=== PATIENT | female | born 1995 | race Caucasian/White ===

== ENCOUNTER → 2020-07-29 07:09 | Outpatient (CLI) | payer OTHER, SELFPAY ==
[2019-02-10 17:15] VITALS: BMI 23.6
[2020-07-29 10:06] LABS: Absolute Lymphocyte Count 2.16 X10^3/uL (0.83-4.51); Basophil# 0.03 X10^3/uL; Basophil% 0.5 % (0-1); Eosinophil# 0.01 X10^3/uL; Eosinophils% 0.2 % (0-5); Hemoglobin 13.1 g/dL (12.0-15.0); Lymphocyte # 2.16 X10^3/ul (4.0); Lymphocyte % 38.4 % (19-41); Mean Corp Hgb Conc 33.6 g/dL (32-36); Mean Corpuscular Hgb 29.8 pg (27.0-32.0); Mean Corpuscular Volume 88.8 fL (81-99); Mean Platelet Vol. 10.6 fl (6.2-12.0); Monocyte# 0.46 X10^3/uL; Monocyte% 8.2 % (0-10); NRBC Flagged by Analyzer 0 % (0-5); Neutrophil # 2.96 X10^3/uL (2.7-7.7); Neutrophil % 52.5 % (47-70); Platelet Count 263 K/mm3 (150-450); RBC Distribution Width CV 11.7 % (11.6-14.6); RBC Distribution Width SD 36.9 fl (35.1-43.9); Red Blood Count 4.39 M/mm3 (4.2-5.4); White Blood Count 5.6 K/mm3 (4.4-11.0)
[2020-07-29 10:25] LABS: ALB/GLOB Ratio 0.9 RATIO (0.9-2.4); AST(SGOT) 11 U/L (15-37); Alanine Aminotransfer ALT/SGPT 15 U/L (13-56); Albumin, Serum 3.5 g/dL (3.2-5.0); Alkaline Phosphatase 71 U/L (45-117); Anion Gap 5 (5-15); BUN 13 mg/dL (7-18); BUN/Creat Ratio 14.6 RATIO (10-20); Calcium,Total 8.8 mg/dL (8.5-10.1); Chloride 104 mmol/L (98-107); Cholesterol 252 mg/dL (200); Creatinine, Serum 0.89 mg/dL (0.55-1.02); EST Glomerular Filtration Rate 83 mL/min (>60); Est Glom Filt Rate - Afr Amer 100 mL/min (>60); Glucose 84 mg/dL (74-106); High Density Lipoprotein 86 mg/dL; Potassium 3.5 mmol/L (3.5-5.1); Protein, Total 7.5 g/dL (6.4-8.2); Sodium Level 137 mmol/L (136-145); Triglycerides 120 mg/dL; Very Low Density Lipoprotein 24 mg/dL (5-40)
== END ==
PROVIDERS: PCP Family Medicine; Referring Provider Family Medicine; Visit Provider Family Medicine
DX: Z00.00 Encounter for general adult medical examination without abnormal findings (principal); Z13.6 Encounter for screening for cardiovascular disorders; R23.8 Other skin changes; E78.5 Hyperlipidemia, unspecified
CPT/HCPCS: 36415; 80053; 80061; 85025

== ENCOUNTER → 2024-03-03 | Outpatient (CLI) | payer BC, SELFPAY ==
[2024-03-03 11:01] LABS: Erythrocyte Sedimentation Rate 6 mm/hr (0-30)
[2024-03-03 11:52] LABS: CRP < 2.90 mg/L (0.0-3.0); Ferritin 17 ng/mL (8-252); LDH 148 U/L (84-246)
[2024-03-07 11:09] LABS: ACCA 67 units (0-90); ALCA 22 units (0-60); AMCA 84 units (0-100); Albumin 4.2 g/dL (2.9-4.4); Alpha-1-Globulins 0.3 g/dL (0.0-0.4); Alpha-2-Globulins 0.8 g/dL (0.4-1.0); Angiotensin Convert Enzyme 39 U/L (14-82); Anti-Smooth Muscle ABS 4 Units (0-19); Cytoplasmic Ab (C-ANCA) <1:20 titer (Neg:<1:20); Endomysial Antibody IgA Negative (Negative); Gamma Globulin 1.2 g/dL (0.4-1.8); Immunoglobulin A 203 mg/dL (87-352); Immunoglobulin E 147 IU/mL (6-495); Immunoglobulin G 1079 mg/dL (586-1602); Immunoglobulin M 153 mg/dL (26-217); PROEL- TOTAL PROTEIN 7.5 g/dL (6.0-8.5); Perinuclear Ab (P-ANCA) <1:20 titer (Neg:<1:20); gASCA 19 units (0-50); t-Transglutaminase IgA <2 U/mL (0-3)
[2024-03-07 17:07] LABS: Anti-Centromere B Ab <0.2 AI (0.0-0.9); Anti-Chromatin <0.2 AI (0.0-0.9); Anti-Jo <0.2 AI (0.0-0.9); Anti-Mitochondrial AB <20.0 Units (0.0-20.0); Anti-Scleroderma-70 AB <0.2 AI (0.0-0.9); Anti-dsDNA Ab <1 IU/mL (0-9); Beef <0.10 kU/L (Class 0); Chocolate <0.10 kU/L (Class 0); Codfish <0.10 kU/L (Class 0); Corn <0.10 kU/L (Class 0); Egg, Whole <0.10 kU/L (Class 0); Milk (Cow) <0.10 kU/L (Class 0); Mussels <0.10 kU/L (Class 0); Peanut <0.10 kU/L (Class 0); Pork <0.10 kU/L (Class 0); RNP Ab <0.2 AI (0.0-0.9); SJOGREN'S Anti-SS-A test < 0.2 AI (0.0-0.9); SJOGREN'S Anti-SS-B test < 0.2 AI (0.0-0.9); Salmon <0.10 kU/L (Class 0); Shrimp <0.10 kU/L (Class 0); Smith Ab <0.2 AI (0.0-0.9); Soybean <0.10 kU/L (Class 0); Tuna <0.10 kU/L (Class 0); Wheat <0.10 kU/L (Class 0)
== END | disposition home or self-care (01) ==
PROVIDERS: PCP Internal Medicine; Referring Provider Student in an Organized Health Care Education/Training Program; Visit Provider Student in an Organized Health Care Education/Training Program
DX: K59.00 Constipation, unspecified (principal)
CPT/HCPCS: 36415; 82164; 82728; 82784; 82785; 83516; 83615; 84165; 85652; 86003; 86005; 86036; 86140; 86225; 86235; 86255; 86256; 86334; 86671

== ENCOUNTER → 2024-03-07 | Outpatient (CLI) | payer BC, SELFPAY ==
[2024-03-10 03:06] LABS: Pancreatic Elastase, Fecal > 800 (>200)
[2024-03-11 13:09] LABS: Calprotectin, Stool 20 ug/g (0-120)
== END | disposition home or self-care (01) ==
PROVIDERS: PCP Internal Medicine; Referring Provider Student in an Organized Health Care Education/Training Program; Visit Provider Student in an Organized Health Care Education/Training Program
DX: K59.00 Constipation, unspecified (principal); K58.9 Irritable bowel syndrome, unspecified
CPT/HCPCS: 82653; 83630; 83993; 87177; 87209; 87329; 87493; 87506

== ENCOUNTER → 2024-03-15 | Outpatient (CLI) | payer BC, SELFPAY ==
--- NOTE | 2024-03-15 09:26 | RAD_ITS ---
STUDY: X-RAY - ABDOMEN/PELVIS REASON FOR EXAM: Female, 29 years old. sitz marker TECHNIQUE: COMPARISON: None. FINDINGS: Normal visualized lung bases. There is an unremarkable bowel gas pattern. There are Sitz markers along the descending colon and sigmoid colon. There is no demonstrated free abdominal air. The visualized liver, spleen and kidneys are grossly normal in size and morphology. Normal soft tissue structures. Normal visualized osseous structures. RAD/Abdomen Single View IMPRESSION: There are Sitz markers along the descending colon and sigmoid colon. Electronically Signed: Omar Sanchez DO at 23:51 EDT ,
== END | disposition home or self-care (01) ==
LOC: RAD 09:25
PROVIDERS: PCP Internal Medicine; Referring Provider Student in an Organized Health Care Education/Training Program; Visit Provider Student in an Organized Health Care Education/Training Program
DX: K59.00 Constipation, unspecified (principal)
CPT/HCPCS: 74018

== ENCOUNTER → 2024-03-17 | Outpatient (CLI) | payer BC, SELFPAY ==
--- NOTE | 2024-03-17 10:05 | RAD_ITS ---
EXAM: XR ABDOMEN, 1 VIEW CLINICAL INDICATION: sitz marker TECHNIQUE: Frontal supine view of the abdomen/pelvis. COMPARISON: 03/15/2024 FINDINGS: GASTROINTESTINAL TRACT: The remaining Sitzmarks markers have migrated to the distal sigmoid colon and rectum since the prior examination. There are 14 markers present. Mild colorectal stool and gas. Non-obstructive. No bowel or stomach distention. ORGANS: Normal as visualized. No organomegaly. No abnormal calcifications. BONES/JOINTS: No acute pathology. SOFT TISSUES: No acute pathology. RAD/Abdomen Single View IMPRESSION: 1. The remaining Sitzmarks markers have migrated to the distal sigmoid colon and rectum since the prior examination. There are 14 markers present. 2. Mild colorectal stool and gas. Electronically Signed: Triston Martinez DO at 10:41 EDT ,
== END | disposition home or self-care (01) ==
LOC: RAD 10:03
PROVIDERS: PCP Internal Medicine; Visit Provider Student in an Organized Health Care Education/Training Program
DX: K59.00 Constipation, unspecified (principal)
CPT/HCPCS: 74018

== ENCOUNTER → 2024-03-28 | Outpatient (CLI) | payer BC, SELFPAY ==
--- NOTE | 2024-03-28 12:02 | NM_ITS ---
CLINICAL: 29-year-old female with history of chronic nausea and early satiety. SEMI-SOLID PHASE 99m Tc SULFUR COLLOID GASTRIC EMPTYING STUDY COMPARISON: None available FINDINGS: The patient was administered 1.2 mCi of 99m Tc sulfur colloid mixed with oatmeal and consumed per os. Image acquisitions in the anterior-posterior projections were obtained for 60 minutes. There is prompt visualization of the stomach. There is no gastroesophageal reflux identified. The T ? linear fit was calculated to be 42.05 minutes, (Normal: 12-56 minutes). NM/Gastric Emptying Study IMPRESSION: 1. NORMAL 99m Tc sulfur colloid semi-solid phase (oatmeal) gastric emptying imaging examination. A. There is normal and preserved semi-solid phase gastric emptying compared to normal controls. (Lalo et al, J Nucl Med Tech 38: 186, 2010). Electronically Signed: Josh Cuenca DO at 17:25 EDT ,
== END | disposition home or self-care (01) ==
LOC: NM 12:01
PROVIDERS: PCP Internal Medicine; Referring Provider Student in an Organized Health Care Education/Training Program; Visit Provider Student in an Organized Health Care Education/Training Program
DX: K59.00 Constipation, unspecified (principal)
CPT/HCPCS: 78264; A9541

== ENCOUNTER → 2024-10-22 | Outpatient (CLI) | payer BC, SELFPAY ==
--- NOTE | 2024-10-22 13:24 | MRI_ITS ---
EXAM: MRI of the pelvis without and with intravenous contrast. None available 10/22/2024 CLINICAL HISTORY: PELVIC PAIN. TECHNIQUE: Multiplanar, multisequence MRI images of the pelvis were obtained without and with intravenous contrast. 13 cc Clariscan IV contrast was administered. COMPARISON: None available. FINDINGS: Bones of the pelvis and the origins of the hamstring complexes are intact. The included bowel segments show no specific abnormality. The uterus is anteverted. A T-shaped intrauterine device is present in the uterine body, extending to the lower uterine segment. No discrete uterine myometrial or cervical mass is demonstrated. The ovaries are fairly symmetric in size, containing small follicles. No concerning adnexal mass. No pelvic mass or adenopathy. There is some thickening of the junctional zone of the anterior uterine fundus, which may represent localized areas of adenomyosis. MRI/Pelvis W/WO Contrast IMPRESSION: No acute findings in the pelvis. There appears to be some thickening of the junctional zone involving the anteri or fundal portion of the uterus, which may represent localized areas of adenomyosis. No discrete measurable uterine or ce rvical mass is demonstrated. Small bilateral ovarian follicles. No concerning adnexal mass. An intrauterine device is present in the uterine body/lower uterine segment. Reading Location: [facility]
== END | disposition home or self-care (01) ==
LOC: MRI 13:16
PROVIDERS: PCP Internal Medicine; Referring Provider Student in an Organized Health Care Education/Training Program; Visit Provider Student in an Organized Health Care Education/Training Program
DX: R10.2 Pelvic and perineal pain (principal); N80.03 Adenomyosis of the uterus; M62.89 Other specified disorders of muscle
CPT/HCPCS: 72197; A9575

== ENCOUNTER 2025-01-07 11:57 | Day surgery (SDC) | payer BC, SELFPAY ==
[2025-01-07] VITALS (8 sets, daily range): BP systolic 98–121; BP diastolic 52–82; PULSE 80–101; RESP 16–20; TEMP 36.4–36.9; O2SAT 100; BMI 23.4
[2025-01-07 12:18] LABS: Internal QC Validated? YES +Cl - CLEAR BKGD; Pregnancy, Urine Negative Negative; Record Kit Lot#,Urine Preg 947241
[2025-01-07] MEDS: Lactated Ringers 1,000 ML 15 ML IV (12:32)
--- NOTE | 2025-01-07 12:38 | PRE.ANES_ITS ---
ASA Classification* ASA Classification ASA Classification: 2 (IBS) Assessment & Plan Anesthesia* Anesthesia Assessment Anesthesia Assessment: Discussed sedation and/or anesthesia options, risks, benefits, and alternatives with patient/parents/legal guardian/POA. Questions invited. The patient/parents/legal guardian/POA seems to understand and agrees to proceed with anesthesia plan. Reviewed the physical assessment, medical history, allergy history and patient home medications list prior to surgery/procedure/anesthetic and documented any changes. Performed airway and anesthesia risk assessments. Anesthesia Type Anesthesia Type: MAC History Source History Obtained from:: Patient and Chart Anesthesia Focused Assessment* Temperature: 98.5 F Blood Pressure: 121/77 Respiratory Rate: 16 Airway Assessment Mouth opens: >3 cm Mallampati Score: II Teeth Condition: Intact Neck Range of motion (ROM): Full ROM Labs Anesthesia Preop lab: CBC WBC 5.6 K/mm3 (4.4-11.0) 07/29/20 07:14 07/29/20 RBC 4.39 M/mm3 (4.2-5.4) 07/29/20 07:14 07/29/20 Hgb 13.1 g/dL (12.0-15.0) 07/29/20 07:14 07/29/20 Hct 39.0 % (37-47) 07/29/20 07:14 07/29/20 Plt Count 263 K/mm3 (150-450) 07/29/20 07:14 07/29/20 CHEMISTRY Potassium 3.5 mmol/L (3.5-5.1) 07/29/20 07:14 07/29/20 Sodium 137 mmol/L (136-145) 07/29/20 07:14 07/29/20 BUN 13 mg/dL (7-18) 07/29/20 07:14 07/29/20 Creatinine 0.89 mg/dL (0.55-1.02) 07/29/20 07:14 07/29/20 Glucose 84 mg/dL (74-106) 07/29/20 07:14 07/29/20 COAG Urine Test Negative Negative 01/07/25 12:03 01/07/25 Pre-Assessment Diagnosis/Proposed Procedure Planned Operative Procedure(s): cscope Anesthesia History Anesthesia History - environmental compliance officer: Anesthesia History - environmental compliance officer Hx Hospitalization No 01/05/25 14:01 Any Problems With Anesthesia No 01/05/25 14:01 Cholinesterase deficiency No 01/05/25 14:01 You/Your Family Experience No 01/05/25 14:01 fever (hyperthermia) with Relationship Recent Exposure to Contagious Disease Does patient have nerve No 01/05/25 14:01 stimulator Patient instructed to have device shut off --Does patient have Pacemaker No 01/07/25 12:16 or ICD? When Was Last Pacemaker Check QUESTION #4 FULL TEXT: You/Your Family Experience fever (hyperthermia) with Anesthesia Last Oral Intake Last Oral intake: Last Oral Intake NPO since 16:30 01/07/25 12:16 Meds taken in AM with sips of Yes 01/07/25 12:16 water? Meds patient instructed to zoloft 01/07/25 12:16 take am of surgery PONV PONV - environmental compliance officer: PONV - environmental compliance officer Female Yes 01/05/25 14:01 HX of Motion Sickness Yes 01/05/25 14:01 HX of N/V After Surgery No 01/05/25 14:01 Non-Smoker Yes 01/05/25 14:01 Duration of Surgery greater No 01/05/25 14:01 than 60 minutes Number of Risk Factors 3 01/05/25 14:01 PONV Score Moderate Risk 01/05/25 14:01 Height & Weight Height & Weight: Anesthesia: Height & Weight Height 5 ft 5 in 01/07/25 12:16 Weight: 64 kg 01/07/25 12:16 Body Mass Index (BMI) 23.4 01/07/25 12:16 Respiratory Assessment Respiratory Assessment - environmental compliance officer: Respiratory Tract Infection Hx - environmental compliance officer Hx Respiratory Tract Infection No 01/05/25 14:01 STOP Sleep Apnea STOP Sleep Apnea - environmental compliance officer: STOP Sleep Apnea - environmental compliance officer Hx Hypertension No 01/05/25 14:01 Hx Sleep Apnea No 01/05/25 14:01 CPAP BIPAP Do you snore loudly (louder No 01/05/25 14:01 than talking or can be heard Do you often feel tired/ No 01/05/25 14:01 fatigued/ sleepy during daytime? Has anyone observed you stop No 01/05/25 14:01 breathing during sleep? STOP Results Negative 01/05/25 14:01 QUESTION #5 FULL TEXT : Do you snore loudly (louder than talking or can be heard through closed doors)? Tobacco Use History Tobacco Use History - environmental compliance officer: Tobacco Use History - environmental compliance officer Tobacco Use Smoking Status Never smoker 01/05/25 14:01 Hx Tobacco Use No 01/05/25 14:01 Years Smoking Packs Smoked per Day Smoking Cessation Date was within the last 15 years Hx Smoking Cessation Date Hx Smoking Cessation Counseling Hematologic Medial History Hematologic Hx - environmental compliance officer: Hematologic Medical Hx - deflash and wash operator Hx of Blood Transfusion No 01/05/25 14:01 Hx of Transfusion in last 3 No 01/05/25 14:01 Months Date of Last Transfusion (if within last 3 months) Ever experience any problems No 01/05/25 14:01 with transfusion(s)? Specify any problems Hx of Preganancy in last 3 N/A 01/05/25 14:01 Months Nurse Filling Out Transfusion NBUCHER 01/05/25 14:01 & Questions: Date: 01/05/25 01/05/25 14:01 Time: 14:02 01/05/25 14:01 Patient unable to answer at this time (ie. confused, unrespo /Reproduction History /Reproductive History - environmental compliance officer: /Reproductive Hx- environmental compliance officer Hx Now No 01/05/25 14:01 Gestational Age (in weeks): EDC: Hx Hx Para Hx Section SAB No 01/05/25 14:01 Active Medications Active Medications: Current Medications Generic Name Dose Route Start Last Admin Trade Name Freq PRN Reason Stop Dose Admin Lactated Ringer's 1,000 mls @ 15 mls/hr 01/07/25 12:15 01/07/25 12:32 IV 15 mls/hr .Q48H SACHA Administration PFSH Medical History Pyloric stenosis MRSA infection Anxiety Restless legs Leg cramps Non-smoker Irritable bowel syndrome without diarrhea Limb weakness Asthma Knee pain Home Medications ?Medication ?Instructions ?Recorded ?Last Taken ?Type sertraline 50 mg tablet (Zoloft) 50 mg PO DAILY Unknown History lisdexamfetamine 20 mg capsule 20 mg PO QDAY 08/13/24 Unknown History (Vyvanse) peg 3350-electrolytes 236 240 ml PO Q10M #4,000 mL 05/09 Unknown Rx gram-22.74 gram-6.74 gram-5.86 gram solution (Golytely) Allergy/AdvReac Type Severity Reaction Status Date / Time Penicillins Allergy Unknown other Verified 01/05/25 14:00 Surgical History (Updated 01/05/25 @ 14:08 by Malia Gutierrez) Hx of LASIK History of surgery Social History Smoking Status: Never smoker Review of Systems (Anesthesia) ROS Narrative System reviewed and no additional complaints, except as documented. Physical Exam Const alert, oriented x3 and average body habitus Resp normal respiratory effort, normal air movement and clear to auscultation bilaterally Cardio regular rate, regular rhythm, no murmurs and diaphoretic
--- NOTE | 2025-01-07 12:44 | PCM.HP.STD ---
HPI - General General Date of Admission: 01/07/25 Date of Service: 01/07/25 Chief Complaint: Abdominal pain and diarrhea HPI Narrative VAZQUEZ GARBER, is a 29 F who presents for colonoscopy. BGI established in February 2024 with constipation x1 year following gastroenteritis. Pt previously seeing GI at [facility] and trailed Des and Meghan. Biochemical work up CBC, CMP, IBD, Celiac, food allergen wnl GES; 42 minutes Sits marker test w/ slow transit constipation OBGYN; diagnosed with adenomyosis and had IUD placed. Completed pelvic floor therapy Last OV 3..25 Pt continued with Ibsrela 50 mg BID. Unsure if it is working. She has been doing a low fodmap diet. Onions seem to be a trigger. Plan to order MRI to rule out endometriosis of the bowel. MRI 4..25; No acute findings in the pelvis. There appears to be some thickening of the junctional zone involving the anterior fundal portion of the uterus, which may represent localized areas of adenomyosis. No discrete measurable uterine or cervical mass is demonstrated. Small bilateral ovarian follicles. No concerning adnexal mass. An intrauterine device is present in the uterine body/lower uterine segment. OV 4..25; Pt continues with Ibsrela once a day. She has a bm on most days that is loose. She has severe pain with bowel movements. [facility] Medical History Pyloric stenosis MRSA infection Anxiety Restless legs Leg cramps Non-smoker Irritable bowel syndrome without diarrhea Limb weakness Asthma Knee pain Home Medications ?Medication ?Instructions ?Recorded ?Last Taken ?Type sertraline 50 mg tablet (Zoloft) 50 mg PO DAILY 03/03/24 Unknown History lisdexamfetamine 20 mg capsule 20 mg PO QDAY 08/13/24 Unknown History (Vyvanse) peg 3350-electrolytes 236 240 ml PO Q10M #4,000 mL 12/23/24 Unknown Rx gram-22.74 gram-6.74 gram-5.86 gram solution (Golytely) Allergy/AdvReac Type Severity Reaction Status Date / Time Penicillins Allergy Unknown other Verified 01/05/25 14:00 Surgical History Hx of LASIK History of surgery Social History Smoking Status: Never smoker ROS Constitutional Constitutional: Denies fatigue, fever(s), poor appetite, weight gain or weight loss Gastrointestinal Gastrointestinal: Denies belching, bloating, change in bowel habits, change in stool character, chewing difficulty, coffee ground emesis, constipation, cramping, diarrhea, dyspepsia, dysphagia, early satiety, excessive flatus, fecal incontinence, heartburn, hematemesis, hematochezia, hemorrhoids, loose stools, melena, nausea, odynophagia, rectal bleeding, tenesmus, vomiting or weight changes Vital Signs Vital Signs Vital Signs: 01/07/25 12:16 01/07/25 12:39 Temperature 98.5 F 98.5 F Temperature Source Temporal Respiratory Rate 16 16 Blood Pressure 121/77 H 121/77 H Blood Pressure Mean 91 Blood Pressure Source Monitor Blood Pressure Position Sitting Blood Pressure Location Right Arm Weight Weight: 141 lb 1.533 oz Body Mass Index (BMI) 23.4 Physical Exam Const alert, oriented x3, no apparent distress and healthy appearing General Appearance: cooperative GI normal to inspection, nondistended, normoactive bowel sounds, soft to palpation, non-tender and non-distended Percussion: normal to percussion Rectal Exam: deferred Results Lab / Micro Data Labs: Laboratory Results - last 24 hr 01/07/25 12:03: Urine Test Negative Assessment & Plan Assessment/Plan (1) Irritable bowel syndrome with diarrhea: (2) Bloating: PLAN: Assessment and Plan Assessment and Plan (1) Bloating: Status: Acute Plan: This is a 29 yo female pt here today for f/u regarding her bloating, constipation, and abdominal pain. Pt has had chronic constipation over the past year since having gastroenteritis. She has been treated with Trulance, Linzess and Ibsrela. She has had the most relief with Ibsrela but has urgent and randomly loose stools. She has lubricating machine tender hx of adenomyosis which causes her pelvic pain during her periods and in during her bowel movements. MRI did not show any bowel etiology. SHe will undergo colonoscopy to rule out further etiology of chronic constipation. Pt has had bloating for some time now. Will treat with a course of Xifaxan for possible SIBO. She will also take a daily probiotic, fiber supplement and 64 oz of water daily. -Colonoscopy -Xifaxan -continue ibsrela -Start fiber and probiotic -64 oz of water daily (2) Irritable bowel syndrome with diarrhea: Status: Acute Medications: New rifaximin 550 mg PO TID 42 tabs 2RF 2 weeks K58.0 - Irritable bowel syndrome with diarrhea
--- NOTE | 2025-01-07 12:45 | COLBX_PTH ---
PATIENT: VAZQUEZ GARBER LOC: EN U#:[id number] AGE/SX: 29/F ROOM: RE01/07/[address]: Dr. Ralph Barrett DO : 1995 BED: DIS: 01/07/2025 SPEC #: [id number] RECD: 01/08/25 10:17 STATUS: KALYAN REHillary #: [id number] HARSHA: 01/07/25 12:[address]: Ralph Barrett DEPT: SURGICAL PATHOLOGY RECD BY: Rico Low ENTERED: 01/08/25 13:19 SP TYPE: COLON BX NIEVES DR: Dr. Madison Liao MD Tissues: A - Ileum, NOS B - COLON BIOPSY Procedures: Surgery Specimen Level IV HEADER OPERATION: Colonoscopy with biopsy PRE-OP DIAGNOSIS: Irritable bowel syndrome with diarrhea, bloating TISSUE SUBMITTED: A- Terminal ileum biopsy, B- Random colon biopsy MICROSCOPIC DIAGNOSIS A. Terminal ileum, biopsy: - no specific pathologic change. B. Colon, random biopsy: - no specific pathologic change. MICROSCOPIC DESCRIPTION Slides are reviewed. GROSS DESCRIPTION A. Received in fixative is one container labeled with the patient's name and designated Terminal ileum biopsy. The specimen consists of multiple irregular fragments of light villarreal soft tissue that in aggregate measure <0.1 to 0.6 cm. The specimen is totally submitted in one cassette. B. Received in fixative is one container labeled with the patient's name and designated Random colon biopsy. The specimen consists of multiple irregular fragments of light villarreal soft tissue that in aggregate measure 1.8 x 0.7 x 0.2 cm. The specimen is totally submitted in one cassette. Leonard 01/08/2025 CPT:72077v4
--- NOTE | 2025-01-07 14:02 | PCM.POST.ANE ---
Anesthesia: Postop Eval I Current Vital Signs Temperature: 97.5 F Pulse Rate: 101 Blood Pressure: 98/52 Respiratory Rate: 20 Pulse Ox: 100 Assessment Airway patent: Yes Spontaneous unlabored respirations: Yes nausea: No Vomiting: No Anesthesia Complication: No Fluid Hydration Crystalloid volume administer (ml): 300 Total IV fluid infused: 300 Progress Note Anesthesia document: Postop Eval 1 completed: Yes
--- NOTE | 2025-01-07 14:10 | OP.COLON_ITS ---
Patient Name: Lay Morales Procedure Date: 01/07/2025 12:41 PM Date of : 1995 Age: 29 Procedure: Colonoscopy Indications: Chronic diarrhea Providers: DO Nico Russ MD: Madison Liao Medicines: Monitored Anesthesia Care Patient Profile: This is a 29 year old female. Refer to note in patient chart for documentation of history and physical. Last Colonoscopy: none. The patient's first colonoscopy is today. Complications: No immediate complications. Procedure: Pre-Anesthesia Assessment: - Prior to the procedure, a History and Physical was performed, and patient medications and allergies were reviewed. The patient is competent. The risks and benefits of the procedure and the sedation options and risks were discussed with the patient. All questions were answered and informed consent was obtained. Patient identification and proposed procedure were verified by the physician in the pre-procedure area. Mental Status Examination: alert and oriented. Airway Examination: normal oropharyngeal airway and neck mobility. Respiratory Examination: clear to auscultation. CV Examination: normal. Prophylactic Antibiotics: The patient does not require prophylactic antibiotics. Prior Anticoagulants: The patient has taken no anticoagulant or antiplatelet agents. ASA Grade Assessment: II - A patient with mild systemic disease. After reviewing the risks and benefits, the patient was deemed in satisfactory condition to undergo the procedure. The anesthesia plan was to use monitored anesthesia care (MAC). Immediately prior to administration of medications, the patient was re-assessed for adequacy to receive sedatives. The heart rate, respiratory rate, oxygen saturations, blood pressure, adequacy of pulmonary ventilation, and response to care were monitored throughout the procedure. The physical status of the patient was re-assessed after the procedure. After I obtained informed consent, the scope was passed under direct vision. Throughout the procedure, the patient's blood pressure, pulse, and oxygen saturations were monitored continuously. The Colonoscope was introduced through the anus and advanced to the terminal ileum. Scope In: 1:34:47 PM Scope Withdrawal Time 0 hours 10 minutes 32 seconds Scope Out: 1:52:43 PM Total Procedure Duration Time 0 hours 17 minutes 56 seconds Findings: The perianal and digital rectal examinations were normal. An area of mildly congested mucosa was found in the descending colon, at the splenic flexure, in the transverse colon, at the hepatic flexure and in the ascending colon. Biopsies were taken with a cold forceps for histology. Verification of patient identification for the specimen was done. Estimated blood loss was minimal. A patchy area of the terminal ileum was congested. Biopsies were taken with a cold forceps for histology. Verification of patient identification for the specimen was done. Estimated blood loss was minimal. Impression: - Congested mucosa in the descending colon, at the splenic flexure, in the transverse colon, at the hepatic flexure and in the ascending colon. Biopsied. - Congested mucosa in the terminal ileum. Biopsied. Recommendation: - Discharge patient to home. - Resume previous diet. - Continue present medications. - Repeat colonoscopy for surveillance based on pathology results. Procedure Code(s): --- Professional --- 70869, Colonoscopy, flexible; with biopsy, single or multiple CPT copyright 2021 [employer]. All rights reserved. The codes documented in this report are preliminary and upon practicing md anesthesiologist review may be revised to meet current compliance requirements. Ralph Barrett DO 01/07/2025 2:09:59 PM This report has been signed electronically. Number of Addenda: 0 Note Initiated On: 01/07/2025 12:41 PM
--- NOTE | 2025-01-07 14:11 | OP.CCLET_ITS ---
01/07/2025 Madison Liao [address] [place] [address] Re : Colonoscopy procedure for [facility] Dear Dr. Liao This procedure was performed on Tuesday, January 07, 2025. My impressions and recommendations are as follows: Impressions : - Congested mucosa in the descending colon, at the splenic flexure, in the transverse colon, at the hepatic flexure and in the ascending colon. Biopsied. - Congested mucosa in the terminal ileum. Biopsied. Recommendations : - Discharge patient to home. - Resume previous diet. - Continue present medications. - Repeat colonoscopy for surveillance based on pathology results. My findings are described in the full procedure note, which is enclosed. If I can be of further assistance, please feel free to contact me at . Sincerely, Ralph Barrett, 01/07/2025 2:09:59 PM This report has been signed electronically.
--- NOTE | 2025-01-07 14:57 | POSTOPAN2_ITS ---
Anesthesia Postop Eval I Sum Postop Eval Completion status Anesthesia document: Postop Eval 1 completed: Yes Anesthesia Postop Eval I Summary Anesthesia Postop Eval I Summary: Anesthesia Postop Eval I: Assessment Summary Airway patent Yes 01/07/25 14:02 TRAILER CHIEF.CSIR Spontaneous unlabored Yes 01/07/25 14:02 TRAILER CHIEF.CSIR respirations Mental status nausea No 01/07/25 14:02 TRAILER CHIEF.CSIR Vomiting No 01/07/25 14:02 TRAILER CHIEF.CSIR Anesthesia Postop Eval I: Fluid Summary Crystalloid volume administer 300 01/07/25 14:02 TRAILER CHIEF.CSIR (ml) Colloids volume administered ( ml) Blood Product volume administered (ml) Total IV fluid infused 300 01/07/25 14:02 TRAILER CHIEF.CSIR Anesthesia Postop Eval I: Summary Notes Anesthesia Complication No 01/07/25 14:02 TRAILER CHIEF.CSIR Anesthesia Complication Comment: Post-operative progress note Anesthesia: Postop Eval II Evaluation Mental status: Awake Pain Level: 0 nausea: No Vomiting: No Complications Anesthesia Complication: No
--- NOTE | 2025-01-07 14:57 | PCM.POSTANE2 ---
Anesthesia Postop Eval I Sum Postop Eval Completion status Anesthesia document: Postop Eval 1 completed: Yes Anesthesia Postop Eval I Summary Anesthesia Postop Eval I Summary: Anesthesia Postop Eval I: Assessment Summary Airway patent Yes 01/07/25 14:02 AUTO WHEEL ALIGNMENT SPECIALIST.CSIR Spontaneous unlabored Yes 01/07/25 14:02 AUTO WHEEL ALIGNMENT SPECIALIST.CSIR respirations Mental status nausea No 01/07/25 14:02 AUTO WHEEL ALIGNMENT SPECIALIST.CSIR Vomiting No 01/07/25 14:02 AUTO WHEEL ALIGNMENT SPECIALIST.CSIR Anesthesia Postop Eval I: Fluid Summary Crystalloid volume administer 300 01/07/25 14:02 AUTO WHEEL ALIGNMENT SPECIALIST.CSIR (ml) Colloids volume administered ( ml) Blood Product volume administered (ml) Total IV fluid infused 300 01/07/25 14:02 AUTO WHEEL ALIGNMENT SPECIALIST.CSIR Anesthesia Postop Eval I: Summary Notes Anesthesia Complication No 01/07/25 14:02 AUTO WHEEL ALIGNMENT SPECIALIST.CSIR Anesthesia Complication Comment: Post-operative progress note Anesthesia: Postop Eval II Evaluation Mental status: Awake Pain Level: 0 nausea: No Vomiting: No Complications Anesthesia Complication: No
--- OUTSIDE RECORDS SUMMARY | 2025-01-07 21:53 | XMS RPT_ITS | CCD ---
Author Organization [facility]ini[facility] Care Team Providers [employer] Floorperson Name Role Phone Kvng Hurd MD Primary Care Provider Kvng Hurd MD Primary Care Provider Nash SENIOR TECHNICAL MANAGER.CLINICAL MENTAL HEALTH COUNSELOR, Sanjuanita Unavailable Yahaira SENIOR TECHNICAL MANAGER.SOFTWARE PERFORMANCE ENGINEER Maria Guadalupe Unavailable Yahaira SENIOR TECHNICAL MANAGER.Maria Guadalupe TAVERA Mona Unavailable JENNIFER SERRANO Attending Unavailable VICKEY, KVNG D Primary Care Unavailable MARCO, FABIOLA Referring Unavailable JENNIFER SERRANO Attending Unavailable TALAMPAS, KVNG D Primary Care Unavailable , FABIOLA Referring Unavailable JENNIFER SERRANO Attending Unavailable TALAMPLUDWIG, KVNG D Primary Care Unavailable , FABIOLA Referring Unavailable FABIOLA DEVLIN Attending Unavailable TALAMPLUDWIG, KVNG D Primary Care Unavailable QUITA FABIOLA Attending Unavailable TALAMPAS, KVNG D Primary Care Unavailable JENNIFER SERRANO Attending Unavailable TALAMPAS, KVNG D Primary Care Unavailable , FABIOLA Referring Unavailable JENNIFER SERRANO Attending Unavailable TALAMPAS, KVNG D Primary Care Unavailable , FABIOLA Referring Unavailable Yahaira SENIOR TECHNICAL MANAGER.AYSE Maria Guadalupe Unavailable Dr. Kvng Hurd MD Primary Care Provider Dr. Kvng Hurd MD Referring Provider Stefanie Florez Attending Provider Stefanie Florez Referring Provider Yahaira SENIOR TECHNICAL MANAGER.AYSE Maria Guadalupe Unavailable KVNG HURD Primary Care Unavailable VICKEY KVNG D Referring Unavailable JAQUI VELASQUEZ Attending Unavaila ble TALAMPAS, KVNG D Primary Care Unavailable NASH, SANJUANITA Referring Unavailable NASH, SANJUANITA Attending Unavailable TALAMPAS, KVNG D Primary Care Unavailable TALAMPAS, KVNG D Referring Unavailable JOSIAS BOWMAYCO, JAQUI Kearney Attending Unavaila ble TALAMPAS, KVNG D Primary Care Unavailable FABIOLA COSTA Referring Unavailable TALAMPAS, KVNG D Primary Care Unavailable NASH, SAJNUANITA Attending Unavailable TALAMPAS, KVNG D Primary Care Unavailable NASH, SANJUANITA Referring Unavailable TALAMPAS, KVNG D Primary Care Unavailable TALAMPAS, KVNG D Attending Unavailable TALAMPAS, KVNG D Primary Care Unavailable JOSIAS BOWJAQUI MAO Referring Unavaila ble JOSIAS BOWLING, JAQUI Kearney Attending Unavaila ble TALAMPAS, KVNG D Primary Care Unavailable JOSIAS BOWLINGJAQUI Referring Unavaila ble JOSIAS BOWLING, JAQUI Kearney Attending Unavaila ble TALAMPAS, KVNG D Primary Care Unavailable FABIOLA COSTA Attending Unavailable TALAMPAS, KVNG D Primary Care Unavailable TALAMPAS, KVNG D Referring Unavailable JOSIAS BOWJAQUI MAO Attending Unavaila ble TALAMPAS, KVNG D Primary Care Unavailable NASH, SANJUANITA Attending Unavailable TALAMPAS, KVNG D Primary Care Unavailable TALAMPAS, KVNG D Attending Unavailable TALAMPAS, KVNG D Primary Care Unavailable FABIOLA COSTA Referring Unavailable FABIOLA Attending Unavailable TALAMPAS, KVNG D Primary Care Unavailable FABIOLA COSTA Attending Unavailable TALAMPAS, KVNG D Primary Care Unavailable TALAMPAS, KVNG D Referring Unavailable JOSIAS JAQUI LAURA Attending Unavaila ble TALAMPAS, KVNG D Primary Care Unavailable NAHS, SANJUANITA Attending Unavailable TALAMPAS, KVNG D Primary Care Unavailable TALAMPAS, KVNG D Referring Unavailable JOSIAS BOWLING, JAQUI Kearney Attending Unavaila ble TALAMPAS, KVNG D Primary Care Unavailable TALAMPAS, KVNG D Referring Unavailable JOSIAS BOWJAQUI MAO Attending Unavaila ble TALAMPAS, KVNG D Primary Care Unavailable TALAMPAS, KVNG D Attending Unavailable TALAMPAS, KVNG D Primary Care Unavailable TALAMPAS, KVNG D Referring Unavailable JOSIAS BOWJAQUI MAO Attending Unavaila ble TALAMPAS, KVNG D Primary Care Unavailable FABIOLA COSTA Attending Unavailable TALAMPAS, KVNG D Primary Care Unavailable JAQUI VELASQUEZ Attending Unavaila ble TALAMPAS, KVNG D Primary Care Unavailable JAQUI VELASQUEZ Referring Unavaila ble JOSIAS JAQUI LAURA Attending Unavaila ble TALAMPAS, KVNG D Primary Care Unavailable NASH, SANJUANITA Referring Unavailable TALAMPAS, KVNG D Primary Care Unavailable TALAMPAS, KVNG D Referring Unavailable JOSIASJAQUI MACKAY Attending Unavaila ble TALAMPAS, KVNG D Primary Care Unavailable JOSIASJAQUI MACKAY Attending Unavaila ble TALAMPAS, KVNG D Primary Care Unavailable JAQUI VELASQUEZ Referring Unavaila ble JOSIAS JAQUI LAURA Attending Unavaila ble TALAMPAS, KVNG D Primary Care Unavailable JOSIASJAQUI MACKAY Attending Unavaila ble TALAMPAS, KVNG D Primary Care Unavailable TALAMPAS, KVNG D Referring Unavailable JOSIAS JAQUI LAURA Attending Unavaila ble Nash SENIOR TECHNICAL MANAGER.CLINICAL MENTAL HEALTH COUNSELOR, Sanjuanita Unavailable [phone] Stefanie Jules Attending Unavailable Stefanie Jules Referring Unavailable Talampas, Kvng D Primary Care Unavailable Stefanie Jules Attending Unavailable Talampas, Kvng D Primary Care Unavailable Stfeanie Jules Attending Unavailable Talampas, Kvng D Primary Care Unavailable Stefanie Jules Referring Unavailable Ralph Barrett Attending Unavailable Talampas, Kvng D Referring Unavailable Talampas, Kvng D Primary Care Unavailable Talampas, Kvng D Primary Care Unavailable Stefanie Jules Referring Unavailable Stefanie Jules Attending Unavailable Stefanie Jules Attending Unavailable DawsonnasStefanie eddy Referring Unavailable Talampas, Kvng D Primary Care Unavailable Stefanie Jules Attending Unavailable Talampas, Kvng D Referring Unavailable Stefanie Jules Attending Unavailable Iker, Jonathan Primary Care Unavailable IkerJonathan Referring Unavailable Talampas, Kvng D Primary Care Unavailable Stefanie Jules Attending Unavailable Iker, Jonathan Referring Unavailable Talampas, Kvng D Primary Care Unavailable Stefanie Jules Attending Unavailable Talampas, Kvng D Referring Unavailable Talampas, Kvng D Primary Care Unavailable Stefanie Jules Attending Unavailable Talampas, Kvng D Referring Unavailable AtaStefanie glynn Attending Unavailable Stefanie Jules Referring Unavailable Kvng Hurd Primary Care Unavailable Vickey HOWELL, Dr. Kvng Esqueda Primary Care Provider Dr. Kvng Hurd MD Referring Provider [phone] Stefanie Florez Attending Provider [phone] Ralph BOWDEN Attending Provider Friend Dr. Ralph BOWDEN Other Provider [phone] Allergies Allergy Classification Reported Allergen(s) Allergy Type Date of Onset Reaction(s) Facility (20 sources) Penicillins; Translations: [PENICILLINS] Drug Allergy 7 Other: See Comments, Unknown [facility] Work Phone: (3 sources) Penicillins Drug Allergy 7 Unknown [facility] Work Phone: (2 sources) Penicillins Allergy to substance [address] [facility] (1 source) Penicillins Drug allergy (disorder) 5 [facility] Repository Medications Current Medications Medication Drug Class(es) Dates Sig (Normalized) Sig (Original) levonorgestrel 0.543765 mg/hr intrauterine system (20 sources) Progestin, Progestin-containi ng Intrauterine Device Start: 05-13-2024 End: 05-11-2032 levonorgestrel (MIRENA) 21 mcg/24hr (up to 8 yrs) 52 mg IUD 1 Each by INTRAUTERINE route as directed. 1 Each 05/13/2024 05/11/2032 Active Start: 05-13-2024 End: 05-13-2024 1 Each, INTRAUTERINE, ONCE ( UP TO 30 DAYS AMB), 1 dose, On Sun05/13/24 at 0830, Hazardous Potential Reproductive Risk Drug: Use appropriate PPE. lisdexamfetamine dimesylate 20 mg oral capsule (20 sources) Central Nervous System Stimulant Start: 11-07-2024 End: 01-16-2025 take 1 capsule by mouth once daily lisdexamfetamine (VYVANSE) 20 mg capsule Indications: Attention deficit hyperactivity disorder, combined type Take 1 capsule by mouth once daily for 30 days. 30 capsule 12/17/2024 01/16/2025 Active Start: 11-07-2024 End: 09-09-2024 take 1 capsule by mouth once daily lisdexamfetamine (VYVANSE) 20 mg capsule Indications: Attention deficit hyperactivity disorder, combined type Take 1 capsule by mouth once daily for 30 days. Patient should start on November 07, 2024. 30 capsule 11/07/2024 09/09/2024 Discontinued Start: 11-07-2024 End: 12-07-2024 take 1 capsule by mouth once daily lisdexamfetamine (VYVANSE) 20 mg capsule Indications: Attention deficit hyperactivity disorder, combined type Take 1 capsule by mouth once daily for 30 days. Patient should start on November 07, 2024. 30 capsule 11/07/2024 12/07/2024 Active Start: 11-07-2024 End: 09-09-2024 take 1 capsule by mouth once daily lisdexamfetamine (VYVANSE) 20 mg capsule Indications: Attention deficit hyperactivity disorder, combined type Take 1 capsule by mouth once daily for 30 days. Patient should start on November 07, 2024. 30 capsule 11/07/2024 09/09/2024 Discontinued Start: 10-08-2024 End: 11-07-2024 take 1 capsule by mouth once daily lisdexamfetamine (VYVANSE) 20 mg capsule Indications: Attention deficit hyperactivity disorder, combined type Take 1 capsule by mouth once daily for 30 days. Patient should start on October 08, 2024. 30 capsule 10/08/2024 Active Start: 10-08-2024 End: 09-09-2024 take 1 capsule by mouth once daily lisdexamfetamine (VYVANSE) 20 mg capsule Indications: Attention deficit hyperactivity disorder, combined type Take 1 capsule by mouth once daily for 30 days. Patient should start on October 08, 2024. 30 capsule 10/08/2024 09/09/2024 Discontinued Start: 10-08-2024 End: 11-07-2024 take 1 capsule by mouth once daily lisdexamfetamine (VYVANSE) 20 mg capsule Indications: Attention deficit hyperactivity disorder, combined type Take 1 capsule by mouth once daily for 30 days. Patient should start on October 08, 2024. 30 capsule 10/08/2024 11/07/2024 Active Start: 10-08-2024 End: 09-09-2024 take 1 capsule by mouth once daily lisdexamfetamine (VYVANSE) 20 mg capsule Indications: Attention deficit hyperactivity disorder, combined type Take 1 capsule by mouth once daily for 30 days. Patient should start on October 08, 2024. 30 capsule 10/08/2024 09/09/2024 Discontinued Start: 07-22-2024 End: 06-09-2024 lisdexamfetamine (VYVANSE) 3 0 mg capsule Indications: Attention deficit hyperactivity disorder, combined type Take 1 capsule by mouth once daily for 30 days. Patient should start on July 22, 2024. 30 capsule 07/22/2024 06/09/2024 Discontinued Start: 06-22-2024 End: 06-09-2024 lisdexamfetamine (VYVANSE) 3 0 mg capsule Indications: Attention deficit hyperactivity disorder, combined type Take 1 capsule by mouth once daily for 30 days. Patient should start on June 22, 2024. 30 capsule 06/22/2024 06/09/2024 Discontinued Start: 06-09-2024 End: 12-07-2024 take 1 capsule by mouth once daily Lisdexamfetamine (Vyvanse) 20 mg capsule Active 20 mg PO daily August 13, 2024 1:00am Start: 05-01-2024 End: 08-21-2024 take 1 capsule by mouth once daily lisdexamfetamine (VYVANSE) 30 mg capsule Indications: Attention deficit hyperactivity disorder, combined type Take 1 capsule by mouth once daily for 30 days. 30 capsule 05/23/2024 06/09/2024 Discontinued Start: 09-15-2023 End: 12-26-2023 lisdexamfetamine (VYVANSE) 3 0 mg capsule Indications: Attention deficit hyperactivity disorder, combined type Take 1 capsule by mouth once daily for 30 days. Do not start before September 15, 2023. 30 capsule 0 09/15/2023 12/26/2023 Discontinued (Cost of medication) Start: 09-13-2023 End: 08-15-2023 take 1 capsule by mouth once daily lisdexamfetamine (VYVANSE) 30 mg capsule Indications: Attention deficit hyperactivity disorder, combined type Take 1 capsule by mouth once daily for 30 days. Do not start before September 13, 2023. 30 capsule 0 09/13/2023 08/15/2023 Discontinued Start: 07-14-2023 End: 10-12-2023 take 1 capsule by mouth once daily lisdexamfetamine (VYVANSE) 40 mg capsule Indications: Attention deficit hyperactivity disorder, combined type Take 1 capsule by mouth once daily for 30 days. Do not start before September 12, 2023. 30 capsule 0 09/12/2023 10/12/2023 Active Start: 05-09-2023 End: 12-26-2023 take 1 capsule by mouth once daily lisdexamfetamine (VYVANSE) 30 mg capsule Indications: Attention deficit hyperactivity disorder, combined type Take 1 capsule by mouth once daily for 30 days. 30 capsule 0 08/16/2023 12/26/2023 Discontinued Start: 03-02-2023 End: 03-01-2023 take 1 capsule by mouth once daily lisdexamfetamine (VYVANSE) 40 mg capsule Indications: Attention deficit hyperactivity disorder, combined type Take 1 capsule by mouth once daily for 30 days. Do not start before March 02, 2023. 30 capsule 0 03/02/2023 03/01/2023 Discontinued Start: 03-02-2023 End: 05-01-2023 take 1 capsule by mouth once daily lisdexamfetamine (VYVANSE) 30 mg capsule Indications: Attention deficit hyperactivity disorder, combined type Take 1 capsule by mouth once daily for 30 days. Do not start before April 01, 2023. 30 capsule 04/01/2023 04/26/2023 Discontinued Start: 03-23-2022 End: 06-25-2023 take 1 capsule by mouth once daily lisdexamfetamine (VYVANSE) 40 mg capsule Indications: Attention deficit hyperactivity disorder, combined type Take 1 capsule by mouth once daily for 30 days. Do not start before January 01, 2023. 30 capsule 01/01/2023 06/25/2023 Discontinued Start: 01-10-2022 End: 03-06-2022 take 1 capsule by mouth once daily VYVANSE 40 mg capsule Indications: Attention deficit hyperactivity disorder (ADHD), unspecified ADHD type Take 1 capsule by mouth once daily for 30 days. 30 capsule 0 02/03/2022 03/06/2022 Discontinued Comment on above: Take 1 capsule by mo uth once daily for 30 days. Take 40 mg by mouth once daily. Take 1 capsule by mo uth once daily for 30 days. Do not start before March 23, 2022. Take 1 capsule by mo uth once daily for 30 days. Do not start before April 22, 2022. Take 1 capsule by mo uth once daily for 30 days. Do not start before July 28, 2022. Take 1 capsule by mo uth once daily for 30 days. Do not start before June 28, 2022. Take 1 capsule by mo uth once daily for 30 days. Do not start before August 27, 2022. Take 1 capsule by mo uth once daily for 30 days. Do not start before September 26, 2022. Take 1 capsule by mo uth once daily for 30 days. Do not start before October 26, 2022. Take 1 capsule by mo uth once daily for 30 days. Do not start before November 25, 2022. Take 1 capsule by mo uth once daily for 30 days. Do not start before March 02, 2023. Take 1 capsule by mo uth once daily for 30 days. Do not start before January 31, 2023. Take 1 capsule by mo uth once daily for 30 days. Do not start before January 01, 2023. Take 1 capsule by mo uth once daily for 30 days. Do not start before April 01, 2023. Take 1 capsule by mo uth once daily for 30 days. Do not start before May 09, 2023. Take 1 capsule by mo uth once daily for 30 days. Do not start before June 08, 2023. Take 1 capsule by mo uth once daily for 30 days. Do not start before July 14, 2023. Take 1 capsule by mo uth once daily for 30 days. Do not start before August 13, 2023. Take 1 capsule by mo uth once daily for 30 days. Do not start before September 12, 2023. Take 1 capsule by mo uth once daily for 30 days. Do not start before September 13, 2023. Take 1 capsule by mo uth once daily for 30 days. Do not start before September 15, 2023. Take 1 capsule by mo uth once daily for 30 days. Do not start before July 15, 2023. Take 1 capsule by mo uth once daily for 30 days. Do not start before August 14, 2023. polyethylene glycol 3350 608935 mg / potassium chloride 2970 mg / sodium bicarbonate 6740 mg / sodium chloride 5860 mg / sodium sulfate 37923 mg powder for oral solution (9 sources) Osmotic Laxative Start: 12-23-2024 Peg 3350-Electrolytes (Golytely) 236-22.74-6.74 -5.86 gram recon soln Active 240 mL PO Q10M 3999December 23, 2024 12:00am until fecal effluent is clear Start: 01-23-2024 End: 05-05-2024 peg 3350-Electrolytes (GOLYT TYRESE) 236-22.74-6.74 -5.86 gram suspension Refer to printed patient instructions that will be mailed to you. 4000 mL 01/23/2024 05/05/2024 Discontinued (Course of therapy completed) sertraline 50 mg oral tablet (20 sources) Serotonin Reuptake Inhibitor Start: 05-23-2024 End: 09-08-2024 take 1 tablet by mouth once daily sertraline (ZOLOFT) 25 mg tablet Indications: Anxiety Take 1 tablet by mouth once daily. 30 tablet 11 05/23/2024 09/08/2024 Discontinued Start: 12-18-2022 End: 06-25-2023 take 1 tablet by mouth once daily sertraline (ZOLOFT) 25 mg tablet Take 1 tablet by mouth once daily. Take this in addition to 50 mg for a total of 75 mg daily 30 tablet 11 12/18/2022 06/25/2023 Discontinued Start: 03-06-2022 End: 05-23-2024 take 1 tablet by mouth once daily sertraline (ZOLOFT) 50 mg tablet Take 1 tablet by mouth once daily. 30 tablet 3 09/08/2024 Active Start: 02-03-2022 End: 03-06-2022 take 1 tablet by mouth once daily, then take 2 tablets by mouth once daily sertraline (ZOLOFT) 25 mg tablet Indications: Anxiety Take 1 tablet by mouth once daily. For 2 weeks. After 2 weeks increase to 2 tabs daily. 60 tablet 11 02/03/2022 03/06/2022 Discontinued Comment on above: Take 1 tablet by [facility] once daily. For 2 weeks. After 2 weeks increase to 2 tabs daily. Take 1 tablet by keith th once daily. Take 1 tablet by keith th once daily. DOSE CHANGE: TAKE ONE DAILY Take 1 tablet by keith th once daily. Take this in addition to 50 mg for a total of 75 mg daily tenapanor 50 mg oral tablet (7 sources) Start: 08-26-2024 take 1 tablet by mouth twice daily IBSRELA 50 mg tablet Take 50 mg by mouth two times a day. 08/26/2024 Active Completed/Discontinued Medications Medication Drug Class(es) Dates Sig (Normalized) Sig (Original) 24 hr desvenlafaxine succinate 25 mg extended release oral tablet (4 sources) Serotonin and Norepinephrine Reuptake Inhibitor Start: 02-03-2022 End: 03-06-2022 take 1 tablet by mouth once daily desvenlafaxine ER (PRISTIQ) 25 mg 24 hr tablet Indications: Anxiety Take 1 tablet by mouth once daily. 0 02/03/2022 03/06/2022 Discontinued Start: 06-22-2021 End: 02-03-2022 desvenlafaxine ER (PRISTIQ) 50 mg 24 hr tablet Comment on above: Take 1 tablet by keith th once daily. dicyclomine hydrochloride 10 mg oral capsule (13 sources) Anticholinergic Start: 03-03-20 End: 08-13-19 take 1 capsule by mouth twice daily Dicyclomine 10 mg capsule Discontinued 10 mg PO TWICE A DAY March 03, 2024 12:00am August 13, 2024 9:31am Start: 06-25-2023 End: 02-13-2024 take 1 capsule by mouth every eight hours as needed dicyclomine (BENTYL) 10 mg capsule Take 1 capsule by mouth three times a day as needed. 90 capsule 2 11/15/2023 01/27/2024 Discontinued (Lack of Efficacy) Comment on above: Take 1 capsule by mo ut before meals and at bedtime. As needed docusate sodium 100 mg oral capsule (16 sources) Start: 3 End: take 1 capsule by mouth every twelve hours as needed docusate sodium (COLACE) 100 mg capsule Take 1 capsule by mouth twice daily as needed for constipation. 12/18/2022 01/27/2024 Discontinued (Lack of Efficacy) Comment on above: Take 1 capsule by mo [facility] twice daily as needed for constipation. drospirenone / Ethinyl Estradiol (1 source) Progestin, Estrogen Start: 1 End: 2 take 1 tablet by mouth once daily Drospirenone-Ethinyl Estradiol (DARCI, 28,) 3-0.02 mg per tablet Take 1 tablet by mouth once daily. 1 Package 11 10/06/2020 02/03/2022 Discontinued Comment on above: Take 1 tablet by [facility] once daily. enteric contrast (will be provided with radiology test) (3 sources) Start: 3 End: 3 enteric contrast (will be provided with radiology test) For CT CHESTABD/PEL W IVCON Routine order Administer, As Directed One Time Only, via Oral, Rectal, both Oral and Rectal, Enteric Tube, Stoma or Indwelling Catheter, Enteric Contrast as designated per enteric contrast guidelines 1 Each 0 06/04/2023 06/05/2023 Start: 06-04-2023 End: 06-05-2023 enteric contrast (will be pr ovided with radiology test) For CT CHESTABD/PEL W IVCON Routine order Administer, As Directed One Time Only, via Oral, Rectal, both Oral and Rectal, Enteric Tube, Stoma or Indwelling Catheter, Enteric Contrast as designated per enteric contrast guidelines 1 Each 0 06/04/2023 06/05/2023 Active Start: 06-04-2023 End: 06-04-2023 enteric contrast (will be pr ovided with radiology test) For CT CHESTABD/PEL W IVCON Routine order Administer, As Directed One Time Only, via Oral, Rectal, both Oral and Rectal, Enteric Tube, Stoma or Indwelling Catheter, Enteric Contrast as designated per enteric contrast guidelines 1 Each 0 06/04/2023 06/04/2023 Discontinued Comment on above: For CT CHESTABD/PEL W IVCON Routine order Administer, As Directed One Time Only, via Oral, Rectal, both Oral and Rectal, Enteric Tube, Stoma or Indwelling Catheter, Enteric Contrast as designated per enteric contrast guidelines escitalopram 10 mg oral tablet (2 sources) Serotonin Reuptake Inhibitor Start: 02-11-20 End: 03-03-20 24 take 1 tablet by mouth once daily Escitalopram Oxalate (Lexapro) 10 mg tablet Discontinued 10 mg PO DAILY 2019 12:00am March 03, 2024 9:37am iv contrast (will be provided with radiology test) (3 sources) Start: 06-04-20 End: 06-05-20 iv contrast (will be provided with radiology test) CT Chest ABD/PEL-Inject, intravenously, once for 1 dose.No IV access, insert saline lock prior to the beginning of sedation, infusion, injection of imaging exam. Discontinue saline lock post exam. If Pt. has a central line or IVAD, may access for administration according to line specific nursing protocol. Once exam is complete flush line and de-access according to line specific nursing protocol in the CT contrast administration guidelines link. 1 Each 0 06/04/2023 06/05/2023 Start: 06-04-2023 End: 06-05-2023 iv contrast (will be provide d with radiology test) CT Chest ABD/PEL-Inject, intravenously, once for 1 dose.No IV access, insert saline lock prior to the beginning of sedation, infusion, injection of imaging exam. Discontinue saline lock post exam. If Pt. has a central line or IVAD, may access for administration according to line specific nursing protocol. Once exam is complete flush line and de-access according to line specific nursing protocol in the CT contrast administration guidelines link. 1 Each 0 06/04/2023 06/05/2023 Active Start: 06-04-2023 End: 06-04-2023 iv contrast (will be provide d with radiology test) CT Chest ABD/PEL-Inject, intravenously, once for 1 dose.No IV access, insert saline lock prior to the beginning of sedation, infusion, injection of imaging exam. Discontinue saline lock post exam. If Pt. has a central line or IVAD, may access for administration according to line specific nursing protocol. Once exam is complete flush line and de-access according to line specific nursing protocol in the CT contrast administration guidelines link. 1 Each 0 06/04/2023 06/04/2023 Discontinued Comment on above: CT Chest ABD/PEL-Inj ect, intravenously, once for 1 dose.No IV access, insert saline lock prior to the beginning of sedation, infusion, injection of imaging exam. Discontinue saline lock post exam. If Pt. has a central line or IVAD, may access for administration according to line specific nursing protocol. Once exam is complete flush line and de-access according to line specific nursing protocol in the CT contrast administration guidelines link. lactobacillus acidophilus [id number] unt oral capsule (10 sources) End: Lactobacillus acidophilus (PROBIOTIC) 10 billion cell cap Take by mouth. 08/27/2023 Discontinued Comment on above: Take by mouth. linaclotide 0.072 mg oral capsule (2 sources) Guanylate Cyclase-C Agonist Start: End: take 1 capsule by mouth once daily in the morning linaCLOtide (LINZESS) 72 mcg capsule Take 1 capsule by mouth every morning. 30 capsule 2 10/23/2023 01/23/2024 Discontinued loperamide hydrochloride 2 mg oral tablet (12 sources) Opioid Agonist Start: End: take 1 tablet by mouth once as needed loperamide HCl (IMODIUM A-D) 2 mg tab Indications: Diarrhea, unspecified type Take 1 tablet by mouth as needed (Take according to package directions). 24 tablet 1 06/04/2023 01/27/2024 Discontinued (Lack of Efficacy) Comment on above: Take 1 tablet by keith as needed (Take according to package directions). metoclopramide 5 mg oral tablet (15 sources) Dopamine-2 Receptor Antagonist Start: End: take 1 tablet by mouth twice daily 30 minutes before mealtime Metoclopramide Hcl 5 mg tablet Discontinued 5 mg PO TWICE A DAY April 15, 2024 12:00am August 13, 2024 9:31am administer 30 minutes before meals Multivitamin capsule (15 sources) End: take 1 capsule by mouth once daily Multivitamin capsule Take 1 capsule by mouth once daily. 01/27/2024 Discontinued (Discontinued by Patient) End: 01-27-2024 take 1 capsule by mouth once daily Multivitamin capsule Take 1 capsule by mouth once daily. 0 01/27/2024 Discontinued (Discontinued by Patient) take 1 capsule by mo uth once daily Multivitamin capsule Take 1 capsule by mouth once daily. 0 Active Comment on above: Take 1 capsule by mo ut once daily. ondansetron 4 mg oral tablet (20 sources) Serotonin-3 Receptor Antagonist Start: 4 End: take 1 tablet by mouth every eight hours as needed Ondansetron Hcl 4 mg tablet Discontinued 4 mg PO Q8H as needed March 03, 2024 12:00am August 13, 2024 9:31am Start: 06-04-2023 End: 05-05-2024 take 1 tablet by mouth every six hours as needed for nausea and nausea ondansetron orally disintegrating (ZOFRAN ODT) 4 mg disintegrating tablet Indications: Nausea Take 1 tablet by mouth every 6 hours as needed for nausea/vomiting. 30 tablet 3 03/26/2024 05/05/2024 Discontinued (Course of therapy completed) Comment on above: Take 1 tablet by keith th every 6 hours as needed for nausea/vomiting. plecanatide 3 mg oral tablet (7 sources) Start: 01-23-20 End: 08-13-19 take 1 tablet by mouth once daily Plecanatide (Trulance) 3 mg tablet Discontinued 3 mg PO DAILY March 03, 2024 12:00am August 13, 2024 9:31am predniSONE 10 mg oral tablet (2 sources) Start: 02-11-20 End: 02-23-20 Prednisone 10 mg tablet Discontinued 10 mg PO daily 30 2019 12:00am February 21, 2019 12:00am February 22, 2019 12:08am Take 4 tabs once daily days 1-3 3 tabs once daily days 4-6 2 tabs once daily days 7-9 and 1 tab once daily days 10-12. rifAXIMin 550 mg oral tablet (1 source) Rifamycin Antibacterial Start: 11-06-19 End: 01-06-20 take 1 tablet by mouth three times daily Rifaximin 550 mg tablet Discontinued 550 mg PO THREE TIMES A DAY 42 November 05, 2024 12:00am January 05, 2025 2:01pm Tenapanor (Ibsrela) 50 mg tablet (2 sources) Start: 08-20-19 End: 01-06-20 take 1 tablet by mouth once daily at dinner Tenapanor (Ibsrela) 50 mg tablet Discontinued 50 mg PO TWICE A DAY August 20, 2024 1:00am January 05, 2025 2:01pm must administer immediately before first meal of day/breakfast and dinner Start: 08-20-2024 take 1 tablet by keith th once daily at dinner Tenapanor (Ibsrela) 50 mg tablet Active 50 mg PO TWICE A DAY August 20, 2024 1:00am must administer immediately before first meal of day/breakfast and dinner 24 hr venlafaxine 75 mg extended release oral capsule (1 source) Serotonin and Norepinephrine Reuptake Inhibitor Start: 08-12-2020 End: 02-03-2022 take 1 capsule by mouth once daily venlafaxine ER (EFFEXOR XR) 75 mg 24 hr capsule Take 75 mg by mouth once daily. 0 08/12/2020 02/03/2022 Discontinued Comment on above: Take 75 mg by mouth once daily. Problems Active Problems Problem Classification Problem Date Documented Da te Episodic/Chronic Abdominal pain (20 sources) Lower abdominal pain; Translations: [Lower abdominal pain, unspecified] Onset: 10-23-2023 03-01-2023 Episodic Allergic reactions (20 sources) Allergic disorder of skin; Translations: [Allergic contact dermatitis, unspecified cause] Onset: 02-13-2019 Resolved: 09-08-2024 02-03-2022 Episodic Anxiety disorders (20 sources) Anxiety; Translations: [Anxiety disorder, unspecified] Onset: 02-08-2017 Chronic Asthma (20 sources) Asthma; Translations: [Unspecified asthma, uncomplicated] Onset: 02-06-2017 02-03-2022 Chronic Attention-deficit, conduct, and disruptive behavior disorders (8 sources) Attention deficit hyperactivity disorder; Translations: [Attention-deficit hyperactivity disorder, unspecified type] Chronic Attention-deficit, conduct, and disruptive behavior disorders (20 sources) Attention deficit hyperactivity disorder, combined type; Translations: [Attention-deficit hyperactivity disorder, combined type] Onset: 02-06-2017 02-03-2022 Chronic Attention-deficit, conduct, and disruptive behavior disorders (1 source) Attention-deficit hyperactivity disorder, combined type; Translations: [Attention deficit hyperactivity disorder, combined type] Onset: 02-03-2022 Chronic Cardiac dysrhythmias (1 source) Palpitations; Translations: [Palpitations] 06-02-2024 Episodic Complications of surgical procedures or medical care (1 source) Non dose-related adverse reaction to medication; Translations: [Unspecified adverse effect of drug or medicament, initial encounter] 09-26-2023 Episodic E Codes: Adverse effects of medical drugs (2 sources) Adverse reaction to drug; Translations: [Adverse effect of unspecified drugs, medicaments and biological substances, initial encounter] 2019 Episodic Endometriosis (7 sources) Uterine adenomyosis; Translations: [Adenomyosis of the uterus] 05-01-2024 Chronic Genitourinary congenital anomalies (1 source) Uterus arcuatus; 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] 05-01-2024 Chronic Immunizations and screening for infectious disease (10 sources) Patient encounter status; Translations: [Encounter for immunization] Episodic Malaise and fatigue (1 source) Fatigue; Translations: [Other fatigue] 06-02-2024 Episodic Mood disorders (20 sources) Depressive disorder; Translations: [Depression] Onset: 01-20-2019 02-03-2022 Chronic Other connective tissue disease (2 sources) Cramp in lower limb; Translations: [Cramp and spasm] Episodic Other connective tissue disease (5 sources) Pelvic floor dysfunction; Translations: [Other specified disorders of muscle] 03-26-2024 Episodic Other connective tissue disease (1 source) Pain in right heel; Translations: [Pain in right foot] 05-23-2024 Episodic Other endocrine disorders (20 sources) Hypoglycemia; Translations: [Hypoglycemia, unspecified] Onset: 01-26-2021 02-03-2022 Chronic Other gastrointestinal disorders (20 sources) Irritable bowel syndrome characterized by constipation; Translations: [Irritable bowel syndrome with constipation] Onset: 02-08-2017 02-03-2022 Chronic Other gastrointestinal disorders (3 sources) Irritable bowel syndrome; Translations: [Mixed irritable bowel syndrome] 06-25-2023 Chronic Other gastrointestinal disorders (2 sources) Irritable bowel syndrome with constipation; Translations: [Irritable bowel syndrome with constipation] Onset: 02-03-2022 Chronic Other gastrointestinal disorders (1 source) Irritable bowel syndrome with diarrhea; Translations: [Irritable bowel syndrome with diarrhea] Onset: 11-05-2024 Chronic Other gastrointestinal disorders (3 sources) Irritable bowel syndrome with diarrhea; Translations: [Irritable bowel syndrome with diarrhea] 11-05-2024 Chronic Other gastrointestinal disorders (7 sources) Constipation; Translations: [Constipation, unspecified] Episodic Other gastrointestinal disorders (1 source) Diarrhea; Translations: [Diarrhea, unspecified] 06-04-2023 Episodic Other gastrointestinal disorders (4 sources) Abdominal bloating; Translations: [Abdominal distension (gaseous)] 09-26-2023 Episodic Other gastrointestinal disorders (1 source) Altered bowel function; Translations: [Change in bowel habit] 01-23-2024 Episodic Other gastrointestinal disorders (1 source) Abdominal distension (gaseous); Translations: [Abdominal distension (gaseous)] Onset: 11-05-2024 Episodic Other hereditary and degenerative nervous system conditions (1 source) Restless legs; Translations: [Restless legs syndrome] Chronic Other liver diseases (1 source) Elevated total bilirubin; Translations: [Unspecified jaundice] Episodic Other liver diseases (1 source) Increased bilirubin level; Translations: [Unspecified jaundice] 09-30-2024 Episodic Other liver diseases (1 source) Unspecified jaundice; Translations: [Elevated bilirubin] Onset: 10-03-2024 Episodic Other nervous system disorders (1 source) Finding of hand region; Translations: [Tremor, unspecified] Episodic Unclassified (1 source) F/U 3 Month Onset: 12-26-2023 Unclassified (1 source) Adenomyosis of the uterus; Translations: [Adenomyosis of the uterus] Onset: 09-19-2024 Past or Other Problems Problem Classification Problem Date Documented Da te Episodic/Chronic Contraceptive and procreative management (20 sources) Intrauterine contraceptive device in situ; Translations: [Presence of (intrauterine) contraceptive device] Onset: 05-13-2024 05-13-2024 Episodic Nausea and vomiting (7 sources) Nausea; Translations: [Nausea] Onset: 01-23-2024 06-04-2023 Episodic Other connective tissue disease (20 sources) Increased muscle tone; Translations: [Other specified disorders of muscle] Onset: 06-17-2024 06-17-2024 Episodic Other connective tissue disease (2 sources) Other specified disorders of muscle; Translations: [Muscle tightness] Onset: 06-17-2024 Episodic Other gastrointestinal disorders (1 source) Change in bowel habit; Translations: [Change in bowel habits] Onset: 01-23-2024 Episodic Other gastrointestinal disorders (1 source) Constipation, unspecified; Translations: [Constipation, unspecified] Onset: 06-03-2024 Episodic Results Test Name Value Interpretation Reference Range Facil ity Urine testOrdered By: Ezra Rome on 01-07-2025 HCG ( test) Ql (U) Negative [facility] Comment on above: Very dilute urine sp ecimens, as indicated by a low specificgravity, may not contain sales service representative levels of hCG. If is still suspected, a first morning urinespecimen should be collected 48 hours later and tested. Gastroenterology Visit Repor ton 11-05-2024 Gastroenterology Visit Report [facility] [address] [address] OFFICE VISIT Date of Service: 11/05/24 MR#: [id number] Acct: [id number] Name: LAY MORALES Rep #: [id number] : 1995 Provider: PILAR Castellano Age/Sex: 29/F Location: [facility] Status: Signed Intake Vital Signs 02/10/19 17:15 Height 5 ft 6 in Intake Visit Reasons: FU MRI NEXT STEPS Chief Complaint: Constipation Allergies Penicillins Allergy (Unknown, Verified 06/03/24 08:09) other Patient : No Have you fallen in the past year?: No Nurse's Note: OV 11.05.24 Pt here for f/u and reports nausea, diarrhea, constipation, abdominal pain, gas and bloating. Pt continues Ibsrela once daily. [facility] Medical History (Updated 11/05/24 @ 09:20 by PILAR Castellano) Irritable bowel syndrome without diarrhea Limb weakness Asthma Knee pain HPI HPI Chief Complaint: Constipation Details: LAY MORALES, is a 29 F who presents to the office today for f/u. BGI established in February 2024 with constipation x1 year following gastroenteritis. Pt previously seeing GI at [facility] and trailed Des and Meghan. Biochemical work up CBC, CMP, IBD, Celiac, food allergen wnl GES; 42 minutes Sits marker test w/ slow transit constipation OBGYN; diagnosed with adenomyosis and had IUD placed. Completed pelvic floor therapy Last OV 3.7.25 Pt continued with Ibsrela 50 mg BID. Unsure if it is working. She has been doing a low fodmap diet. Onions seem to be a trigger. Plan to order MRI to rule out endometriosis of the bowel. MRI 4.9.25; No acute findings in the pelvis. There appears to be some thickening of the junctional zone involving the anterior fundal portion of the uterus, which may represent localized areas of adenomyosis. No discrete measurable uterine or cervical mass is demonstrated. Small bilateral ovarian follicles. No concerning adnexal mass. An intrauterine device is present in the uterine body/lower uterine segment. OV 4.23.25; Pt continues with Ibsrela once a day. She has a bm on most days that is loose. She has severe pain with bowel movements. ROS Const Constitutional: Positive for fatigue and weight change; No fever(s) ENT ENT: No difficulty swallowing Cardio Cardiology: Positive for leg pain with exertion Gastro GI: Positive for abdominal pain, bloating, change in bowel habits, constipation, diarrhea, heartburn, excessive flatus and nausea/dyspepsia; No belching, change in stool character, coffee ground emesis, cramping, difficulty swallowing, feeling full early, incontinent of stools, Vomiting blood/hematemesis, Blood in stool, loose stools, Black,tarry stools, pain with swallowing, vomiting or other Musc Musculoskeletal: Positive for back pain, restless legs, leg pain at night and leg pain with exertion; No joint pain Skin Skin: No yellowing of the eye or itchy eyes Neuro Neurology: Positive for restless legs Psych Psychiatric: Positive for anxiety, Positive for depression, Positive for hyperactivity and Positive for obsessions/compulsions Endo Endocrine: Positive for fatigue and weight change Aller/Imm Allergy/Immunologic: No itchy eyes Az/Lymp Hematologic/Lymphatic: Positive for easy bruising; No easy bleeding Exam Const General: cooperative and comfortable Nutritional Appearance: average body habitus and well nourished [facility] Head: normal to inspection Ears: hearing grossly normal bilaterally Nose: external nose normal Face and sinus: normal facial exam Eyes General: appearance normal, both eyes and all related structures Neck Neck: normal visual inspection Chest Chest palpation inspection: normal inspection of the chest and normal palpation of entire chest wall Resp Effort Inspection: normal respiratory effort Auscultation: Bilateral: Clear to Auscultation Cardio Palpation: normal PMI Rate: regular rate Rhythm: regular rhythm GI Inspection: normal to inspection Auscultation: normal bowel sounds Percussion: normal to percussion Palpation: no hepatosplenomegaly Skin General: no rashes or lesions noted Neuro General: patient alert Extrem General: normal to inspection Psych Affect: normal affect Assessment and Plan Assessment and Plan (1) Bloating: Status: Acute Plan: This is a 29 yo female pt here today for f/u regarding her bloating, constipation, and abdominal pain. Pt has had chronic constipation over the past year since having gastroenteritis. She has been treated with Trulance, Linzess and Ibsrela. She has had the most relief with Ibsrela but has urgent and randomly loose stools. She has ed physicians hx of adenomyosis which causes her pelvic pain during her periods and in during her bowel movements. MRI did not show any bowel etiology. SHe will undergo (more content not included)... Normal [facility] Magnetic resonance imaging r eportOrdered By: Drew Zavala on 10-23-2024 Study report [facility] Imaging Services [address] [place] [address] Pelvis W/WO Contrast MR#: [id number] Acct: [id number] Name: LAY MORALES Rep #: [id number] : 1995 F 29 From: Erick Zavala DO PCP: Dr. Kvng Hurd MD Status: RE G CLI Study:Pelvis W/WO Contrast Date of Exam: 10/22/24 Exam# [id number] Ordering Dr: Stefanie Jules EXAM: MRI of the pelvis without and with intravenous contrast. None available 10/22/2024 CLINICAL HISTORY: PELVIC PAIN. TECHNIQUE: Multiplanar, multisequence MRI images of the pelvis were obtained without and with intravenous contrast. 13 cc Clariscan IV contrast was administered. COMPARISON: None available. FINDINGS: Bones of the pelvis and the origins of the hamstring complexes are intact. The included bowel segments show no specific abnormality. The uterus is anteverted. A T-shaped intrauterine device is present in the uterine body, extending to the lower uterine segment. No discrete uterine myometrial or cervical mass is demonstrated. The ovaries are fairly symmetric in size, containing small follicles. No concerning adnexal mass. No pelvic mass or adenopathy. There is some thickening of the junctional zone of the anterior uterine fundus, which may represent localized areas of adenomyosis. MRI/Pelvis W/WO Contrast IMPRESSION: No acute findings in the pelvis. There appears to be some thickening of the junctional zone involving the anterior fundal portion of the uterus, which may represent localized areas of adenomyosis. No discrete measurable uterine or cervical mass is demonstrated. Small bilateral ovarian follicles. No concerning adnexal mass. An intrauterine device is present in the uterine body/lower uterine segment. Reading Location: [facility] CC: Dr. Kvng Hurd MD; PILAR Castellano ~ Public Relations Officer: Signed [facility] Pelvis W/WO Contraston 10-22 Pelvis W/WO Contrast [facility] Imaging Services [address] [place] [address] Pelvis W/WO Contrast MR#: [id number] Acct: [id number] Name: LAY MORALES Rep #: [id number] : 1995 F 29 From: Drew Zimmer i DO PCP: Dr. Kvng Hurd MD Status: REG CLI Study: Pelvis W/WO Contrast Date of Exam: 10/22/24 Exam# [id number] Ordering Dr: Stefanie Jules EXAM: MRI of the pelvis without and with intravenous contrast. None available 10/22/2024 CLINICAL HISTORY: PELVIC PAIN. TECHNIQUE: Multiplanar, multisequence MRI images of the pelvis were obtained without and with intravenous contrast. 13 cc Clariscan IV contrast was administered. COMPARISON: None available. FINDINGS: Bones of the pelvis and the origins of the hamstring complexes are intact. The included bowel segments show no specific abnormality. The uterus is anteverted. A T-shaped intrauterine device is present in the uterine body, extending to the lower uterine segment. No discrete uterine myometrial or cervical mass is demonstrated. The ovaries are fairly symmetric in size, containing small follicles. No concerning adnexal mass. No pelvic mass or adenopathy. There is some thickening of the junctional zone of the anterior uterine fundus, which may represent localized areas of adenomyosis. MRI/Pelvis W/WO Contrast IMPRESSION: No acute findings in the pelvis. There appears to be some thickening of the junctional zone involving the anterior fundal portion of the uterus, which may represent localized areas of adenomyosis. No discrete measurable uterine or cervical mass is demonstrated. Small bilateral ovarian follicles. No concerning adnexal mass. An intrauterine device is present in the uterine body/lower uterine segment. Reading Location: [facility] CC: Dr. Kvng Hurd MD; PILAR Castellano Public Relations Officer: Signed Normal [facility] CNOVon 10-14-2024 CNOV Office Visit (INTMWS ) LAY MORALES ([id number]) 1995 F Date Time Provider Department 10/14/24 8:00 AM KVNG HURD INTMWS During your visit today, we recorded the following information about you: Pulse Respiration Blood pressure Weight 64/minute 12/minute 110/66 67.9 kg Kvng Hurd MD 10/23/2024 10:50 PM Signed This note was created using [employer]. Subjective Lay Morales is a 29 year old female. SUBJECTIVE: Lay Morales is a 29 year old year old lady here today for 3 month follow up appointment for review of medical conditions. Lay is a 29-year-old female presenting for a 3-month follow-up, with concerns about a Vyvanse shortage and ongoing issues with adenomyosis and constipation. Lay has been experiencing difficulty obtaining Vyvanse due to a shortage, with her usual pharmacy, [facility], being out of stock. She has been unable to find the medication at other pharmacies and is hesitant to pay $80 for the generic version, preferring to wait for the $5 version covered by her insurance. She has not tried any alternative medications during this period and is managing without Vyvanse for the time being. Lay also reports ongoing issues with adenomyosis, diagnosed via ultrasound, which has been causing significant uterine pain and heavy bleeding. She had an IUD placed to manage high estrogen levels and reduce bleeding. Since the IUD placement, she notes a reduction in bleeding, with minimal bleeding in September compared to continuous bleeding throughout August. However, she continues to experience severe pain and clotting during her periods, with episodes of unexpected bleeding and pain lasting up to a month. She is scheduled for an MRI next week to assess if her enlarged uterus is exerting pressure on adjacent organs, contributing to her symptoms. In addition to adenomyosis, Lay has been struggling with chronic constipation, which she believes may be related to her uterine condition. She has tried various treatments, including pelvic floor therapy, dietary modifications (FODMAP diet), and multiple medications such as Linzess and Ibsrela, with limited success. She reports that Linzess caused excessive bowel movements and dehydration, while Ibsrela resulted in watery stools without forming solid bowel movements. She discontinued Ibsrela yesterday in preparation for her upcoming MRI. She also notes that liquid suppositories, which previously provided some relief, are no longer effective. She describes her bowel movements as variable, with a mix of watery and hard stools, and experiences stabbing pain in her uterus during bowel movements. She has not had a solid bowel movement recently and reports yellow stools, suspecting a possible link to her elevated bilirubin levels. She has not undergone a colonoscopy yet, as her gastroenterologists have advised that it may not yield significant findings given her current lab results. She is considering a colonoscopy if the MRI does not provide conclusive answers. Lay expresses frustration with her ongoing symptoms and the impact on her quality of life, including limitations on physical activities and the need to stay near a bathroom. She has been diligent in managing her diet, avoiding trigger foods like onions, and taking probiotics and prebiotics. She is seeking answers and effective treatments to alleviate her pain and improve her bowel function. PAST MEDICAL HISTORY Diagnosis Date Asthma Attention deficit disorder (ADD) without hyperactivity Generalized anxiety disorder History of depression Hypoglycemia Irritable bowel syndrome with constipation Current Outpatient Medications Medication Sig lisdexamfetamine (VYVANSE) 20 mg capsule Take 1 capsule by mouth once daily for 30 days. Patient should start on October 08, 2024. [START ON 11/07/2024] lisdexamfetamine (VYVANSE) 20 mg capsule Take 1 capsule by mouth once daily for 30 days. Patient should start on November 07, 2024. IBSRELA 50 mg tablet Take 50 mg by mouth two times a day. sertraline (ZOLOFT) 50 mg tablet Take 1 tablet by mouth once daily. levonorgestrel (MIRENA) 21 mcg/24hr (up to 8 yrs) 52 mg IUD 1 Each by INTRAUTERINE route as directed. No current facility-administered medications for this visit. Review of Systems Objective BP 110/66 Pulse 64 Resp 12 Wt 67.9 kg (149 lb 11.1 oz) LMP 07/04/2024 (Approximate) BMI 25.69 kg/m? Physical Exam Constitutional: Appearance: Normal appearance. HENT: Head: Normocephalic. Eyes: Conjunctiva/sclera: Conjunctivae normal. Pulmonary: Effort: Pulmonary effort is normal. Skin: General: Skin is warm and dry. Neurological: General: No focal deficit present. Mental Status: She is alert and oriented to person, place, and time. Psychiatric: Attention and Perception: Attention and perce (more content not included)... Normal [facility] bilirubin panel [Ma ss/Vol]on 10-03-2024 Bilirubin [Mass/Vol] 1.1 mg/dL 0.2 - 1.3 mg/dL [facility] Bilirubin.conjugated [Mass/Vol] 0.3 mg/dL High NINF - 0.3 mg/dL [facility] Bilirubin.indirect [Mass/Vol] 0.8 mg/dL NINF - 1.4 mg/dL [facility] Interpretation and review of laboratory results Abnormal [facility] Bilirubin [Mass/Vol] 1.1 mg/dL Normal 0.2-1.3 [facility] Comment on above: Order Comment: Speci men Type: BLOOD SPECIMENOrdering Facility: [facility] Address: [address] [place] [address] Performed By: #### [id number] ####[facility] LABCLIA [id number] [place] [address] [place] Bilirubin.conjugated [Mass/Vol] 0.3 mg/dL High <0.3 [facility] Comment on above: Order Comment: Speci men Type: BLOOD SPECIMENOrdering Facility: [facility] Address: [address] [place] [address] Performed By: #### [id number] ####[facility] [facility] [id number] [address] [place] Bilirubin.indirect [Mass/Vol] 0.8 mg/dL Normal <1.4 [facility] Comment on above: Order Comment: Speci men Type: BLOOD SPECIMENOrdering Facility: [facility] Address: [address] [place] [address] Performed By: #### 5 0189-0 ####[facility] [id number] [place] [address] [place] Gastroenterology Visit Repor ton 09-19-2024 Gastroenterology Visit Report [facility] [address] [place] [address] OFFICE VISIT Date of Service: 09/19/24 MR#: [id number] Acct: [id number] Name: LAY MORALES Rep #: [id number] : 1995 Provider: PILAR Castellano Age/Sex: 29/F Location: 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 Pt her for f/u and reports diarrhea, abdominal pain, gas bloating and nausea. Pt reports continues Ibsrela daily. PFSH Medical History Limb weakness Asthma Knee pain HPI HPI Chief Complaint: Constipation Details: LAY MORALES, is a 29 F who presents to the office today for f/u. I established 819.24 with constipation x1 year. Biochemical work up CBC, CMP, IBD, Celiac, food allergen wnl GES; 42 minutes Sits marker test w/ slow transit constipation Last OV 1..25 Continues with constipation. Recently diagnosed with adenomyosis by her OBGYN and had IUD placed. Completed pelvic floor therapy. Constipation did not improve. Having one bm per day with suppository. *Start Ibsrela OV 3 Pt continues to have issues with constipation. She has been doing a low fodmap diet. She added in onions and this gave her a lot of pain. She is having liquid stools while on Ibsrela. ROS Const Constitutional: Positive for fatigue, headache(s) and weight change; No fever(s) ENT ENT: Positive for headache(s) and difficulty swallowing Gastro GI: Positive for abdominal pain, bloating, change in bowel habits, constipation, heartburn, difficulty swallowing, excessive flatus and nausea/dyspepsia; No belching, change in stool character, coffee ground emesis, cramping, diarrhea, feeling full early, incontinent of stools, Vomiting blood/hematemesis, Blood in stool, loose stools, Black,tarry stools, pain with swallowing, vomiting or other Musc Musculoskeletal: Positive for back pain and leg pain at night; No joint pain Skin Skin: No yellowing of the eye or itchy eyes Neuro Neurology: Positive for headache(s) Psych Psychiatric: Positive for anxiety, No depression and Positive for hyperactivity Endo Endocrine: Positive for fatigue and weight change Aller/Imm Allergy/Immunologic: No itchy eyes Az/Lymp Hematologic/Lymphatic: Positive for easy bruising; No easy bleeding Exam Const General: cooperative and comfortable Nutritional Appearance: average body habitus and well nourished [facility] Head: normal to inspection Ears: hearing grossly normal bilaterally Nose: external nose normal Face and sinus: normal facial exam Mouth: oral mucosae normal Throat: posterior oropharynx normal Eyes General: appearance normal, both eyes and all related structures Neck Neck: normal visual inspection Chest Chest palpation inspection: normal inspection of the chest and normal palpation of entire chest wall Resp Effort Inspection: normal respiratory effort Auscultation: Bilateral: Clear to Auscultation Cardio Palpation: normal PMI Rate: regular rate Rhythm: regular rhythm GI Inspection: normal to inspection Auscultation: normal bowel sounds Percussion: normal to percussion Palpation: no hepatosplenomegaly Skin General: no rashes or lesions noted Neuro General: patient alert Extrem General: normal to inspection Psych Affect: normal affect Assessment and Plan Assessment and Plan (1) Pelvic floor dysfunction: Status: Acute (2) Pelvic pain: Status: Acute (3) Adenomyosis: Status: Acute (4) Constipation: Status: Acute Plan: THi sis a 29 yo female pt here today for f/u regarding her constipation. Pt is having small liquid bm with Ibsrela twice a day. She completed pelvic floor therapy which did not help with her bowel movements. She was diagnosed with adenomyosis and has a lot of uterine pain. She will undergo MRI to rule out pelvic etiology affecting her bowel function. She will continue Ibsrela for now. I recommended she take it 30 min before meal to avoid loose stools. - Continue Ibsrela -Pelvic MRI -f/u as needed Orders: Orders Pelvis (Routine) Today M62.89 - Other specified disorders of muscle, N80.03 - Adenomyosis of the uterus, R10.2 - Pelvic and perineal pain Coding Level of Care Code Off vis,est,level 3 Diagnoses Pelvic floor dysfunction M62.89 Pelvic pain R10.2 Adenomyosis N80.03 Constipation K59.00 09/19/24 0913 Date Stefanie Ramesh Signature: Date (if aleah (more content not included)... Normal [facility] CBC W Auto Differential pane l (Bld)on 09-08-2024 Basophils (Bld) [#/Vol] 0.04 10*3/uL Normal <0.11 [facility] Comment on above: Order Comment: Speci men Type: BLOOD SPECIMENOrdering Facility: [facility] Address: [address] [place] [address] Performed By: #### 5 7021-8 ####[facility] [id number] [place] [address] [address] [place] Basophils/100 WBC (Bld) 0.7 % Normal [facility] Comment on above: Order Comment: Speci men Type: BLOOD SPECIMENOrdering Facility: [facility] Address: [address] [place] [address] Performed By: #### 5 7021-8 ####[facility] [id number] [place] [address] [place] Differential cell count method Nom (Bld) Auto Normal [facility] Comment on above: Order Comment: Speci men Type: BLOOD SPECIMENOrdering Facility: [facility] Address: [address] [place] [address] Performed By: #### 5 7021-8 ####[facility] [id number] [place] [address] [place] Eosinophils (Bld) [#/Vol] 0.05 10*3/uL Normal <0.46 [facility] Comment on above: Order Comment: Speci men Type: BLOOD SPECIMENOrdering Facility: [facility] Address: [address] [place] [address] Performed By: #### 5 7021-8 ####[facility] [id number] [place] [address] [place] Eosinophils/100 WBC (Bld) 0.8 % Normal [facility] Comment on above: Order Comment: Speci men Type: BLOOD SPECIMENOrdering Facility: [facility] Address: [address] [place] [address] Performed By: #### 5 7021-8 ####[facility] [id number] [place] [address] [place] Erythrocyte distribution width (RBC) [Ratio] 11.9 % Normal 11.5-15.0 [facility] Comment on above: Order Comment: Speci men Type: BLOOD SPECIMENOrdering Facility: [facility] Address: [address] [place] [address] Performed By: #### 5 7021-8 ####[facility] [id number] [place] [address] [place] Hematocrit (Bld) [Volume fraction] 44.0 % Normal 36.0-46.0 [facility] Comment on above: Order Comment: Speci men Type: BLOOD SPECIMENOrdering Facility: [facility] Address: [address] [place] [address] Performed By: #### 5 7021-8 ####[facility] [id number] [place] [address] [place] Hemoglobin (Bld) [Mass/Vol] 14.4 g/dL Normal 11.5-15.5 [facility] Comment on above: Order Comment: Speci men Type: BLOOD SPECIMENOrdering Facility: [facility] Address: [address] [place] [address] Performed By: #### 5 7021-8 ####[facility]IA [id number] [place] [address] [place] Immature granulocytes (Bld) [#/Vol] 10*3/uL Normal <0.10 [facility] Comment on above: Order Comment: Speci men Type: BLOOD SPECIMENOrdering Facility: [facility] Address: [address] [place] [address] Performed By: #### 5 7021-8 ####[facility] [id number] [place] [address] [place] Immature granulocytes/100 WBC (Bld) 0.2 % Normal [facility] Comment on above: Order Comment: Speci men Type: BLOOD SPECIMENOrdering Facility: [facility] Address: [address] [place] [address] Performed By: #### 5 7021-8 ####[facility] [id number] [place] [address] [place] Lymphocytes (Bld) [#/Vol] 1.71 10*3/uL Normal 1.00-4.00 [facility] Comment on above: Order Comment: Speci men Type: BLOOD SPECIMENOrdering Facility: [facility] Address: [address] [place] [address] Performed By: #### 5 7021-8 ####[facility]IA [id number] [place] [address] [place] Lymphocytes/100 WBC (Bld) 27.9 % Normal [facility] Comment on above: Order Comment: Speci men Type: BLOOD SPECIMENOrdering Facility: [facility] Address: [address] [place] [address] Performed By: #### 5 7021-8 ####[facility] [id number] [place] [address] [place] MCH (RBC) [Entitic mass] 30.2 pg Normal 26.0-34.0 [facility] Comment on above: Order Comment: Speci men Type: BLOOD SPECIMENOrdering Facility: [facility] Address: [address] [place] [address] Performed By: #### 5 7021-8 ####[facility]IA [id number] [place] [address] [place] MCHC (RBC) [Mass/Vol] 32.7 g/dL Normal 30.5-36.0 [facility] Comment on above: Order Comment: Speci men Type: BLOOD SPECIMENOrdering Facility: [facility] Address: [address] [place] [address] Performed By: #### 5 7021-8 ####[facility]IA [id number] [place] [address] [place] MCV (RBC) [Entitic vol] 92.2 fL Normal 80.0-100.0 [facility] Comment on above: Order Comment: Speci men Type: BLOOD SPECIMENOrdering Facility: [facility] Address: [address] [place] [address] Performed By: #### 5 7021-8 ####[facility] [id number] [place] [address] [place] Monocytes (Bld) [#/Vol] 0.42 10*3/uL Normal <0.87 [facility] Comment on above: Order Comment: Speci men Type: BLOOD SPECIMENOrdering Facility: [facility] Address: [address] [place] [address] Performed By: #### 5 7021-8 ####[facility] [id number] [place] [address] [place] Monocytes/100 WBC (Bld) 6.9 % Normal [facility] Comment on above: Order Comment: Speci men Type: BLOOD SPECIMENOrdering Facility: [facility] Address: [address] [place] [address] Performed By: #### 5 7021-8 ####[facility] [id number] [place] [address] [place] Neutrophils (Bld) [#/Vol] 3.89 10*3/uL Normal 1.45-7.50 [facility] Comment on above: Order Comment: Speci men Type: BLOOD SPECIMENOrdering Facility: [facility] Address: [address] [place] [address] Performed By: #### 5 7021-8 ####[facility] [id number] [place] [address] [place] Neutrophils/100 WBC (Bld) 63.5 % Normal [facility] Comment on above: Order Comment: Speci men Type: BLOOD SPECIMENOrdering Facility: [facility] Address: [address] [place] [address] Performed By: #### 5 7021-8 ####[facility]CL[facility] [id number] [place] [address] [place] Nucleated RBC (Bld) [#/Vol] 10*3/uL Normal <0.01 [facility] Comment on above: Order Comment: Speci men Type: BLOOD SPECIMENOrdering Facility: [facility] Address: [address] [place] [address] Performed By: #### 5 7021-8 ####[facility] [id number] [place] [address] [place] Nucleated RBC/100 WBC (Bld) [Ratio] 0.0 /100 WBC Normal [facility] Comment on above: Order Comment: Speci men Type: BLOOD SPECIMENOrdering Facility: [facility] Address: [address] [place] [address] Performed By: #### 5 7021-8 ####[facility]IA [id number] [place] [address] [place] Platelet mean volume (Bld) [Entitic vol] 11.3 fL Normal 9.0-12.7 [facility] Comment on above: Order Comment: Speci men Type: BLOOD SPECIMENOrdering Facility: [facility] Address: [address] [place] [address] Performed By: #### 5 7021-8 ####[facility]IA [id number] [place] [address] [place] Platelets (Bld) [#/Vol] 257 10*3/uL Normal 150-400 [facility] Comment on above: Order Comment: Speci men Type: BLOOD SPECIMENOrdering Facility: [facility] Address: [address] [place] [address] Performed By: #### 5 7021-8 ####[facility]IA [id number] [place] [address] [place] RBC (Bld) [#/Vol] 4.77 10*6/uL Normal 3.90-5.20 [facility] Comment on above: Order Comment: Speci men Type: BLOOD SPECIMENOrdering Facility: [facility] Address: [facility] [place] [id number] Performed By: #### 5 7021-8 ####[facility] [id number] [place] [id number] [place] WBC (Bld) [#/Vol] 6.12 10*3/uL Normal 3.70-11.00 [facility] Comment on above: Order Comment: Speci men Type: BLOOD SPECIMENOrdering Facility: [facility] Address: [address] [place] [id number] Performed By: #### 5 7021-8 ####[facility] LABIA [id number] [place] [id number] [place] CNOVon 09-08-2024 CNOV Office Visit (INTMWS ) LAY HUNTER ([id number]) 1995 F Date Time Provider Department 09/08/24 8:20 AM SANJUANITA NASH INTMWS During your visit today, we recorded the following information about you: Pulse Respiration Blood pressure Weight 92/minute 16/minute 113/77 67 kg Sanjuanita Nash, BERT.CLINICAL MENTAL HEALTH COUNSELOR 09/08/2024 9:05 AM Signed SUBJECTIVE: Spirometry Never done HPI Lay Lupillo Hunter is a 29 year old female. PMH significant for ACTIVE PROBLEM LIST Anxiety Asthma Attention Deficit Hyperactivity Disorder, Combined Type Depression Irritable Bowel Syndrome With Constipation Hypoglycemia IUD (Intrauterine Device) in Place Pelvic Pain in Female Muscle Tightness At her last visit she notne that she had restarted Vyvanse and also decreased her dose of Zoloft then felt tired, nausea, palpitations and felt like she was needing to sleep. She felt improved with stopping vyvanse. She reports that she continues to feel much better. She notes some minor morning nausea and fatigue. She notes some anxiety. 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 Notes s/p IUD but still with abdominal and pelvic pain, noted adenomyosis per DESKTOP ANALYST.She has been referred to pelvic pain specialist, does not yet have an appointment. Reports has reached out to schedule appt, has not yet heard back. Is taking Ibsrela treatment for IBS per gastroenterology, not sure it is helping. FODMAP diet. She does note some abdominal bloating with reintroduction of onions. She does note constipation seems to increase abdominal pain. She has upcoming gastroenterology appointment. Review of Systems Constitutional: Negative. Gastrointestinal: Positive for abdominal pain. Genitourinary: Positive for pelvic pain. Psychiatric/Behavioral : Positive for decreased concentration and dysphoric mood. Objective BP 113/77 Pulse 92 Resp 16 Wt 67 kg (147 lb 11.3 oz) LMP 07/04/2024 (Approximate) BMI 25.35 kg/m? Physical Exam Vitals and nursing note reviewed. Constitutional: Appearance: Normal appearance. HENT: Head: Normocephalic and atraumatic. Eyes: Conjunctiva/sclera: Conjunctivae normal. Cardiovascular: Rate and Rhythm: Normal rate. Pulmonary: Effort: Pulmonary effort is normal. Musculoskeletal: Right foot: Normal range of motion. Skin: General: Skin is warm and dry. Neurological: General: No focal deficit present. Mental Status: She is alert and oriented to person, place, and time. ALLERGIES Allergen Reactions Penicillins Unknown Pt states she doesn't know what reaction she had to Pencillin. She was a young child. Allergy skin tests to penicillin were positive.The patient is at risk for a severe, immediate, IgE-mediated reaction to penicillin and other penicillin type antibiotics. The patient should continue to avoid use of penicillin and other penicillin type antibiotics. Medications IBSRELA 50 mg tablet Take 50 mg by mouth two times a day. levonorgestrel (MIRENA) 21 mcg/24hr (up to 8 yrs) 52 mg IUD 1 Each by INTRAUTERINE route as directed. lisdexamfetamine (VYVANSE) 20 mg capsule Take 1 capsule by mouth once daily for 30 days. [START ON 10/08/2024] lisdexamfetamine (VYVANSE) 20 mg capsule Take 1 capsule by mouth once daily for 30 days. Patient should start on October 08, 2024. [START ON 11/07/2024] lisdexamfetamine (VYVANSE) 20 mg capsule Take 1 capsule by mouth once daily for 30 days. Patient should start on November 07, 2024. sertraline (ZOLOFT) 50 mg tablet Take 1 tablet by mouth once daily. PAST MEDICAL HISTORY Diagnosis Date Asthma Attention deficit disorder (ADD) without hyperactivity Generalized anxiety disorder History of depression Hypoglycemia Irritable bowel syndrome with constipation PAST SURGICAL HISTORY Procedure Laterality Date TRABECULOPLASTY BY LASER SURGERY Bilateral 08/13/2020 Social History Tobacco Use Smoking status: Never Smokeless tobacco: Never Vaping Use Vaping status: Never Used Substance Use Topics Alcohol use: Yes Comment: once a month Drug use: Never FAMILY HISTORY Problem Relation Age of Onset other (colitis) Mother Appears to be due to Post COVID No Known Problems Father other (Leg Tumor) Sister In thigh bone. Just needed resected OCD Sister other (Dyslexia) Sister other (Speech impediment) Sister Lung Cancer Maternal Grandmother No Known Problems Maternal Grandfather Breast Cancer Paternal Grandmother 70 No Known Problems Paternal Grandfather Component Latest Ref Rng AND Units 08/03/2021 09/25/2022 WBC 3.70 - 11.00 k/uL 5.3 6.13 RBC 3.90 - 5.20 m/uL 4.53 4.50 Hemoglobin 11.5 - 15.5 g/dL 13.5 13.6 Hematocrit 36.0 - 46.0 % 40.0 41.3 MCV 80.0 - 100.0 fL 88.3 91.8 MCHC 30.5 - 36.0 g/dL 33.8 32.9 RDW 11 - 14.5 12.5 MPV 9.0 - 12.7 fL 10.8 10.9 Platelet Count 150 - 400 k/uL 233 258 Neutrophil % 4 (more content not included)... Normal [facility] Comprehensive metabolic 2000 panelon 09-08-2024 Albumin [Mass/Vol] 4.9 g/dL Normal 3.9-4.9 [facility] Comment on above: Order Comment: Speci men Type: BLOOD SPECIMENOrdering Facility: [facility] Address: [address] [place] [address] [place] [address] Performed By: #### 2 4323-8, TSHRF ####[facility]CLIA [id number] [address] [place] [address] [place] ALP [Catalytic activity/Vol] 85 U/L Normal 34-123 [facility] Comment on above: Order Comment: Speci men Type: BLOOD SPECIMENOrdering Facility: [facility] Address: [address] [place] [address] Performed By: #### 2 4323-8, TSHRF ####[facility]CLIA [id number] [place] [id number] [place] ALT [Catalytic activity/Vol] 11 U/L Normal 7-38 [facility] Comment on above: Order Comment: Speci men Type: BLOOD SPECIMENOrdering Facility: [facility] Address: [address] [place] [address] Performed By: #### 2 4323-8, TSHRF ####[facility]CL[facility] [id number] [address], [place] [address] [place] Anion gap [Moles/Vol] 11 mmol/L Normal 8-15 [facility] Comment on above: Order Comment: Speci men Type: BLOOD SPECIMENOrdering Facility: [facility] Address: [address] [place] [address] Performed By: #### 2 4323-8, TSHRF ####[facility]CL[facility] [id number] [place] [id number] [place] AST [Catalytic activity/Vol] 18 U/L Normal 13-35 [facility] Comment on above: Order Comment: Speci men Type: BLOOD SPECIMENOrdering Facility: [facility] Address: [address] [place] [address] Performed By: #### 2 4323-8, TSHRF ####[facility]CL[facility] [id number] [address] [place] [address] [place] Bilirubin [Mass/Vol] 1.7 mg/dL High 0.2-1.3 [facility] Comment on above: Order Comment: Speci men Type: BLOOD SPECIMENOrdering Facility: [facility] Address: [address] [place] [id number] Performed By: #### 2 4323-8, TSHRF ####[facility]CL[facility] [id number] [address] [address] [place] Calcium [Mass/Vol] 10.1 mg/dL Normal 8.5-10.2 [facility] Comment on above: Order Comment: Speci men Type: BLOOD SPECIMENOrdering Facility: [facility] Address: [address] [place], [place] [address] Performed By: #### 2 4323-8, TSHRF ####[facility] LABCLIA [id number] [place] [id number] [place] Chloride [Moles/Vol] 102 mmol/L Normal 98-107 [facility] Comment on above: Order Comment: Speci men Type: BLOOD SPECIMENOrdering Facility: [facility] Address: [address] [place], [place] [address] Performed By: #### 2 4323-8, TSHRF ####[facility]CL[facility] [id number] [place] [id number] [place] CO2 [Moles/Vol] 25 mmol/L Normal 22-30 [facility] Comment on above: Order Comment: Speci men Type: BLOOD SPECIMENOrdering Facility: [facility] Address: [address] [place], [place] [address] Performed By: #### 2 4323-8, TSHRF ####[facility]CLIA [id number] [place] [id number] [place] Creatinine [Mass/Vol] 0.84 mg/dL Normal 0.58-0.96 [facility] Comment on above: Order Comment: Speci men Type: BLOOD SPECIMENOrdering Facility: [facility] Address: [address] [place], [place] [address] Performed By: #### 2 4323-8, TSHRF ####[facility] LABCLIA [id number] [place] [address] [place] Creatinine and Glomerular filtration rate.predicted panel (S/P/Bld) 98 mL/min/1.73m??? Normal >=60 [facility] Comment on above: Order Comment: Speci men Type: BLOOD SPECIMENOrdering Facility: [facility] Address: [address] [place] [address] Result Comment: Margoth mated Glomerular Filtration Rate (eGFR) is calculated using the 2020 CKD-EPI creatinine equation. This equation utilizes serum creatinine, sex, and age as parameters. The creatinine assay has traceable calibration to isotope dilution-mass spectrometry. Refer to KDIGO guidelines for clinical interpretation. In patients with unstable renal function, e.g. those with acute kidney injury, the eGFR may not accurately reflect actual GFR. Performed By: #### 2 4323-8, TSHRF ####[facility] LABIA [id number] [place] [address] [place] [place] Glucose [Mass/Vol] 81 mg/dL Normal 74-99 [facility] Comment on above: Order Comment: Mitchell landry Type: BLOOD SPECIMENOrdering Facility: [facility] Address: [address] [place] [address] Result Comment: The [place] Diabetes Association (ADA) provides guidance for cutoff values for fasting glucose and random glucose. The ADA defines fasting as no caloric intake for at least 8 hours. Fasting plasma glucose results between 100 to 125 mg/dL indicate increased risk for diabetes (prediabetes). Fasting plasma glucose results greater than or equal to 126 mg/dL meet the criteria for diagnosis of diabetes. In the absence of unequivocal hyperglycemia, results should be confirmed by repeat testing. In a patient with classic symptoms of hyperglycemia or hyperglycemic crisis, random plasma glucose results greater than or equal to 200 mg/dL meet the criteria for diagnosis of diabetes. Reference: Standards of Medical Care in Diabetes 2016, [place] Diabetes Association. Diabetes Care. 2016.39(Suppl 1). Performed By: #### 2 4323-8, TSHRF ####[facility] LABCLIA [id number] [place] [id number] [place] Potassium [Moles/Vol] 4.6 mmol/L Normal 3.7-5.1 [facility] Comment on above: Order Comment: Speci men Type: BLOOD SPECIMENOrdering Facility: [facility] Address: [address] [place] [address] Performed By: #### 2 4323-8, TSHRF ####[facility] LABCLIA [id number] [place] [address] [place] Protein [Mass/Vol] 7.6 g/dL Normal 6.3-8.0 [facility] Comment on above: Order Comment: Speci men Type: BLOOD SPECIMENOrdering Facility: [facility] Address: [address] [place] [address] Performed By: #### 2 4323-8, TSHRF ####[facility] LABCLIA [id number] [place] [address] [place] Sodium [Moles/Vol] 138 mmol/L Normal 136-144 [facility] Comment on above: Order Comment: Speci men Type: BLOOD SPECIMENOrdering Facility: [facility] Address: [address] [place] [address] Performed By: #### 2 4323-8, TSHRF ####[facility] LABCLIA [id number] [place] [address] [place] Urea nitrogen [Mass/Vol] 13 mg/dL Normal 7-21 [facility] Comment on above: Order Comment: Speci men Type: BLOOD SPECIMENOrdering Facility: [facility] Address: [address] [place] [address] Performed By: #### 2 4323-8, TSHRF ####[facility] LABCLIA [id number] [place] [id number] [place] TOXICOLOGY SCREEN, ROUTINE U RINEon 09-08-2024 Amphetamines Confirm (U) [Mass/Vol] Positive Abnormal Negative [facility] Comment on above: Order Comment: Speci men Type: URINE SPECIMENOrdering Facility: [facility] Address: [address] [place] [address] Result Comment: Cuto ff threshold at 1000 ng/mL. Performed By: #### U TOX2 ####[facility] LABCLIA [id number] [place] [address] [place] BARBITURATES, URINE Negative Normal Negative [facility] Comment on above: Order Comment: Speci men Type: URINE SPECIMENOrdering Facility: [facility] Address: [address] [place] [address] Result Comment: Cuto ff threshold at 200 ng/mL. Performed By: #### U TOX2 ####[facility] LABCLIA [id number] [place] [address] [place] BENZODIAZEPINES, UR Negative Normal Negative [facility] Comment on above: Order Comment: Speci men Type: URINE SPECIMENOrdering Facility: [facility] Address: [address] [place] [address] Result Comment: Cuto ff threshold at 200 ng/mL. Performed By: #### U TOX2 ####[facility] LABCLIA [id number] [place] [address] [place] Cannabinoids Screen Ql (U) Negative Normal Negative [facility] Comment on above: Order Comment: Speci men Type: URINE SPECIMENOrdering Facility: [facility] Address: [address] [place] [address] Result Comment: Cuto ff threshold at 50 ng/mL. Performed By: #### U TOX2 ####[facility] LABCLIA [id number] [place] [address] [place] Cocaine Ql (U) Negative Normal Negative [facility] Comment on above: Order Comment: Speci men Type: URINE SPECIMENOrdering Facility: [facility] Address: [address] [place] [address] Result Comment: Cuto ff threshold at 300 ng/mL. Performed By: #### U TOX2 ####[facility] LABCLIA [id number] [place] [address] [place] Ethanol (U) [Mass/Vol] <11 Normal <11 [facility] Comment on above: Order Comment: Speci men Type: URINE SPECIMENOrdering Facility: [facility] Address: [address] [place] [address] Performed By: #### U TOX2 ####[facility] LABCLIA [id number] [place] [address] [place] Opiates Screen Ql (U) Negative Normal Negative [facility] Comment on above: Order Comment: Speci men Type: URINE SPECIMENOrdering Facility: [facility] Address: [address] [place] [address] Result Comment: Cuto ff threshold at 300 ng/mL. Performed By: #### U TOX2 ####[facility] LABIA [id number] [place] [address] [place] oxyCODONE cutoff Screen (U) [Mass/Vol] Negative Normal Negative [facility] Comment on above: Order Comment: Speci men Type: URINE SPECIMENOrdering Facility: [facility] Address: [address] [place] [address] Result Comment: Cuto ff threshold at 100 ng/mL. Performed By: #### U TOX2 ####[facility] LABCLIA [id number] [place] [address] [place] Phencyclidine Ql (U) Negative Normal Negative [facility] Comment on above: Order Comment: Speci men Type: URINE SPECIMENOrdering Facility: [facility] Address: [address] [place] [address] Result Comment: Cuto ff threshold at 25 ng/mL. Performed By: #### U TOX2 ####[facility] LABIA [id number] [place] [address] [place] TSH W/REFLEX FT4on 5 TSH Qn 1.720 m[IU]/L Normal 0.270-4.200 [facility] Comment on above: Order Comment: Speci men Type: BLOOD SPECIMENOrdering Facility: [facility] Address: [address] [place] [address] Result Comment: If t he patient is , TSH reference range varies by gestational period: First Trimester (weeks 9-12): 0.180-2.990 mIU/L Second Trimester: 0.110-3.980 mIU/L Third Trimester: 0.480-4.710 mIU/L Ralph Kinsey et al. A Practical Approach for the Verifications and Determination of Site- and Trimester-Specific Reference Intervals for Thyroid Function tests in . Thyroid, 2019:29:3:412-420. Roger Mckenna et al. 2017 Guidelines of the [place] Thyroid Association for the Diagnosis and Management of Thyroid Disease during and the . Thyroid, 2017:27:3:315-389. Performed By: #### 2 4323-8, TSHRF ####[facility] LABCLIA [id number] [place] [id number] [place] Gastroenterology Visit Repor ton 08-13-2024 Gastroenterology Visit Report [facility] [address] [place] [address] OFFICE VISIT Date of Service: 08/13/24 MR#: [id number] Acct: [id number] Name: LAY HUNTER Rep #: [id number] : 1995 Provider: PILAR Castellano Age/Sex: 29/F Location: [facility] Status: Signed Intake Vital Signs 02/10/19 17:15 Height 5 ft 6 in Intake Visit Reasons: Constipation Chief Complaint: Constipation Allergies Penicillins Allergy (Unknown, Verified 06/03/24 08:09) other Medications ???Medication ???Instructions ???Recorded ???Confirmed ???Type sertraline 50 mg tablet (Zoloft) 50 mg PO DAILY 03/03/24 08/13/24 History lisdexamfetamine 20 mg capsule 20 mg PO QDAY 08/13/24 08/13/24 History (aRdha) Nurse's Note: OV 08.13.24 pt reports no change in symptoms since previous visit. Reports that she finished pelvic floor therapy with CC yesterday. [facility] Medical History Limb weakness Asthma Knee pain HPI HPI Chief Complaint: Constipation Details: LAY HUNTER, is a 29 F who presents to the office today for f/u BGI established 8 w/ constipation. Unable to have a bm without use of suppositories. Has been on Trulance, Amitiza and miralax. Biochemical work up CBC, CMP, IBD, Celiac, food allergen wnl GES; 42 minutes Sits marker test w/ slow transit constipation OV 06.03.24 Pt has been doing ok. She was given Reglan for slow gastric emptying. This helped somewhat but pt was nervous of side effects and discontinued use. Referred her to Urology for pelvic floor dysfunction. She was started on gabapentin suppositories which has helped a bm every couple of days. She has appointment for pelvic floor therapy at the end of June 2024. OV 08.13.24 Pt continues to have constipation. She was diagnosed with adenomyosis by her OBGYN and had a IUD placed. She completed pelvic floor therapy and did not have much relief with her constipat ion. Her therapist said her pelvic floor is strong now. She is having a bm once per week without use of suppositories. She does typically use a suppository daily to have a bm. She uses colace daily but she feels this makes her bloated and unable to pass gas. ROS Const Constitutional: Positive for fatigue and weight change (weight gain); No fever(s) ENT ENT: No difficulty swallowing Gastro GI: Positive for abdominal pain, bloating, change in bowel habits, constipation, heartburn, excessive flatus and nausea/dyspepsia; No belching, change in stool character, coffee ground emesis, cramping, diarrhea, difficulty swallowing, feeling full early, incontinent of stools, Vomiting blood/hematemesis, Blood in stool, loose stools, Black,tarry stools, pain with swallowing, vomiting or other Musc Musculoskeletal: Positive for back pain; No joint pain Skin Skin: No yellowing of the eye or itchy eyes Psych Psychiatric: Positive for anxiety, No depression, Positive for Compulsive Behavior, Positive for hyperactivity and Positive for obsessions/compulsions Endo Endocrine: Positive for fatigue and weight change (weight gain) Aller/Imm Allergy/Immunologic: No itchy eyes Az/Lymp Hematologic/Lymphatic: Positive for easy bruising; No easy bleeding Exam Const General: cooperative and comfortable Nutritional Appearance: average body habitus and well nourished [facility] Head: normal to inspection Ears: hearing grossly normal bilaterally Nose: external nose normal Throat: posterior oropharynx normal Eyes General: appearance normal, both eyes and all related structures Neck Neck: normal visual inspection Chest Chest palpation inspection: normal inspection of the chest and normal palpation of entire chest wall Resp Effort Inspection: normal respiratory effort Auscultation: Bilateral: Clear to Auscultation Cardio Palpation: normal PMI Rate: regular rate Rhythm: regular rhythm GI Inspection: normal to inspection Auscultation: normal bowel sounds Percussion: normal to percussion Palpation: no hepatosplenomegaly Skin General: no rashes or lesions noted Neuro General: patient alert Extrem General: normal to inspection Psych Affect: normal affect Assessment and Plan Assessment and Plan (1) Constipation: Status: Acute Plan: This is a 29 yo female pt here today for f/u. Pt has continued issues with constipation. SHe underwent pelvic floor therapy and was told her pelvic muscles are now strong. She is using suppositories daily to have a BM. I gave her IBSrela samples to trial. If she likes results with this I will prescribe this. Will consider colonoscopy if she continues to have no progress. -Trial IBSrela -Consider prescribing Ibsrela -Consider colonoscopy -f/u as needed Coding Level of Care Code Off vis,e (more content not included)... Normal [facility] CNTHERAPYon 08-12-2024 CNTHERAPY OT/PT/Speech Visit (AKPTB) LAY MORALES ([id number]) 1995 F Date Time Provider Department 08/12/24 6:15 PM JENNIFER SERRANO AKPTB Date Time Provider Department Center 08/12/2024 6:15 PM [id number] SERRANOAAKPTB [facility] Reason for Visit: PT Progress Note [1596] PT Discharge [752] Primary Visit Diagnosis:Pelvic pain in female [R10.2] Other Visit Diagnosis:Muscle tightness [M62.89] Allergies As of Date: 08/12/2024 Noted Allergy Reaction PENICILLINS 02/06/2017 16 - Unknown Comments: Pt states she doesn't know what reaction she had to Pencillin. She was a young child. Allergy skin tests to penicillin were positive.The patient is at risk for a severe, immediate, IgE-mediated reaction to penicillin and other penicillin type antibiotics. The patient should continue to avoid use of penicillin and other penicillin type antibiotics. Date Reviewed: 08/04/2024 Reviewed by: Omi Salcedo MA - Fully Assessed Prescriptions as of 10/14/2024 - lisdexamfetamine (VYVANSE) 20 mg capsule Take 1 capsule by mouth once daily for 30 days. Patient should start on October 08, 2024. - lisdexamfetamine (VYVANSE) 20 mg capsule Take 1 capsule by mouth once daily for 30 days. Patient should start on November 07, 2024. - IBSRELA 50 mg tablet Take 50 mg by mouth two times a day. - sertraline (ZOLOFT) 50 mg tablet Take 1 tablet by mouth once daily. - levonorgestrel (MIRENA) 21 mcg/24hr (up to 8 yrs) 52 mg IUD 1 Each by INTRAUTERINE route as directed. Normal [facility] CNOVon 08-04-2024 CNOV Office Visit (OBGYWM ) LAY HUNTER P ([id number]) 1995 F Date Time Provider Department 08/04/24 3:30 PM FABIOLA COSTA OBADRIENNEWCaio During your visit today, we recorded the following information about you: Blood pressure Weight Last Period 124/82 71.7 kg 07/04/24 Fabiola Costa APRN.CNM 08/04/2024 4:35 PM Signed aLy Hunter presents today for IUD check. She had a Mirena placed on . She has had no complications since placement. REVIEW OF SYSTEMS: PAIN ASSESSMENT: CURRENTLY HAVING PAIN; LOCATION/DISTRIBUTION: lower pelvis PAIN SCALE: 6 on 0-10 scale per patient PAIN CHARACTER: aching, moderate, sharp, stabbing, tenderness, throbbing, and cramping DURATION: (How long have you had the pain?) years SENSITIVE EXAM: The sensitive examination was discussed with the Patient or Patient's Authorized Career Consultant. As applicable, any other physician, advance practice provider, medical student, or other health professional student that will be observing or involved in the sensitive examination for educational or training purposes was discussed with the Patient or Authorized Career Consultant. The Patient or Authorized Career Consultant has agreed to proceed with the sensitive examination. (Sensitive examination includes inspection and/or palpation of the breasts, pelvis, prostate and anorectal regions). PHYSICAL EXAMINATION: LMP 05/06/2024 BP 124/82 Wt 71.7 kg (158 lb) LMP 07/04/2024 (Approximate) BMI 27.12 kg/m? ABDOMEN:soft, non-tender, no masses, no hepatosplenomegaly, and no lymphadenopathy EXTERNAL GENITALIA: Normal genitalia and Bartholins, Urethra, Sken'e normal CERVIX: smooth, no lesions. IUD strings visible. UTERUS: normal size, regular, tender, reproduces her pain, and freely mobile ADNEXA: negative for tenderness or masses IMPRESSION/PLAN: IUD correctly positioned. -Continue PT for pelvic pain. Referral to pelvic pain due to unresolved pain -Referral to GI for constipation Fabiola Costa APRN.CNM I spent 30 minutes in the visit, with more than 50% of the total ecxv-yi-cdyo time of the visit in counseling / coordination of care. Fabiola Costa APRN.CNM 08/04/2024 4:34 PM Addendum [employer] [email or web address]/ GI with [facility]: Florian Neely MD / Kay Velez PA-C Allergies As of Date: 08/04/2024 Noted Allergy Reaction PENICILLINS 02/06/2017 16 - Unknown Comments: Pt states she doesn't know what reaction she had to Pencillin. She was a young child. Allergy skin tests to penicillin were positive.The patient is at risk for a severe, immediate, IgE-mediated reaction to penicillin and other penicillin type antibiotics. The patient should continue to avoid use of penicillin and other penicillin type antibiotics. Date Reviewed: 08/04/2024 Reviewed by: Omi Salcedo MA - Fully Assessed Reason for Visit: iud check [Other] Primary Visit Diagnosis:Pelvic pain in female [R10.2] Other Visit Diagnosis:Muscle tightness [M62.89] Order(s):CONSULT TO DESKTOP ANALYST PELVIC PAIN [[id number]] Order #: [id number]: 1 FUTURE Prescriptions as of 08/04/2024 - lisdexamfetamine (VYVANSE) 20 mg capsule Take 1 capsule by mouth once daily for 30 days. - lisdexamfetamine (VYVANSE) 20 mg capsule Take 1 capsule by mouth once daily for 30 days. Patient should start on July 09, 2024. - lisdexamfetamine (VYVANSE) 20 mg capsule Take 1 capsule by mouth once daily for 30 days. Patient should start on August 08, 2024. - sertraline (ZOLOFT) 25 mg tablet Take 1 tablet by mouth once daily. - levonorgestrel (MIRENA) 21 mcg/24hr (up to 8 yrs) 52 mg IUD 1 Each by INTRAUTERINE route as directed. 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 Depression [F32.A] 01/20/2019 Irritable bowel syndrome with constipation [K58*02/08/2017 Hypoglycemia [E16.2] 01/26/2021 Allergic dermatitis [L23.9] 02/13/2019 IUD (intrauterine device) in place [Z97.5] 05/13/2024 Pelvic pain in female [R10.2] 06/17/2024 Muscle tightness [M62.89] 06/17/2024 Other instructions from your clinician: [employer] https://[email or web address]/ GI with [facility]: Florian Neely MD / Kay Velez PA-C Medications Discontinued During This Encounter Prescriptions - metoclopramide HCl (REGLAN) 5 mg tablet (Discontinued) Reported on 06/09/2024 Encounter Status:Closed by FABIOLA COSTA on 08/04/24 [facility] CNTHERAPYon 08-01-2024 CNTHERAPY OT/PT/Speech Visit (AKPTB) LAY HUNTER ([id number]) 1995 F Date Time Provider Department 08/01/24 9:45 AM JENNIFER SERRANO AKJUANJO Date Time Provider Department [place] 08/01/2024 9:45 AM [id number] SERRANOAAKPTB [facility] Reason for Visit: Physical Therapy [503] Primary Visit Diagnosis:Pelvic pain in female [R10.2] Other Visit Diagnosis:Muscle tightness [M62.89] Allergies As of Date: 08/01/2024 Noted Allergy Reaction PENICILLINS 02/06/2017 16 - Unknown Comments: Pt states she doesn't know what reaction she had to Pencillin. She was a young child. Allergy skin tests to penicillin were positive.The patient is at risk for a severe, immediate, IgE-mediated reaction to penicillin and other penicillin type antibiotics. The patient should continue to avoid use of penicillin and other penicillin type antibiotics. Date Reviewed: 06/09/2024 Reviewed by: Sanjuanita Nash APRN.CLINICAL MENTAL HEALTH COUNSELOR - Fully Assessed Prescriptions as of 08/01/2024 - lisdexamfetamine (VYVANSE) 20 mg capsule Take 1 capsule by mouth once daily for 30 days. - lisdexamfetamine (VYVANSE) 20 mg capsule Take 1 capsule by mouth once daily for 30 days. Patient should start on July 09, 2024. - lisdexamfetamine (VYVANSE) 20 mg capsule Take 1 capsule by mouth once daily for 30 days. Patient should start on August 08, 2024. - sertraline (ZOLOFT) 25 mg tablet Take 1 tablet by mouth once daily. - levonorgestrel (MIRENA) 21 mcg/24hr (up to 8 yrs) 52 mg IUD 1 Each by INTRAUTERINE route as directed. - metoclopramide HCl (REGLAN) 5 mg tablet Take 5 mg by mouth two times a day. One tablet by mouth 2 times a day 30 minutes before eating Normal [facility] CNTHERAPYon 07-15-2024 CNTHERAPY OT/PT/Speech Visit (AKPTB) LAY HUNTER ([id number]) 1995 F Date Time Provider Department 07/15/24 11:00 AM JENNIFER SERRANO Date Time Provider Department Center 07/15/2024 11:00 AM [id number] SERRANOAAKPTB [facility] Reason for Visit: PT Progress Note [1596] Primary Visit Diagnosis:Pelvic pain in female [R10.2] Other Visit Diagnosis:Muscle tightness [M62.89] Allergies As of Date: 07/15/2024 Noted Allergy Reaction PENICILLINS 02/06/2017 16 - Unknown Comments: Pt states she doesn't know what reaction she had to Pencillin. She was a young child. Allergy skin tests to penicillin were positive.The patient is at risk for a severe, immediate, IgE-mediated reaction to penicillin and other penicillin type antibiotics. The patient should continue to avoid use of penicillin and other penicillin type antibiotics. Date Reviewed: 06/09/2024 Reviewed by: Nash, Sanjuanita, SENIOR TECHNICAL MANAGER.CLINICAL MENTAL HEALTH COUNSELOR - Fully Assessed Prescriptions as of 08/01/2024 - lisdexamfetamine (VYVANSE) 20 mg capsule Take 1 capsule by mouth once daily for 30 days. - lisdexamfetamine (VYVANSE) 20 mg capsule Take 1 capsule by mouth once daily for 30 days. Patient should start on July 09, 2024. - lisdexamfetamine (VYVANSE) 20 mg capsule Take 1 capsule by mouth once daily for 30 days. Patient should start on August 08, 2024. - sertraline (ZOLOFT) 25 mg tablet Take 1 tablet by mouth once daily. - levonorgestrel (MIRENA) 21 mcg/24hr (up to 8 yrs) 52 mg IUD 1 Each by INTRAUTERINE route as directed. - metoclopramide HCl (REGLAN) 5 mg tablet Take 5 mg by mouth two times a day. One tablet by mouth 2 times a day 30 minutes before eating Junior Art Director: Therapy (PT/OT/Speech/Resp) ID: [id number] 07/15/2024 11:26 AM Author: JENNIFER SERRANO Signed by JENNIFER SERRANO PT on 07/15/2024 at 11:26 AM Document text: Program_ID:[id number] Access Code: [email or web address] URL: [email or web address]/ Date: 07-15-2024 Prepared By: Jennifer Program Notes Exercises - Seated Diaphragmatic Breathing - 1 x daily - x weekly - sets - reps - Seated Figure 4 Piriformis Stretch - 1 x daily - x weekly - 3 sets - reps - Supine Double Knee to Chest - 1 x daily - x weekly - 3 sets - reps - Supine Bridge - 1 x daily - x weekly - 2 sets - 10 reps - Deep Squat with Pelvic Floor Relaxation - 1 x daily - x weekly - 3 sets - reps Patient Education - cc Pelvic Floor - Lengthening - cc Pelvic Floor - Bowel Movement Education - Pelvic Floor - Constipation Massage - cc Pelvic Floor - Sphincter Release - cc Pelvic Floor - [place] Stool Chart - cc Pelvic Floor - Fiber - cc Pelvic Floor Bowel Retraining Program -- Normal [facility] THERAPY NTon 07-15-2024 THERAPY NT HNO ID: [id number] Author: JENNIFER SERRANO PT Service: ? Author Type: Physical Therapist Type: Therapy (PT/OT/Speech/Resp) Filed: 07/15/2024 11:26 Note Text: Program_ID:[id number] Access Code: [email or web address] URL: [email or web address]/ Date: 07-15-2024 Prepared By: Jennifer Program Notes Exercises - Seated Diaphragmatic Breathing - 1 x daily - x weekly - sets - reps - Seated Figure 4 Piriformis Stretch - 1 x daily - x weekly - 3 sets - reps - Supine Double Knee to Chest - 1 x daily - x weekly - 3 sets - reps - Supine Bridge - 1 x daily - x weekly - 2 sets - 10 reps - Deep Squat with Pelvic Floor Relaxation - 1 x daily - x weekly - 3 sets - reps Patient Education - cc Pelvic Floor - Lengthening - cc Pelvic Floor - Bowel Movement Education - cc Pelvic Floor - Constipation Massage - cc Pelvic Floor - Sphincter Release - cc Pelvic Floor - [place] Stool Chart - cc Pelvic Floor - Fiber - cc Pelvic Floor Bowel Retraining Program Normal [facility] CNTHERAPYon 07-01-2024 CNTHERAPY OT/PT/Speech Visit (AKPTB) LAY HUNTER ([id number]) 1995 F Date Time Provider Department 07/01/24 10:15 AM JENNIFER SERRANO AKPTB Date Time Provider Department Center 07/01/2024 10:15 AM [id number] SERRANOKPTB [facility] Reason for Visit: Physical Therapy [503] Primary Visit Diagnosis:Pelvic pain in female [R10.2] Other Visit Diagnosis:Muscle tightness [M62.89] Allergies As of Date: 07/01/2024 Noted Allergy Reaction PENICILLINS 02/06/2017 16 - Unknown Comments: Pt states she doesn't know what reaction she had to Pencillin. She was a young child. Allergy skin tests to penicillin were positive.The patient is at risk for a severe, immediate, IgE-mediated reaction to penicillin and other penicillin type antibiotics. The patient should continue to avoid use of penicillin and other penicillin type antibiotics. Date Reviewed: 06/09/2024 Reviewed by: Sanjuanita Nash APRN.CLINICAL MENTAL HEALTH COUNSELOR - Fully Assessed Prescriptions as of 08/01/2024 - lisdexamfetamine (VYVANSE) 20 mg capsule Take 1 capsule by mouth once daily for 30 days. - lisdexamfetamine (VYVANSE) 20 mg capsule Take 1 capsule by mouth once daily for 30 days. Patient should start on July 09, 2024. - lisdexamfetamine (VYVANSE) 20 mg capsule Take 1 capsule by mouth once daily for 30 days. Patient should start on August 08, 2024. - sertraline (ZOLOFT) 25 mg tablet Take 1 tablet by mouth once daily. - levonorgestrel (MIRENA) 21 mcg/24hr (up to 8 yrs) 52 mg IUD 1 Each by INTRAUTERINE route as directed. - metoclopramide HCl (REGLAN) 5 mg tablet Take 5 mg by mouth two times a day. One tablet by mouth 2 times a day 30 minutes before eating Junior Art Director: Therapy (PT/OT/Speech/Resp) ID: [id number] 07/01/2024 10:43 AM Author: JENNIFER SERRANO Signed by JENNIFER SERRANO PT on 07/01/2024 at 10:43 AM Document text: Program_ID:[id number] Access Code: [email or web address] URL: [email or web address]/ Date: 07-01-2024 Prepared By: Jennifer Program Notes Exercises - Seated Diaphragmatic Breathing - 1 x daily - x weekly - sets - reps - Seated Figure 4 Piriformis Stretch - 1 x daily - x weekly - 3 sets - reps - Supine Double Knee to Chest - 1 x daily - x weekly - 3 sets - reps - Supine Bridge - 1 x daily - x weekly - 2 sets - 10 reps - Deep Squat with Pelvic Floor Relaxation - 1 x daily - x weekly - 3 sets - reps Patient Education - cc Pelvic Floor - Lengthening - cc Pelvic Floor - Bowel Movement Education - cc Pelvic Floor - Constipation Massage - cc Pelvic Floor - Sphincter Release - cc Pelvic Floor - [place] Stool Chart - cc Pelvic Floor - Fiber -- Normal [facility] THERAPY NTon 07-01-2024 THERAPY NT HNO ID: [id number] Author: JENNIFER SERRANO, VALORIE Service: ? Author Type: Physical Therapist Type: Therapy (PT/OT/Speech/Resp) Filed: 07/01/2024 10:43 Note Text: Program_ID:[id number] Access Code: [email or web address] URL: [email or web address]/ Date: 07-01-2024 Prepared By: Jennifer Program Notes Exercises - Seated Diaphragmatic Breathing - 1 x daily - x weekly - sets - reps - Seated Figure 4 Piriformis Stretch - 1 x daily - x weekly - 3 sets - reps - Supine Double Knee to Chest - 1 x daily - x weekly - 3 sets - reps - Supine Bridge - 1 x daily - x weekly - 2 sets - 10 reps - Deep Squat with Pelvic Floor Relaxation - 1 x daily - x weekly - 3 sets - reps Patient Education - cc Pelvic Floor - Lengthening - cc Pelvic Floor - Bowel Movement Education - cc Pelvic Floor - Constipation Massage - cc Pelvic Floor - Sphincter Release - cc Pelvic Floor - [place] Stool Chart - cc Pelvic Floor - Fiber Normal [facility] CNTHERAPYon 06-17-2024 CNTHERAPY OT/PT/Speech Visit (AKPTB) DALELAY ([id number]) 1995 F Date Time Provider Department 06/17/24 4:30 PM JENNIFER SERRANO AKPTB Date Time Provider Department [place] 06/17/2024 4:30 PM [id number] SERRANOAAKPTB [facility] Reason for Visit: PT Eval [747] Primary Visit Diagnosis:Pelvic pain in female [R10.2] Other Visit Diagnosis:Muscle tightness [M62.89] Allergies As of Date: 06/17/2024 Noted Allergy Reaction PENICILLINS 02/06/2017 16 - Unknown Comments: Pt states she doesn't know what reaction she had to Pencillin. She was a young child. Allergy skin tests to penicillin were positive.The patient is at risk for a severe, immediate, IgE-mediated reaction to penicillin and other penicillin type antibiotics. The patient should continue to avoid use of penicillin and other penicillin type antibiotics. Date Reviewed: 06/09/2024 Reviewed by: aSnjuanita Nash APRN.CLINICAL MENTAL HEALTH COUNSELOR - Fully Assessed Prescriptions as of 08/01/2024 - lisdexamfetamine (VYVANSE) 20 mg capsule Take 1 capsule by mouth once daily for 30 days. - lisdexamfetamine (VYVANSE) 20 mg capsule Take 1 capsule by mouth once daily for 30 days. Patient should start on July 09, 2024. - lisdexamfetamine (VYVANSE) 20 mg capsule Take 1 capsule by mouth once daily for 30 days. Patient should start on August 08, 2024. - sertraline (ZOLOFT) 25 mg tablet Take 1 tablet by mouth once daily. - levonorgestrel (MIRENA) 21 mcg/24hr (up to 8 yrs) 52 mg IUD 1 Each by INTRAUTERINE route as directed. - metoclopramide HCl (REGLAN) 5 mg tablet Take 5 mg by mouth two times a day. One tablet by mouth 2 times a day 30 minutes before eating Junior Art Director: Therapy (PT/OT/Speech/Resp) ID: [id number] 06/17/2024 4:49 PM Author: JENNIFER SERRANO Signed by JENNIFER SERRANO PT on 06/17/2024 at 4:49 PM Document text: Program_ID:[id number] Access Code: [email or web address] URL: [email or web address]/ Date: 06-17-2024 Prepared By: Jennifer Program Notes Exercises - Seated Diaphragmatic Breathing - 1 x daily - x weekly - sets - reps - Seated Figure 4 Piriformis Stretch - 1 x daily - x weekly - 3 sets - reps Patient Education - cc Pelvic Floor - Lengthening - cc Pelvic Floor - Bowel Movement Education - cc Pelvic Floor - Constipation Massage - cc Pelvic Floor - Sphincter Release - cc Pelvic Floor - [place] Stool Chart - cc Pelvic Floor - Fiber -- Normal [facility] THERAPY NTon 06-17-2024 THERAPY NT HNO ID: [id number] Author: JENNIFER SERRANO, PT Service: ? Author Type: Physical Therapist Type: Therapy (PT/OT/Speech/Resp) Filed: 06/17/2024 16:49 Note Text: Program_ID:[id number] Access Code: [email or web address] URL: [email or web address]/ Date: 06-17-2024 Prepared By: Jennifer Program Notes Exercises - Seated Diaphragmatic Breathing - 1 x daily - x weekly - sets - reps - Seated Figure 4 Piriformis Stretch - 1 x daily - x weekly - 3 sets - reps Patient Education - cc Pelvic Floor - Lengthening - cc Pelvic Floor - Bowel Movement Education - cc Pelvic Floor - Constipation Massage - cc Pelvic Floor - Sphincter Release - cc Pelvic Floor - [place] Stool Chart - cc Pelvic Floor - Fiber Normal [facility] CNOVon 06-09-2024 CNOV Office Visit (INTMWS ) LAY HUNTER ([id number]) 1995 F Date Time Provider Department 06/09/24 7:40 AM SANJUANITA NASH INTMWS During your visit today, we recorded the following information about you: Pulse Respiration Blood pressure Weight 76/minute 16/minute 107/71 72.3 kg Sanjuanita Nash, BERT.[facility] 06/09/2024 8:45 AM Signed SUBJECTIVE: HPV Vaccine(3 - 2-dose series) due on 04/01/2009 Spirometry Never done HPI Lay Hunter is a 29 year old female. PMH significant for ACTIVE PROBLEM LIST Anxiety Asthma Attention Deficit Hyperactivity Disorder, Combined Type Depression Irritable Bowel Syndrome With Constipation Hypoglycemia Allergic Dermatitis IUD (Intrauterine Device) in Place At her last visit she notne that she had restarted Vyvanse and also decreased her dose of Zoloft then felt tired, nausea, palpitations and felt like she was needing to sleep. She felt improved with stopping vyvanse. She reports that she continues to feel much better. She notes some minor morning nausea and fatigue. She notes some anxiety. 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 Notes IUD seems to be helpful, was having pelvic pain, noted adenomyosis.This is much less frequent now. Review of Systems Constitutional: Negative. Psychiatric/Behavioral : Positive for decreased concentration. Objective BP 107/71 Pulse 76 Resp 16 Wt 72.3 kg (159 lb 6.3 oz) LMP 05/06/2024 (Exact Date) BMI 27.36 kg/m? Physical Exam Vitals and nursing note reviewed. Constitutional: Appearance: Normal appearance. HENT: Head: Normocephalic and atraumatic. Eyes: Conjunctiva/sclera: Conjunctivae normal. Cardiovascular: Rate and Rhythm: Normal rate. Pulmonary: Effort: Pulmonary effort is normal. Musculoskeletal: Right foot: Normal range of motion. Skin: General: Skin is warm and dry. Neurological: General: No focal deficit present. Mental Status: She is alert and oriented to person, place, and time. ALLERGIES Allergen Reactions Penicillins Unknown Pt states she doesn't know what reaction she had to Pencillin. She was a young child. Allergy skin tests to penicillin were positive.The patient is at risk for a severe, immediate, IgE-mediated reaction to penicillin and other penicillin type antibiotics. The patient should continue to avoid use of penicillin and other penicillin type antibiotics. Medications sertraline (ZOLOFT) 25 mg tablet Take 1 tablet by mouth once daily. levonorgestrel (MIRENA) 21 mcg/24hr (up to 8 yrs) 52 mg IUD 1 Each by INTRAUTERINE route as directed. lisdexamfetamine (VYVANSE) 20 mg capsule Take 1 capsule by mouth once daily for 30 days. [START ON 07/09/2024] lisdexamfetamine (VYVANSE) 20 mg capsule Take 1 capsule by mouth once daily for 30 days. Patient should start on July 09, 2024. [START ON 08/08/2024] lisdexamfetamine (VYVANSE) 20 mg capsule Take 1 capsule by mouth once daily for 30 days. Patient should start on August 08, 2024. metoclopramide HCl (REGLAN) 5 mg tablet Take 5 mg by mouth two times a day. One tablet by mouth 2 times a day 30 minutes before eating (Patient not taking: Reported on 06/09/2024) PAST MEDICAL HISTORY Diagnosis Date Asthma Attention deficit disorder (ADD) without hyperactivity Generalized anxiety disorder History of depression Hypoglycemia Irritable bowel syndrome with constipation PAST SURGICAL HISTORY Procedure Laterality Date TRABECULOPLASTY BY LASER SURGERY Bilateral 08/13/2020 Social History Tobacco Use Smoking status: Never Smokeless tobacco: Never Vaping Use Vaping status: Never Used Substance Use Topics Alcohol use: Yes Comment: once a month Drug use: Never FAMILY HISTORY Problem Relation Age of Onset other (colitis) Mother Appears to be due to Post COVID No Known Problems Father other (Leg Tumor) Sister In thigh bone. Just needed resected OCD Sister other (Dyslexia) Sister other (Speech impediment) Sister Lung Cancer Maternal Grandmother No Known Problems Maternal Grandfather Breast Cancer Paternal Grandmother 70 No Known Problems Paternal Grandfather Component Latest Ref Rng AND Units 08/03/2021 09/25/2022 WBC 3.70 - 11.00 k/uL 5.3 6.13 RBC 3.90 - 5.20 m/uL 4.53 4.50 Hemoglobin 11.5 - 15.5 g/dL 13.5 13.6 Hematocrit 36.0 - 46.0 % 40.0 41.3 MCV 80.0 - 100.0 fL 88.3 91.8 MCHC 30.5 - 36.0 g/dL 33.8 32.9 RDW 11 - 14.5 12.5 MPV 9.0 - 12.7 fL 10.8 10.9 Platelet Count 150 - 400 k/uL 233 258 Neutrophil % 45 - 75 % 55.3 Immature Gran % Less than 2 % 0.2 Lymphocyte % 20 - 40 % 33.8 [place]% 2 - 10 % 8.0 % Eosinophils 0 - 5 % 1.7 Basophils, % 0 - 2 % 1.0 Neutrophil Ab 2.0 - 8.3 K/CU MM 2.90 IMMATURE GRANS (ABS) Less than 2 K/CU MM 0.00 Lymphocytes, Absolute 0.9 - 4.4 K/CU MM 1.80 MONOCYTES,ABSOLUTE 0.1 - 1.1 K/CU MM 0.40 Abs Eosin 0 - 0.5 K/CU (more content not included)... Normal [facility] Gastroenterology Visit Repor ton 06-03-2024 Gastroenterology Visit Report [facility]enter[facility] [address] [place] [address] OFFICE VISIT Date of Service: 06/03/24 MR#: [id number] Acct: [id number] Name: LAY HUNTER Rep #: [id number] : 1995 Provider: PILAR Castellano Age/Sex: 29/F Location: [facility] Status: Signed Intake Intake Visit Reasons: 3 M FU Chief Complaint: Constipation Allergies Penicillins Allergy (Unknown, Verified 06/03/24 08:09) other Medications ???Medication ???Instructions ???Recorded ???Confirmed ???Type dicyclomine 10 mg capsule 10 mg PO BID #20 caps 03/03/24 06/03/24 Rx ondansetron HCl 4 mg tablet 4 mg PO Q8H PRN 03/03/24 06/03/24 History plecanatide 3 mg tablet (Trulance) 3 mg PO DAILY 03/03/24 06/03/24 History sertraline 50 mg tablet (Zoloft) 50 mg PO DAILY 03/03/24 06/03/24 History metoclopramide HCl 5 mg tablet 5 mg PO BID #90 tabs 04/15/24 06/03/24 Rx PFSH Medical History Limb weakness Asthma Knee pain HPI HPI Chief Complaint: Constipation Details: LAY HUNTER, is a 29 F who presents to the office today for f/u. BGI established 03.03.24 w/ constipation. Unable to have a bm without use of suppositories. Has been on Trulance, Amitiza and miralax. Biochemical work up CBC, CMP, IBD, Celiac, food allergen wnl GES; 42 minutes Sits marker test w/ slow transit constipation OV 06.03.24 Pt has been doing ok. She was given Reglan for slow gastric emptying. This helped somewhat but pt was nervous of side effects and discontinued use. Referred her to Urology for pelvic floor dysfunction. She was started on gabapentin suppositories which has helped a bm every couple of days. She has appointment for pelvic floor therapy at the end of June 2024. ROS Const Constitutional: Positive for fatigue, weakness and weight change; No fever(s) ENT ENT: No difficulty swallowing Gastro GI: Positive for abdominal pain, bloating, change in bowel habits, constipation, excessive flatus and nausea/dyspepsia; No belching, change in stool character, coffee ground emesis, cramping, diarrhea, heartburn, difficulty swallowing, feeling full early, incontinent of stools, Vomiting blood/hematemesis, Blood in stool, loose stools, Black,tarry stools, pain with swallowing, vomiting or other Musc Musculoskeletal: Positive for muscle cramps, muscle weakness and leg pain at night; No joint pain Skin Skin: No yellowing of the eye or itchy eyes Neuro Neurology: Positive for weakness Psych Psychiatric: Positive for anxiety and No depression Endo Endocrine: Positive for fatigue and weight change Aller/Imm Allergy/Immunologic: No itchy eyes Az/Lymp Hematologic/Lymphatic: Positive for easy bruising; No easy bleeding Exam Const General: cooperative and comfortable Nutritional Appearance: average body habitus and well nourished HENGA Head: normal to inspection Ears: hearing grossly normal bilaterally Nose: external nose normal Face and sinus: normal facial exam Mouth: oral mucosae normal Throat: posterior oropharynx normal Eyes General: appearance normal, both eyes and all related structures Neck Neck: normal visual inspection Chest Chest palpation inspection: normal inspection of the chest and normal palpation of entire chest wall Resp Effort Inspection: normal respiratory effort Auscultation: Bilateral: Clear to Auscultation Cardio Palpation: normal PMI Rate: regular rate Rhythm: regular rhythm GI Inspection: normal to inspection Auscultation: normal bowel sounds Percussion: normal to percussion Palpation: no hepatosplenomegaly Skin General: no rashes or lesions noted Neuro General: patient alert Extrem General: normal to inspection Psych Affect: normal affect Assessment and Plan Assessment and Plan (1) Pelvic floor dysfunction: Status: Acute Plan: Pt is a 29 yo female with pelvic floor dysfunction here today for f/u. She recently saw Urology and was given gabapentin suppositories which has produced a bm every few days which is improved. She will continue doing this. She has appointment for pelvic floor therapy in June. -Continue suppositories -Pelvic floor therapy -F/u as needed (2) Constipation: Status: Acute Coding Level of Care Code Off vis,est,level 2 Diagnoses Pelvic floor dysfunction M62.89 Constipation K59.00 06/03/24 0848 Date Stefanie Ramesh Signature: Date (if applicable) CC: Normal [facility] [place] 05-23-2024 [facility] Office Visit (INTMWS ) LAY HUNTER ([id number]) 1995 F Date Time Provider Department 05/23/24 8:20 AM SANJUANITA NASH INTMWS During your visit today, we recorded the following information about you: Pulse Respiration Blood pressure Weight 74/minute 16/minute 113/76 72 kg Sanjuanita Nash APRN.[facility] 05/23/2024 9:05 AM Signed SUBJECTIVE: HPV Vaccine(3 - 2-dose series) due on 04/01/2009 Spirometry Never done Influenza Vaccine(1) Never done HPI Lay Hunter is a 29 year old female. PMH significant for ACTIVE PROBLEM LIST Anxiety Asthma Attention Deficit Hyperactivity Disorder, Combined Type Depression Irritable Bowel Syndrome With Constipation Hypoglycemia Allergic Dermatitis IUD (Intrauterine Device) in Place ADD: previously taking vyvannse but stopped taking it due to unavailability and expense. Notes it has come back into stock at [facility] in [place] and would like to resume it. Notes it was helping for focus. Stable weight. Foot pain right heel that is worse with walking barefoot, eases up during the day, better with wearing shoes,not limiting her ability to walk, not worse with walking in shoes. Mobility preserved. Notes IUD seems to be helpful, was having pelvic pain, noted adenomyosis. Review of Systems Constitutional: Negative. Musculoskeletal: Positive for arthralgias. Psychiatric/Behavioral : Positive for decreased concentration. Objective BP 113/76 Pulse 74 Resp 16 Wt 72 kg (158 lb 11.7 oz) LMP 05/06/2024 (Exact Date) BMI 27.25 kg/m? Physical Exam Vitals and nursing note reviewed. Constitutional: Appearance: Normal appearance. HENT: Head: Normocephalic and atraumatic. Eyes: Conjunctiva/sclera: Conjunctivae normal. Cardiovascular: Rate and Rhythm: Normal rate. Pulses: Dorsalis pedis pulses are 2+ on the right side. Posterior tibial pulses are 2+ on the right side. Pulmonary: Effort: Pulmonary effort is normal. Musculoskeletal: Right foot: Normal range of motion. Feet: Right foot: Skin integrity: Skin integrity normal. Toenail Condition: Right toenails are normal. Comments: R heel pain, + blister Skin: General: Skin is warm and dry. Neurological: General: No focal deficit present. Mental Status: She is alert and oriented to person, place, and time. ALLERGIES Allergen Reactions Penicillins Unknown Pt states she doesn't know what reaction she had to Pencillin. She was a young child. Allergy skin tests to penicillin were positive.The patient is at risk for a severe, immediate, IgE-mediated reaction to penicillin and other penicillin type antibiotics. The patient should continue to avoid use of penicillin and other penicillin type antibiotics. Medications lisdexamfetamine (VYVANSE) 30 mg capsule levonorgestrel (MIRENA) 21 mcg/24hr (up to 8 yrs) 52 mg IUD 1 Each by INTRAUTERINE route as directed. metoclopramide HCl (REGLAN) 5 mg tablet Take 5 mg by mouth two times a day. One tablet by mouth 2 times a day 30 minutes before eating sertraline (ZOLOFT) 25 mg tablet Take 1 tablet by mouth once daily. [START ON 07/22/2024] lisdexamfetamine (VYVANSE) 30 mg capsule Take 1 capsule by mouth once daily for 30 days. Patient should start on July 22, 2024. [START ON 06/22/2024] lisdexamfetamine (VYVANSE) 30 mg capsule Take 1 capsule by mouth once daily for 30 days. Patient should start on June 22, 2024. lisdexamfetamine (VYVANSE) 30 mg capsule Take 1 capsule by mouth once daily for 30 days. PAST MEDICAL HISTORY Diagnosis Date Asthma Attention deficit disorder (ADD) without hyperactivity Generalized anxiety disorder History of depression Hypoglycemia Irritable bowel syndrome with constipation PAST SURGICAL HISTORY Procedure Laterality Date TRABECULOPLASTY BY LASER SURGERY Bilateral 08/13/2020 Social History Tobacco Use Smoking status: Never Smokeless tobacco: Never Vaping Use Vaping status: Never Used Substance Use Topics Alcohol use: Yes Comment: once a month Drug use: Never FAMILY HISTORY Problem Relation Age of Onset other (colitis) Mother Appears to be due to Post COVID No Known Problems Father other (Leg Tumor) Sister In thigh bone. Just needed resected OCD Sister other (Dyslexia) Sister other (Speech impediment) Sister Lung Cancer Maternal Grandmother No Known Problems Maternal Grandfather Breast Cancer Paternal Grandmother 70 No Known Problems Paternal Grandfather Component Latest Ref Rng AND Units 08/03/2021 09/25/2022 WBC 3.70 - 11.00 k/uL 5.3 6.13 RBC 3.90 - 5.20 m/uL 4.53 4.50 Hemoglobin 11.5 - 15.5 g/dL 13.5 13.6 Hematocrit 36.0 - 46.0 % 40.0 41.3 MCV 80.0 - 100.0 fL 88.3 91.8 MCHC 30.5 - 36.0 g/dL 33.8 32.9 RDW 11 - 14.5 12.5 MPV 9.0 - 12.7 fL 10.8 10.9 Platelet Count 150 - 400 k/uL 233 258 Neutrophil % 45 - 75 % 55.3 Immature Gran % Less than 2 % 0.2 Lymphoc (more content not included)... Normal [facility] CNOVon 05-13-2024 CNOV Office Visit (OBGYWM ) LAY HUNTER ([id number]) 1995 F Date Time Provider Department 05/13/24 8:00 AM FABIOLA COSTA During your visit today, we recorded the following information about you: Blood pressure Weight 112/74 70.8 kg Fabiola Costa APRN.CNM 05/13/2024 10:41 AM Obie Chun presents today for IUD insertion for contraception. Patient's last menstrual period was 05/06/2024 (exact date). GC/chlamydia: Negative on 04/25/24 test: negative Side effects including irregular bleeding were discussed with the patient. The patient understands that it should be removed in 8 years or sooner if the patient desires a . IUD source: office provided IUD lot #: [id number] Exp date: 07/15/2026 UNIVERSAL PROTOCOL / SAFETY CHECKLIST Procedure to be Performed: Intrauterine Device (IUD) insertion Mirena Sign In: A Moment of CARE was completed. Personnel directly involved with the procedure wore the appropriate PPE (Personal Protective Equipment). No special equipment needed. Patient/Surrogate Stated/Verified: PATIENT VERIFIED(optional for EMERGENT procedures): Patient name, Date of , Relevant allergies, and The intended procedure Time Out Communication: Intended patient and procedure match the source documents. Consent documented and matches the intended procedure. Relevant labs, photos, and/or imaging studies have been reviewed. Correct side/site marked and visible. Medications required for procedure verified. No fire risk assessment and interventions applicable. Implant(s) inserted: Correct implant(s) confirmed including size and side. and Expiration date(s) reviewed. Sign Out: SIGN OUT (optional for EMERGENT procedures): No specimen collected. All instruments, equipment, possible retained foreign bodies accounted for. Post-procedure follow-up management communicated and Plan of Care Visit completed when applicable. The sensitive examination was discussed with the Patient or Patient's Authorized Career Consultant. As applicable, any other physician, advance practice provider, medical student, or other health professional student that will be observing or involved in the sensitive examination for educational or training purposes was discussed with the Patient or Authorized Career Consultant. The Patient or Authorized Career Consultant has agreed to proceed with the sensitive examination. (Sensitive examination includes inspection and/or palpation of the breasts, pelvis, prostate and anorectal regions) The cervix was prepped with betadine. The uterus sounded to 7 cm and the uterus is Midposition.. Using sterile technique, the Mirena IUD was inserted without difficulty and the string was cut to 7 cm from the external os of the cervix. Patient tolerated procedure well. PLAN: Patient was advised to observe for signs and symptoms of infection including but not limited to fever, malodorous vaginal discharge and/or pain. The patient was told to check the string monthly for accurate placement. Bleeding expectations were reviewed. Follow up after next menses for string check. Referral to pelvic floor therapy for pelvic pain and narrow vaginal canal. CAT Zamora Jessica, APRN.CNM 05/13/2024 8:22 AM Addendum POST IUD INSTRUCTIONS You may have irregular bleeding during the first 3 months of use. You may have mild-severe cramping for the next 48 hours. You may use over the counter medication (Motrin, Tylenol) as needed. Your IUD must be removed or replaced based on the following table: IUD Type Removed or replaced within: Kenyetta 3 years Kyleena 5 years Mirena 8 years Liletta 8 years Paragard 10 years Call the office for signs/symptoms of infection such as severe cramping, fever, or unusual bleeding. Check for string placement as instructed by your doctor. If you have any additional questions, please contact the office. [facility] Physical Therapy [phone] Jennifer Morley Referring Provider: FABIOLA COSTA [[id number]] Allergies As of Date: 05/13/2024 Noted Allergy Reaction PENICILLINS 02/06/2017 16 - Unknown Comments: Pt states she doesn't know what reaction she had to Pencillin. She was a young child. Allergy skin tests to penicillin were positive.The patient is at risk for a severe, immediate, IgE-mediated reaction to penicillin and other penicillin type antibiotics. The patient should continue to avoid use of penicillin and other penicillin type antibiotics. Date Reviewed: 05/13/2024 Reviewed by: Rico Reeves MA - Fully Assessed Reason for Visit: Insertion Of IUD [291] Primary Visit Diagnosis:Encounter for IUD insertion [Z30.430] Other Visit Diagnosis:IUD (intrauterine device) in place [Z97.5] Order(s):INSERT INTRAUTERINE DEVICE [[id number]] Order #: [id number] [] levonorgestrel 21 mcg/24hr (up to 8 (more content not included)... Normal [facility] UA DIP,URINE HCG (POC)on Beta HCG ( test) Ql (U) Negative Negative [facility] Comment on above: Location:[facility], [address], [place], [address] [employer] (POCT) Internal [facility] Location:[facility], [address], [place], [address] [facility] POINT OF CARE [facility] CNOVon 05-07-2024 CNOV Office Visit (OBGYWM ) LAY HUNTER ([id number]) 1995 F Date Time Provider Department 05/07/24 9:30 AM FABIOLA COSTA During your visit today, we recorded the following information about you: Blood pressure Weight Last Period 108/ 70.8 kg 05/06/24 Fabiola Costa APRN.[facility] 05/16/2024 12:31 PM Signed Lay Hunter is a 29 year old female who presents for problem visit for pain. HPI: Presents for results today. 04/25/24 Visit: Presents today with complaint of pelvic pain over the last year. This is now impacting her sex life, personal life, and now emotional health. Was seen by GI and diagnosed with IBS. Started on a few medications but no improvement. Referral to Urology but visit is next month.GI informed patient hey think it is less likely that IBS is causing her pain. States pain is constant 3-4/10 but becomes 10/10 during her menses. Menses are every 28 days and last 7-9 days. Has a few days of spotting, on day of very heavy flow then decreased to spotting for remainder. Does not take anything for pain. Pain is bilateral hips and low midline pelvis. Last took control in 2020 per patient but wanted to stop due to painful intercourse and concerns for mental health. OB History T0 L0 SAB0 IAB0 Ectopic0 Multiple0 Live Births0 Team Facilitator History LMP: 05/06/2024 (Exact Date), Having periods Age at Menarche: Age at First : Age at Menopause: Team Facilitator History Comments: Sexual Activity: Yes; Male Contraception: No contraception data on record PAST MEDICAL HISTORY Diagnosis Date Asthma Attention deficit disorder (ADD) without hyperactivity Generalized anxiety disorder History of depression Hypoglycemia Irritable bowel syndrome with constipation PAST SURGICAL HISTORY Procedure Laterality Date TRABECULOPLASTY BY LASER SURGERY Bilateral 08/13/2020 FAMILY HISTORY Problem Relation Age of Onset other (colitis) Mother Appears to be due to Post COVID No Known Problems Father other (Leg Tumor) Sister In thigh bone. Just needed resected OCD Sister other (Dyslexia) Sister other (Speech impediment) Sister Lung Cancer Maternal Grandmother No Known Problems Maternal Grandfather Breast Cancer Paternal Grandmother 70 No Known Problems Paternal Grandfather Social History Tobacco Use Smoking status: Never Smokeless tobacco: Never Vaping Use Vaping status: Never Used Substance Use Topics Alcohol use: Yes Comment: once a month Drug use: Never Current Outpatient Medications Medication Sig metoclopramide HCl (REGLAN) 5 mg tablet Take 5 mg by mouth two times a day. One tablet by mouth 2 times a day 30 minutes before eating sertraline (ZOLOFT) 50 mg tablet Take 1 tablet by mouth once daily. DOSE CHANGE: TAKE ONE DAILY No current facility-administered medications for this visit. Allergies As of Date: 05/07/2024 Allergen Noted Reaction PENICILLINS 02/06/2017 Unknown Fully Assessed 05/07/2024 REVIEW OF SYSTEMS Abdomen: No bloating, early satiety, indigestion, or increased flatulence. No abdominal pain, nausea, vomiting, diarrhea, or constipation. Bladder: No dysuria, gross hematuria, urinary frequency, urinary urgency, or incontinence. Breast: No breast lumps, nipple d/c, overlying skin changes, redness or skin retraction. Expanded ROS: N/A Allergies and current medication updated:Yes SENSITIVE EXAM: Sensitive exam not performed. EXAM: BP 108/62 Wt 156 lb (70.8kg) LMP 05/06/2024 GENERAL: pleasant, female in no apparent distress HEENT: Normocephalic and atraumatic NEURO: alert and oriented x3,exam grossly non-focal EXTREMITIES: normal Indication Pelvic pain Impression The contour of the uterus and the endometrial cavity were evaluated with 3-D imaging. 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 The uterus is anteflexed and measures 70 mm x 35 mm x 47 mm. The myometrium is asymmetrically thickened, echogenic, heterogeneous, and contains cystic lakes but no obvious fibroids are observed. This finding is suggestive of adenomyosis. The endometrial thickness is 6.7 mm. The right ovary measures 27 mm x 13 mm x 13 mm. The left ovary measures 31 mm x 21 mm x 24 mm. There is free fluid visualized. Technique: Three dimensional imaging was created on a dedicated stand-alone 3D workstation with images created and archived, and supervised and reviewed by the interpreting physician utilizing images from a US Scan performed on 05/01/24. ?Duplex scan was performed using B-Mode/joyner scale imaging and Doppler spectral analysis and color flow.? Recommendations Ultrasound findings suggestive for adenomyosis. Clinical correlation is recommend. Latest Ref Rng 04/25/2024 Symone species group Negative for Symone species Negative for Symone species Symone glabrata Negative for Symone glabrata Nega (more content not included)... [facility] (INTMWS) DALELAY ([id number]) 1995 F Date Time Provider Department 05/01/24 KVNG HURD INTMWS During your visit today, we recorded the following information about you: Daylin Godinez 05/01/2024 2:10 PM Signed Lay is calling Kvng Hurd MD today with concern regarding Refill Request Patient is calling asking if she can start back on this again before the tavarez was too much money and would really like to get back on this. [facility] has generic in stock if you can please send to them. Disp Refills Start End lisdexamfetamine (VYVANSE) 30 mg capsule (Discontinued) 30 capsule 0 09/15/2023 12/26/2023 Sig: Take 1 capsule by mouth once daily for 30 days. Do not start before September 15, 2023. Sent to pharmacy as: lisdexamfetamine (VYVANSE) 30 mg capsule Class: Normal Patient has been identified by name and birthdate. Duration of symptoms: N/A Person calling: self Call patient at: at home [phone] (home) [phone] (cell) Was an appointment scheduled: No Closing statement: Results or non-symptom based questions: Thank you for calling [facility], your call will be returned within the next business day. Maryuri Kendrick APRN.[facility] 05/02/2024 12:45 PM Signed She has not taken this for months and is a controlled substance, would need an appointment to discuss further Maryuri Cage APRN.Omi Salazar MA 05/02/2024 12:59 PM Signed Spoke with patient - scheduled with TB 05/13 Allergies As of Date: 05/01/2024 Noted Allergy Reaction PENICILLINS 02/06/2017 16 - Unknown Comments: Pt states she doesn't know what reaction she had to Pencillin. She was a young child. Allergy skin tests to penicillin were positive.The patient is at risk for a severe, immediate, IgE-mediated reaction to penicillin and other penicillin type antibiotics. The patient should continue to avoid use of penicillin and other penicillin type antibiotics. Date Reviewed: 04/25/2024 Reviewed by: Rico Reeves MA - Fully Assessed Reason for Visit: Medication Request [138] Prescriptions as of 05/02/2024 - metoclopramide HCl (REGLAN) 5 mg tablet Take 5 mg by mouth two times a day. One tablet by mouth 2 times a day 30 minutes before eating - ondansetron orally disintegrating (ZOFRAN ODT) 4 mg disintegrating tablet Take 1 tablet by mouth every 6 hours as needed for nausea/vomiting. - sertraline (ZOLOFT) 50 mg tablet Take 1 tablet by mouth once daily. DOSE CHANGE: TAKE ONE DAILY - peg 3350-Electrolytes (GOLYTELY) 236-22.74-6.74 -5.86 gram suspension Refer to printed patient instructions that will be mailed to you. Problem List As Of Date 05/01/2024 Noted Resolved Anxiety [F41.9] 02/08/2017 Asthma [J45.909] 02/06/2017 Attention deficit hyperactivity disorder, combi*02/06/2017 Depression [F32.A] 01/20/2019 Irritable bowel syndrome with constipation [K58*02/08/2017 Hypoglycemia [E16.2] 01/26/2021 Allergic dermatitis [L23.9] 02/13/2019 Encounter Status:Closed by OMI SALCEDO on 05/02/24 Normal [facility] US Pelvison 05-01-2024 Indication Pelvic pain Impression The contour of the uterus and the endometrial cavity were evaluated with 3-D imaging. 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 The uterus is anteflexed and measures 70 mm x 35 mm x 47 mm. The myometrium is asymmetrically thickened, echogenic, heterogeneous, and contains cystic lakes but no obvious fibroids are observed. This finding is suggestive of adenomyosis. The endometrial thickness is 6.7 mm. The right ovary measures 27 mm x 13 mm x 13 mm. The left ovary measures 31 mm x 21 mm x 24 mm. There is free fluid visualized. Technique: Three dimensional imaging was created on a dedicated stand-alone 3D workstation with images created and archived, and supervised and reviewed by the interpreting physician utilizing images from a US Scan performed on 05/01/24. ?Duplex scan was performed using B-Mode/joyner scale imaging and Doppler spectral analysis and color flow.? Recommendations Ultrasound findings suggestive for adenomyosis. Clinical correlation is recommend. Menstrual History LMP on 04/09/2024. Day of cycle 23. Cycle: regular cycle. Bleeding: normal Method Transabdominal, transvaginal, 3D ultrasound examination, Color Doppler examination. View: Adequate visualization Uterus Uterus: Visualized Uterus position: anteflexed Description of uterine malformations: arcuate Myometrium: asymmetrically thickened, echogenic, heterogeneous, contains cystic lakes Endometrium: three-layer pattern Cervix details: normal Uterus length 70 mm Uterus width 47 mm Uterus height 35 mm Uterus Vol 60.2 cm Endometrial thickness, total 6.7 mm Fibroids: No fibroids identified Polyps: No polyps identified Right Ovary Rt ovary: Visualized Rt ovary morphology: premenopausal normal follicular Rt ovary D1 27 mm Rt ovary D2 13 mm Rt ovary D3 13 mm Rt ovary Vol 2.5 cm Rt ovarian cyst(s): No cysts identified Left Ovary Lt ovary: Visualized Lt ovary morphology: premenopausal normal follicular Lt ovary D1 31 mm Lt ovary D2 21 mm Lt ovary D3 24 mm Lt ovary Vol 8.2 cm Lt ovarian cyst(s): No cysts identified Cul de Sac Visualized. free fluid visualized Largest pool 11.0 mm x 8.0 mm x 13.0 mm. Vol 0.599 ml Procedure To characterize the arcuate uterus, three dimensional imaging was created on a dedicated stand-alone 3D workstation with images created and archived, and supervised and reviewed by the interpreting physician utilizing images from an ultrasound scan performed today. Performed By: Dayana Traore RDMS Read By: Kera Diaz M.D. MATERNAL MEDICINE [facility] Radiology Study observation (narrative) [facility] BACTERIAL VAGINOSIS NAATon 1 Interpretation and review of laboratory results Normal [facility] Lactobacillus crispatus+gasseri+je nsenii + Gardnerella vaginalis + Atopobium vaginae rRNA RHIANNA+probe Ql (Vag fld) Negative Negative for bacterial vaginosis [facility] C. trachomatis+N. gonorrhoea e DNA RHIANNA+probe Ql (Unsp spec)on 04-26-2024 C. trachomatis rRNA RHIANNA+probe Ql (Unsp spec) Negative Negative for Chlamydia trachomatis by amplificaton [facility] Interpretation and review of laboratory results Normal [facility] N. gonorrhoeae rRNA RHIANNA+probe Ql (Unsp spec) Negative Negative for Neisseria gonorrhoeae by amplification [facility] SYMONE/TRICHOMONAS NAATon 1 C. glabrata RNA RHIANNA+probe Ql (Vag fld) Negative Negative for Symone glabrata [facility] Symone sp DNA RHIANNA+probe Ql (Vag fld) Negative Negative for Symone species [facility] Interpretation and review of laboratory results Normal [facility] T. vaginalis DNA RHIANNA+probe Ql (Unsp spec) Negative Negative for Trichomonas vaginalis by amplification [facility] BACTERIAL VAGINOSIS NAATon 1 Lactobacillus crispatus+gasseri+je nsenii + Gardnerella vaginalis + Atopobium vaginae rRNA RHIANNA+probe Ql (Vag fld) Negative Normal Negative for bacterial vaginosis [facility] Comment on above: Order Comment: Speci men Type: SWABOrdering Facility: [facility] Address: [address] [place] [address] Performed By: #### B VAMP, CVTV ####[facility] LABCLIA [id number] [place] [address] [place] C. trachomatis+N. gonorrhoea e DNA RHIANNA+probe Ql (Unsp spec)on 04-25-2024 C. trachomatis rRNA RHIANNA+probe Ql (Unsp spec) Negative Normal Negative for Chlamydia trachomatis by amplificaton [facility] Comment on above: Order Comment: Speci men Type: SWABOrdering Facility: [facility] Address: [address] [place] [address] Performed By: #### 3 6902-5 ####[facility] LABCLIA [id number] [place] [address] [place] N. gonorrhoeae rRNA RHIANNA+probe Ql (Unsp spec) Negative Normal Negative for Neisseria gonorrhoeae by amplification [facility] Comment on above: Order Comment: Speci men Type: SWABOrdering Facility: [facility] Address: [address] [place] [address] Performed By: #### 3 6902-5 ####[facility] LABCLIA [id number] [place] [address] [place] SYMONE/TRICHOMONAS NAATon 1 C. glabrata RNA RHIANNA+probe Ql (Vag fld) Negative Normal Negative for Symnoe glabrata [facility] Comment on above: Order Comment: Speci men Type: SWABOrdering Facility: [facility] Address: [address] [place] [address] Performed By: #### B VAMP, CVTV ####[facility] LABCLIA [id number] [place] [address] [place] Symone sp DNA RHIANNA+probe Ql (Vag fld) Negative Normal Negative for Symone species [facility] Comment on above: Order Comment: Speci men Type: SWABOrdering Facility: [facility] Address: [address] [place] [address] Performed By: #### B VAMP, CVTV ####[facility] LABCLIA [id number] [place] [address] [place] T. vaginalis DNA RHIANNA+probe Ql (Unsp spec) Negative Normal Negative for Trichomonas vaginalis by amplification [facility] Comment on above: Order Comment: Speci men Type: SWABOrdering Facility: [facility] Address: [address] [place] [address] Performed By: #### B VAMP, CVTV ####[facility] LABCLIA [id number] [place] [address] [place] CNOVon 04-25-2024 CNOV Office Visit (OBGYWM ) LAY HUNTER ([id number]) 1995 F Date Time Provider Department 04/25/24 2:45 PM FABIOLA COSTA During your visit today, we recorded the following information about you: Blood pressure Weight Last Period 108/ 70.3 kg 04/09/24 Fabiola Costa APRN.CNM 05/05/2024 4:07 PM Signed Lay Hunter is a 29 year old female who presents for problem visit HPI: Presents today with complaint of pelvic pain over the last year. This is now impacting her sex life, personal life, and now emotional health. Was seen by GI and diagnosed with IBS. Started on a few medications but no improvement. Referral to Urology but visit is next month.GI informed patient hey think it is less likely that IBS is causing her pain. States pain is constant 3-4/10 but becomes 10/10 during her menses. Menses are every 28 days and last 7-9 days. Has a few days of spotting, on day of very heavy flow then decreased to spotting for remainder. Does not take anything for pain. Pain is bilateral hips and low midline pelvis. Last took control in 2020 per patient but wanted to stop due to painful intercourse and concerns for mental health. OB History T0 L0 SAB0 IAB0 Ectopic0 Multiple0 Live Births0 Team Facilitator History LMP: 04/09/2024 (Within Days), Having periods Age at Menarche: Age at First : Age at Menopause: Team Facilitator History Comments: Sexual Activity: Yes; Male Contraception: No contraception data on record PAST MEDICAL HISTORY Diagnosis Date Asthma Attention deficit disorder (ADD) without hyperactivity Generalized anxiety disorder History of depression Hypoglycemia Irritable bowel syndrome with constipation PAST SURGICAL HISTORY Procedure Laterality Date TRABECULOPLASTY BY LASER SURGERY Bilateral 08/13/2020 FAMILY HISTORY Problem Relation Age of Onset other (colitis) Mother Appears to be due to Post COVID No Known Problems Father other (Leg Tumor) Sister In thigh bone. Just needed resected OCD Sister other (Dyslexia) Sister other (Speech impediment) Sister Lung Cancer Maternal Grandmother No Known Problems Maternal Grandfather Breast Cancer Paternal Grandmother 70 No Known Problems Paternal Grandfather Social History Tobacco Use Smoking status: Never Smokeless tobacco: Never Vaping Use Vaping status: Never Used Substance Use Topics Alcohol use: Yes Comment: once a month Drug use: Never Current Outpatient Medications Medication Sig metoclopramide HCl (REGLAN) 5 mg tablet Take 5 mg by mouth two times a day. One tablet by mouth 2 times a day 30 minutes before eating sertraline (ZOLOFT) 50 mg tablet Take 1 tablet by mouth once daily. DOSE CHANGE: TAKE ONE DAILY ondansetron orally disintegrating (ZOFRAN ODT) 4 mg disintegrating tablet Take 1 tablet by mouth every 6 hours as needed for nausea/vomiting. (Patient not taking: Reported on 04/25/2024) peg 3350-Electrolytes (GOLYTELY) 236-22.74-6.74 -5.86 gram suspension Refer to printed patient instructions that will be mailed to you. (Patient not taking: Reported on 03/26/2024) No current facility-administered medications for this visit. Allergies As of Date: 04/25/2024 Allergen Noted Reaction PENICILLINS 02/06/2017 Unknown Fully Assessed 04/25/2024 REVIEW OF SYSTEMS Abdomen: No bloating, early satiety, indigestion, or increased flatulence. No abdominal pain, nausea, vomiting, diarrhea, or constipation. Bladder: No dysuria, gross hematuria, urinary frequency, urinary urgency, or incontinence. Breast: No breast lumps, nipple d/c, overlying skin changes, redness or skin retraction. Expanded ROS: N/A Allergies and current medication updated:Yes SENSITIVE EXAM: The sensitive examination was discussed with the Patient or Patient's Authorized Career Consultant. As applicable, any other physician, advance practice provider, medical student, or other health professional student that will be observing or involved in the sensitive examination for educational or training purposes was discussed with the Patient or Authorized Career Consultant. The Patient or Authorized Career Consultant has agreed to proceed with the sensitive examination. (Sensitive examination includes inspection and/or palpation of the breasts, pelvis, prostate and anorectal regions). EXAM: BP 108/64 Wt 155 lb (70.3kg) LMP 04/09/2024 GENERAL: pleasant, female in no apparent distress HEENT: Normocephalic and atraumatic NECK: Supple and full range of motion DERMATOLOGY: Normal and without lesions CHEST: Normal inspiratory effort ABDOMEN: soft, non-tender, and no masses PELVIC: external genitalia normal, normal Bartholin's glands, urethra, Corydon's glands, no vulvar lesions, no cervical lesions, good vaginal support, physiologic discharge present, normal appearing perineal body and perianal region BI (more content not included)... Normal [facility] Gastric Emptying Studyon Gastric Emptying Study [facility] Imaging Services [address] [place], [place] [id number] Gastric Emptying Study MR#: [id number] Acct: [id number] Name: LAY HUNTER Rep #: [id number] : 1995 F 29 From: Josh Cordon PCP: Dr. Kvng Hurd MD Status: REG CLI Study: Gastric Emptying Study Date of Exam: 03/28/24 Exam# [id number] Ordering Dr: Stefanie Jules [id number] CLINICAL: 29-year-old female with history of chronic nausea and early satiety. SEMI-SOLID PHASE 99m Tc SULFUR COLLOID GASTRIC EMPTYING STUDY COMPARISON: None available FINDINGS: The patient was administered 1.2 mCi of 99m Tc sulfur colloid mixed with oatmeal and consumed per os. Image acquisitions in the anterior-posterior projections were obtained for 60 minutes. There is prompt visualization of the stomach. There is no gastroesophageal reflux identified. The T ? linear fit was calculated to be 42.05 minutes, (Normal: 12-56 minutes). NM/Gastric Emptying Study IMPRESSION: 1. NORMAL 99m Tc sulfur colloid semi-solid phase (oatmeal) gastric emptying imaging examination. A. There is normal and preserved semi-solid phase gastric emptying compared to normal controls. (Lita, J Nucl Med Tech 38: 186, 2010). Electronically Signed: Josh Cuenca DO at 17:25 EDT , CC: Dr. Kvng Hurd MD; PILAR Castellano Public Relations Officer: [facility] (INTMWS ) LAY HUNTER ([id number]) 1995 F Date Time Provider Department 03/26/24 9:40 AM KVNG HURD INTMWS During your visit today, we recorded the following information about you: Temperature Pulse Respiration Blood pressure 98.6 degrees 77/minute 16/minute 105/71 Weight Last Period 70.5 kg 02/08/24 Kvng Hurd MD 03/26/2024 11:28 AM Signed This note was created using [employer]. Subjective Lay Hunter is a 29 year old female. Patient presents with: F/U 3 Month: External labs SUBJECTIVE: Lay Hunter is a 29 year old year old lady here today for 3 month follow up appointment for review of medical conditions. Patient is a 29-year-old female presenting for a regular three-month follow-up. She reports ongoing issues with constipation and nausea, which have not improved despite trying multiple medications. She recently switched gastroenterologists and is now under the care of PILAR Tuttle, who works with Dr. Barrett at [facility]. Patient underwent a Sitz marker study, which showed retention of 14 markers, suggesting a pelvic floor issue. She is scheduled for an MRI at the beginning of April to further investigate this. She is also scheduled for a gastric emptying study on Sunday to assess the severity of her nausea and to determine if there is any delay in gastric emptying. Patient reports that her symptoms have been affecting her quality of life, including her ability to exercise and lose weight. She is also experiencing anxiety related to her symptoms and the upcoming tests. She is currently taking Zoloft for anxiety and Zofran for nausea, but reports that she has run out of Zofran. She has tried other medications in the past, including Trulance and GoLYTELY, but discontinued them due to lack of efficacy. She is also taking Miralax and using Fleet suppositories to manage her constipation. She has tried dietary modifications, including following a low FODMAP diet, but reports that she is not seeing significant improvement in her symptoms. PAST MEDICAL HISTORY No date: Asthma No date: Attention deficit disorder (ADD) without hyperactivity No date: Generalized anxiety disorder No date: History of depression No date: Hypoglycemia No date: Irritable bowel syndrome with constipation Current Outpatient Medications Medication Sig sertraline (ZOLOFT) 50 mg tablet Take 1 tablet by mouth once daily. DOSE CHANGE: TAKE ONE DAILY ondansetron orally disintegrating (ZOFRAN ODT) 4 mg disintegrating tablet Take 1 tablet by mouth every 6 hours as needed for nausea/vomiting. peg 3350-Electrolytes (GOLYTELY) 236-22.74-6.74 -5.86 gram suspension Refer to printed patient instructions that will be mailed to you. (Patient not taking: Reported on 03/26/2024) plecanatide (TRULANCE) 3 mg tablet Take 1 tablet (3 mg) by mouth once daily. (Patient not taking: Reported on 03/26/2024) No current facility-administered medications for this visit. Review of Systems Objective BP 105/71 Pulse 77 Temp 37 ?C (98.6 ?F) Resp 16 Wt 70.5 kg (155 lb 6.8 oz) LMP 02/08/2024 (Within Days) SpO2 98% BMI 26.68 kg/m? Physical Exam Constitutional: Appearance: Normal appearance. HENT: Head: Normocephalic. Eyes: Conjunctiva/sclera: Conjunctivae normal. Cardiovascular: Rate and Rhythm: Normal rate and regular rhythm. Heart sounds: Normal heart sounds. Pulmonary: Effort: Pulmonary effort is normal. Breath sounds: Normal breath sounds. Abdominal: General: Abdomen is flat. Bowel sounds are normal. Musculoskeletal: Right lower leg: No edema. Left lower leg: No edema. Skin: General: Skin is warm and dry. Neurological: General: No focal deficit present. Mental Status: She is alert and oriented to person, place, and time. Psychiatric: Mood and Affect: Mood normal. Behavior: Behavior normal. Thought Content: Thought content normal. Judgment: Judgment normal. Assessment and Plan # Nausea - Persistent nausea; Zofran ODT prescription refilled with three refills sent to [facility] pharmacy. - Continue dietary modifications; discussed potential benefits of consuming bland foods such as potatoes. # Anxiety - Ongoing anxiety related to gastrointestinal symptoms and weight gain. - Currently managed with Sertraline; recent refill on 03/11. - Patient is under the care of Dr. Laura for therapy; will monitor and adjust medication as needed based on therapeutic progress. # Irritable bowel syndrome with constipation # Pelvic floor dysfunction - Recent Sitz marker study showed delayed transit with markers retained in the lower colon; indicative of pelvic floor dysfunction. - Scheduled for MRI in early April to further evaluate pelvic floor. - Gastric emptying study scheduled for Sunday to assess for gastroparesis. - P (more content not included)... Normal [facility] M7400.3302on 03-19-2024 M7400.3302 __ TESTING PERFORMED AT [facility]. ORIGINAL REPORT ON FILE IN LAB CONTAINS ADDITIONAL TEST SITE INFORMATION. Giardia Lamblia EIA NEGATIVE Normal [facility] Comment on above: Performed By: #### M 100.637, M600.5000, M100.0605, M100.6796, L7000.0700, M7400.3302, L7000.0750 #### [facility] Laboratory [address] [place], [address] Ova and Parasites 8623on OP OVA AND PARASITES EXAM, ROUTINE These results were obtained using wet preparation(s) and trichrome stained smear. This test does not include testing for Crytosporidium parvum, Cyclospora, or Microsporidia. O+P Spec Micro One negative specimen does not rule out the possibility of a parasitic infection. TESTING PERFORMED AT [facility]. ORIGINAL REPORT ON FILE IN LAB CONTAINS ADDITIONAL TEST SITE INFORMATION. Ova/Parasite Exam NO OVA, CYSTS, OR PARASITES FOUND. Normal [facility] Comment on above: Performed By: #### M 100.637, M600.5000, M100.0605, M100.6796, L7000.0700, M7400.3302, L7000.0750 #### [facility] Laboratory [address] [facility] [place], [address] Abdomen Single Viewon 2023 Abdomen Single View [facility] Imaging Services [address] [place] [address] Abdomen Single View MR#: [id number] Acct: [id number] Name: LAY HUNTER Rep #: [id number] : 1995 F 29 From: Triston martinez DO PCP: Dr. Kvng Hurd MD Status: [facility] CL Study: Abdomen Single View Date of Exam: 03/17/24 Exam# [id number] Ordering Dr: Stefanie Jules [place] [id number] EXAM: XR ABDOMEN, 1 VIEW CLINICAL INDICATION: sitz marker TECHNIQUE: Frontal supine view of the abdomen/pelvis. COMPARISON: 03/15/2024 FINDINGS: GASTROINTESTINAL TRACT: The remaining Sitzmarks markers have migrated to the distal sigmoid colon and rectum since the prior examination. There are 14 markers present. Mild colorectal stool and gas. Non-obstructive. No bowel or stomach distention. ORGANS: Normal as visualized. No organomegaly. No abnormal calcifications. BONES/JOINTS: No acute pathology. SOFT TISSUES: No acute pathology. RAD/Abdomen Single View IMPRESSION: 1. The remaining Sitzmarks markers have migrated to the distal sigmoid colon and rectum since the prior examination. There are 14 markers present. 2. Mild colorectal stool and gas. Electronically Signed: Triston Martinez DO at 10:41 EDT , CC: Dr. Kvng Hurd MD; PILAR Castellano Public Relations Officer: Signed Normal [facility] Abdomen Single Viewon 2023 Abdomen Single View [facility] Imaging Services [address] [place] [id number] Abdomen Single View MR#: [id number] Acct: [id number] Name: LAY HUNTER Rep #: [id number] : 1995 F 29 From: Omar Sanchez DO PCP: Dr. Kvng Hurd MD Status: REG CL Study: Abdomen Single View Date of Exam: 03/15/24 Exam# [id number] Ordering Dr: Stefanie Jules [id number] STUDY: X-RAY - ABDOMEN/PELVIS REASON FOR EXAM: Female, 29 years old. sitz marker TECHNIQUE: COMPARISON: None. FINDINGS: Normal visualized lung bases. There is an unremarkable bowel gas pattern. There are Sitz markers along the descending colon and sigmoid colon. There is no demonstrated free abdominal air. The visualized liver, spleen and kidneys are grossly normal in size and morphology. Normal soft tissue structures. Normal visualized osseous structures. RAD/Abdomen Single View IMPRESSION: There are Sitz markers along the descending colon and sigmoid colon. Electronically Signed: Omar DO Daniel at 23:51 EDT , CC: Dr. Kvng Hurd MD; PILAR Castellano Public Relations Officer: Signed Normal [facility] Calprotectin, Stoolon [address] 20 ug/g Normal 0-120 [facility] Comment on above: Result Comment: Conc entration Interpretation Follow-Up < 5 - 50 ug/g Normal None >50 -120 ug/g Borderline Re-evaluate in 4-6 weeks >120 ug/g Abnormal Repeat as clinically indicated Performed at: - [facility] [address] [id number] Manager Food: Danny Tripp MD, Phone: [phone] Performed By: #### M 100.637, M600.5000, M100.0605, M100.6796, L7000.0700, M7400.3302, L7000.0750 #### [facility] Laboratory [address] [place], [address] L7000.0750on 03-10-2024 P ELASTASE,FECA > 800 Normal >200 [facility] Comment on above: Result Comment: Resu lt Units: ug Elast./g Severe Pancreatic Insufficiency: <100 Moderate Pancreatic Insufficiency: 100 - 200 Normal: >200 Performed at: - [facility] [address] [id number] Manager Food: Danny Tripp MD, Phone: [phone] Performed By: #### M 100.637, M600.5000, M100.0605, M100.6796, L7000.0700, M7400.3302, L7000.0750 #### [facility] Laboratory [address] [place], [address] FRANCIS Comprehensive Panelon FRANCIS TABLE Comment Normal . [facility] Comment on above: Result Comment: Auto antibody Disease Association Condition Frequency --------- Antinuclear Antibody, SLE, mixed connective Direct (FRANCIS-D) tissue diseases --------- dsDNA SLE 40 - 60% --------- Chromatin Drug induced SLE 90% SLE 48 - 97% --------- SSA (Ro) SLE 25 - 35% Sjogren's Syndrome 40 - 70% Lupus 100% --------- SSB (La) SLE 10% Sjogren's Syndrome 30% --------- Sm (anti-Traore) SLE 15 - 30% --------- GUEST ASSOCIATE Mixed Connective Tissue Disease 95% (U1 nRNP, SLE 30 - 50% anti-ribonucleoprotein) Polymyositis and/or Dermatomyositis 20% --------- Scl-70 (antiDNA Scleroderma (diffuse) 20 - 35% topoisomerase) Crest 13% --------- Laurel-1 Polymyositis and/or Dermatomyositis 20 - 40% --------- Centromere B Scleroderma - Crest variant 80% Performed By: #### L 800.1280, L3300.1200, L503.6550, L3100.3425, L803.2200, L3100.5440, L2100.0000, L5500.0550, L3100.6900, L504.2610, L3200.1100, L3410.2400, L501.6710, L101.9900 ####[facility] [address] [place] [place], [address] ANTI-CENT B AB <0.2 Normal 0.0-0.9 [facility] Comment on above: Performed By: #### L 800.1280, L3300.1200, L503.6550, L3100.3425, L803.2200, L3100.5440, L2100.0000, L5500.0550, L3100.6900, L504.2610, L3200.1100, L3410.2400, L501.6710, L101.9900 ####[facility] [address] [place], [address] ANTI-DNA (DS)AB <1 Normal 0-9 [facility] Comment on above: Result Comment: Nega tive <5 Equivocal 5 - 9 Positive >9 Performed By: #### L 800.1280, L3300.1200, L503.6550, L3100.3425, L803.2200, L3100.5440, L2100.0000, L5500.0550, L3100.6900, L504.2610, L3200.1100, L3410.2400, L501.6710, L101.9900 ####[facility] [address] [place], [address] ANTI-LAUREL-1 <0.2 Normal 0.0-0.9 [facility] Comment on above: Performed By: #### L 800.1280, L3300.1200, L503.6550, L3100.3425, L803.2200, L3100.5440, L2100.0000, L5500.0550, L3100.6900, L504.2610, L3200.1100, L3410.2400, L501.6710, L101.9900 ####[facility] [address] [place], [address] ANTI-SS-A < 0.2 Normal 0.0-0.9 [facility] Comment on above: Performed By: #### L 800.1280, L3300.1200, L503.6550, L3100.3425, L803.2200, L3100.5440, L2100.0000, L5500.0550, L3100.6900, L504.2610, L3200.1100, L3410.2400, L501.6710, L101.9900 ####[facility] [address] [place], [address] ANTI-SS-B < 0.2 Normal 0.0-0.9 [facility] Comment on above: Performed By: #### L 800.1280, L3300.1200, L503.6550, L3100.3425, L803.2200, L3100.5440, L2100.0000, L5500.0550, L3100.6900, L504.2610, L3200.1100, L3410.2400, L501.6710, L101.9900 ####[facility] [address] [place], [address] ANTICHROMATIN <0.2 Normal 0.0-0.9 [facility] Comment on above: Performed By: #### L 800.1280, L3300.1200, L503.6550, L3100.3425, L803.2200, L3100.5440, L2100.0000, L5500.0550, L3100.6900, L504.2610, L3200.1100, L3410.2400, L501.6710, L101.9900 ####[facility] [address] [place], [address] ANTISCLERODERM <0.2 Normal 0.0-0.9 [facility] Comment on above: Performed By: #### L 800.1280, L3300.1200, L503.6550, L3100.3425, L803.2200, L3100.5440, L2100.0000, L5500.0550, L3100.6900, L504.2610, L3200.1100, L3410.2400, L501.6710, L101.9900 ####[facility] [address] [place], [address] GUEST ASSOCIATE Ab <0.2 Normal 0.0-0.9 [facility] Comment on above: Performed By: #### L 800.1280, L3300.1200, L503.6550, L3100.3425, L803.2200, L3100.5440, L2100.0000, L5500.0550, L3100.6900, L504.2610, L3200.1100, L3410.2400, L501.6710, L101.9900 ####[facility] [address] [place], [place], [address] TRAORE Ab <0.2 Normal 0.0-0.9 [facility] Comment on above: Performed By: #### L 800.1280, L3300.1200, L503.6550, L3100.3425, L803.2200, L3100.5440, L2100.0000, L5500.0550, L3100.6900, L504.2610, L3200.1100, L3410.2400, L501.6710, L101.9900 ####[facility] [address] [place], [place], [id number] ANCAon 03-07-2024 Atypical pANCA <1:20 Normal Neg:<1:20 [facility] Comment on above: Order Comment: Y Result Comment: The atypical pANCA pattern has been observed in a significant percentage of patients with ulcerative colitis, primary sclerosing cholangitis and autoimmune hepatitis. Performed By: #### L 800.1280, L3300.1200, L503.6550, L3100.3425, L803.2200, L3100.5440, L2100.0000, L5500.0550, L3100.6900, L504.2610, L3200.1100, L3410.2400, L501.6710, L101.9900 ####[facility] [address] [place], [place], [id number] Cytoplasmic Ab <1:20 Normal Neg:<1:20 [facility] Comment on above: Order Comment: Y Performed By: #### L 800.1280, L3300.1200, L503.6550, L3100.3425, L803.2200, L3100.5440, L2100.0000, L5500.0550, L3100.6900, L504.2610, L3200.1100, L3410.2400, L501.6710, L101.9900 ####[facility] [address] [place], [place], [phone] Perinuclear Ab. <1:20 Normal Neg:<1:20 [facility] Comment on above: Order Comment: Y Result Comment: The presence of positive fluorescence exhibiting P-ANCA or C-ANCA patterns alone is not specific for the diagnosis of Tammie's Granulomatosis (WG) or microscopic polyangiitis. Decisions about treatment should not be based solely on ANCA IFA results. The International ANCA Group Consensus recommends follow up testing of positive sera with both MA- 3 and MPO-ANCA enzyme immunoassays. As many as 5% serum samples are positive only by EIA. Ref. AM J Clin Pathol 1999;111:507-513. Performed By: #### L 800.1280, L3300.1200, L503.6550, L3100.3425, L803.2200, L3100.5440, L2100.0000, L5500.0550, L3100.6900, L504.2610, L3200.1100, L3410.2400, L501.6710, L101.9900 ####[facility] [address] [place], [place], [phone] Angiotensin Convert Enzymeon 03-07-2024 ANGIOT-CONV.ENZ 39 U/L Normal 14-82 [facility] Comment on above: Order Comment: Y Result Comment: Perf ormed at: - [facility] [id number] Manager Food: Cody Ledesma PhD, Phone: [phone] Performed at: [facility] [id number] Manager Food: Danny Tripp MD, Phone: [phone] Performed By: #### L 800.1280, L3300.1200, L503.6550, L3100.3425, L803.2200, L3100.5440, L2100.0000, L5500.0550, L3100.6900, L504.2610, L3200.1100, L3410.2400, L501.6710, L101.9900 ####[facility] [address] [place], [address] Anti-Mitochondrial ABon 02-14 ANTIMITOCHON AB <20.0 Normal 0.0-20.0 [facility] Comment on above: Result Comment: Nega tive 0.0 - 20.0 Equivocal 20.1 - 24.9 Positive >24.9 Mitochondrial (M2) Antibodies are found in 90-96% of patients with primary biliary cirrhosis. Performed By: #### L 800.1280, L3300.1200, L503.6550, L3100.3425, L803.2200, L3100.5440, L2100.0000, L5500.0550, L3100.6900, L504.2610, L3200.1100, L3410.2400, L501.6710, L101.9900 ####[facility] [address] [place], [address] Anti-Smooth Muscle ABSon ANTISMOOTH MUSC 4 Units Normal 0-19 [facility] Comment on above: Order Comment: Y Result Comment: Nega tive 0 - 19 Weak positive 20 - 30 Moderate to strong positive >30 Actin Antibodies are found in 52-85% of patients with autoimmune hepatitis or chronic active hepatitis and in 22% of patients with primary biliary cirrhosis. Performed By: #### L 800.1280, L3300.1200, L503.6550, L3100.3425, L803.2200, L3100.5440, L2100.0000, L5500.0550, L3100.6900, L504.2610, L3200.1100, L3410.2400, L501.6710, L101.9900 ####[facility] [address] [place] [place], [address] CDIFF (PCR)on 03-07-2024 CDIFF Pending 027 027 NAP1-B1 Presumptive Negative *for epidemiolologic???use C. Diff PCR Negative- No toxigenic C. Diff Detected Normal [facility] Comment on above: Performed By: #### M 100.637, M600.5000, M100.0605, M100.6796, L7000.0700, M7400.3302, L7000.0750 #### [facility] [address] [place], [place], [id number] Celiac Disease Profileon ENDOMYSIAL IGA Negative Normal Negative [facility] Comment on above: Order Comment: Y Performed By: #### L 800.1280, L3300.1200, L503.6550, L3100.3425, L803.2200, L3100.5440, L2100.0000, L5500.0550, L3100.6900, L504.2610, L3200.1100, L3410.2400, L501.6710, L101.9900 ####[facility] [address] [place], [address] tTG IGA <2 Normal 0-3 [facility] Comment on above: Order Comment: Y Result Comment: Nega tive 0 - 3 Weak Positive 4 - 10 Positive >10 Tissue Transglutaminase (tTG) has been identified as the endomysial antigen. Studies have demonstr- ated that endomysial IgA antibodies have over 99% specificity for gluten sensitive enteropathy. Performed By: #### L 800.1280, L3300.1200, L503.6550, L3100.3425, L803.2200, L3100.5440, L2100.0000, L5500.0550, L3100.6900, L504.2610, L3200.1100, L3410.2400, L501.6710, L101.9900 ####[facility] [address] [facility] [address] [place], [address] ENTERIC PATHOGEN PANEL STOOL on 03-07-2024 EP PANEL Normal Reference Ran ge = Not Detected GI pathogens Pnl Stl RHIANNA+probe Nucleic acid amplification test method GI pathogens Pnl Stl RHIANNA+probe Not detected for Campylobacter group, Salmonella species, Shigella species, Vibrio Group, Yersinia enterocolitica, EHEC (Shiga Toxin 1, Shiga Toxin 2), Norovirus Gl/Gll, and Rotavirus A. Other common stool pathogens are not detected on this panel include: Aeromonas/Plesiomonas or parasites. Order testing for these organisms separately if suspected. This is an amplified DNA test which makes it both specific and sensitive. CAMPYLOBACTER Not Detected Norovirus Not Detected Rotavirus Not Detected Salmonella Not Detected Shiga Toxin Not Detected Shigella sp. Not Detected VIBRIO Not Detected Yersinia Not Detected Normal [facility] Comment on above: Performed By: #### M 100.637, M600.5000, M100.0605, M100.6796, L7000.0700, M7400.3302, L7000.0750 #### [facility] [address] [place], [place], [id number] LISSY + Protein Elect, Serumon 03-07-2024 Albumin [Mass/Vol] 4.2 g/dL Normal 2.9-4.4 [facility] Comment on above: Order Comment: Y Performed By: #### L 800.1280, L3300.1200, L503.6550, L3100.3425, L803.2200, L3100.5440, L2100.0000, L5500.0550, L3100.6900, L504.2610, L3200.1100, L3410.2400, L501.6710, L101.9900 ####[facility] [address] [place], [address] Albumin/Globulin [Mass ratio] 1.3 {ratio} Normal 0.7-1.7 [facility] Comment on above: Order Comment: Y Performed By: #### L 800.1280, L3300.1200, L503.6550, L3100.3425, L803.2200, L3100.5440, L2100.0000, L5500.0550, L3100.6900, L504.2610, L3200.1100, L3410.2400, L501.6710, L101.9900 ####[facility] [address] [place], [address] BXNKQ-2-UCRK 0.3 g/dL Normal 0.0-0.4 [facility] Comment on above: Order Comment: Y Performed By: #### L 800.1280, L3300.1200, L503.6550, L3100.3425, L803.2200, L3100.5440, L2100.0000, L5500.0550, L3100.6900, L504.2610, L3200.1100, L3410.2400, L501.6710, L101.9900 ####[facility] [address] [place], [address] KCPOA-6-EMKW 0.8 g/dL Normal 0.4-1.0 [facility] Comment on above: Order Comment: Y Performed By: #### L 800.1280, L3300.1200, L503.6550, L3100.3425, L803.2200, L3100.5440, L2100.0000, L5500.0550, L3100.6900, L504.2610, L3200.1100, L3410.2400, L501.6710, L101.9900 ####[facility] [address] [place], [address] BETA GLOBULIN 1.1 g/dL Normal 0.7-1.3 [facility] Comment on above: Order Comment: Y Performed By: #### L 800.1280, L3300.1200, L503.6550, L3100.3425, L803.2200, L3100.5440, L2100.0000, L5500.0550, L3100.6900, L504.2610, L3200.1100, L3410.2400, L501.6710, L101.9900 ####[facility] [address] [place], [address] GAMMA GLOBULIN 1.2 g/dL Normal 0.4-1.8 [facility] Comment on above: Order Comment: Y Performed By: #### L 800.1280, L3300.1200, L503.6550, L3100.3425, L803.2200, L3100.5440, L2100.0000, L5500.0550, L3100.6900, L504.2610, L3200.1100, L3410.2400, L501.6710, L101.9900 ####[facility] [address] [place], [place], [phone] Globulin (S) [Mass/Vol] 3.3 g/dL Normal 2.2-3.9 [facility] Comment on above: Order Comment: Y Performed By: #### L 800.1280, L3300.1200, L503.6550, L3100.3425, L803.2200, L3100.5440, L2100.0000, L5500.0550, L3100.6900, L504.2610, L3200.1100, L3410.2400, L501.6710, L101.9900 ####[facility] [address] [place], [place], [phone]) LISSY RESULT,S Comment Normal . [facility] Comment on above: Order Comment: Y Result Comment: No m onoclonality detected. Performed By: #### L 800.1280, L3300.1200, L503.6550, L3100.3425, L803.2200, L3100.5440, L2100.0000, L5500.0550, L3100.6900, L504.2610, L3200.1100, L3410.2400, L501.6710, L101.9900 ####[facility] [address] [place], [place], [phone] IMMUNOGLOB A QN 203 mg/dL Normal 87-352 [facility] Comment on above: Order Comment: Y Performed By: #### L 800.1280, L3300.1200, L503.6550, L3100.3425, L803.2200, L3100.5440, L2100.0000, L5500.0550, L3100.6900, L504.2610, L3200.1100, L3410.2400, L501.6710, L101.9900 ####[facility] [address] [place], [place], [id number] IMMUNOGLOB G QN 1079 mg/dL Normal 586-1602 [facility] Comment on above: Order Comment: Y Performed By: #### L 800.1280, L3300.1200, L503.6550, L3100.3425, L803.2200, L3100.5440, L2100.0000, L5500.0550, L3100.6900, L504.2610, L3200.1100, L3410.2400, L501.6710, L101.9900 ####[facility] [address] [place], [place], [id number] IMMUNOGLOB M QN 153 mg/dL Normal 26-217 [facility] Comment on above: Order Comment: Y Performed By: #### L 800.1280, L3300.1200, L503.6550, L3100.3425, L803.2200, L3100.5440, L2100.0000, L5500.0550, L3100.6900, L504.2610, L3200.1100, L3410.2400, L501.6710, L101.9900 ####[facility] [address] [place], [place], [id number] M-Anselmo Not Observed Normal Not Observed [facility] Comment on above: Order Comment: Y Performed By: #### L 800.1280, L3300.1200, L503.6550, L3100.3425, L803.2200, L3100.5440, L2100.0000, L5500.0550, L3100.6900, L504.2610, L3200.1100, L3410.2400, L501.6710, L101.9900 ####[facility] [address] [place], [place], [id number] NOTE: Comment Normal . [facility] Comment on above: Order Comment: Y Result Comment: Prot ein electrophoresis scan will follow via computer, mail, or cloth shrinking supervisor delivery. Performed By: #### L 800.1280, L3300.1200, L503.6550, L3100.3425, L803.2200, L3100.5440, L2100.0000, L5500.0550, L3100.6900, L504.2610, L3200.1100, L3410.2400, L501.6710, L101.9900 ####[facility] [address] [place], [phone] Protein [Mass/Vol] 7.5 g/dL Normal 6.0-8.5 [facility] Comment on above: Order Comment: Y Performed By: #### L 800.1280, L3300.1200, L503.6550, L3100.3425, L803.2200, L3100.5440, L2100.0000, L5500.0550, L3100.6900, L504.2610, L3200.1100, L3410.2400, L501.6710, L101.9900 ####[facility] [address] [place], [place], [phone] Immunoglobulins G/A/M/Jorge IMMUNOGLOB E QN 147 IU/mL Normal 6-495 [facility] Comment on above: Order Comment: Y Performed By: #### L 800.1280, L3300.1200, L503.6550, L3100.3425, L803.2200, L3100.5440, L2100.0000, L5500.0550, L3100.6900, L504.2610, L3200.1100, L3410.2400, L501.6710, L101.9900 ####[facility] [address] [place], [address] L2100.0000on 03-07-2024 ACCA 67 units Normal 0-90 [facility] Comment on above: Order Comment: Y Result Comment: Nega tive: <80 Equivocal: 80-90 Positive: >90 Performed By: #### L 800.1280, L3300.1200, L503.6550, L3100.3425, L803.2200, L3100.5440, L2100.0000, L5500.0550, L3100.6900, L504.2610, L3200.1100, L3410.2400, L501.6710, L101.9900 ####[facility] [address] [place], [place], [id number] ALCA 22 units Normal 0-60 [facility] Comment on above: Order Comment: Y Result Comment: Nega tive:<55 Equivocal: 55-60 Positive: >60 Performed By: #### L 800.1280, L3300.1200, L503.6550, L3100.3425, L803.2200, L3100.5440, L2100.0000, L5500.0550, L3100.6900, L504.2610, L3200.1100, L3410.2400, L501.6710, L101.9900 ####[facility] [address] [place], [address] AMCA 84 units Normal 0-100 [facility] Comment on above: Order Comment: Y Result Comment: Nega tive: <90 Equivocal: 90-100 Positive: >100 This test was developed and its performance characteristics determined by [employer]. It has not been cleared or approved by the Food and Drug Administration. The FDA has determined that such clearance or approval is not necessary. Performed By: #### L 800.1280, L3300.1200, L503.6550, L3100.3425, L803.2200, L3100.5440, L2100.0000, L5500.0550, L3100.6900, L504.2610, L3200.1100, L3410.2400, L501.6710, L101.9900 ####[facility] [address] [place], [place], [phone] Atypical pANCA Negative Normal Negative [facility] Comment on above: Order Comment: Y Performed By: #### L 800.1280, L3300.1200, L503.6550, L3100.3425, L803.2200, L3100.5440, L2100.0000, L5500.0550, L3100.6900, L504.2610, L3200.1100, L3410.2400, L501.6710, L101.9900 ####[facility] [address] [place], [place], [phone] COMMENT Comment Normal . [facility] Comment on above: Order Comment: Y Result Comment: Amisha roro is not suggestive of Inflammatory Bowel Disease Performed By: #### L 800.1280, L3300.1200, L503.6550, L3100.3425, L803.2200, L3100.5440, L2100.0000, L5500.0550, L3100.6900, L504.2610, L3200.1100, L3410.2400, L501.6710, L101.9900 ####[facility] [address] [place], [address] Lois 19 units Normal 0-50 [facility] Comment on above: Order Comment: Y Result Comment: Nega tive: <45 Equivocal: 45-50 Positive: >50 Performed By: #### L 800.1280, L3300.1200, L503.6550, L3100.3425, L803.2200, L3100.5440, L2100.0000, L5500.0550, L3100.6900, L504.2610, L3200.1100, L3410.2400, L501.6710, L101.9900 ####[facility] [address] [place], [address] L5500.0550on 03-07-2024 BEEF <0.[address] [facility] Comment on above: Performed By: #### L 800.1280, L3300.1200, L503.6550, L3100.3425, L803.2200, L3100.5440, L2100.0000, L5500.0550, L3100.6900, L504.2610, L3200.1100, L3410.2400, L501.6710, L101.9900 ####[facility] [address] [place], [place], [phone] CHOCOLATE <0.[address] [facility] Comment on above: Performed By: #### L 800.1280, L3300.1200, L503.6550, L3100.3425, L803.2200, L3100.5440, L2100.0000, L5500.0550, L3100.6900, L504.2610, L3200.1100, L3410.2400, L501.6710, L101.9900 ####[facility] [address] [place], [place], [phone] CODFISH <0.[address] [facility] Comment on above: Performed By: #### L 800.1280, L3300.1200, L503.6550, L3100.3425, L803.2200, L3100.5440, L2100.0000, L5500.0550, L3100.6900, L504.2610, L3200.1100, L3410.2400, L501.6710, L101.9900 ####[facility] [address] [place], [place], [phone] COMMENT Comment Normal . [facility] Comment on above: Result Comment: Casey cabrera of Specific IgE Class Description of Class ----- < 0.10 0 Negative 0.10 - 0.31 0/I Equivocal/Low 0.32 - 0.55 I Low 0.56 - 1.40 II Moderate 1.41 - 3.90 III High 3.91 - 19.00 IV Very High 19.01 - 100.00 V Very High >100.00 Very High Performed By: #### L 800.1280, L3300.1200, L503.6550, L3100.3425, L803.2200, L3100.5440, L2100.0000, L5500.0550, L3100.6900, L504.2610, L3200.1100, L3410.2400, L501.6710, L101.9900 ####[facility] [address] [place], [place], [phone] CORN <0.[address] [facility] Comment on above: Performed By: #### L 800.1280, L3300.1200, L503.6550, L3100.3425, L803.2200, L3100.5440, L2100.0000, L5500.0550, L3100.6900, L504.2610, L3200.1100, L3410.2400, L501.6710, L101.9900 ####[facility] [address] [place], [address] EGG, WHOLE <0.[address] [facility] Comment on above: Result Comment: Perf ormed at: [address] [id number] Manager Food: Cody Ledesma PhD, Phone: [phone] Performed at: [facility] [address] [id number] Manager Food: Danny Tripp MD, Phone: [phone] Performed By: #### L 800.1280, L3300.1200, L503.6550, L3100.3425, L803.2200, L3100.5440, L2100.0000, L5500.0550, L3100.6900, L504.2610, L3200.1100, L3410.2400, L501.6710, L101.9900 ####[facility] [address] [place], [address] MILK (COW) <0.[address] [facility] Comment on above: Performed By: #### L 800.1280, L3300.1200, L503.6550, L3100.3425, L803.2200, L3100.5440, L2100.0000, L5500.0550, L3100.6900, L504.2610, L3200.1100, L3410.2400, L501.6710, L101.9900 ####[facility] [address] [place], [place], [phone] MUSSELS <0.[address] [facility] Comment on above: Performed By: #### L 800.1280, L3300.1200, L503.6550, L3100.3425, L803.2200, L3100.5440, L2100.0000, L5500.0550, L3100.6900, L504.2610, L3200.1100, L3410.2400, L501.6710, L101.9900 ####[facility] [address] [place], [place], [id number] PEANUT <0.[address] [facility] Comment on above: Performed By: #### L 800.1280, L3300.1200, L503.6550, L3100.3425, L803.2200, L3100.5440, L2100.0000, L5500.0550, L3100.6900, L504.2610, L3200.1100, L3410.2400, L501.6710, L101.9900 ####[facility] [address] [place], [place], [phone] PORK <0.[address] [facility] Comment on above: Performed By: #### L 800.1280, L3300.1200, L503.6550, L3100.3425, L803.2200, L3100.5440, L2100.0000, L5500.0550, L3100.6900, L504.2610, L3200.1100, L3410.2400, L501.6710, L101.9900 ####[facility] [address] [place], [place], [phone] SALMON <0.[address] [facility] Comment on above: Performed By: #### L 800.1280, L3300.1200, L503.6550, L3100.3425, L803.2200, L3100.5440, L2100.0000, L5500.0550, L3100.6900, L504.2610, L3200.1100, L3410.2400, L501.6710, L101.9900 ####[facility] [address] [place], [address] SHRIMP <0.[address] [facility] Comment on above: Performed By: #### L 800.1280, L3300.1200, L503.6550, L3100.3425, L803.2200, L3100.5440, L2100.0000, L5500.0550, L3100.6900, L504.2610, L3200.1100, L3410.2400, L501.6710, L101.9900 ####[facility] [address] [place], [place], [phone] SOYBEAN <0.[address] [facility] Comment on above: Performed By: #### L 800.1280, L3300.1200, L503.6550, L3100.3425, L803.2200, L3100.5440, L2100.0000, L5500.0550, L3100.6900, L504.2610, L3200.1100, L3410.2400, L501.6710, L101.9900 ####[facility] [address] [place], [place], [phone] TUNA <0.[address] [facility] Comment on above: Performed By: #### L 800.1280, L3300.1200, L503.6550, L3100.3425, L803.2200, L3100.5440, L2100.0000, L5500.0550, L3100.6900, L504.2610, L3200.1100, L3410.2400, L501.6710, L101.9900 ####[facility] [address] [place], [address] WHEAT <0.[address] [facility] Comment on above: Performed By: #### L 800.1280, L3300.1200, L503.6550, L3100.3425, L803.2200, L3100.5440, L2100.0000, L5500.0550, L3100.6900, L504.2610, L3200.1100, L3410.2400, L501.6710, L101.9900 ####[facility] [address] [facility] [place], [address] Stool Lactoferrin/WBCon 02-14 WBCST Normal Reference Ran ge = Negative Fecal WBC Lactoferrin Negative: No Fecal WBC Lactoferrin present Normal [facility] Comment on above: Performed By: #### M 100.637, M600.5000, M100.0605, M100.6796, L7000.0700, M7400.3302, L7000.0750 #### [facility] Laboratory [address] [facility] [place], [address] CRPon 03-03-2024 C-REACTIVE PROT < 2.90 Normal 0.0-3.0 [facility] Comment on above: Order Comment: 1 Result Comment: C-Re active Protein (CRP) provides useful information for the diagnosis, therapy and monitoring of inflammatory processes and associated diseases. For the evaluation of Relative Risk for Cardiovascular Disease, a High Sensitivity CRP (HSCRP) should be ordered. Performed By: #### L 800.1280, L3300.1200, L503.6550, L3100.3425, L803.2200, L3100.5440, L2100.0000, L5500.0550, L3100.6900, L504.2610, L3200.1100, L3410.2400, L501.6710, L101.9900 ####[facility] [address] [place], [address] Erythrocyte Sed Rateon 03-03 SED RATE 6 mm/hr Normal 0-30 [facility] Comment on above: Performed By: #### L 800.1280, L3300.1200, L503.6550, L3100.3425, L803.2200, L3100.5440, L2100.0000, L5500.0550, L3100.6900, L504.2610, L3200.1100, L3410.2400, L501.6710, L101.9900 ####[facility] [address], [address] Ferritinon 03-03-2024 Ferritin [Mass/Vol] 17 ng/mL Normal 8-252 [facility] Comment on above: Order Comment: 1 Performed By: #### L 800.1280, L3300.1200, L503.6550, L3100.3425, L803.2200, L3100.5440, L2100.0000, L5500.0550, L3100.6900, L504.2610, L3200.1100, L3410.2400, L501.6710, L101.9900 ####[facility] [address] [place], [place], [address] Gastroenterology Visit Repor ton 03-03-2024 Gastroenterology Visit Report [facility]enterology [address] [place] [address] OFFICE VISIT Date of Service: 03/03/24 MR#: [id number] Acct: [id number] Name: LAY HUNTER Rep #: [id number] : 1995 Provider: PILAR Castellano Age/Sex: 29/F [place] [facility] [place]: Signed Intake Intake Visit Reasons: Irritable bowel syndrome Chief Complaint: Constipation Allergies Penicillins Allergy (Unknown, Verified 02/10/19 17:16) other Medications ???Medication ???Instructions ???Recorded ???Confirmed ???Type dicyclomine 10 mg capsule 10 mg PO BID #20 caps 03/03/24 03/03/24 Rx ondansetron HCl 4 mg tablet 4 mg PO Q8H PRN 03/03/24 03/03/24 History plecanatide 3 mg tablet (Trulance) 3 mg PO DAILY 03/03/24 03/03/24 History sertraline 50 mg tablet (Zoloft) 50 mg PO DAILY 03/03/24 03/03/24 History PFSH Medical History (Updated 03/03/24 @ 10:06 by PILAR Castellano) Limb weakness Asthma Knee pain HPI HPI Chief Complaint: Constipation Details: LAY HUNTER, is a 29 F who presents to the office today for establishment with [facility]. Patient has been having severe constipation since May of 2023 after having a gastroenteritis. She is unable to have bowel movements without using suppositories. She has been seeing GI at [facility] and has been prescribed Trulance and Linzess. These medications have not been helpful at all. She has never had workup for IBD, celiac, food allergies or other autoimmune conditions. She has never had EGD or colonoscopy. 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 She has been having liquid stool for the past couple of days which is out of the ordinary for her. She also notes abdominal pain everyday. ROS Const Constitutional: Positive for weight change (weight gain ); No fatigue or fever(s) ENT ENT: No difficulty swallowing Gastro GI: Positive for abdominal pain, bloating, change in bowel habits, constipation, diarrhea, excessive flatus and nausea/dyspepsia; No belching, change in stool character, coffee ground emesis, cramping, heartburn, difficulty swallowing, feeling full early, incontinent of stools, Vomiting blood/hematemesis, Blood in stool, loose stools, Black,tarry stools, pain with swallowing, vomiting or other Musc Musculoskeletal: Positive for leg pain at night; No joint pain Skin Skin: No yellowing of the eye or itchy eyes Psych Psychiatric: Positive for anxiety, No depression, Positive for hyperactivity and Positive for obsessions/compulsions Endo Endocrine: Positive for weight change (weight gain ); No fatigue Aller/Imm Allergy/Immunologic: No itchy eyes Az/Lymp Hematologic/Lymphatic: Positive for easy bruising; No easy bleeding Exam Const General: cooperative and comfortable Nutritional Appearance: average body habitus and well nourished HENMT Head: normal to inspection Ears: hearing grossly normal bilaterally Nose: external nose normal Face and sinus: normal facial exam Mouth: oral mucosae normal Throat: posterior oropharynx normal Eyes General: appearance normal, both eyes and all related structures Neck Neck: normal visual inspection Chest Chest palpation inspection: normal inspection of the chest Resp Effort Inspection: normal respiratory effort and able to speak in complete sentences Cardio Palpation: normal PMI GI Inspection: normal to inspection Palpation: no hepatosplenomegaly Skin General: no rashes or lesions noted Neuro General: patient alert Extrem General: normal to inspection Psych Affect: normal affect Assessment and Plan Assessment and Plan (1) Irritable bowel syndrome: Plan: Patient is here today for establishment with [facility]. She has been having severe constipation since May of 2024 after a viral illness. She has been seeing GI at [facility]. Constipation has been refractory to all treatments. She has not had full GI work up. Differential diagnosis includes IBD, celiac, food allergy, or IBS. -We will order workup for autoimmune diseases causing GI symptoms; IBD panel, ESR, CRP, ANCA, Celiac panel -Will also order stool testing; calprotectin, lactoferrin and elastase -Will consider other testing in the future such as sitz marker, gallbladder US, EGD and colonoscopy -Trulance has not been helpful to her so she wishes to stop taking it. She will start taking miralax twice per day. Will prescribe her with dicyclomine as needed for her abdominal pain. -She will f/u in 3 months and will be notified of her test results (2) Constipation: Status: Acute Orders: Orders ANCA Today K59.00 - Constipation, unspecified Angiotensin Convert Enzyme Today K59.00 - Constipation, unspecified Anti-Mitochondrial AB Today K59.00 - Constipation, unspecified Anti-Smooth Muscle ABS Today K59 (more content not included)... Normal [facility] LDHon 03-03-2024 LDH 148 U/L Normal 84-246 [facility] Comment on above: Order Comment: 1 Performed By: #### L 800.1280, L3300.1200, L503.6550, L3100.3425, L803.2200, L3100.5440, L2100.0000, L5500.0550, L3100.6900, L504.2610, L3200.1100, L3410.2400, L501.6710, L101.9900 ####[facility] [address] [place] [place], [address] [facility] [facility] [facility] LAY HUNTER ([id number]) 1995 F Date Time Provider Department 02/15/24 FABIOLA DEVLIN During your visit today, we recorded the following information about you: Natacha Waddell MA 02/15/2024 9:59 AM Signed Records request received from [facility] pt has appt with them sent last office visit per request Natacha Waddell MA Allergies As of Date: 02/15/2024 Noted Allergy Reaction PENICILLINS 02/06/2017 16 - Unknown Comments: Pt states she doesn't know what reaction she had to Pencillin. She was a young child. Allergy skin tests to penicillin were positive.The patient is at risk for a severe, immediate, IgE-mediated reaction to penicillin and other penicillin type antibiotics. The patient should continue to avoid use of penicillin and other penicillin type antibiotics. Date Reviewed: 12/26/2023 Reviewed by: Nora Shaw LPN - Fully Assessed Reason for Visit: Patient Update [1234] Prescriptions as of 02/15/2024 - peg 3350-Electrolytes (GOLYTELY) 236-22.74-6.74 -5.86 gram suspension Refer to printed patient instructions that will be mailed to you. - plecanatide (TRULANCE) 3 mg tablet Take 1 tablet (3 mg) by mouth once daily. - ondansetron orally disintegrating (ZOFRAN ODT) 4 mg disintegrating tablet Take 1 tablet by mouth every 6 hours as needed for nausea/vomiting. - sertraline (ZOLOFT) 50 mg tablet Take 1 tablet by mouth once daily. 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 She will use the GoLytely prep. Peggy Ayala 01/25/2024 3:29 PM Signed Per prev notes- called pt left voice mail message asking the patient to call our office back to schedule a colon Peggy Diggs 01/30/2024 9:22 AM Signed Called pt- states she will wait to have her colonoscopy due to her insurance. Will call back next year Peggy Ayala Allergies As of Date: 01/23/2024 Noted Allergy Reaction PENICILLINS 02/06/2017 16 - Unknown Comments: Pt states she doesn't know what reaction she had to Pencillin. She was a young child. Allergy skin tests to penicillin were positive.The patient is at risk for a severe, immediate, IgE-mediated reaction to penicillin and other penicillin type antibiotics. The patient should continue to avoid use of penicillin and other penicillin type antibiotics. Date Reviewed: 12/26/2023 Reviewed by: Nora Shaw LPN - Fully Assessed Reason for Visit: Orders [681] Prescriptions as of 01/30/2024 - peg 3350-Electrolytes (GOLYTELY) 236-22.74-6.74 -5.86 gram suspension Refer to printed patient instructions that will be mailed to you. - plecanatide (TRULANCE) 3 mg tablet Take 1 tablet (3 mg) by mouth once daily. - ondansetron orally disintegrating (ZOFRAN ODT) 4 mg disintegrating tablet Take 1 tablet by mouth every 6 hours as needed for nausea/vomiting. - sertraline (ZOLOFT) 50 mg tablet Take 1 tablet by mouth once daily. DOSE CHANGE: TAKE ONE DAILY Problem List As Of Date 01/23/2024 Noted Resolved Anxiety [F41.9] 02/08/2017 Asthma [J45.909] 02/06/2017 Attention deficit hyperactivity disorder, combi*02/06/2017 Depression [F32.A] 01/20/2019 Irritable bowel syndrome with constipation [K58*02/08/2017 Hypoglycemia [E16.2] 01/26/2021 Allergic dermatitis [L23.9] 02/13/2019 Encounter Status:Closed by F[facility]VLIN on 01/23/24 [facility] Visit (INTMWS ) LAY HUNTER ([id number]) 1995 F Date Time Provider Department 12/26/23 3:20 PM KVNG HURD INTMWS During your visit today, we recorded the following information about you: Temperature Pulse Respiration Blood pressure 98.3 degrees 69/minute 18/minute 118/68 Weight Last Period 68.5 kg 12/24/23 Kvng Hurd MD 01/27/2024 6:26 PM Signed This note was created using panpan. Subjective Lay Hunter is a 28 year old female. Patient presents with: F/U 3 Month SUBJECTIVE: Lay Hunter is a 28 year old year old lady here today for 3 month follow up appointment for review of medical conditions. 6 months and still miserable. Miralax routinely and not helping. Generic fiber capsule. Stool softener as needed. Gas Relief as needed. Once or twice weekly laxative small red pill--does not help Linzess helps with constipation. Taken more than 30 days worth. Sometimes too fast so only taking as needed. Constant pressure that needs to release gas. Saw Gastroenterology. Saw [facility] Bumper. Pain in side ongoing. Noted had pyloric stenosis that was treated with surgery when she was a baby. PAST MEDICAL HISTORY Diagnosis Date Asthma Attention deficit disorder (ADD) without hyperactivity Generalized anxiety disorder History of depression Hypoglycemia Irritable bowel syndrome with constipation Current Outpatient Medications Medication Sig linaCLOtide (LINZESS) 72 mcg capsule Take 1 capsule by mouth every morning. ondansetron orally disintegrating (ZOFRAN ODT) 4 mg disintegrating tablet Take 1 tablet by mouth every 6 hours as needed for nausea/vomiting. sertraline (ZOLOFT) 50 mg tablet Take 1 tablet by mouth once daily. DOSE CHANGE: TAKE ONE DAILY dicyclomine (BENTYL) 10 mg capsule Take 1 capsule by mouth three times a day as needed. (Patient not taking: Reported on 12/26/2023) lisdexamfetamine (VYVANSE) 30 mg capsule Take 1 capsule by mouth once daily for 30 days. lisdexamfetamine (VYVANSE) 30 mg capsule Take 1 capsule by mouth once daily for 30 days. Do not start before September 15, 2023. lisdexamfetamine (VYVANSE) 30 mg capsule Take 1 capsule by mouth once daily for 30 days. Do not start before July 15, 2023. dicyclomine (BENTYL) 10 mg capsule Take 1 capsule by mouth before meals and at bedtime. As needed (Patient not taking: Reported on 09/26/2023) loperamide HCl (IMODIUM A-D) 2 mg tab Take 1 tablet by mouth as needed (Take according to package directions). Multivitamin capsule Take 1 capsule by mouth once daily. docusate sodium (COLACE) 100 mg capsule Take 1 capsule by mouth twice daily as needed for constipation. No current facility-administered medications for this visit. Review of Systems Objective BP 118/68 Pulse 69 Temp 36.8 ?C (98.3 ?F) Resp 18 Wt 68.5 kg (151 lb) LMP 12/24/2023 (Within Days) SpO2 100% BMI 25.92 kg/m? Physical Exam Constitutional: Appearance: Normal appearance. HENT: Head: Normocephalic. Eyes: Conjunctiva/sclera: Conjunctivae normal. Cardiovascular: Rate and Rhythm: Normal rate and regular rhythm. Heart sounds: Normal heart sounds. Pulmonary: Effort: Pulmonary effort is normal. Breath sounds: Normal breath sounds. Abdominal: General: Abdomen is flat. Palpations: Abdomen is soft. Skin: General: Skin is warm and dry. Neurological: General: No focal deficit present. Mental Status: She is alert and oriented to person, place, and time. Psychiatric: Mood and Affect: Mood normal. Behavior: Behavior normal. Thought Content: Thought content normal. Judgment: Judgment normal. Assessment and Plan ASSESSMENT/PLAN: 1. Irritable bowel syndrome with both constipation and diarrhea - ICD9: 564.1, ICD10: K58.2 Discussed ongoing symptoms despite trial of supplements and meds as noted in HPI. Will touch base with GI about further follow up, evaluation and treatment. See patient instructions. See if taking Miralax in AM and Metamucil at night routinely helps, plus GasX routinely for the gas and bloating. Magnesium might help prevent constipation. I spent a total of at least 30 minutes on the date of the service which included [id number] patient care, completing clinical documentation, obtaining and/or reviewing separately obtained history, performing a medically appropriate examination, counseling and educating the patient/family/caregiv er, and communicating with other HCPs (not separately reported). MD Vickey Rutledge Liza D, MD 12/26/2023 5:34 PM Addendum Consider taking the Miralax and Metamucil daily as discussed. Also Gas X routinely until get bowels going routinely. Okay to try Magnesium. Allergies As of Date: 12/26/2023 Noted Allergy Reaction PENICILLINS 02/06/2017 16 - Unknown Comments: Pt states she doesn't know what reaction she had to [facility] (more content not included)... Normal [facility] CT ABD/PEL W IVCONon 023 [facility] CBC W Auto Differential pane l (Bld)on 06-04-2023 Basophils (Bld) [#/Vol] 0.04 10*3/uL <0.11 k/uL [facility] Basophils/100 WBC (Bld) 0.8 % [facility] Differential cell count method Nom (Bld) Auto [facility] Eosinophils (Bld) [#/Vol] 0.05 10*3/uL <0.46 k/uL [facility] Eosinophils/100 WBC (Bld) 1.0 % [facility] Erythrocyte distribution width (RBC) [Ratio] 11.9 % 11.5 - 15.0 % [facility] Hematocrit (Bld) [Volume fraction] 41.9 % 36.0 - 46.0 % [facility] Hemoglobin (Bld) [Mass/Vol] 13.7 g/dL 11.5 - 15.5 g/dL [facility] Immature granulocytes (Bld) [#/Vol] 0.04 10*3/uL <0.10 k/uL [facility] Immature granulocytes/100 WBC (Bld) 0.8 % [facility] Lymphocytes (Bld) [#/Vol] 1.70 10*3/uL 1.00 - 4.00 k/uL [facility] Lymphocytes/100 WBC (Bld) 33.4 % [facility] MCH (RBC) [Entitic mass] 29.7 pg 26.0 - 34.0 pg [facility] MCHC (RBC) [Mass/Vol] 32.7 g/dL 30.5 - 36.0 g/dL [facility] MCV (RBC) [Entitic vol] 90.7 fL 80.0 - 100.0 fL [facility] Monocytes (Bld) [#/Vol] 0.63 10*3/uL <0.87 k/uL [facility] Monocytes/100 WBC (Bld) 12.4 % [facility] Neutrophils (Bld) [#/Vol] 2.63 10*3/uL 1.45 - 7.50 k/uL [facility] Neutrophils/100 WBC (Bld) 51.6 % [facility] Nucleated RBC (Bld) [#/Vol] <0.01 k/uL [facility] Nucleated RBC/100 WBC (Bld) [Ratio] 0.0 /100 WBC [facility] Platelet mean volume (Bld) [Entitic vol] 10.9 fL 9.0 - 12.7 fL [facility] Platelets (Bld) [#/Vol] 201 10*3/uL 150 - 400 k/uL [facility] RBC (Bld) [#/Vol] 4.62 10*6/uL 3.90 - 5.20 m/uL [facility] WBC (Bld) [#/Vol] 5.09 10*3/uL 3.70 - 11. 00 k/uL [facility] XR Abdomen Supine and Uprigh ton 03-05-2023 IMPRESSION: Moderate stool burden. Public Relations Officer: LEONIDAS Transcribe Date/Time: Mar 05 2023 10:31A Dictated by : TRU ANN MD This examination was interpreted and the report reviewed and electronically signed by: TRU ANN MD on Mar 05 2023 10:37AM [facility] DIVISION OF RADIOLOGY * * *Final Report* * * DATE OF EXAM: Mar 01 2023 8:24AM WOX [id number] - XR ABDOMEN 1V SUPINE / PROCEDURE REASON: Lower abdominal pain * * * * Physician Interpretation * * * * EXAM TITLE: XR ABDOMEN 1V SUPINE EXAM DATE/TIME: 03/01/2023 8:24 AM COMPARISON: None. CLINICAL INDICATION/HISTORY: Lower abdominal pain TECHNIQUE: AP views of the abdomen are presented. FINDINGS: No abnormally dilated bowel loops identified. Moderate amount of stool and gas demonstrated in the large bowel loops. There are phleboliths in the pelvis. The bony structures appear intact. DIVISION OF RADIOLOGY Provider, Mavis Vahe Coelho - 03/05/2023 * * *Final Report* * * DATE OF EXAM: Mar 01 2023 8:24AM WOX [id number] - XR ABDOMEN 1V SUPINE / PROCEDURE REASON: Lower abdominal pain * * * * Physician Interpretation * * * * EXAM TITLE: XR ABDOMEN 1V SUPINE EXAM DATE/TIME: 03/01/2023 8:24 AM COMPARISON: None. CLINICAL INDICATION/HISTORY: Lower abdominal pain TECHNIQUE: AP views of the abdomen are presented. FINDINGS: No abnormally dilated bowel loops identified. Moderate amount of stool and gas demonstrated in the large bowel loops. There are phleboliths in the pelvis. The bony structures appear intact. IMPRESSION IMPRESSION: Moderate stool burden. Public Relations Officer: PSCB Transcribe Date/Time: Mar 05 2023 10:31A Dictated by : TRU ANN MD This examination was interpreted and the report reviewed and electronically signed by: TRU ANN MD on Mar 05 2023 10:37AM EST [facility] XR Abdomen Supine and Uprigh tOrdered By: [facility] Provider on 03-05-2023 [facility] XR Abdomen Supine and Uprigh ton 03-01-2023 Radiology Study observation (narrative) [facility] CBC panel Auto (Bld)on 09-25 Erythrocyte distribution width (RBC) [Ratio] 12.1 % 11.5 - 15.0 % [facility] Hematocrit (Bld) [Volume fraction] 41.3 % 36.0 - 46.0 % [facility] Hemoglobin (Bld) [Mass/Vol] 13.6 g/dL 11.5 - 15.5 g/dL [facility] MCH (RBC) [Entitic mass] 30.2 pg 26.0 - 34.0 pg [facility] MCHC (RBC) [Mass/Vol] 32.9 g/dL 30.5 - 36.0 g/dL [facility] MCV (RBC) [Entitic vol] 91.8 fL 80.0 - 100.0 fL [facility] Nucleated RBC (Bld) [#/Vol] <0.01 k/uL [facility] Platelet mean volume (Bld) [Entitic vol] 10.9 fL 9.0 - 12.7 fL [facility] Platelets (Bld) [#/Vol] 258 10*3/uL 150 - 400 k/uL [facility] RBC (Bld) [#/Vol] 4.50 10*6/uL 3.90 - 5.20 m/uL [facility] WBC (Bld) [#/Vol] 6.13 10*3/uL 3.70 - 11. 00 k/uL [facility] CBC W/DIFFon 08-03-2021 BASO ABS 0.10 K/CU MM Normal 0-0.2 [facility] Comment on above: Performed By: #### L [id number] #### [facility] [address] [place] [address] Basophils/100 WBC (Bld) 1.0 % Normal 0-2 [facility] Comment on above: Performed By: #### L 200.25294 #### [facility] [address] [place] [address] EOS ABS 0.10 K/CU MM Normal 0-0.5 [facility] Comment on above: Performed By: #### L 200.59563 #### [facility] [address] [place] [address] Eosinophils/100 WBC (Bld) 1.7 % Normal 0-5 [facility] Comment on above: Performed By: #### L 200.22888 #### [facility] [address] [place] [address] Erythrocyte distribution width (RBC) [Ratio] 12.5 % Normal 11-14.5 [facility] Comment on above: Performed By: #### L 200.32729 #### [facility] [address] [place] [address] Hematocrit (Bld) [Volume fraction] 40.0 % Normal 35.0-47.0 [facility] Comment on above: Performed By: #### L 200.48905 #### [facility] [address] [place], [place] [id number] Hemoglobin (Bld) [Mass/Vol] 13.5 g/dL Normal 11.5-15.5 [facility] Comment on above: Performed By: #### L 200.13815 #### [facility] [address] [place] [address] IMMATR GRAN ABS 0.00 K/CU MM Normal Less than 2 [facility] Comment on above: Performed By: #### L 200.01387 #### [facility] [address] [place] [address] IMMATURE GRAN % 0.2 % Normal Less than 2 [facility] Comment on above: Performed By: #### L 200.71219 #### [facility] [address] [place] [address] LYMPH ABS 1.80 K/CU MM Normal 0.9-4.4 [facility] Comment on above: Performed By: #### L 200.49090 #### [facility] [address] [place] [address] Lymphocytes/100 WBC (Bld) 33.8 % Normal 20-40 [facility] Comment on above: Performed By: #### L 200.99491 #### [facility] [address] [place] [address] MCHC (RBC) [Mass/Vol] 33.8 g/dL Normal 32.0-36.0 [facility] Comment on above: Performed By: #### L 200.86159 #### [facility] [address] [place] [address] MCV (RBC) [Entitic vol] 88.3 fL Normal 80.0-99.0 [facility] Comment on above: Performed By: #### L 200.00566 #### [facility] [address] [place] [address] MONO ABS 0.40 K/CU MM Normal 0.1-1.1 [facility] Comment on above: Performed By: #### L 200.33611 #### [facility] [address] [place] [address] Monocytes/100 WBC (Bld) 8.0 % Normal 2-10 [facility] Comment on above: Performed By: #### L 200.82281 #### [facility] [address] [place] [address] NEUTROPHIL ABS 2.90 K/CU MM Normal 2.0-8.3 [facility] Comment on above: Performed By: #### L 200.46468 #### [facility] [address] [place] [address] Neutrophils/100 WBC (Bld) 55.3 % Normal 45-75 [facility] Comment on above: Performed By: #### L 200.33034 #### [facility] [address] [place] [address] Nucleated RBC/100 WBC (Bld) [Ratio] 0.0 % Normal Less than 1 [facility] Comment on above: Performed By: #### L 200.03117 #### [facility] [address] [place] [address] Platelet mean volume (Bld) [Entitic vol] 10.8 fL Normal 9.4-12.4 [facility] Comment on above: Performed By: #### L 200.08276 #### [facility] [address] [place] [address] PLT 233 K/CU MM Normal 150-450 [facility] Comment on above: Performed By: #### L 200.49366 #### [facility] [address] [place] [address] RBC 4.53 M/CU MM Normal 3.90-5.30 [facility] Comment on above: Performed By: #### L 200.47079 #### [facility] [address] [place], [place] [address] WBC 5.3 K/CUMM Normal 4.5-11.0 [facility] Comment on above: Performed By: #### L 200.93244 #### [facility] [address] [place] [address] CMPon 08-03-2021 Albumin [Mass/Vol] 4.3 g/dL Normal 3.2-5.0 [facility] Comment on above: Performed By: #### L 500.06230, L500.92868, L500.48770 #### [facility] [address] [place] [address] Albumin/Globulin [Mass ratio] 1.4 {ratio} Normal 0.8-2.0 [facility] Comment on above: Performed By: #### L 500.21665, L500.98185, L500.53433 #### [facility] [address] [place] [address] ALK PHOS 92 U/L Normal 45-117 [facility] Comment on above: Performed By: #### L 500.06170, L500.51612, L500.63238 #### [facility] [address] [place] [address] ALT [Catalytic activity/Vol] 17 U/L Normal 13-61 [facility] Comment on above: Result Comment: RESU LTS MAY BE FALSELY DEPRESSED AFTER THE ADMINISTRATION OF SULFASALAZINE AND/OR SULFAPYRIDINE. Performed By: #### L 500.14964, L500.72106, L500.59043 #### [facility] [address] [place] [address] Anion gap [Moles/Vol] 6 mmol/L Normal 5-16 [facility] Comment on above: Performed By: #### L 500.94979, L500.64495, L500.85034 #### [facility] [address] [place] [address] AST [Catalytic activity/Vol] 18 U/L Normal 8-34 [facility] Comment on above: Result Comment: RESU LTS MAY BE FALSELY DEPRESSED AFTER THE ADMINISTRATION OF SULFASALAZINE AND/OR SULFAPYRIDINE. Performed By: #### L 500.57732, L500.26693, L500.02252 #### [facility] [address] [place] [address] BILI TOTAL 1.20 MG/DL High 0.2-1.0 [facility] Comment on above: Performed By: #### L 500.59043, L500.49461, L500.72111 #### [facility] [address] [place] [address] Calcium [Mass/Vol] 9.8 mg/dL Normal 8.5-10.5 [facility] Comment on above: Result Comment: NOTE NEW NORMAL RANGE DUE TO REAGENT CHANGE Performed By: #### L 500.12350, L500.19206, L500.84975 #### [facility] [address] [place] [address] Chloride [Moles/Vol] 106 mmol/L Normal 98-107 [facility] Comment on above: Performed By: #### L 500.36119, L500.69631, L500.77328 #### [facility] [address] [place] [address] CO2 [Moles/Vol] 27.0 mmol/L Normal 21-32 [facility] Comment on above: Performed By: #### L 500.12710, L500.82661, L500.39638 #### [facility] [address] [place] [address] Creatinine [Mass/Vol] 0.80 mg/dL Normal 0.510-0.950 [facility] Comment on above: Result Comment: Ramona ents receiving either N-Acetylcysteine (NAC) or Metamizole prior to venipuncture, may have falsely depressed results. Performed By: #### L 500.35660, L500.64262, L500.90224 #### [facility] [address] [place] [address] Globulin (S) [Mass/Vol] 3.1 g/dL Normal 2.2-4.2 [facility] Comment on above: Performed By: #### L 500.89247, L500.16025, L500.52442 #### [facility] [address] [place] [address] Glucose [Mass/Vol] 83 mg/dL Normal 70-100 [facility] Comment on above: Result Comment: 70-1 00- Normal Fasting; 100-125 Impaired Fasting; greater than 126 on more than one result- Diabetes. ADA guidelines. Results may be falsely elevated after the administration of Sulfapyridine. Results may be falsely depressed after the administration of Sulfasalazine. Performed By: #### L 500.98389, L500.01850, L500.67799 #### [facility] [address] [place] [address] Potassium [Moles/Vol] 4.3 mmol/L Normal 3.5-5.1 [facility] Comment on above: Performed By: #### L 500.71062, L500.93369, L500.21015 #### [facility] [address] [place] [address] Protein [Mass/Vol] 7.4 g/dL Normal 6.0-8.5 [facility] Comment on above: Performed By: #### L 500.46714, L500.10588, L500.77182 #### [facility] [address] [place] [address] Sodium [Moles/Vol] 139 mmol/L Normal 136-145 [facility] Comment on above: Performed By: #### L 500.08281, L500.10984, L500.93437 #### [facility] [address] [place] [address] Urea nitrogen [Mass/Vol] 12 mg/dL Normal 7-26 [facility] Comment on above: Performed By: #### L 500.10915, L500.05064, L500.11587 #### [facility] [address] [place] [address] Urea nitrogen/Creatinine [Mass ratio] 15 mg/mg Normal 15-24 [facility] Comment on above: Performed By: #### L 500.05037, L500.84690, L500.11186 #### [facility] [address] [place] [address] GFR ESTon 08-03-2021 IF AMER Greater than 60 Normal [facility] Comment on above: Performed By: #### L 500.96528, L500.83356, L500.72271 #### [facility] [address] [place] [address] IF non-AFR AMER Greater than 60 Normal [facility] Comment on above: Performed By: #### L 500.53120, L500.59117, L500.54286 #### [facility] [address] [place] [address] LIPIDon 08-03-2021 CHOL 216 MG/dL High 0-199 [facility] Comment on above: Performed By: #### L 500.51146, L500.74178, L500.46534 #### [facility] [address] [place], [place] [address] Cholesterol in HDL [Mass/Vol] 81 mg/dL Normal GREATER THAN 40 [facility] Comment on above: Result Comment: Ramona ents receiving Metamizole prior to venipuncture, may have falsely depressed results. Performed By: #### L 500.91595, L500.06625, L500.20244 #### [facility] [address] [place] [address] Cholesterol in LDL [Mass/Vol] 124 mg/dL Normal [facility] Comment on above: Result Comment: ___C HOLESTEROL/HDL RATIO RISK___ CHD RISK = Total CHOL LDL HDL (CHOL/HDL) Recommended <200 <130 >40 <3.4 Borderline 200-239 130-159 3.4-4.99 High >240 >160 >5.0 Performed By: #### L 500.40887, L500.87920, L500.54531 #### [facility] [place] [address] Triglyceride [Mass/Vol] 54 mg/dL Normal 30-149 [facility] Comment on above: Result Comment: Ramona ents receiving either N-Acetylcysteine (NAC) or Metamizole prior to venipuncture, may have falsely depressed results. Performed By: #### L 500.02672, L500.64729, L500.17945 #### [facility] [address] [place] [address] ALLERGEN SKIN TEST-PENICILLI N [facility] Vital Signs Date Time Vital Sign Value Performing Clinician Facility 01-07-2025 14:19-0400 Body temperature 97.5 [degF] Dr. Kvng Hurd MD Work Phone: 8(374)[phone] [place] [address] 01-07-2025 14:19-0400 Diastolic blood pressure 82 mm[Hg] Dr. Kvng Hurd MD Work Phone: 7(259)[phone] [place] [address] 01-07-2025 14:19-0400 Heart rate 87 /min Dr. Kvng Hurd MD Work Phone: 9(018)[phone] [place] [address] 01-07-2025 14:19-0400 Respiratory rate 18 /min Dr. Kvng Hurd MD Work Phone: 9(677)[phone] [place] [address] 01-07-2025 14:19-0400 SaO2% (BldA) [Mass fraction] 100 % Dr. Kvng Hurd MD Work Phone: 6(705)[phone] [place] [address] 01-07-2025 14:19-0400 Systolic blood pressure 113 mm[Hg] Dr. Kvng Hurd MD Work Phone: 2(529)[phone] [place] [address] 01-07-2025 12:16-0400 Body height 165.[address] Kvng Hurd MD Work Phone: 1(592)[phone] [place] [address] 01-07-2025 12:16-0400 Body mass index (BMI) [Ratio] 23.4 kg/m2 Dr. Kvng Hurd MD Work Phone: 7(099)[phone] [place] [address] 01-07-2025 12:16-0400 Body weight [address] Kvng Hurd MD Work Phone: 3(187)[phone] [place] [address] 10-14-2024 07:51-0400 Body mass index (BMI) [Ratio] 25.69 kg/m2 Kvng Hurd MD Work Phone: [facility] 10-14-2024 07:51-0400 Body weight 67.9 kg Kvng Hurd MD Work Phone: [facility] 10-14-2024 07:51-0400 Diastolic blood pressure 66 mm[Hg] Kvng Hurd MD Work Phone: [facility] 10-14-2024 07:51-0400 Heart rate 64 /min Kvng Hurd MD Work Phone: [facility] 10-14-2024 07:51-0400 Respiratory rate 12 /min Kvng Hurd MD Work Phone: [facility] 10-14-2024 07:51-0400 Systolic blood pressure 110 mm[Hg] Kvng Hurd MD Work Phone: [facility] 09-08-2024 08:21-0500 Body mass index (BMI) [Ratio] 25.35 kg/m2 Sanjuanita Nash SENIOR TECHNICAL MANAGER.CLINICAL MENTAL HEALTH COUNSELOR Work Phone: [facility] 09-08-2024 08:21-0500 Body weight 67 kg Sanjuanita Nash SENIOR TECHNICAL MANAGER.CLINICAL MENTAL HEALTH COUNSELOR Work Phone: [facility] 09-08-2024 08:21-0500 Diastolic blood pressure 77 mm[Hg] Sanjuanita Nash SENIOR TECHNICAL MANAGER.CLINICAL MENTAL HEALTH COUNSELOR Work Phone: [facility] 09-08-2024 08:21-0500 Heart rate 92 /min Sanjuanita Nash SENIOR TECHNICAL MANAGER.CLINICAL MENTAL HEALTH COUNSELOR Work Phone: [facility] 09-08-2024 08:21-0500 Respiratory rate 16 /min Sanjuanita Nash SENIOR TECHNICAL MANAGER.CLINICAL MENTAL HEALTH COUNSELOR Work Phone: [facility] 09-08-2024 08:21-0500 Systolic blood pressure 113 mm[Hg] Sanjuanita Nash SENIOR TECHNICAL MANAGER.CLINICAL MENTAL HEALTH COUNSELOR Work Phone: [facility] 08-04-2024 15:23-0500 Body mass index (BMI) [Ratio] 27.12 kg/m2 Fabiola Costa SENIOR TECHNICAL MANAGER.CNM Work Phone: [facility] 08-04-2024 15:23-0500 Body weight 71.67 kg Fabiola Costa APRN.CNM Work Phone: [facility] 08-04-2024 15:23-0500 Diastolic blood pressure 82 mm[Hg] Fabiola Costa SENIOR TECHNICAL MANAGER.CNM Work Phone: [facility] 08-04-2024 15:23-0500 Systolic blood pressure 124 mm[Hg] Fabiola SENIOR TECHNICAL MANAGER.CNM Work Phone: [facility] 06-09-2024 07:38-0500 Body mass index (BMI) [Ratio] 27.36 kg/m2 Sanjuanita Nash SENIOR TECHNICAL MANAGER.CLINICAL MENTAL HEALTH COUNSELOR Work Phone: [facility] 06-09-2024 07:38-0500 Body weight 72.3 kg Sanjuanita Nash SENIOR TECHNICAL MANAGER.CLINICAL MENTAL HEALTH COUNSELOR Work Phone: [facility] 06-09-2024 07:38-0500 Diastolic blood pressure 71 mm[Hg] Sanjuanita Nash SENIOR TECHNICAL MANAGER.CLINICAL MENTAL HEALTH COUNSELOR Work Phone: [facility] 06-09-2024 07:38-0500 Heart rate 76 /min Sanjuanita Nash SENIOR TECHNICAL MANAGER.CLINICAL MENTAL HEALTH COUNSELOR Work Phone: [facility] 06-09-2024 07:38-0500 Respiratory rate 16 /min Sanjuanita Nash SENIOR TECHNICAL MANAGER.CLINICAL MENTAL HEALTH COUNSELOR Work Phone: [facility] 06-09-2024 07:38-0500 Systolic blood pressure 107 mm[Hg] Sanjuanita Nash SENIOR TECHNICAL MANAGER.CLINICAL MENTAL HEALTH COUNSELOR Work Phone: [facility] 05-23-2024 08:19-0500 Body mass index (BMI) [Ratio] 27.25 kg/m2 Sanjuanita Nash SENIOR TECHNICAL MANAGER.CLINICAL MENTAL HEALTH COUNSELOR Work Phone: [facility] 05-23-2024 08:19-0500 Body weight 72 kg Sanjuanita Nash SENIOR TECHNICAL MANAGER.CLINICAL MENTAL HEALTH COUNSELOR Work Phone: [facility] 05-23-2024 08:19-0500 Diastolic blood pressure 76 mm[Hg] Sanjuanita Nash SENIOR TECHNICAL MANAGER.CLINICAL MENTAL HEALTH COUNSELOR Work Phone: [facility] 05-23-2024 08:19-0500 Heart rate 74 /min Sanjuanita Nash SENIOR TECHNICAL MANAGER.CLINICAL MENTAL HEALTH COUNSELOR Work Phone: [facility] 05-23-2024 08:19-0500 Respiratory rate 16 /min Sanjuanita Nash SENIOR TECHNICAL MANAGER.CLINICAL MENTAL HEALTH COUNSELOR Work Phone: [facility] 05-23-2024 08:19-0500 Systolic blood pressure 113 mm[Hg] Sanjuanita Drivers SENIOR TECHNICAL MANAGER.CLINICAL MENTAL HEALTH COUNSELOR Work Phone: [facility] 05-13-2024 08:06-0400 Body mass index (BMI) [Ratio] 26.78 kg/m2 Fabiola SENIOR TECHNICAL MANAGER.CNM Work Phone: [facility] 05-13-2024 08:06-0400 Body weight 70.76 kg Fabiola SENIOR TECHNICAL MANAGER.CNM Work Phone: [facility] 05-13-2024 08:06-0400 Diastolic blood pressure 74 mm[Hg] Fabiola SENIOR TECHNICAL MANAGER.CNM Work Phone: [facility] 05-13-2024 08:06-0400 Systolic blood pressure 112 mm[Hg] Fabiola SENIOR TECHNICAL MANAGER.CNM Work Phone: [facility] 05-07-2024 09:26-0400 Body mass index (BMI) [Ratio] 26.78 kg/m2 Fabiola SENIOR TECHNICAL MANAGER.CNM Work Phone: [facility] 05-07-2024 09:26-0400 Body weight 70.76 kg Fabiola SENIOR TECHNICAL MANAGER.CNM Work Phone: [facility] 05-07-2024 09:26-0400 Diastolic blood pressure 62 mm[Hg] Fabiola SENIOR TECHNICAL MANAGER.CNM Work Phone: [facility] 05-07-2024 09:26-0400 Systolic blood pressure 108 mm[Hg] Fabiola SENIOR TECHNICAL MANAGER.CNM Work Phone: [facility] 04-25-2024 14:35-0400 Body mass index (BMI) [Ratio] 26.61 kg/m2 Fabiola SENIOR TECHNICAL MANAGER.CNM Work Phone: [facility] 04-25-2024 14:35-0400 Body weight 70.31 kg Fabiola SENIOR TECHNICAL MANAGER.CNM Work Phone: [facility] 04-25-2024 14:35-0400 Diastolic blood pressure 64 mm[Hg] Fabiola Costa APRN.CNM Work Phone: [facility] 04-25-2024 14:35-0400 Systolic blood pressure 108 mm[Hg] Fabiola Costa APRN.CNM Work Phone: [facility] 03-26-2024 10:18-0400 Body mass index (BMI) [Ratio] 26.68 kg/m2 Kvng Hurd MD Work Phone: [facility] 03-26-2024 10:18-0400 Body temperature 98.6 [degF] Kvng Hurd MD Work Phone: [facility] 03-26-2024 10:18-0400 Body weight 70.5 kg Kvng Hurd MD Work Phone: [facility] 03-26-2024 10:18-0400 Diastolic blood pressure 71 mm[Hg] Kvng Hurd MD Work Phone: [facility] 03-26-2024 10:18-0400 Heart rate 77 /min Kvng Hurd MD Work Phone: [facility] 03-26-2024 10:18-0400 Respiratory rate 16 /min Kvng Hurd MD Work Phone: [facility] 03-26-2024 10:18-0400 SaO2% (BldA) [Mass fraction] 98 % Kvng Hurd MD Work Phone: [facility] 03-26-2024 10:18-0400 Systolic blood pressure 105 mm[Hg] Kvng Hurd MD Work Phone: [facility] 12-26-2023 16:01-0400 Body mass index (BMI) [Ratio] 25.92 kg/m2 Kvng Hurd MD Work Phone: [facility] 12-26-2023 16:01-0400 Body temperature 98.29 [degF] Kvng Hrud MD Work Phone: [facility] 12-26-2023 16:01-0400 Body weight 68.49 kg Kvng Hurd MD Work Phone: [facility] 12-26-2023 16:01-0400 Diastolic blood pressure 68 mm[Hg] Kvng Hurd MD Work Phone: [facility] 12-26-2023 16:01-0400 Heart rate 69 /min Kvng Hurd MD Work Phone: [facility] 12-26-2023 16:01-0400 Respiratory rate 18 /min Kvng Hurd MD Work Phone: [facility] 12-26-2023 16:01-0400 SaO2% (BldA) [Mass fraction] 100 % Kvng Hurd MD Work Phone: [facility] 12-26-2023 16:01-0400 Systolic blood pressure 118 mm[Hg] Kvng Hurd MD Work Phone: [facility] 09-26-2023 13:21-0400 Body weight 69.4 kg Rose Nix MD Work Phone: [facility] 09-26-2023 13:21-0400 Diastolic blood pressure 78 mm[Hg] Rose Nix MD Work Phone: [facility] 09-26-2023 13:21-0400 Heart rate 82 /min Rose Nix MD Work Phone: [facility] 09-26-2023 13:21-0400 SaO2% (BldA) [Mass fraction] 99 % Rose Nix MD Work Phone: [facility] 09-26-2023 13:21-0400 Systolic blood pressure 125 mm[Hg] Rose Nix MD Work Phone: [facility] 06-25-2023 10:37-0500 Body height 165.1 cm Kvng Hurd MD Work Phone: [facility] 06-25-2023 10:37-0500 Body temperature 98.2 [degF] Kvng Hurd MD Work Phone: [facility] 06-25-2023 10:37-0500 Body weight 68.49 kg Kvng Hurd MD Work Phone: [facility] 06-25-2023 10:37-0500 Diastolic blood pressure 70 mm[Hg] Kvng Hurd MD Work Phone: [facility] 06-25-2023 10:37-0500 Heart rate 102 /min Kvng Hurd MD Work Phone: [facility] 06-25-2023 10:37-0500 Respiratory rate 12 /min Kvng Hurd MD Work Phone: [facility] 06-25-2023 10:37-0500 SaO2% (BldA) [Mass fraction] 99 % Kvng Hurd MD Work Phone: [facility] 06-25-2023 10:37-0500 Systolic blood pressure 128 mm[Hg] Kvng Hurd MD Work Phone: [facility] 06-04-2023 15:31-0500 Body weight 68.49 kg Sanjuanita Nash SENIOR TECHNICAL MANAGER.CLINICAL MENTAL HEALTH COUNSELOR Work Phone: [facility] 06-04-2023 15:31-0500 Respiratory rate 16 /min Sanjuanita Nash SENIOR TECHNICAL MANAGER.CLINICAL MENTAL HEALTH COUNSELOR Work Phone: [facility] 03-01-2023 07:34-0400 Body weight 68.95 kg Sanjuanita Nash SENIOR TECHNICAL MANAGER.CLINICAL MENTAL HEALTH COUNSELOR Work Phone: [facility] 03-01-2023 07:34-0400 Diastolic blood pressure 82 mm[Hg] Sanjuanita Nash SENIOR TECHNICAL MANAGER.CLINICAL MENTAL HEALTH COUNSELOR Work Phone: [facility] 03-01-2023 07:34-0400 Heart rate 83 /min Sanjuanita Nash SENIOR TECHNICAL MANAGER.CLINICAL MENTAL HEALTH COUNSELOR Work Phone: [facility] 03-01-2023 07:34-0400 Respiratory rate 16 /min Sanjuanita Nash SENIOR TECHNICAL MANAGER.CLINICAL MENTAL HEALTH COUNSELOR Work Phone: [facility] 03-01-2023 07:34-0400 SaO2% (BldA) [Mass fraction] 100 % Sanjuanita Nash SENIOR TECHNICAL MANAGER.CLINICAL MENTAL HEALTH COUNSELOR Work Phone: [facility] 03-01-2023 07:34-0400 Systolic blood pressure 120 mm[Hg] Sanjuanita Nash SENIOR TECHNICAL MANAGER.CLINICAL MENTAL HEALTH COUNSELOR Work Phone: [facility] 12-18-2022 08:56-0400 Body weight 68.49 kg Sanjuanita Nash SENIOR TECHNICAL MANAGER.CLINICAL MENTAL HEALTH COUNSELOR Work Phone: [facility] 12-18-2022 08:56-0400 Diastolic blood pressure 88 mm[Hg] Sanjuanita Nash SENIOR TECHNICAL MANAGER.CLINICAL MENTAL HEALTH COUNSELOR Work Phone: [facility] 12-18-2022 08:56-0400 Heart rate 92 /min Sanjuanita Nash SENIOR TECHNICAL MANAGER.CLINICAL MENTAL HEALTH COUNSELOR Work Phone: [facility] 12-18-2022 08:56-0400 Respiratory rate 16 /min Sanjuanita Nash SENIOR TECHNICAL MANAGER.CLINICAL MENTAL HEALTH COUNSELOR Work Phone: [facility] 12-18-2022 08:56-0400 Systolic blood pressure 120 mm[Hg] Sanjuanita Nash SENIOR TECHNICAL MANAGER.CLINICAL MENTAL HEALTH COUNSELOR Work Phone: [facility] 09-25-2022 09:47-0400 Body height 166 cm Kvng Hurd MD Work Phone: [facility] 09-25-2022 09:47-0400 Body temperature 98.49 [degF] Kvng Hurd MD Work Phone: [facility] 09-25-2022 09:47-0400 Body weight 68.04 kg Kvng uHrd MD Work Phone: [facility] 09-25-2022 09:47-0400 Diastolic blood pressure 80 mm[Hg] Kvng Hurd MD Work Phone: [facility] 09-25-2022 09:47-0400 Heart rate 85 /min Kvng Hurd MD Work Phone: [facility] 09-25-2022 09:47-0400 Respiratory rate 18 /min Kvng Hurd MD Work Phone: [facility] 09-25-2022 09:47-0400 SaO2% (BldA) [Mass fraction] 98 % Kvng Hurd MD Work Phone: [facility] 09-25-2022 09:47-0400 Systolic blood pressure 116 mm[Hg] Kvng Hurd MD Work Phone: [facility] 03-06-2022 12:02-0400 Body weight 69.85 kg Sanjuanita Nash SENIOR TECHNICAL MANAGER.CLINICAL MENTAL HEALTH COUNSELOR Work Phone: [facility] 03-06-2022 12:02-0400 Diastolic blood pressure 86 mm[Hg] Sanjuanita Nash SENIOR TECHNICAL MANAGER.CLINICAL MENTAL HEALTH COUNSELOR Work Phone: [facility] 03-06-2022 12:02-0400 Heart rate 99 /min Sanjuanita Nash SENIOR TECHNICAL MANAGER.CLINICAL MENTAL HEALTH COUNSELOR Work Phone: [facility] 03-06-2022 12:02-0400 Respiratory rate 16 /min Sanjuanita Nash SENIOR TECHNICAL MANAGER.CLINICAL MENTAL HEALTH COUNSELOR Work Phone: [facility] 03-06-2022 12:02-0400 SaO2% (BldA) [Mass fraction] 98 % Sanjuanita Nash SENIOR TECHNICAL MANAGER.CLINICAL MENTAL HEALTH COUNSELOR Work Phone: [facility] 03-06-2022 12:02-0400 Systolic blood pressure 120 mm[Hg] Sanjuanita Nash SENIOR TECHNICAL MANAGER.CLINICAL MENTAL HEALTH COUNSELOR Work Phone: [facility] 02-03-2022 12:22-0400 Body height 163.8 cm Sanjuanita Nash SENIOR TECHNICAL MANAGER.CLINICAL MENTAL HEALTH COUNSELOR Work Phone: [facility] 02-03-2022 12:22-0400 Body weight 71.22 kg Sanjuanita Nash SENIOR TECHNICAL MANAGER.CLINICAL MENTAL HEALTH COUNSELOR Work Phone: [facility] 02-03-2022 12:22-0400 Diastolic blood pressure 84 mm[Hg] Sanjuanita Nash SENIOR TECHNICAL MANAGER.CLINICAL MENTAL HEALTH COUNSELOR Work Phone: [facility] 02-03-2022 12:22-0400 Heart rate 72 /min Sanjuanita Nash SENIOR TECHNICAL MANAGER.CLINICAL MENTAL HEALTH COUNSELOR Work Phone: [facility] 02-03-2022 12:22-0400 Respiratory rate 16 /min Sanjuanita Nash SENIOR TECHNICAL MANAGER.CLINICAL MENTAL HEALTH COUNSELOR Work Phone: [facility] 02-03-2022 12:22-0400 Systolic blood pressure 122 mm[Hg] Sanjuanita Drivers SENIOR TECHNICAL MANAGER.CLINICAL MENTAL HEALTH COUNSELOR Work Phone: [facility] Encounters Encounter Date Encounter Type Care Provider Facility Start: 01-07-2025 ambulatory [facility] Facility :[facility] Start: 01-07-2025 Non-patient / Non-visit Ralph Zion flora DO -[facility] Start: 01-07-2025 End: 01-07-2025 Admission to same day surgery center Ralph [place] DO -Endoscopy Work Phone: Start: 01-07-2025 End: 01-07-[address] Kvng Hurd MD Work Phone: [facility] Work Phone: Start: 01-06-2025 Encounter for other preprocedural examination [facility] Start: 12-23-2024 End: 12-23-2024 ambulatory KVNG HURD Facility:[facility] Start: 12-17-2024 End: 12-17-2024 Refill Sanjuanita Nash SENIOR TECHNICAL MANAGER.CLINICAL MENTAL HEALTH COUNSELOR Work Phone: [facility] Comment on above: Refill Request Start: 12-11-2024 End: 12-11-2024 ambulatory KVNG HURD Facility:[facility] Start: 11-27-2024 End: 11-27-2024 ambulatory KVNG HURD Facility:[facility] Start: 11-05-2024 End: 11-05-2024 Patient encounter procedure Stefanie Peterson [facility] Work Phone: Start: 11-05-2024 End: 11-05-2024 ambulatory Stefanie Jules Facility:[facility] Start: 10-22-2024 End: 10-22-[address] Kvng Hurd MD Work Phone: [facility] Work Phone: Start: 10-22-2024 End: 10-22-2024 Patient encounter procedure Stefanie QUEZADA [facility] Work Phone: Start: 10-22-2024 End: 10-22-2024 ambulatory Kvng D Talampas Facility:[facility] Start: 10-16-2024 End: 11-04-2024 ambulatory KVNG D TALAMPAS Facility:[facility] Start: 10-14-2024 End: 10-14-2024 ambulatory KVNG D TALAMPAS Facility:[facility] Start: 10-14-2024 End: 10-14-2024 Office outpatient visit 25 minutes Kvng Hurd MD Work Phone: [facility] [place] Comment on above: Attention deficit hy peractivity disorder, combined type (Primary Dx); Irritable bowel syndrome with constipation; Pelvic pain in female; Chronic abdominal pain; Adenomyosis of uterus Start: 10-03-2024 End: 10-03-2024 ambulatory KVNG D TALAMPAS Facility:[facility] Start: 10-02-2024 End: 10-02-2024 ambulatory KVNG D TALAMPAS Facility:[facility] Start: 09-30-2024 End: 12-01-2024 Follow-up encounter Sanjuanita Nash APRN.CLINICAL MENTAL HEALTH COUNSELOR Work Phone: [facility] [place] Start: 09-19-2024 End: 09-19-2024 [facility] Work [facility]: Start: 09-19-2024 End: 09-19-2024 ambulatory Kvng D [place] Facility:[facility] Start: 09-11-2024 End: 09-11-2024 ambulatory KVNG D TALAMPAS Facility:[facility] Start: 09-09-2024 End: 09-11-2024 Refill Sanjuanita Nash APRN.CLINICAL MENTAL HEALTH COUNSELOR Work Phone: [facility] [place] Comment on above: Refill Request Start: 09-08-2024 End: 09-08-2024 ambulatory KVNG D TALAMPAS Facility:[facility] Start: 09-08-2024 End: 09-08-2024 Office outpatient visit 25 minutes Sanjuanita Nash APRN.CLINICAL MENTAL HEALTH COUNSELOR Work Phone: [facility] [place] Comment on above: Asthma (Primary Dx); Attention deficit hyperactivity disorder, combined type; Irritable bowel syndrome with constipation; Pelvic pain in female Start: 08-13-2024 End: 08-13-2024 Patient encounter procedure Stefanie QUEZADA [facility] Work Phone: Start: 08-13-2024 End: 08-13-2024 [facility] Start: 08-12-2024 End: 08-12-2024 Manual pelvic examination Jennifer Traore PT Work Phone: [facility] Comment on above: Pelvic pain in femal e (Primary Dx); Muscle tightness Start: 08-12-2024 End: 08-12-2024 ambulatory Jennifer Traore PT Work Phone: [facility] Start: 08-05-2024 End: 08-05-2024 E-mail encounter from caregiver [facility] Start: 08-05-2024 End: 08-05-2024 Patient encounter procedure [facility] Comment on above: Consult to Chronic P elvic Pain Start: 08-04-2024 End: 08-04-2024 [facility] Start: 08-04-2024 End: 08-04-2024 Patient encounter procedure Fabiola Costa APRN.CNM Work Phone: OB/Gynecology Comment on above: Pelvic pain in femal e (Primary Dx); Muscle tightness Start: 08-01-2024 End: 08-01-2024 Manual pelvic examination Jennifer Traore PT Work Phone: [facility] Comment on above: Pelvic pain in femal e (Primary Dx); Muscle tightness Start: 08-01-2024 End: 08-01-2024 ambulatory Jennifer Traore PT Work Phone: [facility] Start: 07-31-2024 End: 07-31-2024 ambulatory KVNG D TALAMPAS Facility:[facility] Start: 07-15-2024 End: 07-15-2024 Manual pelvic examination Jennifer Traore PT Work Phone: [facility] Comment on above: Pelvic pain in femal e (Primary Dx); Muscle tightness Start: 07-15-2024 End: 07-15-2024 ambulatory JENNIFER TRAORE Facility[facility] Start: 07-03-2024 End: 07-03-2024 ambulatory KVNG D TALAMPAS Facility:[facility] Start: 07-01-2024 End: 07-01-2024 ambulatory JENNIFER TRAORE [facility] Start: 07-01-2024 End: 07-01-2024 Manual pelvic examination Jennifer Traore PT Work Phone: [facility] Comment on above: Pelvic pain in femal e (Primary Dx); Muscle tightness Start: 06-17-2024 End: 06-17-2024 Manual pelvic examination Jennifer Traore PT Work Phone: [facility] Comment on above: Pelvic pain in femal e (Primary Dx); Muscle tightness Start: 06-17-2024 End: 06-17-2024 ambulatory Jennifer Traore PT Work Phone: [facility] Start: 06-09-2024 End: 06-09-2024 ambulatory KVNG D TALAMPAS Facility:[facility] Start: 06-09-2024 End: 06-09-2024 Office outpatient visit 25 minutes Sanjuanita Nash APRN.CLINICAL MENTAL HEALTH COUNSELOR Work Phone: [facility] [place] Comment on above: Attention deficit hy peractivity disorder, combined type (Primary Dx) Start: 06-05-2024 End: 06-05-2024 ambulatory KVNG D TALAMPAS Facility:[facility] Start: 06-03-2024 End: 06-03-2024 ambulatory Kvng D [place] Facility:[facility] Start: 06-02-2024 End: 06-02-2024 [facility] Sanjuanita Nash SENIOR TECHNICAL MANAGER.CLINICAL MENTAL HEALTH COUNSELOR Work Phone: [facility] [place] Comment on above: Attention deficit hy peractivity disorder, combined type (Primary Dx); Nausea; Palpitations; Other fatigue; Anxiety Start: 05-23-2024 End: 05-23-2024 ambulatory KVNG D SANTAAMPAS Facility:[facility] Start: 05-23-2024 End: 05-23-2024 Office outpatient visit 25 minutes Sanjuanita Nash SENIOR TECHNICAL MANAGER.CLINICAL MENTAL HEALTH COUNSELOR Work Phone: [facility] [place] Comment on above: Pain of right heel ( Primary Dx); Anxiety; Attention deficit hyperactivity disorder, combined type Start: 05-22-2024 End: 05-22-2024 ambulatory KVNG D SANTAAMPLUDWIG Facility:[facility] Start: 05-13-2024 End: 05-13-2024 ambulatory KVNG D SANTAAMPLUDWIG Facility:[facility] Start: 05-13-2024 End: 05-13-2024 Patient encounter procedure Fabiola Costa APRN.CNM Work Phone: OB/Gynecology Comment on above: Encounter for IUD in sertion (Primary Dx); IUD (intrauterine device) in place Start: 05-07-2024 End: 05-07-2024 ambulatory KVNG D VICKEY Facility:[facility] Start: 05-07-2024 End: 05-07-2024 Patient encounter procedure Fabiola Costa APRN.CNCaio Work Phone: OB/Gynecology Comment on above: Pelvic pain in femal e (Primary Dx); Adenomyosis; control counseling Start: 05-01-2024 End: 05-02-2024 Telephone encounter Kvng Hurd MD Work Phone: [facility] [place] Comment on above: Medication Request Start: 05-01-2024 End: 05-01-2024 ambulatory KVNG Dheeraj HURD OB/Gynecology Start: 05-01-2024 End: 05-01-2024 Patient encounter procedure [employer] [facility] [employer] OB/Gynecology Start: 05-01-2024 End: 05-01-2024 ambulatory KVNG D TALAMPAS Facility:[facility] Start: 04-25-2024 End: 04-25-2024 ambulatory KVNG D TALAMPAS Facility:[facility] Start: 04-25-2024 End: 04-25-2024 Patient encounter procedure Fabiola Costa APRN.CNM Work Phone: OB/Gynecology Comment on above: Pelvic pain in femal e (Primary Dx) Start: 04-17-2024 End: 04-17-2024 ambulatory KVNG D TALAMPAS Facility:[facility] Start: 04-03-2024 End: 04-03-2024 [facility] Start: 03-28-2024 End: 03-28-2024 ambulatory [facility] Facility:[facility] Start: 03-26-2024 End: 03-26-2024 [facility] Start: 03-26-2024 End: 03-26-2024 Office outpatient visit 25 minutes Kvng Hurd MD Work Phone: [facility] [place] Comment on above: Nausea (Primary Dx); Anxiety; Irritable bowel syndrome with constipation; Pelvic floor dysfunction Start: 03-17-2024 End: 03-17-2024 ambulatory [facility] Facility:[facility] Start: 03-15-2024 End: 03-15-2024 ambulatory [facility] Facility:[facility] Start: 03-11-2024 End: 03-11-2024 Refill Sanjuanita Nash APRN.CNS Work Phone: [facility] [place] Comment on above: Refill Request Start: 03-06-2024 End: 03-07-2024 ambulatory KVNG D TALAMPAS Facility:[facility] Start: 03-03-2024 End: 03-03-2024 [facility] Start: 03-03-2024 End: 03-03-2024 ambulatory [facility] Facility:[facility] Start: 02-15-2024 Telephone encounter Fabiola berrios PA-C Work Phone: [facility] Comment on above: Patient Update Start: 02-14-2024 End: 02-14-2024 ambulatory KVNG HURD Facility:[facility] Start: 01-31-2024 End: 01-31-2024 ambulatory KVNG HURD Facility:[facility] Start: 01-23-2024 Telephone encounter Fabiola kimemy YIP Work Phone: [facility] Comment on above: Orders Start: 01-23-2024 End: 01-23-2024 Patient encounter procedure Fabiola Cantuemy YIP Work Phone: [facility] Comment on above: Irritable bowel synd abhi with constipation (Primary Dx); Change in bowel habits; Abdominal pain, left lower quadrant; Nausea Start: 01-23-2024 End: 01-23-2024 Telemedicine consultation with patient Fabiola Cantuemy IYP Work Phone: [facility] Start: 01-23-2024 End: 01-23-2024 ambulatory FABIOLA CANTUETTE Facility:[facility] Start: 12-26-2023 End: 12-26-2023 Office outpatient visit 25 minutes Kvng Hurd MD Work Phone: [facility] [place] Comment on above: Irritable bowel synd abhi with both constipation and diarrhea (Primary Dx) Start: 12-26-2023 End: 12-26-2023 ambulatory KVNG HURD Facility:[facility] Start: 11-12-2023 End: 11-12-2023 Subsequent hospital visit by physician Pablo [facility] Chad Palaicos Work Phone: Radiology Comment on above: Irritable bowel synd abhi with constipation [K58.1] Start: 10-23-2023 End: 10-23-2023 ambulatory FABIOLA DEVLIN Facility:[facility] Start: 09-26-2023 End: 09-26-2023 Patient encounter procedure Rose Nix MD Work Phone: Allergy Comment on above: Constipation, unspec ified constipation type (Primary Dx); Bloating; [id number] adverse effect of medication, initial encounter Start: 08-27-2023 End: 08-27-2023 [facility].CLINICAL MENTAL HEALTH COUNSELOR Work Phone: [facility] [place] Comment on above: Attention deficit hy peractivity disorder, combined type (Primary Dx); Nausea; Anxiety Start: 08-14-2023 Telephone encounter Kvng giles MD Work Phone: [facility] [place] Comment on above: Medication Request Start: 06-25-2023 End: 06-25-2023 Office outpatient visit 25 minutes Kvng Hurd MD Work Phone: [facility] [place] Comment on above: Attention deficit hy peractivity disorder, combined type (Primary Dx); Irritable bowel syndrome with both constipation and diarrhea; Lower abdominal pain Start: 06-14-2023 Refill Kvng avery MD Work Phone: [facility] [place] Comment on above: Refill Request Start: 06-05-2023 End: 06-05-2023 Subsequent hospital visit by physician Ct [facility] (I-Stat) Work Phone: Cat Scan Comment on above: Nausea [R11.0] Start: 06-04-2023 End: 06-04-2023 Office outpatient visit 25 minutes [facility] SENIOR TECHNICAL MANAGER.CLINICAL MENTAL HEALTH COUNSELOR Work Phone: [facility] [place] Comment on above: Nausea (Primary Dx); Diarrhea, unspecified type; RUQ abdominal pain; Periumbilical abdominal pain Start: 04-26-2023 Refill Kvng avery MD Work Phone: [facility] [place] Comment on above: Refill Request Start: 03-01-2023 End: 03-01-2023 Subsequent hospital visit by physician Xr [facility] [place] Work Phone: Radiology Comment on above: Lower abdominal pain [R10.30] Start: 03-01-2023 End: 03-01-2023 Office outpatient visit 25 minutes [facility].CLINICAL MENTAL HEALTH COUNSELOR Work Phone: [facility] [place] Comment on above: Irritable bowel synd abhi with constipation (Primary Dx); Lower abdominal pain; Attention deficit hyperactivity disorder, combined type Start: 12-18-2022 End: 12-18-2022 Office outpatient visit 25 minutes Sanjuanita Drivers SENIOR TECHNICAL MANAGER.CLINICAL MENTAL HEALTH COUNSELOR Work Phone: [facility] [place] Comment on above: Attention deficit hy peractivity disorder, combined type (Primary Dx); Attention deficit hyperactivity disorder (ADHD), unspecified ADHD type; Anxiety; Leg cramps; Constipation, unspecified constipation type Start: 09-25-2022 End: 09-25-2022 Office outpatient visit 40 minutes Kvng Hurd MD Work Phone: [facility] [place] Comment on above: Routine medical exam (Primary Dx); Attention deficit hyperactivity disorder (ADHD), unspecified ADHD type; Tremor of both hands; Special screening examination for viral disease; Screening for HIV (human immunodeficiency virus); Anxiety; Total bilirubin, elevated; Leg cramps; RLS (restless legs syndrome); Screening, lipid; Need for vaccination Start: 09-25-2022 End: 09-25-2022 Patient encounter status Kvng Hurd MD Work Phone: [facility] [place] Start: 07-30-2022 Refill Sanjuanita Drivers SENIOR TECHNICAL MANAGER.CLINICAL MENTAL HEALTH COUNSELOR Work Phone: [facility] [place] Comment on above: Refill Request Start: 06-06-2022 End: 06-06-2022 [facility] Sanjuanita Drivers SENIOR TECHNICAL MANAGER.CLINICAL MENTAL HEALTH COUNSELOR Work Phone: [facility] [place] Comment on above: Anxiety (Primary Dx) ; Attention deficit hyperactivity disorder (ADHD), unspecified ADHD type; Attention deficit hyperactivity disorder, combined type Start: 03-26-2022 Refill Sanjuanita Nash SENIOR TECHNICAL MANAGER.CLINICAL MENTAL HEALTH COUNSELOR Work Phone: [facility] [place] Comment on above: Refill Request Start: 03-06-2022 End: 03-06-2022 Patient encounter procedure Sanjuanita Nash SENIOR TECHNICAL MANAGER.CLINICAL MENTAL HEALTH COUNSELOR Work Phone: [facility] [place] Comment on above: Attention deficit hy peractivity disorder (ADHD), unspecified ADHD type (Primary Dx); Anxiety; Attention deficit hyperactivity disorder, combined type; Encounter for immunization Start: 02-20-2022 Refill Sanjuanita Nash APRN.CLINICAL MENTAL HEALTH COUNSELOR Work Phone: [facility] [place] Comment on above: Refill Request Start: 02-03-2022 End: 02-03-2022 Patient encounter procedure Sanjuanita Nash APRN.CLINICAL MENTAL HEALTH COUNSELOR Work Phone: [facility] [place] Comment on above: Attention deficit hy peractivity disorder (ADHD), unspecified ADHD type (Primary Dx); Encounter for immunization; Special screening examination for viral disease; Screening for HIV (human immunodeficiency virus); Anxiety Procedures Date Procedure Procedure Detail Performing Clinician Start: 01-07-[address] Kvng godwin MD Work Phone: Start: 10-22-2024 MRI of pelvis with contrast Dr. Kvng Hurd MD Work Phone: Start: 05-13-2024 UA DIP,URINE HCG (POC) Fabiola Costa APRN.CNM Work Phone: Start: 05-01-2024 Us pelvic nonobstetr ic real-time image complete Fabiola Costa APRN.CNM Work Phone: Start: 04-25-2024 BACTERIAL VAGINOSIS NAAT Fabiola Costa APRN.CNM Work Phone: Start: 04-25-2024 Iadna chlamydia trachomatis amplified probe tq Fabiola Costa APRN.CNM Work Phone: Start: 09-26-2023 ALLERGEN SKIN TEST-PENICILLIN Rose Nix MD Work Phone: Start: 06-05-2023 Ct abdomen & pelvis w/contrast material Sanjuanita Nash APRN.CLINICAL MENTAL HEALTH COUNSELOR Work Phone: Start: 03-01-2023 Radiologic exam abdo men 1 view Sanjuanita Nash APRN.CLINICAL MENTAL HEALTH COUNSELOR Work Phone: Start: 02-01-2022 Adult depression scr eening assessment Sanjuanita Nash APRN.CLINICAL MENTAL HEALTH COUNSELOR Work Phone: Plan of Treatment Date Care Activity Detail Author Start: 09-25-2032 Urine microalbumin profile [facility] Start: 07-17-2026 Screening for malignant neoplasm of cervix [facility] Start: 10-14-2025 Annual PCP Team Chronic Disease Visit Annual PCP Team Chronic Disease Visit [facility] Start: 05-08-2025 End: 05-08-2025 Patient encounter procedure 05/08/2025 9:40 AM EDT Office Visit [facility] [place] [address] [facility] [place] [address] Kvng Hurd MD [address] [place] [address] 3 month f/u [facility] [place] Comment on above: 3 month f/u Start: 03-26-2025 Annual PCP Team Chronic Disease Visit Annual PCP Team Chronic Disease Visit [facility] Start: 03-26-2025 Covid-19 Vaccine ( season) Covid-19 Vaccine ( season) [facility] Comment on above: Postponed from 03/16/2024 (Declined at t his time) Start: 03-26-2025 Covid-19 Vaccine ( season) Covid-19 Vaccine ( season) [facility] Comment on above: Postponed from 03/16/2024 (Declined at t his time) Start: 03-16-2025 Influenza vaccination Influenza Vaccine (Season Ended) [facility] Start: 02-06-2025 End: 02-06-2025 Patient encounter procedure 02/06/2025 8:00 AM EDT Office Visit [facility] [place] [address] [place] [address] Sanjuanita Nash APRN.CLINICAL MENTAL HEALTH COUNSELOR [address] [place] [address] 3 month f/u [facility] [place] Comment on above: 3 month f/u Start: 01-12-2025 Influenza vaccination Influenza Vaccine (#1) [place] [facility] Comment on above: Postponed from 03/16/2024 (Declined at t his time) Start: 01-07-[address] [facility] Start: 12-25-2024 Annual PCP Team Chronic Disease Visit Annual PCP Team Chronic Disease Visit [facility] Start: 12-11-2024 End: 12-11-2024 Patient encounter procedure 12/11/2024 9:30 AM EDT Office Visit Gynecology [address] [place] [address] Laura Castrejon MD [address] [place] [address] CPP CONSULT Gynecology Comment on above: CPP CONSULT Start: 10-14-2024 End: 10-14-2024 Patient encounter procedure 10/14/2024 8:00 AM EDT Office Visit [facility] [place] [address] [facility] [place] [address] Kvng Hurd MD [address] [place], [place] [id number] 3 month follow up [facility] [place] Comment on above: 3 month follow up Start: 09-08-2024 End: 12-08-2024 CBC W Auto Differential panel - Blood [facility] Comment on above: Expected: 09/08/2024, Expires: Start: 09-08-2024 End: 12-08-2024 Comprehensive metabolic 2000 panel - Serum or Plasma [facility] Comment on above: Expected: 09/08/2024, Expires: Start: 09-08-2024 End: 12-08-2024 TOXICOLOGY SCREEN, ROUTINE URINE [facility] Comment on above: Expected: 09/08/2024, Expires: Start: 09-08-2024 End: 12-08-2024 TSH W/REFLEX FT4 [facility] Comment on above: Expected: 09/08/2024, Expires: Start: 08-18-2024 End: 08-18-2024 Patient encounter procedure 08/18/2024 9:20 AM EST Office Visit [facility] Medicine [place] [address] [facility] [place] [address] Sanjuanita Nash APRN.CLINICAL MENTAL HEALTH COUNSELOR [address] [place], [place] [id number] Medication follow up [facility] [place] Comment on above: Medication follow up Start: 08-13-2024 End: 08-13-2024 Patient encounter procedure 08/13/2024 8:15 AM EST Office Visit OB/Gynecology [address] [place] [address] Fabiola Costa APRN.CNM [address] [place] [address] IUD f/up OB/Gynecology Comment on above: IUD f/up Start: 08-12-2024 End: 08-12-2024 Manual pelvic examination 08/12/2024 6:15 PM EST OT/PT/Speech Visit [facility] [address] [place] [address] Jennifer Serrano, PT [address] [place] [address] Pelvic floor pain, constipation, and adenomyosis [facility] Comment on above: Pelvic floor pain, constipation, and bulmaro nomyosis Start: 08-04-2024 End: 08-04-2024 Patient encounter procedure 08/04/2024 3:30 PM EST Office Visit OB/Gynecology [address] [place] [address] Fabiola Costa APRN.CNM [address] [place] [address] IUD check and rectum check [facility] Comment on above: IUD check and rectum check Start: 08-01-2024 End: 08-01-2024 Manual pelvic examination 08/01/2024 9:45 AM EST OT/PT/Speech Visit [facility] [address] [place] [address] Jennifer Serrano, PT [address] [place] [address] Pelvic floor pain, constipation, and adenomyosis [facility] Comment on above: Pelvic floor pain, constipation, and bulmaro nomyosis Start: 07-18-2024 End: 07-18-2024 Patient encounter procedure 07/18/2024 8:15 AM EST Office Visit OB/Gynecology [address] [place] [address] Fabiola Costa APRN.CNM [address] [place] [address] ANNUAL OB/Gynecology Comment on above: ANNUAL Start: 07-15-2024 End: 07-15-2024 Manual pelvic examination 07/15/2024 11:00 AM EST OT/PT/Speech Visit [facility] [address] [place] [address] Jennifer Serrano, PT [address] [place] [address] Pelvic floor pain, constipation, and adenomyosis [facility] Comment on above: Pelvic floor pain, constipation, and bulmaro nomyosis Start: 07-11-2024 End: 07-11-2024 Manual pelvic examination 07/11/2024 8:45 AM EST OT/PT/Speech Visit [facility] [address] [place] [address] Jennifer Serrano, PT [address] [place] [address] Pelvic floor pain, constipation, and adenomyosis [facility] Comment on above: Pelvic floor pain, constipation, and bulmaro nomyosis Start: 07-03-2024 End: 07-03-2024 Patient encounter procedure 07/03/2024 8:00 AM EST Office Visit [facility] [place] [address] [place] [address] Sanjuanita Nash APRN.CLINICAL MENTAL HEALTH COUNSELOR [address] [place] [address] 3 month follow up [facility] [place] Comment on above: 3 month follow up Start: 07-01-2024 End: 07-01-2024 Manual pelvic examination 07/01/2024 10:15 AM EST OT/PT/Speech Visit [facility] [address] [place] [address] Jennifer Serrano, PT [address] [place] [address] Pelvic floor pain, constipation, and adenomyosis [facility] Comment on above: Pelvic floor pain, constipation, and bulmaro nomyosis Start: 06-25-2024 Annual PCP Team Chronic Disease Visit Annual PCP Team Chronic Disease Visit [facility] Start: 06-20-2024 End: 06-20-2024 Patient encounter procedure 06/20/2024 10:00 AM EST Office Visit [facility] [place] [address] [place] [address] Sanjuanita Nash, SENIOR TECHNICAL MANAGER.CLINICAL MENTAL HEALTH COUNSELOR [address] [place] [address] 3 month follow up [facility] [place] Comment on above: 3 month follow up Start: 06-09-2024 End: 06-09-2024 Patient encounter procedure 06/09/2024 7:40 AM EST Office Visit [facility] [place] [address] [place] [address] Sanjuanita Nash, SENIOR TECHNICAL MANAGER.CLINICAL MENTAL HEALTH COUNSELOR [address] [place] [address] follow up [facility] [place] Comment on above: follow up Start: 05-13-2024 End: 05-13-2024 Patient encounter procedure 05/13/2024 8:00 AM EDT Office Visit [facility] [place] [address] [place] [address] Sanjuanita Nash, SENIOR TECHNICAL MANAGER.CLINICAL MENTAL HEALTH COUNSELOR [address] [facility] [address] discuss restarting vyvanse [facility] [place] Comment on above: discuss restarting vyvanse Start: 05-07-2024 End: 05-07-2024 Patient encounter procedure 05/07/2024 9:30 AM EDT Office Visit OB/Gynecology [address] [place] [address] Fabiola Costa APRN.CN [address] [place] [address] f/up [facility]/Gynecology Comment on above: f/up Start: 03-26-2024 End: 03-26-2024 Patient encounter procedure 03/26/2024 9:40 AM EDT Office Visit [facility] [place] [address] [place] [address] Kvng Hurd MD [address] [place] [address] 3 month follow up-GEORGES adbofrandyn [facility] [place] Comment on above: 3 month follow up-IBS adboemn Start: 03-16-2024 Influenza vaccination [facility] Start: 12-26-2023 End: 12-26-2023 Patient encounter procedure 12/26/2023 3:20 PM EDT Office Visit [facility] [place] [address] [place] [address] Kvng Hurd MD [address] [place] [address] 3 month follow up [facility] [place] Comment on above: 3 month follow up Start: 09-26-2023 ANNUAL PCP TEAM CHRONIC DISEASE VISIT ANNUAL PCP TEAM CHRONIC DISEASE VISIT [facility] Start: 09-18-2023 PAP TESTING PAP TESTING [facility] Start: 09-18-2023 Screening for malignant neoplasm of cervix Pap Testing [facility] Start: 06-04-2023 End: 09-03-2023 C reactive protein [Mass/volume] in Serum or Plasma [facility] Work Phone: Comment on above: Expected: 06/04/2023, Expires: Start: 06-04-2023 End: 09-03-2023 Comprehensive metabolic 2000 panel - Serum or Plasma [facility] Work Phone: Comment on above: Expected: 06/04/2023, Expires: 4 Start: 03-16-2023 Covid-19 Vaccine ( season) Covid-19 Vaccine ( season) [facility] Start: 03-16-2023 Influenza vaccination [facility] Start: 02-03-2023 ANNUAL PCP TEAM CHRONIC DISEASE VISIT ANNUAL PCP TEAM CHRONIC DISEASE VISIT [facility] Start: 02-03-2023 HPV VACCINE (1 - 2-dose series) HPV VACCINE (1 - 2-dose series) [facility] Comment on above: Postponed from 02/11/2008 (Declined at t his time) Postponed from 02/10 (Declined at this time) Start: 02-03-2023 SPIROMETRY SPIROMETRY [facility] Comment on above: Postponed from 2015 (Declined at t his time) Start: 02-01-2023 Adult depression screening assessment DEPRESSION SCREENING [facility] Start: 01-12-2023 Influenza vaccination INFLUENZA (#1) [facility] Comment on above: Postponed from 03/16/2022 (Declined at t his time) Start: 12-18-2022 End: 02-17-2023 TOX SCREEN ROUT UR TOX SCREEN ROUT UR Lab Routine Attention deficit hyperactivity disorder, combined type Expected: 12/18/2022, Expires: 02/17/2023 [facility] Work Phone: Comment on above: Expected: 12/18/2022, Expires: 3 Start: 09-25-2022 End: 11-25-2022 Comprehensive metabolic 2000 panel - Serum or Plasma [facility] Work Phone: Comment on above: Expected: 09/25/2022, Expires: 3 Start: 09-25-2022 End: 11-25-2022 Ferritin [Mass/volume] in Serum or Plasma [facility] Work Phone: Comment on above: Expected: 09/25/2022, Expires: 3 Start: 09-25-2022 End: 11-25-2022 Hepatitis C virus Ab [Presence] in Serum [facility] Work Phone: Comment on above: Expected: 09/25/2022, Expires: 3 Start: 09-25-2022 End: 11-25-2022 HIV 1+2 Ab [Presence] in Serum or Plasma by Immunoassay [facility] Work Phone: Comment on above: Expected: 09/25/2022, Expires: 3 Start: 09-25-2022 End: 11-25-2022 Iron and Iron binding capacity panel - Serum or Plasma [facility] Work Phone: Comment on above: Expected: 09/25/2022, Expires: 3 Start: 09-25-2022 End: 11-25-2022 Lipid 1996 panel - Serum or Plasma [facility] Work Phone: Comment on above: Expected: 09/25/2022, Expires: 3 Start: 09-25-2022 End: 11-25-2022 Magnesium [Mass/volume] in Serum or Plasma [facility] Work Phone: Comment on above: Expected: 09/25/2022, Expires: 3 Start: 09-25-2022 End: 11-25-2022 Thyrotropin [Units/volume] in Serum or Plasma [facility] Work Phone: Comment on above: Expected: 09/25/2022, Expires: 3 Start: 09-25-2022 End: 11-25-2022 Thyroxine (T4) free [Mass/volume] in Serum or Plasma [facility] Work Phone: Comment on above: Expected: 09/25/2022, Expires: 3 Start: 09-25-2022 End: 11-25-2022 Triiodothyronine (T3) Free [Mass/volume] in Serum or Plasma [facility] Work Phone: Comment on above: Expected: 09/25/2022, Expires: 3 Start: 03-16-2022 Influenza vaccination INFLUENZA (#1) [facility] Start: 03-06-2022 End: 05-06-2022 TOX SCREEN ROUT UR [facility] Work Phone: Comment on above: Expected: 03/06/2022, Expires: 2 Start: 02-03-2022 End: 04-05-2022 Hepatitis C virus Ab [Presence] in Serum HEP C AB IA W/CONF SCRN Lab Routine Special screening examination for viral disease Expected: 02/03/2022, Expires: 04/05/2022 [facility] Work Phone: Comment on above: Expected: 02/03/2022, Expires: 2 Start: 02-03-2022 End: 04-05-2022 HIV 1+2 Ab [Presence] in Serum or Plasma by Immunoassay HIV 1 2 COMBO(AG/AB),WITH REFLEX TO DIFFERENTIATION Lab Routine Screening for HIV (human immunodeficiency virus) Expected: 02/03/2022, Expires: 04/05/2022 [facility] Work Phone: Comment on above: Expected: 02/03/2022, Expires: 2 Start: 02-11-2016 Urine microalbumin profile DTAP,TDAP,TD (1 - Tdap) [facility] Start: 2015 HEPATITIS C SCREENING HEPATITIS C SCREENING [facility] Start: 2015 HIV SCREENING HIV SCREENING [facility] Start: 2015 SPIROMETRY SPIROMETRY [facility] Start: 2011 PEDS TO ADULT TRANSITION ANNUAL ASSESSMENT PEDS TO ADULT TRANSITION ANNUAL ASSESSMENT [facility] Start: 04-01-2009 HPV Vaccine (3 - 2-dose series) HPV Vaccine (3 - 2-dose series) [facility] Start: 2009 PEDS TO ADULT TRANSITION INITIAL DISCUSSION PEDS TO ADULT TRANSITION INITIAL DISCUSSION [facility] Start: 2007 MENINGOCOCCAL B: Consider based on risk (1 of 2 - Risk Bexsero 2-dose series) MENINGOCOCCAL B: Consider based on risk (1 of 2 - Risk Bexsero 2-dose series) [facility] Start: 2006 HPV VACCINE (1 - 2-dose series) HPV VACCINE (1 - 2-dose series) [facility] Start: 2003 PNEUMOCOCCAL (1 - PCV) PNEUMOCOCCAL (1 - PCV) [facility] Start: 1997 COVID-19 VACCINE (#1) COVID-19 VACCINE (#1) [facility] Start: 1997 HEPATITIS B (1 of 3 - 3-dose series) HEPATITIS B (1 of 3 - 3-dose series) [facility] Start: 1997 Hepatitis B Vaccine (1 of 3 - 3-dose series) Hepatitis B Vaccine (1 of 3 - 3-dose series) [facility] End: 07-03-2024 Ct abdomen & pelvis w/contrast material CT ABD/PEL W IVCON Radiology STAT Nausea 1 Occurrences starting 06/04/2023 until 07/03/2024 [facility] Work Phone: Comment on above: 1 Occurrences starting 06/04/2023 until 07/03/2024 End: 01-22-2025 Flexible sigmoidoscopy study COLONOSCOPY DIAGNOSTIC Endoscopy Routine Irritable bowel syndrome with constipation Change in bowel habits Abdominal pain, left lower quadrant 1 Occurrences starting 01/23/2024 until 01/22/2025 [facility] Work Phone: Comment on above: 1 Occurrences starting 01/23/2024 until 01/22/2025 Hepb vaccine adult 3 dose schedule for im use HEPATITIS B VACCINE, ADULT AGE 20+, IM Immunization/Injection Routine Encounter for immunization Ordered: 03/06/2022 [facility] Work Phone: Comment on above: Ordered: 03/06/2022 Insertion intrauteri ne device iud INSERT INTRAUTERINE DEVICE Procedures Routine Encounter for IUD insertion Ordered: 05/13/2024 [facility] Work Phone: Comment on above: Ordered: 05/13/2024 Insertion intrauteri ne device iud INSERT INTRAUTERINE DEVICE Procedures Routine Pelvic pain in female Ordered: 05/07/2024 [facility] Work Phone: Comment on above: Ordered: 05/07/2024 MENINGOCOCCAL GROUP B VACCINE 2 DOSE MENINGOCOCCAL GROUP B VACCINE 2 DOSE Immunization/Injection Routine Encounter for immunization Ordered: 02/03/2022 [facility] Work Phone: Comment on above: Ordered: 02/03/[address] [facility] Work Phone: PFIZER-BIONTECH COVI D-19 VACCINE, AGE 12+ YR (SANDHU TOP) PFIZER-BIONTECH COVID-19 VACCINE, AGE 12+ YR (SANDHU TOP) Immunization/Injection Routine Encounter for immunization 1 Occurrences starting 02/03/2022 [facility] Work Phone: Comment on above: 1 Occurrences starting 02/03/2022 Pneumococcal vaccination PNEUMOC OCCAL VACCINE (PREVNAR 20) Immunization/Injection Routine Encounter for immunization 1 Occurrences starting 02/03/2022 [facility] Work Phone: Comment on above: 1 Occurrences starting 02/03/2022 End: 10-08-2025 SPIROMETRY - BASELINE AND POST DILATOR SPIROMETRY - BASELINE AND POST DILATOR PFT Routine Asthma 1 Occurrences starting 09/08/2024 until 10/08/2025 [facility] Work Phone: Comment on above: 1 Occurrences starting 09/08/2024 until 10/08/2025 Tdap vaccine 7 yrs/> im TDAP VAC CINE AGE 7+ IM Immunization/Injection Routine Encounter for immunization Ordered: 02/03/2022 [facility] Work Phone: Comment on above: Ordered: 02/03/2022 Urine test visual color cmprsn meths HCG QUAL UR B/O Lab Routine RUQ abdominal pain Periumbilical abdominal pain Ordered: 06/04/2023 [facility] Work Phone: Comment on above: Ordered: 06/04/2023 End: 03-30-2024 XR ABDOMEN 1V SUPINE XR ABDOMEN 1V SUPINE Radiology Routine Lower abdominal pain 1 Occurrences starting 03/01/2023 until 03/30/2024 [facility] Work Phone: Comment on above: 1 Occurrences starting 03/01/2023 until 03/30/2024 XR ABDOMEN 1V SUPINE XR ABDOMEN 1V SUPINE Radiology Routine Lower abdominal pain 03/01/2023 8:24 AM EDT [facility] Work Phone: XR Abdomen Supine an d Upright XR ABDOMEN 2V ROUTINE SUPINE W UPRIGHT/DECUB/CTL Radiology Routine Irritable bowel syndrome with constipation 11/12/2023 8:30 AM EDT [facility] Work Phone: [facility] Immunizations Immunization Date Immunization Notes Care Provider [facility] 09-25-2022 pneumococcal (PCV20) vaccine, 20 valent (PREVNAR 20) Kvng Hurd MD Work Phone: [facility] 09-25-2022 tetanus toxoid, redu tiago diphtheria toxoid, and acellular pertussis vaccine, adsorbed Kvng Hurd MD Work Phone: [facility] 09-25-2022 pneumococcal Conjuga te, unspecified formulation Kvng Hurd MD Work Phone: [facility] Work Phone: 07-21-2016 meningococcal polysaccharide (groups A, C, Y and W-135) diphtheria toxoid conjugate vaccine (MCV4P) Sanjuanita Nash SENIOR TECHNICAL MANAGER.CLINICAL MENTAL HEALTH COUNSELOR Work Phone: [facility] 01-14-2010 tetanus toxoid, redu tiago diphtheria toxoid, and acellular pertussis vaccine, adsorbed Sanjuanita Nash SENIOR TECHNICAL MANAGER.CLINICAL MENTAL HEALTH COUNSELOR Work Phone: [facility] 01-14-2010 varicella virus vaccine Rob i Nash SENIOR TECHNICAL MANAGER.CLINICAL MENTAL HEALTH COUNSELOR Work Phone: [facility] 01-07-2009 human papilloma viru s vaccine, bivalent Sanjuanita Nash SENIOR TECHNICAL MANAGER.CLINICAL MENTAL HEALTH COUNSELOR Work Phone: [facility] 11-01-2008 human papilloma viru s vaccine, bivalent Sanjuanita Nash SENIOR TECHNICAL MANAGER.CLINICAL MENTAL HEALTH COUNSELOR Work Phone: [facility] 08-03-2008 human papilloma viru s vaccine, bivalent Sanjuanita Nash SENIOR TECHNICAL MANAGER.CLINICAL MENTAL HEALTH COUNSELOR Work Phone: [facility] 02-26-2002 diphtheria, tetanus toxoids and acellular pertussis vaccine, unspecified formulation Sanjuanita Nash SENIOR TECHNICAL MANAGER.CLINICAL MENTAL HEALTH COUNSELOR Work Phone: [facility] 02-26-2002 measles, mumps and rubella virus vaccine Sanjuanita Nash SENIOR TECHNICAL MANAGER.CLINICAL MENTAL HEALTH COUNSELOR Work Phone: [facility] 02-26-2002 poliovirus vaccine, inactivated Sanjuanita Nash SENIOR TECHNICAL MANAGER.CLINICAL MENTAL HEALTH COUNSELOR Work Phone: [facility] 08-02-1998 diphtheria, tetanus toxoids and acellular pertussis vaccine, unspecified formulation Sanjuanita Nash SENIOR TECHNICAL MANAGER.CLINICAL MENTAL HEALTH COUNSELOR Work Phone: [facility] 08-02-1998 poliovirus vaccine, inactivated Sanjuanita Nash SENIOR TECHNICAL MANAGER.CLINICAL MENTAL HEALTH COUNSELOR Work Phone: [facility] 07-21-1998 haemophilus influenz ae type b vaccine, conjugate unspecified formulation Sanjuanita Nash SENIOR TECHNICAL MANAGER.CLINICAL MENTAL HEALTH COUNSELOR Work Phone: [facility] 01-16-1998 varicella virus vaccine Terr i Nash SENIOR TECHNICAL MANAGER.CLINICAL MENTAL HEALTH COUNSELOR Work Phone: [facility] 1997 hepatitis B vaccine, pediatric or pediatric/adolescent dosage Sanjuanita Nash SENIOR TECHNICAL MANAGER.CLINICAL MENTAL HEALTH COUNSELOR Work Phone: [facility] 1997 diphtheria, tetanus toxoids and acellular pertussis vaccine, unspecified formulation Sanjuanita Nash SENIOR TECHNICAL MANAGER.CLINICAL MENTAL HEALTH COUNSELOR Work Phone: [facility] 1997 haemophilus influenz ae type b vaccine, conjugate unspecified formulation Sanjuanita Nash SENIOR TECHNICAL MANAGER.CLINICAL MENTAL HEALTH COUNSELOR Work Phone: [facility] 1997 poliovirus vaccine, inactivated Sanjuanita Nash SENIOR TECHNICAL MANAGER.CLINICAL MENTAL HEALTH COUNSELOR Work Phone: [facility] 1995 hepatitis B vaccine, pediatric or pediatric/adolescent dosage Sanjuanita Nash SENIOR TECHNICAL MANAGER.CLINICAL MENTAL HEALTH COUNSELOR Work Phone: [facility] 1995 diphtheria, tetanus toxoids and acellular pertussis vaccine, unspecified formulation Sanjuanita Nash SENIOR TECHNICAL MANAGER.CLINICAL MENTAL HEALTH COUNSELOR Work Phone: [facility] 1995 haemophilus influenz ae type b vaccine, conjugate unspecified formulation Sanjuanita Nash SENIOR TECHNICAL MANAGER.CLINICAL MENTAL HEALTH COUNSELOR Work Phone: [facility] 1995 poliovirus vaccine, inactivated Sanjuanita Nash SENIOR TECHNICAL MANAGER.CLINICAL MENTAL HEALTH COUNSELOR Work Phone: [facility] 1995 measles, mumps and rubella virus vaccine Sanjuanita Nash SENIOR TECHNICAL MANAGER.CLINICAL MENTAL HEALTH COUNSELOR Work Phone: [facility] 1995 diphtheria, tetanus toxoids and acellular pertussis vaccine, unspecified formulation Sanjuanita Nash SENIOR TECHNICAL MANAGER.CLINICAL MENTAL HEALTH COUNSELOR Work Phone: [facility] 1995 haemophilus influenz ae type b vaccine, conjugate unspecified formulation Sanjuanita Nash SENIOR TECHNICAL MANAGER.CLINICAL MENTAL HEALTH COUNSELOR Work Phone: [facility] 1995 poliovirus vaccine, inactivated Sanjuanita Nash SENIOR TECHNICAL MANAGER.CLINICAL MENTAL HEALTH COUNSELOR Work Phone: [facility] 1995 hepatitis B vaccine, pediatric or pediatric/adolescent dosage Sanjuanita Nash SENIOR TECHNICAL MANAGER.CLINICAL MENTAL HEALTH COUNSELOR Work Phone: [facility] NEGATED: Highlighted row has not occurred!03-06-2022 hepatitis B vaccine, adult dosage Sanjuanita Nash SENIOR TECHNICAL MANAGER.CLINICAL MENTAL HEALTH COUNSELOR Work Phone: [facility] Work Phone: Comment on above: Deferred: Postponed NEGATED: Highlighted row has not occurred!02-03-2022 meningococcal B vaccine, recombinant, OMV, adjuvanted Sanjuanita Nash SENIOR TECHNICAL MANAGER.CLINICAL MENTAL HEALTH COUNSELOR Work Phone: [facility] Work Phone: Comment on above: Deferred: Postponed NEGATED: Highlighted row has not occurred!02-03-2022 tetanus toxoid, reduced diphtheria toxoid, and acellular pertussis vaccine, adsorbed Sanjuanita Nash SENIOR TECHNICAL MANAGER.CLINICAL MENTAL HEALTH COUNSELOR Work Phone: [facility] Work Phone: Payers Date Payer Category Payer Self-pay 2021 [employer] [place] [employer] [id number] 2021 Unknown NAY JORDAN PPO [id number] 2021-Present [phone] [address] [place] [address] PPO [id number] 2021 Unknown NAY GOMEZ PPO [id number] 2021-Present [phone] [address] [place] [address] PPO [id number] 2021 Unknown [id number] Unknown [id number] 462 Unknown [id number]. 462 Unknown [id number]. 462 Unknown [id number]. 462 Unknown [id number]. 462 Unknown [id number] 462 Unknown [id number]. 462 Unknown [id number]. 462 Unknown [id number]. 462 Unknown [id number]. 462 Unknown [id number]. 462 Unknown [id number] 462 Social History Date Type Detail Facility Start: 09-17-2020 End: 01-05-2025 Tobacco smoking status LAIS Never smoked tobacco [facility] Work Phone: Start: 09-17-2020 End: 03-06-2022 Tobacco use and exposure Smokeless tobacco non-user [facility] Work Phone: Start: 02-03-2022 End: 08-04-2024 Alcohol intake Current drinker of alcohol (finding) [facility] Start: 02-01-2022 End: 09-19-2022 History SDOH Alcohol Frequency 2 [facility] Start: 02-01-2022 End: 09-19-2022 History SDOH Alcohol Std Drinks 1 [facility] Start: 09-17-2020 History SDOH Alcohol Comment once a month [facility] Start: 02-01-2022 End: 09-19-2022 History SDOH Social Connections Phone 3 [facility] Start: 02-01-2022 End: 09-19-2022 History SDOH Social Connections Meetings 98 [facility] Start: 02-01-2022 End: 09-19-2022 History SDOH Social Connections Living 8 [facility] Start: 02-01-2022 End: 09-19-2022 History SDOH Physical Activity DPW 0 [facility] Start: 02-01-2022 End: 09-19-2022 History SDOH Stress 5 [facility] Start: 1995 Sex Assigned At Not on file C [facility] Start: 01-24-2022 End: 02-03-2022 Exposure to SARS-CoV-2 (event) Not sure [facility] Work Phone: Start: 09-19-2022 History SDOH Social Connections Phone 4 [facility] Start: 09-19-2022 End: 11-22-2022 History of Social function [facility] Start: 09-19-2022 End: 11-22-2022 Social connection and isolation panel [facility] How often do you get together with friends or relatives? Patient refused [facility] Do you belong to any clubs or organizations such as scientology groups, unions, fraternal or athletic groups, or school groups? Yes [facility] Are you now , , , , never or living with a partner? Living with partner [facility] How often to you hav e a drink containing alcohol? Monthly or less [facility] How often do you hav e 6 or more drinks on 1 occasion? Never [facility] How hard is it for y ou to pay for the very basics like food, housing, medical care, and heating Not very hard [facility] Do you feel stress - tense, restless, nervous, or anxious, or unable to sleep at night because your mind is troubled all the time - these days [OSQ] Very much [facility] (I/We) worried wheth er (my/our) food would run out before (I/we) got money to buy more. Never true [facility] In the past 12 month s, was there a time when you were not able to pay the mortgage or rent on time? No [facility] Tobacco smoking stat us LAIS Unknown if ever smoked [facility] Work Phone: Start: 10-28-2024 Sex Female (finding) [facility] Start: 1995 Sex Assigned At Female W [facility] NEGATED: Highlighted row Not [facility] Goals Date Patient Goal Desired Activity /State Mental Status Date Assessment Result Facility 01-07-2025 Cognitive function Voice/Name [facility] Work Phone: Clinical Notes 02-03-2022 to 01-07-2025 Note Date & Type Note Facility 01-07-[address] [facility] 01-07-2025 History and physical note Note Date/Time January 07, 2025 12:47pm [facility] Medical Records Department [address] [place] [address] History & Physical Exam 01/07/25 1244 MR#: [id number] Acct: [id number] Name: LAY MORALES Rep #:[id number] : 1995 29 From: Ralph Friend DO PCP: Dr. Kvng Hurd MD Status:[facility] Location: [place] [address] HPI - General General Date of Admission: 01/07/25 Date of Service: 01/07/25 Chief Complaint: Abdominal pain and diarrhea HPI Narrative LAY MORALES, is a 29 F who presents for colonoscopy. BGI established in February 2024 with constipation x1 year following gastroenteritis. Pt previously seeing GI at [facility] and trailed Linzess and Trulance. Biochemical work up CBC, CMP, IBD, Celiac, food allergen wnl GES; 42 minutes Sits marker test w/ slow transit constipation OBGYN; diagnosed with adenomyosis and had IUD placed. Completed pelvic floor therapy Last OV 3 Pt continued with Ibsrela 50 mg BID. Unsure if it is working. Shehas been doing a low fodmap diet. Onions seem to be a trigger. Plan to order MRIto rule out endometriosis of the bowel. MRI 4.04.09; No acute findings in the pelvis. There appears to be some thickening of the junctional zone involving the anterior fundal portion of the uterus, which may represent localized areas of adenomyosis. No discrete measurable uterine or cervical mass is demonstrated. Small bilateral ovarian follicles. No concerning adnexal mass. An intrauterine device is present in the uterine body/lower uterine segment. OV 11.05.24; Pt continues with Ibsrela once a day. She has a bm on most days thatis loose. She has severe pain with bowel movements. [facility] Medical History Pyloric stenosis MRSA infection Anxiety Restless legs Leg cramps Non-smoker Irritable bowel syndrome without diarrhea Limb weakness Asthma Knee pain Home Medications ?Medication ?Instructions ?Recorded ?Last Taken ?Type sertraline 50 mg tablet (Zoloft) 50 mg PO DAILY Unknown History lisdexamfetamine 20 mg capsule 20 mg PO QDAY 08/13/24 Unknown History (Vyvanse) peg 3350-electrolytes 236 240 ml PO Q10M #4,000 mL 05/09 Unknown Rx gram-22.74 gram-6.74 gram-5.86 gram solution (Golytely) Allergy/AdvReac Type Severity Reaction Status Date / Time Penicillins Allergy Unknown other Verified 01/05/25 14:00 Surgical History Hx of LUNA History of surgery Social History Smoking Status: Never smoker ROS Constitutional Constitutional: Denies fatigue, fever(s), poor appetite, weight gain or weight loss Gastrointestinal Gastrointestinal: Denies belching, bloating, change in bowel habits, change in stool character, chewing difficulty, coffee ground emesis, constipation, cramping, diarrhea, dyspepsia, dysphagia, early satiety, excessive flatus, fecalincontinence, heartburn, hematemesis, hematochezia, hemorrhoids, loose stools, melena, nausea, odynophagia, rectal bleeding, tenesmus, vomiting or weight changes Vital Signs Vital Signs Vital Signs: 01/07/25 12:16 01/07/25 12:39 Temperature 98.5 F 98.5 F Temperature Source Temporal Respiratory Rate 16 16 Blood Pressure 121/77 H 121/77 H Blood Pressure Mean 91 Blood Pressure Source Monitor Blood Pressure Position Sitting Blood Pressure Location Right Arm Weight Weight: 141 lb 1.533 oz Body Mass Index (BMI) 23.4 Physical Exam Const alert, oriented x3, no apparent distress and healthy appearing General Appearance: cooperative GI normal to inspection, nondistended, normoactive bowel sounds, soft to palpation,non-tender and non-distended Percussion: normal to percussion Rectal Exam: deferred Results Lab / Micro Data Labs: Laboratory Results - last 24 hr 01/07/25 12:03: Urine Test Negative Assessment & Plan Assessment/Plan (1) Irritable bowel syndrome with diarrhea: (2) Bloating: PLAN: Assessment and Plan Assessment and Plan (1) Bloating: Status: Acute Plan: This is a 29 yo female pt here today for f/u regarding her bloating, constipation, and abdominal pain. Pt has had chronic constipation over the past year since having gastroenteritis. She has been treated with Trulance, Linzess and Ibsrela. She has had the most relief with Ibsrela but has urgent and randomly loose stools. She has ed physicians hx of adenomyosis which causes her pelvic pain during her periods and in during her bowel movements. MRI did not show any bowel etiology. SHe will undergo colonoscopy to rule out further etiology of chronic constipation. Pt has had bloating for some time now. Will treat with a course of Xifaxan for possible SIBO. She will also take a daily probiotic, fibersupplement and 64 oz of water daily. -Colonoscopy -Xifaxan -continue ibsrela -Start fiber and probiotic -64 oz of water daily (2) Irritable bowel syndrome with diarrhea: Status: Acute Medications: New rifaximin 550 mg PO TID 42 tabs 2RF 2 weeks K58.0 - Irritable bowel syndrome with diarrhea 01/07/25 1247 <Electronically signed by Ralph Barrett DO> Cosigner Signature (if applicable): CC: Dr. Kvng Hurd MD; Ralph Barrett DO~ Signed [facility] Work Phone: 1(102) 974-757706-25-2025 Consult note Author Ruddy Sage [facility] Note Date/Time January 07, 2025 12:4 1pm [facility] Medical Records Department [address] [place] [address] Pre-Anesthesia Evaluation 01/07/25 1238 MR#: [id number] Acct: [id number] Name: LAY MORALES Rep #:[id number] : 1995 29 From: Ruddy Sage MD PCP: Dr. Kvng Hurd MD [place] [facility] [place] Race: C Location: [place] [address] ASA Classification* ASA Classification ASA Classification: 2 (IBS) Assessment & Plan Anesthesia* Anesthesia Assessment Anesthesia Assessment: Discussed sedation and/or anesthesia options, risks, benefits, and alternatives with patient/parents/legal guardian/POA. Questions invited. The patient/parents/legal guardian/POA seems to understand and agrees to proceedwith anesthesia plan. Reviewed the physical assessment, medical history, allergy history and patient home medications list prior to surgery/procedure/anesthetic and documented any changes. Performed airway and anesthesia risk assessments. Anesthesia Type Anesthesia Type: MAC History Source History Obtained from:: Patient and Chart Anesthesia Focused Assessment* Temperature: 98.5 F Blood Pressure: 121/77 Respiratory Rate: 16 Airway Assessment Mouth opens: >3 cm Mallampati Score: II Teeth Condition: Intact Neck Range of motion (ROM): Full ROM Labs Anesthesia Preop lab: CBC WBC 5.6 K/mm3 (4.4-11.0) 07/29/20 07:14 07/29/20 RBC 4.39 M/mm3 (4.2-5.4) 07/29/20 07:14 07/29/20 Hgb 13.1 g/dL (12.0-15.0) 07/29/20 07:14 07/29/20 Hct 39.0 % (37-47) 07/29/20 07:14 07/29/20 Plt Count 263 K/mm3 (150-450) 07/29/20 07:14 07/29/20 CHEMISTRY Potassium 3.5 mmol/L (3.5-5.1) 07/29/20 07:14 07/29/20 Sodium 137 mmol/L (136-145) 07/29/20 07:14 07/29/20 BUN 13 mg/dL (7-18) 07/29/20 07:14 07/29/20 Creatinine 0.89 mg/dL (0.55-1.02) 07/29/20 07:14 07/29/20 Glucose 84 mg/dL (74-106) 07/29/20 07:14 07/29/20 COAG Urine Test Negative Negative 01/07/25 12:03 01/07/25 Pre-Assessment Diagnosis/Proposed Procedure Planned Operative Procedure(s): cscope Anesthesia History 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 When Was Last Pacemaker Check QUESTION #4 FULL TEXT: You/Your Family Experience fever (hyperthermia) with Anesthesia Last Oral Intake Last Oral intake: Last Oral Intake NPO since 16:30 01/07/25 12:16 Meds taken in AM with sips of Yes 01/07/25 12:16 water? Meds patient instructed to zoloft 01/07/25 12:16 take am of surgery PONV PONV - aircraft engineer: PONV - aircraft engineer Female Yes 01/05/25 14:01 HX of Motion Sickness Yes 01/05/25 14:01 HX of N/V After Surgery No 01/05/25 14:01 Non-Smoker Yes 01/05/25 14:01 Duration of Surgery greater No 01/05/25 14:01 than 60 minutes Number of Risk Factors 3 01/05/25 14:01 PONV Score Moderate Risk 01/05/25 14:01 Height & Weight Height & Weight: Anesthesia: Height & Weight Height 5 ft 5 in 01/07/25 12:16 Weight: 64 kg 01/07/25 12:16 Body Mass Index (BMI) 23.4 01/07/25 12:16 Respiratory Assessment Respiratory Assessment - aircraft engineer: Respiratory Tract Infection Hx - aircraft engineer Hx Respiratory Tract Infection No 01/05/25 14:01 STOP Sleep Apnea STOP Sleep Apnea - aircraft engineer: STOP Sleep Apnea - aircraft engineer Hx Hypertension No 01/05/25 14:01 Hx Sleep Apnea No 01/05/25 14:01 CPAP BIPAP Do you snore loudly (louder No 01/05/25 14:01 than talking or can be heard Do you often feel tired/ No 01/05/25 14:01 fatigued/ sleepy during daytime? Has anyone observed you stop No 01/05/25 14:01 breathing during sleep? STOP Results Negative 01/05/25 14:01 QUESTION #5 FULL TEXT : Do you snore loudly (louder than talking or can be heard through closed doors)? 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 Specify any problems Hx of Preganancy in last 3 N/A 01/05/25 14:01 Months Nurse Filling Out Transfusion NBUCHER 01/05/25 14:01 & Questions: Date: 01/05/25 01/05/25 14:01 Time: 14:02 01/05/25 14:01 Patient unable to answer at this time (ie. confused, unrespo /Reproduction History /Reproductive History - aircraft engineer: /Reproductive Hx- aircraft engineer Hx Now No 01/05/25 14:01 Gestational Age (in weeks): EDC: Hx Hx Para Hx Section SAB No 01/05/25 14:01 Active Medications Active Medications: Current Medications Generic Name Dose Route Start Last Admin Trade Name Freq PRN Reason Stop Dose Admin Lactated Ringer's 1,000 mls @ 15 mls/hr 01/07/25 12:15 01/07/25 12:32 IV 15 mls/hr .Q48H SACHA Administration PFSH Medical History Pyloric stenosis MRSA infection Anxiety Restless legs Leg cramps Non-smoker Irritable bowel syndrome without diarrhea Limb weakness Asthma Knee pain Home Medications ?Medication ?Instructions ?Recorded ?Last Taken ?Type sertraline 50 mg tablet (Zoloft) 50 mg PO DAILY Unknown History lisdexamfetamine 20 mg capsule 20 mg PO QDAY 08/13/24 Unknown History (Vyvanse) peg 3350-electrolytes 236 240 ml PO Q10M #4,000 mL 05/09 Unknown Rx gram-22.74 gram-6.74 gram-5.86 gram solution (Golytely) Allergy/AdvReac Type Severity Reaction Status Date / Time Penicillins Allergy Unknown other Verified 01/05/25 14:00 Surgical History (Updated 01/05/25 @ 14:08 by Malia Gutierrez) Hx of LASIK History of surgery Social History Smoking Status: Never smoker Review of Systems (Anesthesia) ROS Narrative System reviewed and no additional complaints, except as documented. Physical Exam Const alert, oriented x3 and average body habitus Resp normal respiratory effort, normal air movement and clear to auscultation bilaterally Cardio regular rate, regular rhythm, no murmurs and diaphoretic 01/07/25 1241 <Electronically signed by Ruddy Sage MD> Date _ Ruddy Ramesh Signature: Date CC: ~ Signed [facility] Work Phone: 1(276) 705-761506-25-2025 Procedure note [facility] Medical Records Department [address] [facility] [place] [address] Operative Report - CC Letter MR#: [id number] Acct: [id number] Name: LAY MORALES Rep #:[id number] : 1995 29 From: Ralph Barrett DO PCP: Dr. Kvng Hurd MD Status:RE [facility] 01/07/2025 Kvng Hurd [address] [place] [address] Re : Colonoscopy procedure for Lay Morales Dear Dr. Hurd This procedure was performed on Sunday, January 07, 2025. My impressions and recommendations are as follows: Impressions : - Congested mucosa in the descending colon, at the splenic flexure, in the transverse colon, at the hepatic flexure and in the ascending colon. Biopsied. - Congested mucosa in the terminal ileum. Biopsied. Recommendations : - Discharge patient to home. - Resume previous diet. - Continue present medications. - Repeat colonoscopy for surveillance based on pathology results. My findings are described in the full procedure note, which is enclosed. If I can be of further assistance, please feel free to contact me at . Sincerely, Ralph Barrett DO 01/07/2025 2:09:59 PM This report has been signed electronically. 01/07/25 1410 Date _ Ralph Darby Signature: Date (if indicated) CC: Dr. Kvgn Hurd MD; Ralph Barrett DO ~ Date Dictated: 01/07/25 1241 Date Transcribed: Public Relations Officer: RF Signed [facility]06[facility]-2025 Procedure note [facility] Medical Records Department [address] [place] [address] Colonoscopy Report MR#: [id number] Acct: [id number] Name: LAY MORALES Rep #:[id number] : 1995 29 From: Ralph Barrett DO PCP: Dr. Kvng Hurd MD Status:[place] [facility] Patient Name: Lay Morales Procedure Date: 01/07/2025 12:41 PM Date of : 1995 Age: 29 Procedure: Colonoscopy Indications: Chronic diarrhea Providers: Ralph Barrett DO Referring MD: Kvng Hurd Medicines: Monitored Anesthesia Care Patient Profile: This is a 29 year old female. Refer to note in patient chart for documentation of history and physical. Last Colonoscopy: none. The patient's first colonoscopy is today. Complications: No immediate complications. Procedure: Pre-Anesthesia Assessment: - Prior to the procedure, a History and Physical was performed, and patient medications and allergies were reviewed. The patient is competent. The risks and benefits of the procedure and the sedation options and risks were discussed with the patient. All questions were answered and informed consent was obtained. Patient identification and proposed procedure were verified by the physician in the pre-procedure area. Mental Status Examination: alert and oriented. Airway Examination: normal oropharyngeal airway and neck mobility. Respiratory Examination: clear to auscultation. CV Examination: normal. Prophylactic Antibiotics: The patient does not require prophylactic antibiotics. Prior Anticoagulants: The patient has taken no anticoagulant or antiplatelet agents. ASA Grade Assessment: II - A patient with mild systemic disease. After reviewing the risks and benefits, the patient was deemed in satisfactory condition to undergo the procedure. The anesthesia plan was to use monitored anesthesia care (MAC). Immediately prior to administration of medications, the patient was re-assessed for adequacy to receive sedatives. The heart rate, respiratory rate, oxygen saturations, blood pressure, adequacy of pulmonary ventilation, and response to care were monitored throughout the procedure. The physical status of the patient was re-assessed after the procedure. After I obtained informed consent, the scope was passed under direct vision. Throughout the procedure, the patient's blood pressure, pulse, and oxygen saturations were monitored continuously. The Colonoscope was introduced through the anus and advanced to the terminal ileum. Scope In: 1:34:47 PM Scope Withdrawal Time 0 hours 10 minutes 32 seconds Scope Out: 1:52:43 PM Total Procedure Duration Time 0 hours 17 minutes 56 seconds Findings: The perianal and digital rectal examinations were normal. An area of mildly congested mucosa was found in the descending colon, at the splenic flexure, in the transverse colon, at the hepatic flexure and in the ascending colon. Biopsies were taken with a cold forceps for histology. Verification of patient identification for the specimen was done. Estimated blood loss was minimal. A patchy area of the terminal ileum was congested. Biopsies were taken with a cold forceps for histology. Verification of patient identification for the specimen was done. Estimated blood loss was minimal. Impression: - Congested mucosa in the descending colon, at the splenic flexure, in the transverse colon, at the hepatic flexure and in the ascending colon. Biopsied. - Congested mucosa in the terminal ileum. Biopsied. Recommendation: - Discharge patient to home. - Resume previous diet. - Continue present medications. - Repeat colonoscopy for surveillance based on pathology results. Procedure Code(s): --- Professional --- 51249, Colonoscopy, flexible; with biopsy, single or multiple CPT copyright 2021 [employer]. All rights reserved. The codes documented in this report are preliminary and upon eating disorder psychologist review may be revised to meet current compliance requirements. Ralph Barrett DO 01/07/2025 2:09:59 PM This report has been signed electronically. Number of Addenda: 0 Note Initiated On: 01/07/2025 12:41 PM 01/07/25 4260 Date _ Ralph Darby Signature: Date (if indicated) CC: Dr. Kvng Hurd MD; Ralph Barrett DO ~ Date Dictated: 01/07/25 1241 Date Transcribed: Public Relations Officer: RF Signed [facility]06-25-2025 Consult note [facility] Medical Records Department [address] [place] [address] Anesthesia Postop Eval I 01/07/25 1402 MR#: [id number] Acct: [id number] Name: LAY MORALES Rep #:[id number] : 1995 29 From: Kayleen Hernández [employer]SEMBLER PCP: Dr. Kvng Hurd MD [place]EN [place] [facility] [place] C Location: [place] [address] Anesthesia: Postop Eval I Current Vital Signs Temperature: 97.5 F Pulse Rate: 101 Blood Pressure: 98/52 Respiratory Rate: 20 Pulse Ox: 100 Assessment Airway patent: Yes Spontaneous unlabored respirations: Yes nausea: No Vomiting: No Anesthesia Complication: No Fluid Hydration Crystalloid volume administer (ml): 300 Total IV fluid infused: 300 Progress Note Anesthesia document: Postop Eval 1 completed: Yes 01/07/25 1403 a [employer]SEMBLER> Date _ Kayleen Edgar [employer] Cosigner Signature: Date CC: ~ Signed [facility]06-25-2025 History and physical note [facility] Medical Records Department [address] [place] [address] History & Physical Exam 01/07/25 1244 MR#: [id number] Acct: [id number] Name: LAY MORALES Rep #:[id number] : 1995 29 From: Ralph Barrett DO PCP: Dr. Kvng Hurd MD [place]ANEEN [place] [facility] [place] [address] HPI - General General Date of Admission: 01/07/25 Date of Service: 01/07/25 Chief Complaint: Abdominal pain and diarrhea HPI Narrative LAY MORALES, is a 29 F who presents for colonoscopy. BGI established in February 2024 with constipation x1 year following gastroenteritis. Pt previously seeing GI at [facility] and trailed Evgeny. Biochemical work up CBC, CMP, IBD, Celiac, food allergen wnl GES; 42 minutes Sits marker test w/ slow transit constipation OBGYN; diagnosed with adenomyosis and had IUD placed. Completed pelvic floor therapy Last OV 3..25 Pt continued with Ibsrela 50 mg BID. Unsure if it is working. Shehas been doing a low fodmap diet. Onions seem to be a trigger. Plan to order MRIto rule out endometriosis of the bowel. MRI 4..25; No acute findings in the pelvis. There appears to be some thickening of the junctional zone involving the anterior fundal portion ofthe uterus, which may represent localized areas of adenomyosis. No discrete measurable uterine or cervical mass is demonstrated. Small bilateral ovarian follicles. No concerning adnexal mass. An intrauterine device is present in the uterine body/lower uterine segment. OV 4..25; Pt continues with Ibsrela once a day. She has a bm on most days thatis loose. She has severe pain with bowel movements. [facility] Medical History Pyloric stenosis MRSA infection Anxiety Restless legs Leg cramps Non-smoker Irritable bowel syndrome without diarrhea Limb weakness Asthma Knee pain Home Medications ?Medication ?Instructions ?Recorded ?Last Taken ?Type sertraline 50 mg tablet (Zoloft) 50 mg PO DAILY Unknown History lisdexamfetamine 20 mg capsule 20 mg PO QDAY 08/13/24 Unknown History (Vyvanse) peg 3350-electrolytes 236 240 ml PO Q10M #4,000 mL 05/09 Unknown Rx gram-22.74 gram-6.74 gram-5.86 gram solution (Golytely) Allergy/AdvReac Type Severity Reaction Status Date / Time Penicillins Allergy Unknown other Verified 01/05/25 14:00 Surgical History Hx of LASIK History of surgery Social History Smoking Status: Never smoker ROS Constitutional Constitutional: Denies fatigue, fever(s), poor appetite, weight gain or weight loss Gastrointestinal Gastrointestinal: Denies belching, bloating, change in bowel habits, change in stool character, chewing difficulty, coffee ground emesis, constipation, cramping, diarrhea, dyspepsia, dysphagia, earlysatiety, excessive flatus, fecalincontinence, heartburn, hematemesis, hematochezia, hemorrhoids, loose stools, melena, nausea, odynophagia, rectal bleeding, tenesmus, vomiting or weight changes Vital Signs Vital Signs Vital Signs: 01/07/25 12:16 01/07/25 12:39 Temperature 98.5 F 98.5 F Temperature Source Temporal Respiratory Rate 16 16 Blood Pressure 121/77 H 121/77 H Blood Pressure Mean 91 Blood Pressure Source Monitor Blood Pressure Position Sitting Blood Pressure Location Right Arm Weight Weight: 141 lb 1.533 oz Body Mass Index (BMI) 23.4 Physical Exam Const alert, oriented x3, no apparent distress and healthy appearing General Appearance: cooperative GI normal to inspection, nondistended, normoactive bowel sounds, soft to palpation,non-tender and non-distended Percussion: normal to percussion Rectal Exam: deferred Results Lab / Micro Data Labs: Laboratory Results - last 24 hr 01/07/25 12:03: Urine Test Negative Assessment & Plan Assessment/Plan (1) Irritable bowel syndrome with diarrhea: (2) Bloating: PLAN: Assessment and Plan Assessment and Plan (1) Bloating: Status: Acute Plan: This is a 29 yo female pt here today for f/u regarding her bloating, constipation, and abdominal pain. Pt has had chronic constipation over the past year since having gastroenteritis. She has been treated with Trulance, Linzess and Ibsrela. She has had the most relief with Ibsrela but has urgent and randomly loose stools. She has ed physicians hx of adenomyosis which causes her pelvic pain during her periods and in during her bowel movements. MRI did not show any bowel etiology. SHe will undergo colonoscopy to rule out further etiology of chronic constipation. Pt has had bloating for some time now. Will treat with a course of Xifaxan for possible SIBO. She will also take a daily probiotic, fibersupplement and 64 oz of water daily. -Colonoscopy -Xifaxan -continue ibsrela -Start fiber and probiotic -64 oz of water daily (2) Irritable bowel syndrome with diarrhea: Status: Acute Medications: New rifaximin 550 mg PO TID 42 tabs 2RF 2 weeks K58.0 - Irritable bowel syndrome with diarrhea 01/07/25 1247 Cosigner Signature (if applicable): CC: Dr. Kvng Hurd MD; Ralph Friend, DO~ Signed [facility]06-25-2025 Consult note [facility] Medical Records Department [address] [place] [address] Pre-Anesthesia Evaluation 01/07/25 1238 MR#: [id number] Acct: [id number] Name: LAY MORALES Rep #:[id number] : 1995 29 From: Ruddy Sage MD PCP: Dr. Kvng Hurd MD [place] [facility] [place] C Location: [place] [address] ASA Classification* ASA Classification ASA Classification: 2 (IBS) Assessment & Plan Anesthesia* Anesthesia Assessment Anesthesia Assessment: Discussed sedation and/or anesthesia options, risks, benefits, and alternatives with patient/parents/legal guardian/POA. Questions invited. The patient/parents/legal guardian/POA seems to understand and agrees to proceedwith anesthesia plan. Reviewed the physical assessment, medical history, allergy history and patient home medications list prior to surgery/procedure/anesthetic and documented any changes. Performed airway and anesthesia risk assessments. Anesthesia Type Anesthesia Type: MAC History Source History Obtained from:: Patient and Chart Anesthesia Focused Assessment* Temperature: 98.5 F Blood Pressure: 121/77 Respiratory Rate: 16 Airway Assessment Mouth opens: >3 cm Mallampati Score: II Teeth Condition: Intact Neck Range of motion (ROM): Full ROM Labs Anesthesia Preop lab: CBC WBC 5.6 K/mm3 (4.4-11.0) 07/29/20 07:14 07/29/20 RBC 4.39 M/mm3 (4.2-5.4) 07/29/20 07:14 07/29/20 Hgb 13.1 g/dL (12.0-15.0) 07/29/20 07:14 07/29/20 Hct 39.0 % (37-47) 07/29/20 07:14 07/29/20 Plt Count 263 K/mm3 (150-450) 07/29/20 07:14 07/29/20 CHEMISTRY Potassium 3.5 mmol/L (3.5-5.1) 07/29/20 07:14 07/29/20 Sodium 137 mmol/L (136-145) 07/29/20 07:14 07/29/20 BUN 13 mg/dL (7-18) 07/29/20 07:14 07/29/20 Creatinine 0.89 mg/dL (0.55-1.02) 07/29/20 07:14 07/29/20 Glucose 84 mg/dL (74-106) 07/29/20 07:14 07/29/20 COAG Urine Test Negative Negative 01/07/25 12:03 01/07/25 Pre-Assessment Diagnosis/Proposed Procedure Planned Operative Procedure(s): cscope Anesthesia History 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 When Was Last Pacemaker Check QUESTION #4 FULL TEXT: You/Your Family Experience fever (hyperthermia) with Anesthesia Last Oral Intake Last Oral intake: Last Oral Intake NPO since 16:30 01/07/25 12:16 Meds taken in AM with sips of Yes 01/07/25 12:16 water? Meds patient instructed to zoloft 01/07/25 12:16 take am of surgery PONV PONV - aircraft engineer: PONV - aircraft engineer Female Yes 01/05/25 14:01 HX of Motion Sickness Yes 01/05/25 14:01 HX of N/V After Surgery No 01/05/25 14:01 Non-Smoker Yes 01/05/25 14:01 Duration of Surgery greater No 01/05/25 14:01 than 60 minutes Number of Risk Factors 3 01/05/25 14:01 PONV Score Moderate Risk 01/05/25 14:01 Height & Weight Height & Weight: Anesthesia: Height & Weight Height 5 ft 5 in 01/07/25 12:16 Weight: 64 kg 01/07/25 12:16 Body Mass Index (BMI) 23.4 01/07/25 12:16 Respiratory Assessment Respiratory Assessment - aircraft engineer: Respiratory Tract Infection Hx - aircraft engineer Hx Respiratory Tract Infection No 01/05/25 14:01 STOP Sleep Apnea STOP Sleep Apnea - aircraft engineer: STOP Sleep Apnea - aircraft engineer Hx Hypertension No 01/05/25 14:01 Hx Sleep Apnea No 01/05/25 14:01 CPAP BIPAP Do you snore loudly (louder No 01/05/25 14:01 than talking or can be heard Do you often feel tired/ No 01/05/25 14:01 fatigued/ sleepy during daytime? Has anyone observed you stop No 01/05/25 14:01 breathing during sleep? STOP Results Negative 01/05/25 14:01 QUESTION #5 FULL TEXT : Do you snore loudly (louder than talking or can be heard through closeddoors)? 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 Specify any problems Hx of Preganancy in last 3 N/A 01/05/25 14:01 Months Nurse Filling Out Transfusion NBUCHER 01/05/25 14:01 & Questions: Date: 01/05/25 01/05/25 14:01 Time: 14:02 01/05/25 14:01 Patient unable to answer at this time (ie. confused, unrespo /Reproduction History /Reproductive History - aircraft engineer: /Reproductive Hx- aircraft engineer Hx Now No 01/05/25 14:01 Gestational Age (in weeks): EDC: Hx Hx Para Hx Section SAB No 01/05/25 14:01 Active Medications Active Medications: Current Medications Generic Name Dose Route Start Last Admin Trade Name Freq PRN Reason Stop Dose Admin Lactated Ringer's 1,000 mls @ 15 mls/hr 01/07/25 12:15 01/07/25 12:32 IV 15 mls/hr .Q48H SACHA Administration PFSH Medical History Pyloric stenosis MRSA infection Anxiety Restless legs Leg cramps Non-smoker Irritable bowel syndrome without diarrhea Limb weakness Asthma Knee pain Home Medications ?Medication ?Instructions ?Recorded ?Last Taken ?Type sertraline 50 mg tablet (Zoloft) 50 mg PO DAILY Unknown History lisdexamfetamine 20 mg capsule 20 mg PO QDAY 08/13/24 Unknown History (Vyvanse) peg 3350-electrolytes 236 240 ml PO Q10M #4,000 mL 05/09 Unknown Rx gram-22.74 gram-6.74 gram-5.86 gram solution (Golytely) Allergy/AdvReac Type Severity Reaction Status Date / Time Penicillins Allergy Unknown other Verified 01/05/25 14:00 Surgical History (Updated 01/05/25 @ 14:08 by Malia Gutierrez) Hx of LASIK History of surgery Social History Smoking Status: Never smoker Review of Systems (Anesthesia) ROS Narrative System reviewed and no additional complaints, except as documented. Physical Exam Const alert, oriented x3 and average body habitus Resp normal respiratory effort, normal air movement and clear to auscultation bilaterally Cardio regular rate, regular rhythm, no murmurs and diaphoretic 01/07/25 1241 MD> Date _ Ruddy Sage MD Cosigner Signature: Date CC: ~ Signed [facility]06-10-2025 NoteHNO ID: [id number] Author: JAQUI VELASQUEZ PSYD Service: ? Author Type: Psychologist Type: Progress Notes Filed: 12/23/2024 14:42 Note Text: [facility] Progress Note THIS WAS A ZOOM VISIT Lay Hunter 12/23/2024 [id number] Provider: Jaqui Britton PSYD Time: Approximately 45 minutes was spent in therapy. Parties Present: Patient Patient Presentation/Concerns: Lay reported ongoing gastrointestinal (GI) issues, describing them as persistent and distressing. She noted having a conversation with Peewee regarding the use of suppositories and expressed a growing awareness and intention to be more mindful in her approach to their use. Lay described experiencing high levels of physical pain associated with her GI symptoms. In session, we explored strategies related to acceptance and the practice of sitting with discomfort. The focus was on cultivating greater tolerance for physical distress while maintaining self-compassion and body awareness. She states persistent obsessive thinking about weight loss and being thinner. Therapy Focus Mood/affect regulation MEDICATIONS: Per medical record: Current Outpatient Medications Medication Sig lisdexamfetamine (VYVANSE) 20 mg capsule Take 1 capsule by mouth once daily for 30 days. lisdexamfetamine (VYVANSE) 20 mg capsule Take 1 capsule by mouth once daily for 30 days. Patient should start on October 08, 2024. IBSRELA 50 mg tablet Take 50 mg by mouth two times a day. sertraline (ZOLOFT) 50 mg tablet Take 1 tablet by mouth once daily. levonorgestrel (MIRENA) 21 mcg/24hr (up to 8 yrs) 52 mg IUD 1 Each by INTRAUTERINE route as directed. No current facility-administered medications for this visit. DIAGNOSIS: ELIE OCD Body dysmorphia Treatment Modality/Interventions: Cognitive Behavioral TREATMENT ASSESSMENT/PROGRESS: Stable TREATMENT PLAN/GOALS: Continue in therapy focusing on stress management, affect management, and anxiety management. CBT for anxiety. Mindful eating skills. Next appointment: 2 weeks [facility] Telephone encounter Note* Telephone Encounter - Heavenly Grimaldo LPN - 12/17/2024 7:59 AM EDT Patient has been identified by name and date of : Yes Patient phones for refill(s): Requested Prescriptions Pending Prescriptions Disp Refills lisdexamfetamine (VYVANSE) 20 mg capsule 30 capsule 0 Sig: Take 1 capsule by mouth once daily for 30 days. Date of last office visit in primary care: 10/14/2024 Date of next office visit in primary care: 02/06/2025 Please advise. Thank you. Heavenly Grimaldo LPN. [facility]06-04-2025 Miscellaneous Notes* Telephone Encounter - Heavenly Grimaldo LPN - 12/17/2024 7:59 AM EDT Patient has been identified by name and date of : Yes Patient phones for refill(s): Requested Prescriptions Pending Prescriptions Disp Refills lisdexamfetamine (VYVANSE) 20 mg capsule 30 capsule 0 Sig: Take 1 capsule by mouth once daily for 30 days. Date of last office visit in primary care: 10/14/2024 Date of next office visit in primary care: 02/06/2025 Please advise. Thank you. Heavenly Grimaldo LPN. [facility] NoteHNO ID: [id number] Author: JAQUI VELASQUEZ PSYD Service: ? Author Type: Psychologist Type: Progress Notes Filed: 12/22/2024 08:11 Note Text: [facility] Progress Note THIS WAS A ZOOM VISIT Lay Hunter 12/11/2024 [id number] Provider: Jaqui Britton PSYD Time: Approximately 45 minutes was spent in therapy. Parties Present: Patient Patient Presentation/Concerns: Lay reports having a colonoscopy next month. she Lay reported an upcoming colonoscopy scheduled for next month as she continues to experience persistent gastrointestinal issues, including chronic constipation that often requires the use of suppositories. She expressed feeling discouraged, noting that previous efforts--such as dietary changes, medications, and other interventions--have not provided consistent relief. She is currently taking antibiotics as part of her treatment plan. In addition to health concerns, Lay shared that she is experiencing elevated stress related to a tense political climate at work, which has contributed to a general sense of overwhelm. Despite these challenges, Lay remains engaged in her care and open to exploring new strategies for improving both her physical and emotional well-being. Therapy Focus Mood/affect regulation MEDICATIONS: Per medical record: Current Outpatient Medications Medication Sig lisdexamfetamine (VYVANSE) 20 mg capsule Take 1 capsule by mouth once daily for 30 days. Patient should start on October 08, 2024. lisdexamfetamine (VYVANSE) 20 mg capsule Take 1 capsule by mouth once daily for 30 days. Patient should start on November 07, 2024. IBSRELA 50 mg tablet Take 50 mg by mouth two times a day. sertraline (ZOLOFT) 50 mg tablet Take 1 tablet by mouth once daily. levonorgestrel (MIRENA) 21 mcg/24hr (up to 8 yrs) 52 mg IUD 1 Each by INTRAUTERINE route as directed. No current facility-administered medications for this visit. DIAGNOSIS: ELIE OCD Body dysmorphia Treatment Modality/Interventions: Cognitive Behavioral TREATMENT ASSESSMENT/PROGRESS: Stable TREATMENT PLAN/GOALS: Continue in therapy focusing on stress management, affect management, and anxiety management. CBT for anxiety. Mindful eating skills. Next appointment: 2 weeks [facility] NoteHNO ID: [id number] Author: JAQUI VELASQUEZ PSYD Service: ? Author Type: Psychologist Type: Progress Notes Filed: 12/04/2024 10:18 Note Text: [facility] Progress Note THIS WAS A ZOOM VISIT Lay Wesley salvatorearlyn 11/27/2024 [id number] This session was moved Provider: Jaqui Britton PSYD Time: Approximately 45 minutes was spent in therapy. 12:00 Parties Present: Patient Patient Presentation/Concerns: Lay continues to undergo medical testing for ongoing gastrointestinal concerns. Initial interventions include a low-carbohydrate diet and a course of antibiotics which have shown some promising results in symptom management. In session, Lokesh discussed experiencing elevated levels of stress, particularly related to challenges at work and ongoing dynamics with her mother. These stressors appear to be contributing factors to both her emotional well-being and potentially her physical health symptoms. Therapy Focus Mood/affect regulation MEDICATIONS: Per medical record: Current Outpatient Medications Medication Sig lisdexamfetamine (VYVANSE) 20 mg capsule Take 1 capsule by mouth once daily for 30 days. Patient should start on October 08, 2024. lisdexamfetamine (VYVANSE) 20 mg capsule Take 1 capsule by mouth once daily for 30 days. Patient should start on November 07, 2024. IBSRELA 50 mg tablet Take 50 mg by mouth two times a day. sertraline (ZOLOFT) 50 mg tablet Take 1 tablet by mouth once daily. levonorgestrel (MIRENA) 21 mcg/24hr (up to 8 yrs) 52 mg IUD 1 Each by INTRAUTERINE route as directed. No current facility-administered medications for this visit. DIAGNOSIS: ELIE OCD Body dysmorphia Treatment Modality/Interventions: Cognitive Behavioral TREATMENT ASSESSMENT/PROGRESS: Stable TREATMENT PLAN/GOALS: Continue in therapy focusing on stress management, affect management, and anxiety management. CBT for anxiety. Mindful eating skills. Next appointment: 2 weeks [facility] NoteHNO ID: [id number] Author: JAQUI VELASQUEZ PSYD Service: ? Author Type: Psychologist Type: Progress Notes Filed: 11/04/2024 12:03 Note Text: [facility] Progress Note THIS WAS A ZOOM VISIT Lay Hunter 10/23/2024 [id number] This session was moved Provider: Jaqui Britton PSYD Time: Approximately 45 minutes was spent in therapy. 12:00 Parties Present: Patient Patient Presentation/Concerns: Lay is anxiously awaiting the results of the MRI She stated hoping for some answers to her chronic constipation. She spoke about her relationship dynamic with her mother. Challenges around connection, safety, trust, interest, etc) She continues to try to be mindful of her food intake. Therapy Focus Mood/affect regulation MEDICATIONS: Per medical record: Current Outpatient Medications Medication Sig lisdexamfetamine (VYVANSE) 20 mg capsule Take 1 capsule by mouth once daily for 30 days. Patient should start on October 08, 2024. [START ON 11/07/2024] lisdexamfetamine (VYVANSE) 20 mg capsule Take 1 capsule by mouth once daily for 30 days. Patient should start on November 07, 2024. IBSRELA 50 mg tablet Take 50 mg by mouth two times a day. sertraline (ZOLOFT) 50 mg tablet Take 1 tablet by mouth once daily. levonorgestrel (MIRENA) 21 mcg/24hr (up to 8 yrs) 52 mg IUD 1 Each by INTRAUTERINE route as directed. No current facility-administered medications for this visit. DIAGNOSIS: ELIE OCD Body dysmorphia Treatment Modality/Interventions: Cognitive Behavioral TREATMENT ASSESSMENT/PROGRESS: Stable TREATMENT PLAN/GOALS: Continue in therapy focusing on stress management, affect management, and anxiety management. CBT for anxiety. Mindful eating skills. Next appointment: [facility]* Patient Instructions* Kvng Hurd MD - 10/14/2024 9:06 AM EDT - Continue calling pharmacies to check for the availability of Vyvanse. - If Vyvanse remains unavailable, contact the office to discuss alternative ADHD medications. - MRI scheduled for next week to evaluate the uterus and surrounding organs. - Discontinue Ibsrela as you have already done. - Consider adding pumpkin to your diet to help manage loose stools. - Avoid foods that you know trigger symptoms, such as onions. - Next follow-up appointment in 3 months. documented in this [facility]04-01-2025 NoteHNO ID: [id number] Author: KVNG HURD MD Service: ? Author Type: Physician Type: Progress Notes Filed: 10/23/2024 22:50 Note Text: This note was created using [employer]. Subjective Lay Morales is a 29 year old female. SUBJECTIVE: Lay Morales is a 29 year old year old lady here today for 3 month follow up appointment for review of medical conditions. Lay is a 29-year-old female presenting for a 3-month follow-up, with concerns about a Vyvanse shortage and ongoing issues with adenomyosis and constipation. Lay has been experiencing difficulty obtaining Vyvanse due to a shortage, with her usual pharmacy, [facility], being out of stock. She has been unable to find the medication at other pharmacies and is hesitant to pay $80 for the generic version, preferring to wait for the $5 version covered by her insurance. She has not tried any alternative medications during this period and is managing without Vyvanse for the time being. Lay also reports ongoing issues with adenomyosis, diagnosed via ultrasound, which has been causing significant uterine pain and heavy bleeding. She had an IUD placed to manage high estrogen levels and reduce bleeding. Since the IUD placement, she notes a reduction in bleeding, with minimal bleeding in September compared to continuous bleeding throughout August. However, she continues to experience severe pain and clotting during her periods, with episodes of unexpected bleeding and pain lasting up to a month. She is scheduled for an MRI next week to assess if her enlarged uterus is exerting pressure on adjacent organs, contributing to her symptoms. In addition to adenomyosis, Lay has been struggling with chronic constipation, which she believes may be related to her uterine condition. She has tried various treatments, including pelvic floor therapy, dietary modifications (FODMAP diet), and multiple medications such as Linzess and Ibsrela, with limited success. She reports that Linzess caused excessive bowel movements and dehydration, while Ibsrela resulted in watery stools without forming solid bowel movements. She discontinued Ibsrela yesterday in preparation for her upcoming MRI. She also notes that liquid suppositories, which previously provided some relief, are no longer effective. She describes her bowel movements as variable, with a mix of watery and hard stools, and experiences stabbing pain in her uterus during bowel movements. She has not had a solid bowel movement recently and reports yellow stools, suspecting a possible link to her elevated bilirubin levels. She has not undergone a colonoscopy yet, as her gastroenterologists have advised that it may not yield significant findings given her current lab results. She is considering a colonoscopy if the MRI does not provide conclusive answers. Lay expresses frustration with her ongoing symptoms and the impact on her quality of life, including limitations on physical activities and the need to stay near a bathroom. She has been diligent in managing her diet, avoiding trigger foods like onions, and taking probiotics and prebiotics. She is seeking answers and effective treatments to alleviate her pain and improve her bowel function. PAST MEDICAL HISTORY Diagnosis Date Asthma Attention deficit disorder (ADD) without hyperactivity Generalized anxiety disorder History of depression Hypoglycemia Irritable bowel syndrome with constipation Current Outpatient Medications Medication Sig lisdexamfetamine (VYVANSE) 20 mg capsule Take 1 capsule by mouth once daily for 30 days. Patient should start on October 08, 2024. [START ON 11/07/2024] lisdexamfetamine (VYVANSE) 20 mg capsule Take 1 capsule by mouth once daily for 30 days. Patient should start on November 07, 2024. IBSRELA 50 mg tablet Take 50 mg by mouth two times a day. sertraline (ZOLOFT) 50 mg tablet Take 1 tablet by mouth once daily. levonorgestrel (MIRENA) 21 mcg/24hr (up to 8 yrs) 52 mg IUD 1 Each by INTRAUTERINE route as directed. No current facility-administered medications for this visit. Review of Systems Objective BP 110/66 Pulse 64 Resp 12 Wt 67.9 kg (149 lb 11.1 oz) LMP 07/04/2024 (Approximate) BMI 25.69 kg/m? Physical Exam Constitutional: Appearance: Normal appearance. HENT: Head: Normocephalic. Eyes: Conjunctiva/sclera: Conjunctivae normal. Pulmonary: Effort: Pulmonary effort is normal. Skin: General: Skin is warm and dry. Neurological: General: No focal deficit present. Mental Status: She is alert and oriented to person, place, and time. Psychiatric: Attention and Perception: Attention and perception normal. Mood and Affect: Affect normal. Mood is anxious (Anxious about health issues). Speech: Speech normal. Behavior: Behavior normal. Thought Content: Thought content normal. Judgment: Judgment normal. Assessment and Plan # Attention deficit hyperacti (more content not included)...[facility]04-01-2025 History of Present illness Narrative* Kvng Hurd MD - 10/14/2024 8:13 AM EDT This note was created using [employer]. Subjective Lay Morales is a 29 year old female. SUBJECTIVE: Lay Morales is a 29 year old year old lady here today for 3 month follow up appointment for review of medical conditions. Lay is a 29-year-old female presenting for a 3-month follow-up, with concerns about a Vyvanse shortage and ongoing issues with adenomyosis and constipation. Lay has been experiencing difficulty obtaining Vyvanse due to a shortage, with her usual pharmacy, [facility], being out of stock. She has been unable to find the medication at other pharmacies and is hesitant to pay $80 for the generic version, preferring to wait for the $5 version covered by her insurance. She has not tried any alternative medications during this period and is managing without Vyvanse for the time being. Lay also reports ongoing issues with adenomyosis, diagnosed via ultrasound, which has been causing significant uterine pain and heavy bleeding. She had an IUD placed to manage high estrogen levels and reduce bleeding. Since the IUD placement, she notes a reduction in bleeding, with minimal bleeding in September compared to continuous bleeding throughout August. However, she continues to experience severe pain and clotting during her periods, with episodes of unexpected bleeding and pain lasting up to a month. She is scheduled for an MRI next week to assess if her enlarged uterus is exertingpressure on adjacent organs, contributing to her symptoms. In addition to adenomyosis, Lay has been struggling with chronic constipation, which she believes may be related to her uterine condition. She has tried various treatments, including pelvic floortherapy, dietary modifications (FODMAP diet), and multiple medications such as Linzess and Ibsrela,with limited success. She reports that Linzess caused excessive bowel movements and dehydration, while Ibsrela resulted in watery stools without forming solid bowel movements. She discontinued Ibsrela yesterday in preparation for her upcoming MRI. She also notes that liquid suppositories, which previously provided some relief, are no longer effective. She describes her bowel movements as variable, with a mix of watery and hard stools, and experiences stabbing pain in her uterus during bowel movements. She has not had a solid bowel movement recently and reports yellow stools, suspecting a possible link to her elevated bilirubin levels. She has not undergone a colonoscopy yet, as her gastroent erologists have advised that it may not yield significant findings given her current lab results. She is considering a colonoscopy if the MRI does not provide conclusive answers. Lay expresses frustration with her ongoing symptoms and the impact on her quality of life, including limitations on physical activities and the need to stay near a bathroom. She has been diligentin managing her diet, avoiding trigger foods like onions, and taking probiotics and prebiotics. Sheis seeking answers and effective treatments to alleviate her pain and improve her bowel function. PAST MEDICAL HISTORY Diagnosis Date Asthma Attention deficit disorder (ADD) without hyperactivity Generalized anxiety disorder History of depression Hypoglycemia Irritable bowel syndrome with constipation Current Outpatient Medications Medication Sig lisdexamfetamine (VYVANSE) 20 mg capsule Take 1 capsule by mouth once daily for 30 days. Patient should start on October 08, 2024. [START ON 11/07/2024] lisdexamfetamine (VYVANSE) 20 mg capsule Take 1 capsule by mouth once daily for 30 days. Patient should start on November 07, 2024. IBSRELA 50 mg tablet Take 50 mg by mouth two times a day. sertraline (ZOLOFT) 50 mg tablet Take 1 tablet by mouth once daily. levonorgestrel (MIRENA) 21 mcg/24hr (up to 8 yrs) 52 mg IUD 1 Each by INTRAUTERINE route as directed. No current facility-administered medications for this visit. Review of Systems Objective BP 110/66 Pulse 64 Resp 12 Wt 67.9 kg (149 lb 11.1 oz) LMP 07/04/2024 (Approximate) BMI 25.69 kg/m Physical Exam Constitutional: Appearance: Normal appearance. HENT: Head: Normocephalic. Eyes: Conjunctiva/sclera: Conjunctivae normal. Pulmonary: Effort: Pulmonary effort is normal. Skin: General: Skin is warm and dry. Neurological: General: No focal deficit present. Mental Status: She is alert and oriented to person, place, and time. Psychiatric: Attention and Perception: Attention and perception normal. Mood and Affect: Affect normal. Mood is anxious (Anxious about health issues). Speech: Speech normal. Behavior: Behavior normal. Thought Content: Thought content normal. Judgment: Judgment normal. Assessment and Plan # Attention deficit hyperactivity disorder, combined type (F90.2) - Currently on Vyvanse, but experiencing issues with availability due to backorder. - Discussed alternative medications, including Focalin, which has a similar onset and duration of action. - Educated on potential side effects of Focalin, including GI disturbances, dry mouth, headache, and insomnia, which are similar to those of Vyvanse. - Patient prefers to wait a few more days to see if Vyvanse becomes available before trying an alternative. - Will monitor the situation and consider prescribing Focalin if Vyvanse remains unavailable. # Irritable bowel syndrome with constipation (K58.1) # Chronic abdominal pain (R10.9) - Currently on Ibsrela, but experiencing watery stools and variable effectiveness. - Discussed dietary modifications, including the potential benefits of incorporating pumpkin to help manage stool consistency. - Advised to avoid seed oils and focus on anti-inflammatory diet. - MRI scheduled for next week to evaluate potential causes of abdominal pain and constipation. - Will consider colonoscopy if MRI does not provide sufficient answers. # Pelvic pain in female (R10.2) # Adenomyosis of uterus (N80.03) - Diagnosed with adenomyosis via ultrasound; Mirena IUD in place to manage symptoms. - Experiencing significant pelvic pain and irregular bleeding. - Discussed that hormone levels are typically within normal range premenopausally and may not provide additional diagnostic value. - MRI scheduled for next week to assess the impact of the enlarged uterus on surrounding organs. - Patient expressing significant distress and impact on quality of life; discussed potential futureoptions, including hysterectomy, if symptoms persist and are confirmed to be related to adenomyosis. Kvng Hurd MD I spent a total of 36 minutes on the date of the service which included [id number] patient care, completing clinical documentation, obtaining and/or reviewing separately obtained history, performing a medically appropriate examination, counseling and educating the patient/family/caregiver, and ordering medications, tests, or procedures. The patient consented to the use of [employer] software for draft documentation of the visit consistent with [facility] s Notice of Privacy Practices. documented in this encounter[facility] NoteHNO ID: [id number] Author: JAQUI VELASQUEZ PSYD Service: ? Author Type: Psychologist Type: Progress Notes Filed: 10/08/2024 10:56 Note Text: [facility] Progress Note THIS WAS A ZOOM VISIT Lay Hunter 10/02/2024 [id number] Provider: Jaqui Britton PSYD Time: Approximately 45 minutes was spent in therapy. Parties Present: Patient Patient Presentation/Concerns: Lay is having an MRI soon. She has been working hard on her diet and testing to identify the root of her stomach/constipation problems. Discussed some work stress and feeling guilty about her response to her mother's stated illness. Discussed the impact of shoulds Therapy Focus Mood/affect regulation MEDICATIONS: Per medical record: Current Outpatient Medications Medication Sig lisdexamfetamine (VYVANSE) 20 mg capsule Take 1 capsule by mouth once daily for 30 days. [START ON 10/08/2024] lisdexamfetamine (VYVANSE) 20 mg capsule Take 1 capsule by mouth once daily for 30 days. Patient should start on October 08, 2024. [START ON 11/07/2024] lisdexamfetamine (VYVANSE) 20 mg capsule Take 1 capsule by mouth once daily for 30 days. Patient should start on November 07, 2024. IBSRELA 50 mg tablet Take 50 mg by mouth two times a day. sertraline (ZOLOFT) 50 mg tablet Take 1 tablet by mouth once daily. levonorgestrel (MIRENA) 21 mcg/24hr (up to 8 yrs) 52 mg IUD 1 Each by INTRAUTERINE route as directed. No current facility-administered medications for this visit. DIAGNOSIS: ELIE OCD Body dysmorphia Treatment Modality/Interventions: Cognitive Behavioral TREATMENT ASSESSMENT/PROGRESS: Stable TREATMENT PLAN/GOALS: Continue in therapy focusing on stress management, affect management, and anxiety management. CBT for anxiety. Mindful eating skills. Next appointment: 2 weeks [facility]on [facility] Progress note* Result Encounter Note - Sanjuanita Nash APRN.CLINICAL MENTAL HEALTH COUNSELOR - 09/30/2024 8:31 AM EDT Labwork was overall in acceptable range. Would check fractionated bilirubin at her convenience. Consider RUQ US. If the unconjugated bilirubin levels greater than 4 mg/Robert would refer to hepatology for further evaluation. If less then 4, would recheck liver enzymes CBC and fractionated bilirubin in 3 to 6 months. If unconjugated hyperbilirubinemia persists on repeat testing and there is normal CBC and normal liver enzymes likely Gilbert syndrome. If abnormals persist on repeat evaluation would refer to hepatology. [facility]03-18-2025 Miscellaneous Notes* Result Encounter Note - Sanjuanita Nash APRN.CNS - 09/30/2024 8:31 AM EDT Labwork was overall in acceptable range. Would check fractionated bilirubin at her convenience. Consider RUQ US. If the unconjugated bilirubin levels greater than 4 mg/Robert would refer to hepatology for further evaluation. If less then 4, would recheck liver enzymes CBC and fractionated bilirubin in 3 to 6 months. If unconjugated hyperbilirubinemia persists on repeat testing and there is normal CBC and normal liver enzymes likely Gilbert syndrome. If abnormals persist on repeat evaluation would refer to hepatology. documented in this encounter[facility] Evaluation note* Diagnosis Onset Date Resolution Status Admit Date Adenomyosis acute September 19 7:54am Constipation acute September 19, 7:54am Pelvic floor dysfunction acute September 19, 2024 7:54am Pelvic pain acute September 19 7:54am Bloating acute November 05 8:20am Irritable bowel syndrome wit h diarrhea acute November 05, 2024 8:20am Bloating acute January 07 11:57am Irritable bowel syndrome wit h diarrhea acute January 07, 2025 11:57am [facility] Work Phone: [phone] 105-412202-27-2025 NoteHNO ID: [id number] Author: JAQUI VELASQUEZ PSYD Service: ? Author Type: Psychologist Type: Progress Notes Filed: 09/17/2024 19:35 Note Text: [facility] Progress Note THIS WAS A ZOOM VISIT Lay Hunter 09/11/2024 [id number] Provider: Jaqui Britton PSYD Time: Approximately 45 minutes was spent in therapy. Parties Present: Patient Patient Presentation/Concerns: Lay continues to struggle with chronic constipation. She has pursued many options/testing and continues to try to understand what is happening. She states feeling frustrated and confused. Lay also spoke about her complex relationship with her mother and creating boundaries. Mental Status: Mood: anxious Affect: mood-congruent Thoughts/Associations:goal directed Suicidal/Homicidal Ideation: None expressed or evidenced Patient denies any suicidal or homicidal ideation, plan or intent at this time. Other Observations: None Therapy Focus Mood/affect regulation MEDICATIONS: Per medical record: Current Outpatient Medications Medication Sig lisdexamfetamine (VYVANSE) 20 mg capsule Take 1 capsule by mouth once daily for 30 days. [START ON 10/08/2024] lisdexamfetamine (VYVANSE) 20 mg capsule Take 1 capsule by mouth once daily for 30 days. Patient should start on October 08, 2024. [START ON 11/07/2024] lisdexamfetamine (VYVANSE) 20 mg capsule Take 1 capsule by mouth once daily for 30 days. Patient should start on November 07, 2024. IBSRELA 50 mg tablet Take 50 mg by mouth two times a day. sertraline (ZOLOFT) 50 mg tablet Take 1 tablet by mouth once daily. levonorgestrel (MIRENA) 21 mcg/24hr (up to 8 yrs) 52 mg IUD 1 Each by INTRAUTERINE route as directed. No current facility-administered medications for this visit. Psychiatric Medication Issues: No change from previous appointment DIAGNOSIS: ELIE OCD Body dysmorphia Treatment Modality/Interventions: Cognitive Behavioral TREATMENT ASSESSMENT/PROGRESS: Stable TREATMENT PLAN/GOALS: Continue in therapy focusing on stress management, affect management, and anxiety management. CBT for anxiety. Mindful eating skills. Next appointment: 2 weeks Jaqui Britton [facility] Telephone encounter Note* Telephone Encounter - Mirtha Basilio LPN - 09/09/2024 7:05 PM EST Phoned patient and she is checking with [facility] pharmacy for clarification on refills for Vyvanse and isha call back. Patient states that her pharmacy chart says it is too early for refill. She will double check Mirtha Basilio LPN [facility]02-25-2025 Miscellaneous Notes* Telephone Encounter - Mirtha Basilio LPN - 09/09/2024 7:05 PM EST Phoned patient and she is checking with [facility] pharmacy for clarification on refills for Vyvanse and isha call back. Patient states that her pharmacy chart says it is too early for refill. She will double check Mirtha Basilio LPN documented in this encounterEast [facility]02-[facility] Telephone encounter Note * Telephone Encounter - Sanjuanita Nash APRN.CNS - 09/09/2024 4:57 PM EST ok [facility]02-25-2025 Miscellaneous Notes* Telephone Encounter - Sanjuanita Nash APRN.CNS - 09/09/2024 4:57 PM EST ok * Telephone Encounter - Elisa Fraser LPN - 09/09/2024 11:54 AM EST Pt calls to report Vyvanse rx was supposed to go to [facility] and rx went to [facility]. Pt reports shedoes not want rx to go there anymore but would like them to go to [facility] in [place]. Pt reports the future ones ordered will need to go to [facility] also. Prescription Refill Information The patient has been identified by name and date of : Yes Caregiver verified no other encounters exist for this prescription request: Yes Caregiver confirmed with patient/requestor that no other refills are due, in the near future, with this provider at this time: Yes The last office visit in the department: 09/08/24 Does the patient have a future office visit with this provider/department: Yes 10/14/24 Requested Prescriptions Pending Prescriptions Disp Refills lisdexamfetamine (VYVANSE) 20 mg capsule 30 capsule 0 Sig: Take 1 capsule by mouth once daily for 30 days. Elisa Fraser LPN September 09, 2024 11:56 AM documented in this encounterEast [facility]02-[facility]25 Telephone encounter Note * Telephone Encounter - Elisa Fraser LPN - 09/09/2024 11:54 AM EST Pt calls to report Vyvanse rx was supposed to go to [facility] and rx went to [facility]. Pt reports shedoes not want rx to go there anymore but would like them to go to [facility] in [place]. Pt reports the future ones ordered will need to go to [facility] also. Prescription Refill Information The patient has been identified by name and date of : Yes Caregiver verified no other encounters exist for this prescription request: Yes Caregiver confirmed with patient/requestor that no other refills are due, in the near future, with this provider at this time: Yes The last office visit in the department: 09/08/24 Does the patient have a future office visit with this provider/department: Yes 10/14/24 Requested Prescriptions Pending Prescriptions Disp Refills lisdexamfetamine (VYVANSE) 20 mg capsule 30 capsule 0 Sig: Take 1 capsule by mouth once daily for 30 days. Elisa Fraser LPN September 09, 2024 11:56 AM [facility]02-24-[facility]25 History of Present illness Narrative* Sanjuanita Nash, SENIOR TECHNICAL MANAGER.CLINICAL MENTAL HEALTH COUNSELOR - 09/08/2024 8:20 AM EST SUBJECTIVE: Spirometry Never done HPI Lay Hunter is a 29 year old female. PMH significant for ACTIVE PROBLEM LIST Anxiety Asthma Attention Deficit Hyperactivity Disorder, Combined Type Depression Irritable Bowel Syndrome With Constipation Hypoglycemia IUD (Intrauterine Device) in Place Pelvic Pain in Female Muscle Tightness At her last visit she notne that she had restarted Vyvanse and also decreased her dose of Zoloft then felt tired, nausea, palpitations and felt like she was needing to sleep. She felt improved with stopping vyvanse. She reports that she continues to feel much better. She notes some minor morning nausea and fatigue. She notes some anxiety. 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 Notes s/p IUD but still with abdominal and pelvic pain, noted adenomyosis per DESKTOP ANALYST.She has been referred to pelvic pain specialist, does not yet have an appointment. Reports has reached out to schedule appt, has not yet heard back. Is taking Ibsrela treatment for IBS per gastroenterology, not sure it is helping. FODMAP diet. She does note some abdominal bloating with reintroduction of onions. She does note constipation seems to increase abdominal pain. She has upcoming gastroenterology appointment. Review of Systems Constitutional: Negative. Gastrointestinal: Positive for abdominal pain. Genitourinary: Positive for pelvic pain. Psychiatric/Behavioral: Positive for decreased concentration and dysphoric mood. Objective BP 113/77 Pulse 92 Resp 16 Wt 67 kg (147 lb 11.3 oz) LMP 07/04/2024 (Approximate) BMI 25.35 kg/m Physical Exam Vitals and nursing note reviewed. Constitutional: Appearance: Normal appearance. HENT: Head: Normocephalic and atraumatic. Eyes: Conjunctiva/sclera: Conjunctivae normal. Cardiovascular: Rate and Rhythm: Normal rate. Pulmonary: Effort: Pulmonary effort is normal. Musculoskeletal: Right foot: Normal range of motion. Skin: General: Skin is warm and dry. Neurological: General: No focal deficit present. Mental Status: She is alert and oriented to person, place, and time. ALLERGIES Allergen Reactions Penicillins Unknown Pt states she doesn't know what reaction she had to Pencillin. She was a young child. Allergy skin tests to penicillin were positive.The patient is at risk for a severe, immediate, IgE-mediated reaction to penicillin and other penicillin type antibiotics. The patient should continue to avoid use ofpenicillin and other penicillin type antibiotics. Medications IBSRELA 50 mg tablet Take 50 mg by mouth two times a day. levonorgestrel (MIRENA) 21 mcg/24hr (up to 8 yrs) 52 mg IUD 1 Each by INTRAUTERINE route as directed. lisdexamfetamine (VYVANSE) 20 mg capsule Take 1 capsule by mouth once daily for 30 days. [START ON 10/08/2024] lisdexamfetamine (VYVANSE) 20 mg capsule Take 1 capsule by mouth once daily for 30 days. Patient should start on October 08, 2024. [START ON 11/07/2024] lisdexamfetamine (VYVANSE) 20 mg capsule Take 1 capsule by mouth once daily for 30 days. Patient should start on November 07, 2024. sertraline (ZOLOFT) 50 mg tablet Take 1 tablet by mouth once daily. PAST MEDICAL HISTORY Diagnosis Date Asthma Attention deficit disorder (ADD) without hyperactivity Generalized anxiety disorder History of depression Hypoglycemia Irritable bowel syndrome with constipation PAST SURGICAL HISTORY Procedure Laterality Date TRABECULOPLASTY BY LASER SURGERY Bilateral 08/13/2020 Social History Tobacco Use Smoking status: Never Smokeless tobacco: Never Vaping Use Vaping status: Never Used Substance Use Topics Alcohol use: Yes Comment: once a month Drug use: Never FAMILY HISTORY Problem Relation Age of Onset other (colitis) Mother Appears to be due to Post COVID No Known Problems Father other (Leg Tumor) Sister In thigh bone. Just needed resected OCD Sister other (Dyslexia) Sister other (Speech impediment) Sister Lung Cancer Maternal Grandmother No Known Problems Maternal Grandfather Breast Cancer Paternal Grandmother 70 No Known Problems Paternal Grandfather Component Latest Ref Rng & Units 08/03/2021 09/25/2022 WBC 3.70 - 11.00 k/uL 5.3 6.13 RBC 3.90 - 5.20 m/uL 4.53 4.50 Hemoglobin 11.5 - 15.5 g/dL 13.5 13.6 Hematocrit 36.0 - 46.0 % 40.0 41.3 MCV 80.0 - 100.0 fL 88.3 91.8 MCHC 30.5 - 36.0 g/dL 33.8 32.9 RDW 11 - 14.5 12.5 MPV 9.0 - 12.7 fL 10.8 10.9 Platelet Count 150 - 400 k/uL 233 258 Neutrophil % 45 - 75 % 55.3 Immature Gran % Less than 2 % 0.2 Lymphocyte % 20 - 40 % 33.8 Upton% 2 - 10 % 8.0 % Eosinophils 0 - 5 % 1.7 Basophils, % 0 - 2 % 1.0 Neutrophil Ab 2.0 - 8.3 K/CU MM 2.90 IMMATURE GRANS (ABS) Less than 2 K/CU MM 0.00 Lymphocytes, Absolute 0.9 - 4.4 K/CU MM 1.80 MONOCYTES,ABSOLUTE 0.1 - 1.1 K/CU MM 0.40 Abs Eosin 0 - 0.5 K/CU MM 0.10 ABSOLUTE BASOPHILS 0 - 0.2 K/CU MM 0.10 NRBC Less than 1 % 0.0 Sodium 136 - 144 mmol/L 139 136 Potassium 3.7 - 5.1 mmol/L 4.3 4.2 Chloride 97 - 105 mmol/L 106 101 CO2 22 - 30 mmol/L 27.0 24 Anion Gap 9 - 18 mmol/L 6 11 Glucose 74 - 99 mg/dL 83 86 BUN 7 - 21 mg/dL 12 8 Creatinine 0.58 - 0.96 mg/dL 0.80 0.76 BUN/CREATININE RATIO 15 - 24 15 Protein, Total 6.3 - 8.0 g/dL 7.4 7.3 Albumin 3.9 - 4.9 g/dL 4.3 4.5 GLOBULIN 2.2 - 4.2 GM/DL 3.1 ALBUMIN/GLOBULIN RATIO 0.8 - 2.0 1.4 Calcium 8.5 - 10.2 mg/dL 9.8 9.4 Bilirubin, Total 0.2 - 1.3 mg/dL 1.20 (H) 1.1 AST 13 - 35 U/L 18 16 ALT 7 - 38 U/L 17 13 Alkaline Phosphatase 34 - 123 U/L 92 78 eGFR >=60 mL/min/1.73m 112 MCH 26.0 - 34.0 pg 30.2 RDW-CV 11.5 - 15.0 % 12.1 Absolute nRBC <0.01 k/uL <0.01 Cholesterol, Total <200 mg/dL 216 (H) 192 Triglyceride <150 mg/dL 54 65 HDL Cholesterol >39 mg/dL 81 70 Non HDL Cholesterol <130 mg/dL 122 Fasting Time hrs 13 VLDL Cholesterol <30 mg/dL 13 TC:HDL Ratio <5.10 2.74 LDL Cholesterol <100 mg/dL 124 109 (H) LDL:HDL Ratio <2.54 1.56 HIV 12 Combo (Ag/Ab) Nonreactive Nonreactive HIV 1/2 Ab HIV Interpretation Iron 41 - 186 ug/dL 60 TIBC 232 - 386 ug/dL 344 Transferrin Saturation 15.0 - 57.0 % 17.4 Estimated GFR Greater than 60 eGFR- Greater than 60 Magnesium 1.7 - 2.3 mg/dL 2.2 TSH 0.270 - 4.200 mIU/L 1.590 Free T4 0.9 - 1.7 ng/dL 1.1 Free T3 2.3 - 4.1 pg/mL 2.6 Hep C Antibody IA Negative Negative Ferritin 14.7 - 205.1 ng/mL 32.8 ASSESSMENT/PLAN: 1.. Anxiety - ICD9: 300.00, ICD10: F41.9 Wishes to increased dose back to 50 mg QD for now Feel previous symptoms wee from decrease of Zoloft dose in addition to resuming Vyvanse on same day - SERTRALINE 25 MG TABLET 2. Attention deficit hyperactivity disorder, combined type - ICD9: 314.01, ICD10: F90.2 Notes doing well on current dose. Continue unchanged for now. Recheck 3 months. - LISDEXAMFETAMINE 20 MG CAPSULE - LISDEXAMFETAMINE 20 MG CAPSULE - LISDEXAMFETAMINE 20 MG CAPSULE - TOXICOLOGY SCREEN, ROUTINE URINE 3 Asthma - ICD9: 493.90, ICD10: J45.909 (primary diagnosis) controlled - Continue current medications - Avoidance of triggers recommended - SPIROMETRY - BASELINE AND POST DILATOR 4. Irritable bowel syndrome with constipation - ICD9: 564.1, ICD10: K58.1 Taking Ibsrela, not currently taking Miralax - COMPREHENSIVE METABOLIC PANEL - COMPLETE BLOOD COUNT AND DIFFERENTIAL 4. Pelvic pain in female - ICD9: 625.9, ICD10: R10.2 In need of chronic pelvic pain specialist appointment. 6 mo follow up Sanjuanita Nash SENIOR TECHNICAL MANAGER.CLINICAL MENTAL HEALTH COUNSELOR 3 mo follow up MD Sanjuanita Rutledge, SENIOR TECHNICAL MANAGER.CLINICAL MENTAL HEALTH COUNSELOR Medical Decision Making: Problems: Moderate: 2+ stable chronic illnesses Risk: Moderate: Drug management Medical Decision Making Level: 4 - Moderate [facility] NoteHNO ID: [id number] Author: SANJUANITA NASH APRN.FRANCK Service: ? Author Type: Nurse Specialist Type: Progress Notes Filed: 09/08/2024 09:05 Note Text: SUBJECTIVE: Spirometry Never done HPI Lay Hunter is a 29 year old female. PMH significant for ACTIVE PROBLEM LIST Anxiety Asthma Attention Deficit Hyperactivity Disorder, Combined Type Depression Irritable Bowel Syndrome With Constipation Hypoglycemia IUD (Intrauterine Device) in Place Pelvic Pain in Female Muscle Tightness At her last visit she notne that she had restarted Vyvanse and also decreased her dose of Zoloft then felt tired, nausea, palpitations and felt like she was needing to sleep. She felt improved with stopping vyvanse. She reports that she continues to feel much better. She notes some minor morning nausea and fatigue. She notes some anxiety. 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 Notes s/p IUD but still with abdominal and pelvic pain, noted adenomyosis per DESKTOP ANALYST.She has been referred to pelvic pain specialist, does not yet have an appointment. Reports has reached out to schedule appt, has not yet heard back. Is taking Ibsrela treatment for IBS per gastroenterology, not sure it is helping. FODMAP diet. She does note some abdominal bloating with reintroduction of onions. She does note constipation seems to increase abdominal pain. She has upcoming gastroenterology appointment. Review of Systems Constitutional: Negative. Gastrointestinal: Positive for abdominal pain. Genitourinary: Positive for pelvic pain. Psychiatric/Behavioral: Positive for decreased concentration and dysphoric mood. Objective BP 113/77 Pulse 92 Resp 16 Wt 67 kg (147 lb 11.3 oz) LMP 07/04/2024 (Approximate) BMI 25.35 kg/m? Physical Exam Vitals and nursing note reviewed. Constitutional: Appearance: Normal appearance. HENT: Head: Normocephalic and atraumatic. Eyes: Conjunctiva/sclera: Conjunctivae normal. Cardiovascular: Rate and Rhythm: Normal rate. Pulmonary: Effort: Pulmonary effort is normal. Musculoskeletal: Right foot: Normal range of motion. Skin: General: Skin is warm and dry. Neurological: General: No focal deficit present. Mental Status: She is alert and oriented to person, place, and time. ALLERGIES Allergen Reactions Penicillins Unknown Pt states she doesn't know what reaction she had to Pencillin. She was a young child. Allergy skin tests to penicillin were positive.The patient is at risk for a severe, immediate, IgE-mediated reaction to penicillin and other penicillin type antibiotics. The patient should continue to avoid use of penicillin and other penicillin type antibiotics. Medications IBSRELA 50 mg tablet Take 50 mg by mouth two times a day. levonorgestrel (MIRENA) 21 mcg/24hr (up to 8 yrs) 52 mg IUD 1 Each by INTRAUTERINE route as directed. lisdexamfetamine (VYVANSE) 20 mg capsule Take 1 capsule by mouth once daily for 30 days. [START ON 10/08/2024] lisdexamfetamine (VYVANSE) 20 mg capsule Take 1 capsule by mouth once daily for 30 days. Patient should start on October 08, 2024. [START ON 11/07/2024] lisdexamfetamine (VYVANSE) 20 mg capsule Take 1 capsule by mouth once daily for 30 days. Patient should start on November 07, 2024. sertraline (ZOLOFT) 50 mg tablet Take 1 tablet by mouth once daily. PAST MEDICAL HISTORY Diagnosis Date Asthma Attention deficit disorder (ADD) without hyperactivity Generalized anxiety disorder History of depression Hypoglycemia Irritable bowel syndrome with constipation PAST SURGICAL HISTORY Procedure Laterality Date TRABECULOPLASTY BY LASER SURGERY Bilateral 08/13/2020 Social History Tobacco Use Smoking status: Never Smokeless tobacco: Never Vaping Use Vaping status: Never Used Substance Use Topics Alcohol use: Yes Comment: once a month Drug use: Never FAMILY HISTORY Problem Relation Age of Onset other (colitis) Mother Appears to be due to Post COVID No Known Problems Father other (Leg Tumor) Sister In thigh bone. Just needed resected OCD Sister other (Dyslexia) Sister other (Speech impediment) Sister Lung Cancer Maternal Grandmother No Known Problems Maternal Grandfather Breast Cancer Paternal Grandmother 70 No Known Problems Paternal Grandfather Component Latest Ref Rng AND Units 08/03/2021 09/25/2022 WBC 3.70 - 11.00 k/uL 5.3 6.13 RBC 3.90 - 5.20 m/uL 4.53 4.50 Hemoglobin 11.5 - 15.5 g/dL 13.5 13.6 Hematocrit 36.0 - 46.0 % 40.0 41.3 MCV 80.0 - 100.0 fL 88.3 91.8 MCHC 30.5 - 36.0 g/dL 33.8 32.9 RDW 11 - 14.5 12.5 MPV 9.0 - 12.7 fL 10.8 10.9 Platelet Count 150 - 400 k/uL 233 258 Neutrophil % 45 - 75 % 55.3 Immature Gran % Less than 2 % 0.2 Lymphocyte % 20 - 40 % 33.8 Upton% 2 - 10 % 8.0 % Eosinophils 0 - 5 % 1.7 Basophils, % 0 - 2 % 1.0 Neutrophil Ab 2.0 - 8.3 K/CU MM 2.90 IMMATURE GRANS (ABS) Less than 2 K/CU MM 0.00 Lymphocytes, Absol (more content not included)...[facility] 08-13-2024 Evaluation note* Diagnosis Onset Date Resolution Status Admit Date Constipation acute July 8:23am Adenomyosis acute September 19 7:54am Constipation acute September 19, 025 7:54am Pelvic floor dysfunction acute September 19, 2024 7:54am Pelvic pain acute September 19 7:54am [facility] Work Phone: [phone] 996-843801-28-2025 NoteHNO ID: [id number] Author: JENNIFER SERRANO, PT Service: ? Author Type: Physical Therapist Type: Progress Notes Filed: 10/14/2024 17:04 Note Text: 10/14/2024 [facility] PHYSICAL THERAPY DISCONTINUANCE OF CARE Plan of Care Period: Start of Care Date: 06/17/24 Last Visit Date: 08/12/2024 Therapy Program: The following is a summary of the interventions provided for this episode of care; Therapeutic exercise, Neuromuscular re-education, Manual therapy, and Self-fci management Assessment: The following is the goal status: Goals for Episode of Care: established 06/17/24 Updated on: 07/15/24, 08/12/24 Patient demonstrates independence and compliance with home exercise program.-PROGRESSING Patient reports increased ability to fully empty bowels without straining at least 85% of the time to normalize bowel function.-NOT MET Patient displays decreased muscle spasms in pelvic floor to allow for decreased pain levels, improved bowel function.-MET Patient to report at least 85% improvement in pain with sexual intercourse.-NOT MET Patient Goals: improve pain and bowel function Based on the most recent progress report, patient was progressing as expected toward functional goals based on documented subjective information on progress. Reason for Discontinuation of Care: Patient has not returned to therapy or scheduled additional follow-up appointments. Jennifer Traore, PT Episode Visit Count: 5 Therapist That Will Accept/Oversee The Plan Of Care: Jennifer Traore Start of Care Date: 06/17/24 Onset Date: 06/17/23 Patient Identified by Name and Date of : Yes REHABILITATION AND SPORTS THERAPY PHYSICAL THERAPY PROGRESS REPORT PLAN OF CARE UPDATE: Assessment: Lay Hunter demonstrates improvements in pelvic floor muscle restrictions/tenderness. The patient has progressed toward goals. The patient exhibits good pelvic floor muscle coordination with good ability to properly lengthen muscles. Patient continues to present with impairments in impaired bowel function and pelvic pain. The patient will benefit from continued skilled therapy services to meet the updated goals for this plan of care as noted below. Goals for Episode of Care: established 06/17/24 Updated on: 07/15/24, 08/12/24 Patient demonstrates independence and compliance with home exercise program.-PROGRESSING Patient reports increased ability to fully empty bowels without straining at least 85% of the time to normalize bowel function.-NOT MET Patient displays decreased muscle spasms in pelvic floor to allow for decreased pain levels, improved bowel function.-MET Patient to report at least 85% improvement in pain with sexual intercourse.-NOT MET Patient Goals: improve pain and bowel function Planned Interventions, Frequency, and Duration: 1x/month, 4 weeks (reassess at 4 weeks and progress as indicated) Total Number of Visits Planned: 1 Patient to be seen for Therapeutic exercise (79789), Neuromuscular re-education (16668), Manual therapy (08840), Therapeutic activities (63295), Self-fci management (70290), Patient/Family/Caregiver Education PLAN FOR NEXT VISIT: recheck in 1 month SUBJECTIVE: Pt reports R side of abdomen hurts worse since last session, states DN wasn't helpful. Pt reports taking a new stool softener since last session and was able to have a BM but also had diarrhea. Pt states that she still has a lot of increased pressure and doesn't feel like she's fully emptying bowels. Pt reports soon after taking 4 suppositories with no relief. Pt reports that the thought of gaining weight makes her feel stressed, doesn't like the thought of having abdomen look big. Pt reports having a complex relationship with food, used to not eat a lot but now is trying to focus on eating plenty of whole foods and fiber. Pt reports not attempting pelvic wand, states she's fearful of feeling pain. Pain: Pain Pain Level: 4 Pain Location: Abdomen Description: Stabbing Frequency: Continuous Post Treatment Pain Post Treatment Pain Level: No Change PROMIS Scales 08/11/2024 07/13/2024 06/15/2024 Higher is Better Phys Func - T Score 47 (within normal limits) 45 (within normal limits) Phys Func - Percentile 38 31 Self-Eff Symptom - T Score 38 (Low) 39 (Low) 42 (Average) Self-Eff Symptom - Percentile 12 14 21 07/31/2024 Lower is Better Pain Interference - T Score 58 (mild) Pain Interference - Percentile 21 T-scores: mean of general population = 50. 5 points is clinically meaningfully difference Percentiles provide an indication of how the patient's score ranks in relation to the general population. Higher percentile rankings indicate better function/quality of life. 50th percentile is the average of the general population and indicates half of respondents had a worse score. OBJECTIVE MEASURES WITH LEVEL OF FUNCTION: Pelvic Moshe (more content not included)...[facility]01-28-2025 History of Present illness Narrative* Jennifer Serrano, PT - 08/12/2024 6:13 PM EST Images from the original note were not included. Episode Visit Count: 5 Therapist That Will Accept/Oversee The Plan Of Care: Jennifer Traore Start of Care Date: 06/17/24 Onset Date: 06/17/23 Patient Identified by Name and Date of : Yes REHABILITATION AND SPORTS THERAPY PHYSICAL THERAPY PROGRESS REPORT PLAN OF CARE UPDATE: Assessment: Lay Hunter demonstrates improvements in pelvic floor muscle restrictions/tenderness. The patient has progressed toward goals. The patient exhibits good pelvic floor muscle coordination with good ability to properly lengthen muscles. Patient continues to present with impairments in impaired kye wel function and pelvic pain. The patient will benefit from continued skilled therapy services to meet the updated goals for this plan of care as noted below. Goals for Episode of Care: established 06/17/24 Updated on: 07/15/24, 08/12/24 Patient demonstrates independence and compliance with home exercise program.-PROGRESSING Patient reports increased ability to fully empty bowels without straining at least 85% of the time to normalize bowel function.-NOT MET Patient displays decreased muscle spasms in pelvic floor to allow for decreased pain levels, improved bowel function.-MET Patient to report at least 85% improvement in pain with sexual intercourse.-NOT MET Patient Goals: improve pain and bowel function Planned Interventions, Frequency, and Duration: 1x/month, 4 weeks (reassess at 4 weeks and progressas indicated) Total Number of Visits Planned: 1 Patient to be seen for Therapeutic exercise (93904), Neuromuscular re-education (77636), Manual therapy (98323), Therapeutic activities (52003), Self-fci management (54167), Patient/Family/Caregiver Education PLAN FOR NEXT VISIT: recheck in 1 month SUBJECTIVE: Pt reports R side of abdomen hurts worse since last session, states DN wasn't helpful. Pt reports taking a new stool softener since last session and was able to have a BM but also had diarrhea. Pt states that she still has a lot of increased pressure and doesn't feel like she's fully emptying bowels. Pt reports soon after taking 4 suppositories with no relief. Pt reports that the thought of gaining weight makes her feel stressed, doesn't like the thought of having abdomen look big. Pt reports having a complex relationship with food, used to not eat a lot but now is trying to focuson eating plenty of whole foods and fiber. Pt reports not attempting pelvic wand, states she's fearful of feeling pain. Pain: Pain Pain Level: 4 Pain Location: Abdomen Description: Stabbing Frequency: Continuous Post Treatment Pain Post Treatment Pain Level: No Change PROMIS Scales 08/11/2024 07/13/2024 06/15/2024 Higher is Better Phys Func - T Score 47 (within normal limits) 45 (within normal limits) Phys Func - Percentile 38 31 Self-Eff Symptom - T Score 38 (Low) 39 (Low) 42 (Average) Self-Eff Symptom - Percentile 12 14 21 07/31/2024 Lower is Better Pain Interference - T Score 58 (mild) Pain Interference - Percentile 21 T-scores: mean of general population = 50. 5 points is clinically meaningfully difference Percentiles provide an indication of how the patient's score ranks in relation to the general population. Higher percentile rankings indicate better function/quality of life. 50th percentile is the average of the general population and indicates half of respondents had a worse score. OBJECTIVE MEASURES WITH LEVEL OF FUNCTION: Pelvic Floor Difficulty evacuating / Excessive Straining: Yes Incomplete emptying: Yes Pelvic Floor Muscle Assessment Consent for pelvic assessment/testing and treatment: Patient was educated regarding pelvic floor physical therapy assessment/treatment which may include pelvic floor and girdle muscle assessment externally or internally (vaginal or rectal approach)., Patient verbalized consent for the above treatment approaches today. Patient understands they have control of the treatment and an opportunity to stop treatment at any time. Pelvic Floor Muscle Assessment: PERFECT, Muscle Dynamics Power: 4 Endurance: 10 Fast Reps: 10 Contracton Pressure: Strong squeeze, full circumference of fingers compressed Duration of Contraction: >3 seconds Recruitment of pelvic floor muscles: Coordinated Range of Motion: Normal Ability to Lengthen pelvic floor: Yes Relaxation Postcontraction: Yes Diaphragmatic Breathing : Good Pelvic Floor Manual Assessment Pelvic Floor Tenderness/Hyperactivity: Tested Vaginally in Tested Vaginally in : Supine/hooklying (No restrictions/tenderness noted.) TREATMENT: Self-Assisted Management: 1: Reassessment 2: Reviewed importance of good food and fluid intake for bowel health, encouraged consistent good fuel intake 3: Reviewed benefits of attempting pelvic wand for internal self-STM 4: Reviewed importance of continued good compliance with HEP despite lack of progress, discussed how bowel retraining can take time Skilled Intervention: Skilled judgment in the selection of proper modification for activity of daily living/home management based on clinical presentation, deficits, and needs. Billing Self-Care/Home Management Treatment Minutes: 44 Skilled Treatment Time Minutes (timed and untimed codes): 44 Total Session Time (minutes): 44 Session Start Time : 1812 Session Stop Time : 1856 Jennifer Traore PT documented in [facility] Instructions* Patient Instructions* Fabioal Costa APRN.CNM - 08/04/2024 3:48 PM EST [employer] [email or web address] [facility]: Florian Neely MD / Kay Velez PA-C documented in this encounterEast [facility]01-20-2025 NoteHNO ID: [id number] Author: FABIOLA COSTA APRN.CNM Service: ? Author Type: Sheet Heater Type: Progress Notes Filed: 08/04/2024 16:35 Note Text: Lay Hunter presents today for IUD check. She had a Mirena placed on . She has had no complications since placement. REVIEW OF SYSTEMS: PAIN ASSESSMENT: CURRENTLY HAVING PAIN; LOCATION/DISTRIBUTION: lower pelvis PAIN SCALE: 6 on 0-10 scale per patient PAIN CHARACTER: aching, moderate, sharp, stabbing, tenderness, throbbing, and cramping DURATION: (How long have you had the pain?) years SENSITIVE EXAM: The sensitive examination was discussed with the Patient or Patient's Authorized Career Consultant. As applicable, any other physician, advance practice provider, medical student, or other health professional student that will be observing or involved in the sensitive examination for educational or training purposes was discussed with the Patient or Authorized Career Consultant. The Patient or Authorized Career Consultant has agreed to proceed with the sensitive examination. (Sensitive examination includes inspection and/or palpation of the breasts, pelvis, prostate and anorectal regions). PHYSICAL EXAMINATION: LMP 05/06/2024 BP 124/82 Wt 71.7 kg (158 lb) LMP 07/04/2024 (Approximate) BMI 27.12 kg/m? ABDOMEN:soft, non-tender, no masses, no hepatosplenomegaly, and no lymphadenopathy EXTERNAL GENITALIA: Normal genitalia and Bartholins, Urethra, Sken'e normal CERVIX: smooth, no lesions. IUD strings visible. UTERUS: normal size, regular, tender, reproduces her pain, and freely mobile ADNEXA: negative for tenderness or masses IMPRESSION/PLAN: IUD correctly positioned. -Continue PT for pelvic pain. Referral to pelvic pain due to unresolved pain -Referral to GI for constipation Fabiola Costa APRN.CNM I spent 30 minutes in the visit, with more than 50% of the total [id number] time of the visit in counseling / coordination of care.[facility] History of Present illness Narrative* Fabiola Costa APRN.CNM - 08/04/2024 3:20 PM EST Lay Hunter presents today for IUD check. She had a Mirena placed on . She has had no complications since placement. REVIEW OF SYSTEMS: PAIN ASSESSMENT: CURRENTLY HAVING PAIN; LOCATION/DISTRIBUTION: lower pelvis PAIN SCALE: 6 on 0-10 scale per patient PAIN CHARACTER: aching, moderate, sharp, stabbing, tenderness, throbbing, and cramping DURATION: (How long have you had the pain?) years SENSITIVE EXAM: The sensitive examination was discussed with the Patient or Patient's Authorized Career Consultant. As applicable, any other physician, advance practice provider, medical student, or other health professional student that will be observing or involved in the sensitive examination for educational or training purposes was discussed with the Patient or Authorized Career Consultant. The Patient or Authorized Career Consultant has agreed to proceed with the sensitive examination. (Sensitive examination includes inspection and/or palpation of the breasts, pelvis, prostate and anorectal regions). PHYSICAL EXAMINATION: LMP 05/06/2024 BP 124/82 Wt 71.7 kg (158 lb) LMP 07/04/2024 (Approximate) BMI 27.12 kg/m ABDOMEN:soft, non-tender, no masses, no hepatosplenomegaly, and no lymphadenopathy EXTERNAL GENITALIA: Normal genitalia and Bartholins, Urethra, Sken'e normal CERVIX: smooth, no lesions. IUD strings visible. UTERUS: normal size, regular, tender, reproduces her pain, and freely mobile ADNEXA: negative for tenderness or masses IMPRESSION/PLAN: IUD correctly positioned. -Continue PT for pelvic pain. Referral to pelvic pain due to unresolved pain -Referral to GI for constipation Fabiola Costa APRN.CNM I spent 30 minutes in the visit, with more than 50% of the total [id number] time of the visit in counseling / coordination of care. documented in this encounterEast [facility]01-19-[facility]25 NoteHNO ID: [id number] Author: JAQUI VELASQUEZ PSYD Service: ? Author Type: Psychologist Type: Progress Notes Filed: 08/07/2024 07:43 Note Text: [facility] Progress Note THIS WAS A ZOOM VISIT Lay Hunter 07/31/2024 [id number] Provider: Jaqui Britton PSYD Time: Approximately 45 minutes was spent in therapy. Parties Present: Patient Patient Presentation/Concerns: Lay presents with chronic constipation and difficulty with bowel movements. She reports experiencing stress related to her condition. She has been undergoing physical therapy since June, attending sessions every two weeks, but has not noticed improvement in her bowel movements. She has attempted various interventions, including MiraLAX, laxatives, and Smooth Move tea, without success. She is very frustrated and confused by the underlying cause, Lay spoke about her complex relationship with her mother. Her mother often posts passive aggressive social media posts about her. She continues to work on maintaining strong boundaries with her mother. Mental Status: Mood: anxious Affect: mood-congruent Thoughts/Associations:goal directed Suicidal/Homicidal Ideation: None expressed or evidenced Patient denies any suicidal or homicidal ideation, plan or intent at this time. Other Observations: None Therapy Focus Mood/affect regulation MEDICATIONS: Per medical record: Current Outpatient Medications Medication Sig lisdexamfetamine (VYVANSE) 20 mg capsule Take 1 capsule by mouth once daily for 30 days. lisdexamfetamine (VYVANSE) 20 mg capsule Take 1 capsule by mouth once daily for 30 days. Patient should start on July 09, 2024. [START ON 08/08/2024] lisdexamfetamine (VYVANSE) 20 mg capsule Take 1 capsule by mouth once daily for 30 days. Patient should start on August 08, 2024. sertraline (ZOLOFT) 25 mg tablet Take 1 tablet by mouth once daily. levonorgestrel (MIRENA) 21 mcg/24hr (up to 8 yrs) 52 mg IUD 1 Each by INTRAUTERINE route as directed. metoclopramide HCl (REGLAN) 5 mg tablet Take 5 mg by mouth two times a day. One tablet by mouth 2 times a day 30 minutes before eating (Patient not taking: Reported on 06/09/2024) No current facility-administered medications for this visit. Psychiatric Medication Issues: No change from previous appointment DIAGNOSIS: ELIE OCD Body dysmorphia Treatment Modality/Interventions: Cognitive Behavioral TREATMENT ASSESSMENT/PROGRESS: Stable TREATMENT PLAN/GOALS: Continue in therapy focusing on stress management, affect management, and anxiety management. CBT for anxiety. Mindful eating skills. Next appointment: 2 weeks [facility] NoteHNO ID: [id number] Author: JENNIFER SERRANO, PT Service: ? Author Type: Physical Therapist Type: Progress Notes Filed: 08/01/2024 10:29 Note Text: Episode Visit Count: 4 Therapist That Will Accept/Oversee The Plan Of Care: Jennifer Traore Start of Care Date: 06/17/24 Onset Date: 06/17/23 Patient Identified by Name and Date of : Yes REHABILITATION AND SPORTS THERAPY PHYSICAL THERAPY TREATMENT NOTE ASSESSMENT: Lay Hunter tolerated the session with decreased symptoms. She demonstrated difficulty with unchanged bowel function, tolerated dry needling with electrical stimulation well. The patient will continue to benefit from ongoing skilled physical therapy to progress toward set goals. PLAN FOR NEXT VISIT: reassessment SUBJECTIVE: Pt reports feeling mentally drained because she hasn't noticed much of a difference. Pt reports excellent compliance with HEP, including bowel retraining program. Pt states suppositories are starting to not be as effective either. Pt reports not using the pelvic wand yet. Pt reports being extremely discouraged by whole process, feels very stressed by it all. Pain: Pain Pain Level: 6 Pain Location: Abdomen Description: Sore Frequency: Continuous Post Treatment Pain Post Treatment Pain Level: 0 OBJECTIVE MEASURES WITH LEVEL OF FUNCTION: Pelvic Floor Difficulty evacuating / Excessive Straining: Yes Incomplete emptying: Yes Dry needling to following Trigger points: B rectus abdominus. Needle length: 30mm 1.2 in. [place] used 2, needles removed 2. Dry needling technique used: Deep needling with e-stim. Patient education on purpose, precautions, safety, risks, and other treatment options regarding dry needling. Verbal consent received. TREATMENT: Neuromuscular Re-Education: 1: Patient education on clinical reasoning behind DN with e-stim for neuromodulation of PFM and to elicit a sub-tetany twitch response from mm to inhibit muscle/neural hyperactivity 2: DN with e-stim to B rectus abdominus, supine (2 Hz, 3 mA, x10min) Skilled Intervention: Skilled judgment used to assess appropriate program for balance and coordination activity. Self-Assisted Management: 1: Reviewed importance of continued good compliance with HEP despite lack of progress, discussed how bowel retraining can take time 2: Reviewed impact of stress on bowel function, benefits of continuing relaxation techniques 3: Encouraged patient to discuss symptoms with referring provider at upcoming appointment 4: Encouraged patient to attempt using pelvic wand for internal self-STM Skilled Intervention: Skilled judgment in the selection of proper modification for activity of daily living/home management based on clinical presentation, deficits, and needs. Billing Neuromuscular Re-Education Treatment Minutes: 20 Self-Care/Home Management Treatment Minutes: 25 Skilled Treatment Time Minutes (timed and untimed codes): 45 Total Session Time (minutes): 45 Session Start Time : 942 Session Stop Time : 1027 Jennifer Traore [facility]01-17-2025 History of Present illness Narrative* Jennifer Serrano, PT - 08/01/2024 9:40 AM EST Episode Visit Count: 4 Therapist That Will Accept/Oversee The Plan Of Care: Jennifer Traore Start of Care Date: 06/17/24 Onset Date: 06/17/23 Patient Identified by Name and Date of : Yes REHABILITATION AND SPORTS THERAPY PHYSICAL THERAPY TREATMENT NOTE ASSESSMENT: Lay Hunter tolerated the session with decreased symptoms. She demonstrated difficulty with unchanged bowel function, tolerated dry needling with electrical stimulation well. The patient will continue to benefit from ongoing skilled physical therapy to progress toward set goals. PLAN FOR NEXT VISIT: reassessment SUBJECTIVE: Pt reports feeling mentally drained because she hasn't noticed much of a difference. Ptreports excellent compliance with HEP, including bowel retraining program. Pt states suppositories are starting to not be as effective either. Pt reports not using the pelvic wand yet. Pt reports being extremely discouraged by whole process, feels very stressed by it all. Pain: Pain Pain Level: 6 Pain Location: Abdomen Description: Sore Frequency: Continuous Post Treatment Pain Post Treatment Pain Level: 0 OBJECTIVE MEASURES WITH LEVEL OF FUNCTION: Pelvic Floor Difficulty evacuating / Excessive Straining: Yes Incomplete emptying: Yes Dry needling to following Trigger points: B rectus abdominus. Needle length: 30mm 1.2 in. [place] used 2, needles removed 2. Dry needling technique used: Deep needling with e-stim. Patient education on purpose, precautions, safety, risks, and other treatment options regarding dry needling. Verbal consent received. TREATMENT: Neuromuscular Re-Education: 1: Patient education on clinical reasoning behind DN with e-stim for neuromodulation of PFM and to elicit a sub-tetany twitch response from mm to inhibit muscle/neural hyperactivity 2: DN with e-stim to B rectus abdominus, supine (2 Hz, 3 mA, x10min) Skilled Intervention: Skilled judgment used to assess appropriate program for balance and coordination activity. Self-Assisted Management: 1: Reviewed importance of continued good compliance with HEP despite lack of progress, discussed how bowel retraining can take time 2: Reviewed impact of stress on bowel function, benefits of continuing relaxation techniques 3: Encouraged patient to discuss symptoms with referring provider at upcoming appointment 4: Encouraged patient to attempt using pelvic wand for internal self-STM Skilled Intervention: Skilled judgment in the selection of proper modification for activity of daily living/home management based on clinical presentation, deficits, and needs. Billing Neuromuscular Re-Education Treatment Minutes: 20 Self-Care/Home Management Treatment Minutes: 25 Skilled Treatment Time Minutes (timed and untimed codes): 45 Total Session Time (minutes): 45 Session Start Time : 942 Session Stop Time : 1028 Jennifer Traore PT [facility] of Present illness Narrative* Jennifer Serrano, PT - 07/15/2024 11:26 AM EST Program_ID:[id number] Access Code: [email or web address] URL: [email or web address] Date: 07-15-2024 Prepared By: Jennifer Program Notes Exercises - Seated Diaphragmatic Breathing - 1 x daily - x weekly - sets - reps - Seated Figure 4 Piriformis Stretch - 1 x daily - x weekly - 3 sets - reps - Supine Double Knee to Chest - 1 x daily - x weekly - 3 sets - reps - Supine Bridge - 1 x daily - x weekly - 2 sets - 10 reps - Deep Squat with Pelvic Floor Relaxation - 1 x daily - x weekly - 3 sets - reps Patient Education - cc Pelvic Floor - Lengthening - cc Pelvic Floor - Bowel Movement Education - cc Pelvic Floor - Constipation Massage - cc Pelvic Floor - Sphincter Release - cc Pelvic Floor - [place] Stool Chart - cc Pelvic Floor - Fiber - cc Pelvic Floor Bowel Retraining Program * Jennifer Serrano, PT - 07/15/2024 10:54 AM EST Episode Visit Count: 3 Therapist That Will Accept/Oversee The Plan Of Care: Jennifer Traore Start of Care Date: 06/17/24 Onset Date: 06/17/23 Patient Identified by Name and Date of : Yes REHABILITATION AND SPORTS THERAPY PHYSICAL THERAPY PROGRESS REPORT PLAN OF CARE UPDATE: Assessment: Lay Lupillo Hunter demonstrates no improvement in bowel function or pelvic pain. The patient has minimally progressed towards goals. Patient continues to present with impairments in pelvic floor muscle restrictions/tenderness, impaired bowel and sexual function. The patient will benefit from continued skilled therapy services to meet the updated goals for this plan of care as noted below. Goals for Episode of Care: established 06/17/24 Updated on: 07/15/24 Patient demonstrates independence and compliance with home exercise program.-PROGRESSING Patient reports increased ability to fully empty bowels without straining at least 85% of the time to normalize bowel function.-NOT MET Patient displays decreased muscle spasms in pelvic floor to allow for decreased pain levels, improved bowel function.-PROGRESSING Patient to report at least 85% improvement in pain with sexual intercourse.-NOT MET Patient Goals: improve pain and bowel function Planned Interventions, Frequency, and Duration: 1x every other week, 4 weeks (reassess at 4 weeks and progress as indicated) Total Number of Visits Planned: 2 Patient to be seen for Therapeutic exercise (67426), Neuromuscular re-education (87800), Manual therapy (84224), Therapeutic activities (46497), Self-fci management (57902), Patient/Family/Caregiver Education PLAN FOR NEXT VISIT: assess response to bowel retraining program SUBJECTIVE: Pt reports no change in bowel function. Pt states she started taking a stool softener every day with no changes. Pt reports getting gassy with exercises but states they haven't helped much with actually moving the stool. Pt reports using a suppository last night and one this morning before today's appt but still hasn't felt the urge to defecate. Pt reports not looking into the pelvic wand, states she's hesitant to use it out of fear for pain. Pt reports having intercourse maybe 3x/year because of pain, states it has always hurt to have intercourse. Pt reports being very sedentary recently, some days only walks about 1k steps. Pain: Pain Pain Level: 4 Pain Location: Abdomen Description: Sore Frequency: Continuous Post Treatment Pain Post Treatment Pain Level: No Change PROMIS Scales 07/13/2024 06/15/2024 Higher is Better Phys Func - Score 47 (within normal limits) 45 (within normal limits) Phys Func - Percentile 38 31 Self-Eff Symptom - Score 39 (Low) 42 (Average) Self-Eff Symptom - Percentile 14 21 T-scores: mean of general population = 50. 5 points is clinically meaningfully difference Percentiles provide an indication of how the patient's score ranks in relation to the general population. Higher percentile rankings indicate better function/quality of life. 50th percentile is the average of the general population and indicates half of respondents had a worse score. OBJECTIVE MEASURES WITH LEVEL OF FUNCTION: Pelvic Floor Pain with penetration: Pain during intercourse Pelvic Floor Muscle Assessment Consent for pelvic assessment/testing and treatment: Patient was educated regarding pelvic floor physical therapy assessment/treatment which may include pelvic floor and girdle muscle assessment externally or internally (vaginal or rectal approach)., Patient verbalized consent for the above treatment approaches today. Patient understands they have control of the treatment and an opportunity to stop treatment at any time. Range of Motion: Normal Ability to Lengthen pelvic floor: Yes Pelvic Floor Manual Assessment External Pelvic Region Tenderness/ Hyperactivity - Trunk: Upper abdominals, Lower abdominals Upper abdominals: Bilateral (07/16) Lower abdominals: Bilateral (07/16) Pelvic Floor Tenderness/Hyperactivity: Tested Vaginally in Tested Vaginally in : Supine/hooklying Iliococcygeus: Right (07/16) Obturator internus: Right (1/1) Tissue Restriction/Tenderness Scale: 0= normal, 1= mild, 2= moderate, 3= severe TREATMENT: Manual Therapy: 1: Reassessment 2: Gentle stretching to B pelvic floor, supine 3: MFR to B upper and lower abdominals, supine Skilled Intervention: Manual skills to improve joint mobility, ROM, and decrease pain. Utilized anatomy knowledge of the therapist, and assessment of patient's response to intervention. Self-Assisted Management: 1: Reviewed importance of attempting pelvic wand for internal self-STM, benefits of regular internal release work for pain, bowel function 2: *bowel retraining program 3: Reviewed importance of increasing overall activity levels, encouraged patient to attempt walkingfor at least 30 minutes per day 4: Reviewed possible benefits of consult with sex therapist, given F sex therapist's information 5: Reviewed possible benefits of consult with functional medicine to further explore impact of [place] bowel function Skilled Intervention: Skilled judgment in the selection of proper modification for activity of daily living/home management based on clinical presentation, deficits, and needs. Provided written instruction for activities of daily living techniques to facilitate proper performance and compliance. Billing Manual TherapyTreatment Minutes: 23 Self-Care/Home Management Treatment Minutes: 16 Skilled Treatment Time Minutes (timed and untimed codes): 39 Total Session Time (minutes): 39 Session Start Time : 1054 Session Stop Time : 1133 Jennifer Traore PT [facility] NoteHNO ID: [id number] Author: JENNIFER SERRANO PT Service: ? Author Type: Physical Therapist Type: Progress Notes Filed: 08/01/2024 09:41 Note Text: Episode Visit Count: 3 Therapist That Will Accept/Oversee The Plan Of Care: Jennifer Traore Start of Care Date: 06/17/24 Onset Date: 06/17/23 Patient Identified by Name and Date of : Yes REHABILITATION AND SPORTS THERAPY PHYSICAL THERAPY PROGRESS REPORT PLAN OF CARE UPDATE: Assessment: Lay Hunter demonstrates no improvement in bowel function or pelvic pain. The patient has minimally progressed towards goals. Patient continues to present with impairments in pelvic floor muscle restrictions/tenderness, impaired bowel and sexual function. The patient will benefit from continued skilled therapy services to meet the updated goals for this plan of care as noted below. Goals for Episode of Care: established 06/17/24 Updated on: 07/15/24 Patient demonstrates independence and compliance with home exercise program.-PROGRESSING Patient reports increased ability to fully empty bowels without straining at least 85% of the time to normalize bowel function.-NOT MET Patient displays decreased muscle spasms in pelvic floor to allow for decreased pain levels, improved bowel function.-PROGRESSING Patient to report at least 85% improvement in pain with sexual intercourse.-NOT MET Patient Goals: improve pain and bowel function Planned Interventions, Frequency, and Duration: 1x every other week, 4 weeks (reassess at 4 weeks and progress as indicated) Total Number of Visits Planned: 2 Patient to be seen for Therapeutic exercise (99371), Neuromuscular re-education (41602), Manual therapy (20257), Therapeutic activities (25062), Self-fci management (44020), Patient/Family/Caregiver Education PLAN FOR NEXT VISIT: assess response to bowel retraining program SUBJECTIVE: Pt reports no change in bowel function. Pt states she started taking a stool softener every day with no changes. Pt reports getting gassy with exercises but states they haven't helped much with actually moving the stool. Pt reports using a suppository last night and one this morning before today's appt but still hasn't felt the urge to defecate. Pt reports not looking into the pelvic wand, states she's hesitant to use it out of fear for pain. Pt reports having intercourse maybe 3x/year because of pain, states it has always hurt to have intercourse. Pt reports being very sedentary recently, some days only walks about 1k steps. Pain: Pain Pain Level: 4 Pain Location: Abdomen Description: Sore Frequency: Continuous Post Treatment Pain Post Treatment Pain Level: No Change PROMIS Scales 07/13/2024 06/15/2024 Higher is Better Phys Func - T Score 47 (within normal limits) 45 (within normal limits) Phys Func - Percentile 38 31 Self-Eff Symptom - T Score 39 (Low) 42 (Average) Self-Eff Symptom - Percentile 14 21 T-scores: mean of general population = 50. 5 points is clinically meaningfully difference Percentiles provide an indication of how the patient's score ranks in relation to the general population. Higher percentile rankings indicate better function/quality of life. 50th percentile is the average of the general population and indicates half of respondents had a worse score. OBJECTIVE MEASURES WITH LEVEL OF FUNCTION: Pelvic Floor Pain with penetration: Pain during intercourse Pelvic Floor Muscle Assessment Consent for pelvic assessment/testing and treatment: Patient was educated regarding pelvic floor physical therapy assessment/treatment which may include pelvic floor and girdle muscle assessment externally or internally (vaginal or rectal approach)., Patient verbalized consent for the above treatment approaches today. Patient understands they have control of the treatment and an opportunity to stop treatment at any time. Range of Motion: Normal Ability to Lengthen pelvic floor: Yes Pelvic Floor Manual Assessment External Pelvic Region Tenderness/ Hyperactivity - Trunk: Upper abdominals, Lower abdominals Upper abdominals: Bilateral (07/16) Lower abdominals: Bilateral (07/16) Pelvic Floor Tenderness/Hyperactivity: Tested Vaginally in Tested Vaginally in : Supine/hooklying Iliococcygeus: Right (07/16) Obturator internus: Right (07/16) Tissue Restriction/Tenderness Scale: 0= normal, 1= mild, 2= moderate, 3= severe TREATMENT: Manual Therapy: 1: Reassessment 2: Gentle stretching to B pelvic floor, supine 3: MFR to B upper and lower abdominals, supine Skilled Intervention: Manual skills to improve joint mobility, ROM, and decrease pain. Utilized anatomy knowledge of the therapist, and assessment of patient's response to intervention. Self-Assisted Management: 1: Reviewed importance of attempting pelvic wand for internal self-STM, benefits of regular internal release work for pain, bowel function 2: *bowel retraining p (more content not included)...[facility]12-23-2024 NoteHNO ID: [id number] Author: JAQUI VELASQUEZ PSYD Service: ? Author Type: Psychologist Type: Progress Notes Filed: 07/13/2024 17:30 Note Text: [facility] Progress Note THIS WAS A ZOOM VISIT Lay Hunter 07/03/2024 [id number] Provider: Jaqui Britton PSYD Time: Approximately 45 minutes was spent in therapy. Parties Present: Patient Patient Presentation/Concerns: Lay is working on managing her stress and mental health by setting boundaries with her mother, who has a history of narcissistic behavior and alcohol use. Lay's efforts are complicated by her mother's health claims of cancer and frequent contact, which often leaves the patient feeling guilty and conflicted about maintaining distance. The patient expresses a desire to cut off communication but feels obligated to continue interactions due to family dynamics and upcoming events. She continues to struggle with GI issues. Mental Status: Mood: anxious Affect: mood-congruent Thoughts/Associations:goal directed Suicidal/Homicidal Ideation: None expressed or evidenced Patient denies any suicidal or homicidal ideation, plan or intent at this time. Other Observations: None Therapy Focus Mood/affect regulation MEDICATIONS: Per medical record: Current Outpatient Medications Medication Sig lisdexamfetamine (VYVANSE) 20 mg capsule Take 1 capsule by mouth once daily for 30 days. [START ON 07/09/2024] lisdexamfetamine (VYVANSE) 20 mg capsule Take 1 capsule by mouth once daily for 30 days. Patient should start on July 09, 2024. [START ON 08/08/2024] lisdexamfetamine (VYVANSE) 20 mg capsule Take 1 capsule by mouth once daily for 30 days. Patient should start on August 08, 2024. sertraline (ZOLOFT) 25 mg tablet Take 1 tablet by mouth once daily. levonorgestrel (MIRENA) 21 mcg/24hr (up to 8 yrs) 52 mg IUD 1 Each by INTRAUTERINE route as directed. metoclopramide HCl (REGLAN) 5 mg tablet Take 5 mg by mouth two times a day. One tablet by mouth 2 times a day 30 minutes before eating (Patient not taking: Reported on 06/09/2024) No current facility-administered medications for this visit. Psychiatric Medication Issues: No change from previous appointment DIAGNOSIS: ELIE OCD Body dysmorphia Treatment Modality/Interventions: Cognitive Behavioral TREATMENT ASSESSMENT/PROGRESS: Stable TREATMENT PLAN/GOALS: Continue in therapy focusing on stress management, affect management, and anxiety management. CBT for anxiety. Mindful eating skills. Next appointment: 2 weeks [facility] History of Present illness Narrative* Jennifer Serrano, PT - 07/01/2024 10:43 AM EST Program_ID:[id number] Access Code: [email or web address] URL: [email or web address] Date: 07-01-2024 Prepared By: Jennifer Program Notes Exercises - Seated Diaphragmatic Breathing - 1 x daily - x weekly - sets - reps - Seated Figure 4 Piriformis Stretch - 1 x daily - x weekly - 3 sets - reps - Supine Double Knee to Chest - 1 x daily - x weekly - 3 sets - reps - Supine Bridge - 1 x daily - x weekly - 2 sets - 10 reps - Deep Squat with Pelvic Floor Relaxation - 1 x daily - x weekly - 3 sets - reps Patient Education - cc Pelvic Floor - Lengthening - cc Pelvic Floor - Bowel Movement Education - cc Pelvic Floor - Constipation Massage - cc Pelvic Floor - Sphincter Release - cc Pelvic Floor - [place] Stool Chart - cc Pelvic Floor - Fiber * Jennifer Serrano, PT - 07/01/2024 10:18 AM EST Episode Visit Count: 2 Therapist That Will Accept/Oversee The Plan Of Care: Jennifer Traore Start of Care Date: 06/17/24 Onset Date: 06/17/23 Patient Identified by Name and Date of : Yes REHABILITATION AND SPORTS THERAPY PHYSICAL THERAPY TREATMENT NOTE ASSESSMENT: Lay Hunter tolerated the session with no issues. She demonstrated difficulty with unchanged bowel function, tolerated session well without increased pain. The patient will continueto benefit from ongoing skilled physical therapy to progress toward set goals. PLAN FOR NEXT VISIT: reassessment SUBJECTIVE: Pt reports good compliance with HEP, has been trying to increase fiber intake a little bit. Pt reports having a very stressful event last week with high anxiety and had two bowel movements after, states anxiety makes her bowels move more. Pt reports starting an ab workout routine in themornings and has had increased gas afterwards. Pt reports doing kegels with increased rectal pressure. Pt reports feeling more gassy after doing abdominal manual work but has not been having more BMs. Pt reports noticing she sucks in her abs frequently throughout the day, is having a hard time breathing through belly. Pain: Pain Pain Level: 5 Pain Location: Abdomen Description: Sharp, Shooting Frequency: Continuous Post Treatment Pain Post Treatment Pain Level: No Change OBJECTIVE MEASURES WITH LEVEL OF FUNCTION: Pelvic Floor Difficulty evacuating / Excessive Straining: Yes Incomplete emptying: Yes Pelvic Floor Muscle Assessment Consent for pelvic assessment/testing and treatment: Patient was educated regarding pelvic floor physical therapy assessment/treatment which may include pelvic floor and girdle muscle assessment externally or internally (vaginal or rectal approach)., Patient verbalized consent for the above treatment approaches today. Patient understands they have control of the treatment and an opportunity to stop treatment at any time. (Internal manual work deferred due to pt request.) Pelvic Floor Manual Assessment External Pelvic Region Tenderness/ Hyperactivity - Trunk: Upper abdominals, Lower abdominals Upper abdominals: Bilateral (1/1) Lower abdominals: Bilateral (1/1) Tissue Restriction/Tenderness Scale: 0= normal, 1= mild, 2= moderate, 3= severe TREATMENT: Therapeutic Exercise: 1: Reviewed importance of practicing PFM lengthening, not kegels 2: *BKTC stretch, [id number] 3: *bridge with glute activation, 2x10 4: *deep squat stretch, [id number] Skilled Intervention: Patient was educated in proper exercise technique and purpose for exercises. Reviewed and educated patient on additions/changes for home exercise program as above (*). Skilled judgment was used in selection of appropriate interventions. Provided written instruction for home exercise program to facilitate proper performance and compliance. Manual Therapy: 1: MFR to B upper and lower abdominals, supine Skilled Intervention: Manual skills to improve joint mobility, ROM, and decrease pain. Utilized anatomy knowledge of the therapist, and assessment of patient's response to intervention. Self-Assisted Management: 1: Reviewed self-colon massage 2: Reviewed toileting techniques to fully empty bowels without straining (ex: diaphragmatic breathing, squatty potty, PF lengthening) 3: Reviewed scope of practice of PT, focus on PFM Skilled Intervention: Skilled judgment in the selection of proper modification for activity of daily living/home management based on clinical presentation, deficits, and needs. Billing Therapeutic Exercise Treatment Minutes: 10 Manual TherapyTreatment Minutes: 16 Self-Care/Home Management Treatment Minutes: 13 Skilled Treatment Time Minutes (timed and untimed codes): 39 Total Session Time (minutes): 39 Session Start Time : 1018 Session Stop Time : 1057 Jennifer Traore [facility] NoteHNO ID: [id number] Author: JENNIFER SERRANO, PT Service: ? Author Type: Physical Therapist Type: Progress Notes Filed: 08/01/2024 09:42 Note Text: Episode Visit Count: 2 Therapist That Will Accept/Oversee The Plan Of Care: Jennifer Traore Start of Care Date: 06/17/24 Onset Date: 06/17/23 Patient Identified by Name and Date of : Yes REHABILITATION AND SPORTS THERAPY PHYSICAL THERAPY TREATMENT NOTE ASSESSMENT: Lay Hunter tolerated the session with no issues. She demonstrated difficulty with unchanged bowel function, tolerated session well without increased pain. The patient will continue to benefit from ongoing skilled physical therapy to progress toward set goals. PLAN FOR NEXT VISIT: reassessment SUBJECTIVE: Pt reports good compliance with HEP, has been trying to increase fiber intake a little bit. Pt reports having a very stressful event last week with high anxiety and had two bowel movements after, states anxiety makes her bowels move more. Pt reports starting an ab workout routine in the mornings and has had increased gas afterwards. Pt reports doing kegels with increased rectal pressure. Pt reports feeling more gassy after doing abdominal manual work but has not been having more BMs. Pt reports noticing she sucks in her abs frequently throughout the day, is having a hard time breathing through belly. Pain: Pain Pain Level: 5 Pain Location: Abdomen Description: Sharp, Shooting Frequency: Continuous Post Treatment Pain Post Treatment Pain Level: No Change OBJECTIVE MEASURES WITH LEVEL OF FUNCTION: Pelvic Floor Difficulty evacuating / Excessive Straining: Yes Incomplete emptying: Yes Pelvic Floor Muscle Assessment Consent for pelvic assessment/testing and treatment: Patient was educated regarding pelvic floor physical therapy assessment/treatment which may include pelvic floor and girdle muscle assessment externally or internally (vaginal or rectal approach)., Patient verbalized consent for the above treatment approaches today. Patient understands they have control of the treatment and an opportunity to stop treatment at any time. (Internal manual work deferred due to pt request.) Pelvic Floor Manual Assessment External Pelvic Region Tenderness/ Hyperactivity - Trunk: Upper abdominals, Lower abdominals Upper abdominals: Bilateral (1/1) Lower abdominals: Bilateral (1/1) Tissue Restriction/Tenderness Scale: 0= normal, 1= mild, 2= moderate, 3= severe TREATMENT: Therapeutic Exercise: 1: Reviewed importance of practicing PFM lengthening, not kegels 2: *BKTC stretch, [id number] 3: *bridge with glute activation, 2x10 4: *deep squat stretch, 1x46bdl Skilled Intervention: Patient was educated in proper exercise technique and purpose for exercises. Reviewed and educated patient on additions/changes for home exercise program as above (*). Skilled judgment was used in selection of appropriate interventions. Provided written instruction for home exercise program to facilitate proper performance and compliance. Manual Therapy: 1: MFR to B upper and lower abdominals, supine Skilled Intervention: Manual skills to improve joint mobility, ROM, and decrease pain. Utilized anatomy knowledge of the therapist, and assessment of patient's response to intervention. Self-Assisted Management: 1: Reviewed self-colon massage 2: Reviewed toileting techniques to fully empty bowels without straining (ex: diaphragmatic breathing, squatty potty, PF lengthening) 3: Reviewed scope of practice of PT, focus on PFM Skilled Intervention: Skilled judgment in the selection of proper modification for activity of daily living/home management based on clinical presentation, deficits, and needs. Billing Therapeutic Exercise Treatment Minutes: 10 Manual TherapyTreatment Minutes: 16 Self-Care/Home Management Treatment Minutes: 13 Skilled Treatment Time Minutes (timed and untimed codes): 39 Total Session Time (minutes): 39 Session Start Time : 1018 Session Stop Time : 1057 Jennifer Traore [facility]12-03-2024 NoteHNO ID: [id number] Author: JAQUI VELASQUEZ PSYD Service: ? Author Type: Psychologist Type: Progress Notes Filed: 06/17/2024 20:33 Note Text: [facility] Progress Note THIS WAS A ZOOM VISIT Lay Hunter 06/05/2024 [id number] Provider: Jaqui Britton PSYD Time: Approximately 45 minutes was spent in therapy. Parties Present: Patient Patient Presentation/Concerns: Lay reports experiencing negative side effects after reducing her Zoloft dosage from 50 mg to 25 mg and starting Vyvanse simultaneously. She describes excessive sleepiness, rapid heartbeat, and difficulty staying awake at work. The patient suspects that these symptoms may be related to Zoloft withdrawal rather than Vyvanse, as she has been on Vyvanse since childhood and has experienced withdrawal symptoms before. The patient also mentions that Vyvanse helps her with focus, eating habits, and anxiety. She is concerned about stopping Vyvanse completely and would prefer to reduce the dosage to 20 mg if necessary. The patient is currently on 25 mg of Zoloft to help with her OCD symptoms and hopes to create better habits to manage her anxiety without medication in the future. Regarding her gastrointestinal issues, the patient reports that her stomach pain has improved since her diagnosis. She has an IUD in place, which is working, but she continues to experience bleeding and period pain. The patient has an upcoming appointment with her OB to discuss these issues further. The patient has not yet started pelvic floor therapy, which is scheduled for June. She is currently using suppositories for bowel movement issues, but they only seem to cause gas without much improvement in movement. The patient is looking forward to discussing her concerns about Zoloft and Vyvanse with her healthcare provider during her next appointment. Mental Status: Mood: anxious Affect: mood-congruent Thoughts/Associations:goal directed Suicidal/Homicidal Ideation: None expressed or evidenced Patient denies any suicidal or homicidal ideation, plan or intent at this time. Other Observations: None Therapy Focus Mood/affect regulation MEDICATIONS: Per medical record: Current Outpatient Medications Medication Sig lisdexamfetamine (VYVANSE) 20 mg capsule Take 1 capsule by mouth once daily for 30 days. [START ON 07/09/2024] lisdexamfetamine (VYVANSE) 20 mg capsule Take 1 capsule by mouth once daily for 30 days. Patient should start on July 09, 2024. [START ON 08/08/2024] lisdexamfetamine (VYVANSE) 20 mg capsule Take 1 capsule by mouth once daily for 30 days. Patient should start on August 08, 2024. sertraline (ZOLOFT) 25 mg tablet Take 1 tablet by mouth once daily. levonorgestrel (MIRENA) 21 mcg/24hr (up to 8 yrs) 52 mg IUD 1 Each by INTRAUTERINE route as directed. metoclopramide HCl (REGLAN) 5 mg tablet Take 5 mg by mouth two times a day. One tablet by mouth 2 times a day 30 minutes before eating (Patient not taking: Reported on 06/09/2024) No current facility-administered medications for this visit. Psychiatric Medication Issues: No change from previous appointment DIAGNOSIS: ELIE OCD Body dysmorphia Treatment Modality/Interventions: Cognitive Behavioral TREATMENT ASSESSMENT/PROGRESS: Stable TREATMENT PLAN/GOALS: Continue in therapy focusing on stress management, affect management, and anxiety management. CBT for anxiety. Mindful eating skills. Next appointment: 2 weeks [facility] of Present illness Narrative* Jennifer Serrano, PT - 06/17/2024 4:49 PM EST Program_ID:[id number] Access Code: [email or web address] URL: [email or web address] Date: 06-17-2024 Prepared By: Jennifer Program Notes Exercises - Seated Diaphragmatic Breathing - 1 x daily - x weekly - sets - reps - Seated Figure 4 Piriformis Stretch - 1 x daily - x weekly - 3 sets - reps Patient Education - cc Pelvic Floor - Lengthening - cc Pelvic Floor - Bowel Movement Education - cc Pelvic Floor - Constipation Massage - cc Pelvic Floor - Sphincter Release - cc Pelvic Floor - [place] Stool Chart - cc Pelvic Floor - Fiber * Jennifer Serrano, PT - 06/17/2024 4:20 PM EST Episode Visit Count: 1 Therapist That Will Accept/Oversee The Plan Of Care: Jennifer Traore Start of Care Date: 06/17/24 Onset Date: 06/17/23 Patient Identified by Name and Date of : Yes REHABILITATION AND SPORTS THERAPY PHYSICAL THERAPY EVALUATION PLAN OF CARE: Assessment: Lay Hunter presents with chief complaint of pelvic pain and constipation that interferes with bowel function, altered sexual function . The patient presents with impairments in pelvic floor muscle restrictions/tenderness, impaired bowel and sexual function. PROMIS (Patient-Reported Outcomes Measurement Information System) scores were reviewed and identified as within normal limits. Prognosis for therapy is Fair due to: chronic nature of impairments, clinical presentation . The patient will benefit from skilled therapy services to meet the goals established for this plan of c are as noted below. Goals for Episode of Care: established 06/17/24 Patient demonstrates independence and compliance with home exercise program. Patient reports increased ability to fully empty bowels without straining at least 85% of the time to normalize bowel function. Patient displays decreased muscle spasms in pelvic floor to allow for decreased pain levels, improved bowel function. Patient to report at least 85% improvement in pain with sexual intercourse. Patient Goals: improve pain and bowel function Time Frame for Goals and Treatment : 08/16/24 Planned Interventions, Frequency, and Duration: Current Frequency: 1x every other week Duration: 4 weeks (reassess at 4 weeks and progress as indicated) Total Number of Visits Planned: 2 Planned Treatment Interventions: Therapeutic exercise (56791), Neuromuscular re- education (06920), Manual therapy (22603), Therapeutic activities (38124), Self- fci management (18798), Patient/Family/Caregiver Education PLAN FOR NEXT VISIT: assess response to HEP, progress stretches, internal/external manual work Patient demonstrates good understanding of plan of care and treatment. The above goals and plan of care were discussed and agreed upon by patient/family. SUBJECTIVE: Pt reports bowel concerns and pelvic pain began about a year ago. Pt reports history of adenomyosisand has pelvic pain from this. Pt reports constipation, has tried many remedies including laxatives, suppositories, and other bowel aides with no relief. 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: [employer] videos Intake Information: Prescription present Previous Treatment: None Falls Interview: No positive findings with falls interview PAST MEDICAL HISTORY Diagnosis Date Asthma Attention deficit disorder (ADD) without hyperactivity Generalized anxiety disorder History of depression Hypoglycemia Irritable bowel syndrome with constipation PAST SURGICAL HISTORY Procedure Laterality Date TRABECULOPLASTY BY LASER SURGERY Bilateral 08/13/2020 Aquatic Screen: No Pain: Pain Pain Level: 4 Pain Location: Abdomen Description: Sharp, Shooting Frequency: Continuous Post Treatment Pain Post Treatment Pain Level: No Change PROMIS Scales 06/15/2024 Higher is Better Phys Func - Score 45 (within normal limits) Phys Func - Percentile 31 Self-Eff Symptom - Score 42 (Average) Self-Eff Symptom - Percentile 21 T-scores: mean of general population = 50. 5 points is clinically meaningfully difference Percentiles provide an indication of how the patient's score ranks in relation to the general population. Higher percentile rankings indicate better function/quality of life. 50th percentile is the average of the general population and indicates half of respondents had a worse score. OBJECTIVE MEASURES WITH LEVEL OF FUNCTION: Pelvic Floor Control Method: IUD Pregnancies: 0 Pain with penetration: Pain during intercourse, Deep and superficial Sexual Health: Uses lubrication. Urinary/Bowel History : Urinary History, Bowel History Difficulty starting stream: No Incomplete emptying: No Stress Incontinence: No Urgency: No Nocturia (times per night) : 0 Daytime Frequency (hours): 2 Fluid Intake: Water, Pop/Diet Pop Water : 60 oz/day Pop/Diet Pop : 12 oz/day Difficulty evacuating / Excessive Straining: Yes Incomplete emptying: Yes Bowel Movement Frequency: 1x/day Bowel Movement Consistency ([place]) : 4: Like a sausage or snake, smooth and soft Fecal incontinence: No Bowel Aides / Supplements: Suppositories daily. Pelvic Floor Muscle Assessment Consent for pelvic assessment/testing and treatment: Patient was educated regarding pelvic floor physical therapy assessment/treatment which may include pelvic floor and girdle muscle assessment externally or internally (vaginal or rectal approach)., Patient verbalized consent for the above treatment approaches today. Patient understands they have control of the treatment and an opportunity to stop treatment at any time. Pelvic Floor Muscle Assessment: PERFECT, Muscle Dynamics Power: 4 Endurance: 6 Fast Reps: 10 Contracton Pressure: Strong squeeze, full circumference of fingers compressed Duration of Contraction: >3 seconds Recruitment of pelvic floor muscles: Coordinated Range of Motion: Normal Ability to Lengthen pelvic floor: Difficulty at first, but improves with cueing and practice Relaxation Postcontraction: Yes Paradoxical Contraction: No Diaphragmatic Breathing : Fair Pelvic Floor Manual Assessment External Pelvic Region Tenderness/ Hyperactivity - Trunk: Lower abdominals Lower abdominals: Bilateral (TTP midline.) Pelvic Floor Tenderness/Hyperactivity: Tested Vaginally in Tested Vaginally in : Supine/hooklying Iliococcygeus: Bilateral (07/16) Obturator internus: Right (07/16) LE AROM R LE AROM: WFL L LE AROM: WFL LE Flexibility Flexibility: Hamstring Flexibility, Hip Adductor, Hip Internal Rotation Flexibility, Hip External Rotation Flexibility R Hamstring Flexibility: WNL L Hamstring Flexibility: WNL R Adductor Flexibility: WNL L Adductor Flexibility: WNL R Hip Internal Rotation Flexibility: WNL L Hip Internal Rotation Flexibility: WNL R Hip External Rotation Flexibility: WNL L Hip External Rotation Flexibility: WNL LE Strength Trunk Strength: Lower Abdominals: 4/5 R LE Strength: 5/5 L LE Strength: 5/5 Tissue Restriction/Tenderness Scale: 0= normal, 1= mild, 2= moderate, 3= severe Education: Education Learning Preferences: Demonstration, Explanation, Performance, Printed Materials Barriers: None Learning/educational needs: Home exercise program, Plan of Care Education Provided: Yes, see treatment interventions for education provided Education Provided To: Patient Education Mode/Type: Demonstration, Explanation/Discussion, Literature/Printed Materials, Performance Response to Education/Teach Back: States/Identifies, Return Demonstration TREATMENT: PT Treatment Interventions: Therapeutic Exercise, Self-Assisted Management Evaluation Therapeutic Exercise: 1: *diaphragmatic breathing, x5min 2: *PF lengthening, 2x10 3: *seated piriformis stretch, 2t04tmf each Skilled Intervention: Patient was educated in proper exercise technique and purpose for exercises. Reviewed and educated patient on additions/changes for home exercise program as above (*). Skilled judgment was used in selection of appropriate interventions. Provided written instruction for home exercise program to facilitate proper performance and compliance. Self-Assisted Management: 1: Reviewed pelvic floor anatomy and function 2: Reviewed typical vs dysfunctional bowel health 3: Reviewed toileting techniques to fully empty bowels without straining (ex: diaphragmatic breathing, squatty potty, PF lengthening) 4: *self-colon massage, *abdominal sphincter release 5: Reviewed importance of good water and fiber intake for bowel and bladder health, encouraged discussion with roofing tile sorter for individualized nutrition counseling 6: Reviewed importance of good stool consistency, impact of stool consistency on bowel health 7: Reviewed purpose and instructions of pelvic wand for internal self-STM Skilled Intervention: Skilled judgment in the selection of proper modification for activity of daily living/home management based on clinical presentation, deficits, and needs. Provided written instruction for activities of daily living techniques to facilitate proper performance and compliance. Billing * Evaluation Low Complexity: 1 Unit Therapeutic Exercise Treatment Minutes: 10 Self-Care/Home Management Treatment Minutes: 16 Skilled Treatment Time Minutes (timed and untimed codes): 49 Total Session Time (minutes): 49 Session Start Time : 1620 Session Stop Time : 1709 Jennifer Traore, PT [facility] NoteHNO ID: [id number] Author: JENNIFER SERRANO PT Service: ? Author Type: Physical Therapist Type: Progress Notes Filed: 08/01/2024 09:43 Note Text: Episode Visit Count: 1 Therapist That Will Accept/Oversee The Plan Of Care: Jennifer Traore Start of Care Date: 06/17/24 Onset Date: 06/17/23 Patient Identified by Name and Date of : Yes REHABILITATION AND SPORTS THERAPY PHYSICAL THERAPY EVALUATION PLAN OF CARE: Assessment: Lay Hunter presents with chief complaint of pelvic pain and constipation that interferes with bowel function, altered sexual function . The patient presents with impairments in pelvic floor muscle restrictions/tenderness, impaired bowel and sexual function. PROMIS? (Patient-Reported Outcomes Measurement Information System) scores were reviewed and identified as within normal limits. Prognosis for therapy is Fair due to: chronic nature of impairments, clinical presentation . The patient will benefit from skilled therapy services to meet the goals established for this plan of care as noted below. Goals for Episode of Care: established 06/17/24 Patient demonstrates independence and compliance with home exercise program. Patient reports increased ability to fully empty bowels without straining at least 85% of the time to normalize bowel function. Patient displays decreased muscle spasms in pelvic floor to allow for decreased pain levels, improved bowel function. Patient to report at least 85% improvement in pain with sexual intercourse. Patient Goals: improve pain and bowel function Time Frame for Goals and Treatment : 08/16/24 Planned Interventions, Frequency, and Duration: Current Frequency: 1x every other week Duration: 4 weeks (reassess at 4 weeks and progress as indicated) Total Number of Visits Planned: 2 Planned Treatment Interventions: Therapeutic exercise (28859), Neuromuscular re-education (35845), Manual therapy (01712), Therapeutic activities (23737), Self-fci management (81714), Patient/Family/Caregiver Education PLAN FOR NEXT VISIT: assess response to HEP, progress stretches, internal/external manual work Patient demonstrates good understanding of plan of care and treatment. The above goals and plan of care were discussed and agreed upon by patient/family. SUBJECTIVE: Pt reports bowel concerns and pelvic pain began about a year ago. Pt reports history of adenomyosis and has pelvic pain from this. Pt reports constipation, has tried many remedies including laxatives, suppositories, and other bowel aides with no relief. 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: [employer] videos Intake Information: Prescription present Previous Treatment: None Falls Interview: No positive findings with falls interview PAST MEDICAL HISTORY Diagnosis Date Asthma Attention deficit disorder (ADD) without hyperactivity Generalized anxiety disorder History of depression Hypoglycemia Irritable bowel syndrome with constipation PAST SURGICAL HISTORY Procedure Laterality Date TRABECULOPLASTY BY LASER SURGERY Bilateral 08/13/2020 Aquatic Screen: No Pain: Pain Pain Level: 4 Pain Location: Abdomen Description: Sharp, Shooting Frequency: Continuous Post Treatment Pain Post Treatment Pain Level: No Change PROMIS Scales 07/13/2024 06/15/2024 Higher is Better Phys Func - T Score 47 (within normal limits) 45 (within normal limits) Phys Func - Percentile 38 31 Self-Eff Symptom - T Score 39 (Low) 42 (Average) Self-Eff Symptom - Percentile 14 21 T-scores: mean of general population = 50. 5 points is clinically meaningfully difference Percentiles provide an indication of how the patient's score ranks in relation to the general population. Higher percentile rankings indicate better function/quality of life. 50th percentile is the average of the general population and indicates half of respondents had a worse score. OBJECTIVE MEASURES WITH LEVEL OF FUNCTION: Pelvic Floor Control Method: IUD Pregnancies: 0 Pain with penetration: Pain during intercourse, Deep and superficial Sexual Health: Uses lubrication. Urinary/Bowel History : Urinary History, Bowel History Difficulty starting stream: No Incomplete emptying: No Stress Incontinence: No Urgency: No Nocturia (times per night) : 0 Daytime Frequency (hours): 2 Fluid Intake: Water, Pop/Diet Pop Water : 60 oz/day Pop/Diet Pop : 12 oz/day Difficulty evacuating / Excessive Straining: Yes Incomplete emptying: Yes Bowel Movement Frequency: 1x/day Bowel Movement Consistency ([place]) : 4: Lik (more content not included)... [facility]11-25-2024 History of Present illness Narrative* Sanjuanita Nash APRN.CLINICAL MENTAL HEALTH COUNSELOR - 06/09/2024 7:40 AM EST SUBJECTIVE: HPV Vaccine(3 - 2-dose series) due on 04/01/2009 Spirometry Never done HPI Lay Hunter is a 29 year old female. PMH significant for ACTIVE PROBLEM LIST Anxiety Asthma Attention Deficit Hyperactivity Disorder, Combined Type Depression Irritable Bowel Syndrome With Constipation Hypoglycemia Allergic Dermatitis IUD (Intrauterine Device) in Place At her last visit she notne that she had restarted Vyvanse and also decreased her dose of Zoloft then felt tired, nausea, palpitations and felt like she was needing to sleep. She felt improved with stopping vyvanse. She reports that she continues to feel much better. She notes some minor morning nausea and fatigue. She notes some anxiety. 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 Notes IUD seems to be helpful, was having pelvic pain, noted adenomyosis.This is much less frequentnow. Review of Systems Constitutional: Negative. Psychiatric/Behavioral: Positive for decreased concentration. Objective BP 107/71 Pulse 76 Resp 16 Wt 72.3 kg (159 lb 6.3 oz) LMP 05/06/2024 (Exact Date) BMI 27.36 kg/m Physical Exam Vitals and nursing note reviewed. Constitutional: Appearance: Normal appearance. HENT: Head: Normocephalic and atraumatic. Eyes: Conjunctiva/sclera: Conjunctivae normal. Cardiovascular: Rate and Rhythm: Normal rate. Pulmonary: Effort: Pulmonary effort is normal. Musculoskeletal: Right foot: Normal range of motion. Skin: General: Skin is warm and dry. Neurological: General: No focal deficit present. Mental Status: She is alert and oriented to person, place, and time. ALLERGIES Allergen Reactions Penicillins Unknown Pt states she doesn't know what reaction she had to Pencillin. She was a young child. Allergy skin tests to penicillin were positive.The patient is at risk for a severe, immediate, IgE-mediated reaction to penicillin and other penicillin type antibiotics. The patient should continue to avoid use ofpenicillin and other penicillin type antibiotics. Medications sertraline (ZOLOFT) 25 mg tablet Take 1 tablet by mouth once daily. levonorgestrel (MIRENA) 21 mcg/24hr (up to 8 yrs) 52 mg IUD 1 Each by INTRAUTERINE route as directed. lisdexamfetamine (VYVANSE) 20 mg capsule Take 1 capsule by mouth once daily for 30 days. [START ON 07/09/2024] lisdexamfetamine (VYVANSE) 20 mg capsule Take 1 capsule by mouth once daily for 30 days. Patient should start on July 09, 2024. [START ON 08/08/2024] lisdexamfetamine (VYVANSE) 20 mg capsule Take 1 capsule by mouth once daily for 30 days. Patient should start on August 08, 2024. metoclopramide HCl (REGLAN) 5 mg tablet Take 5 mg by mouth two times a day. One tablet by mouth 2 times a day 30 minutes before eating (Patient not taking: Reported on 06/09/2024) PAST MEDICAL HISTORY Diagnosis Date Asthma Attention deficit disorder (ADD) without hyperactivity Generalized anxiety disorder History of depression Hypoglycemia Irritable bowel syndrome with constipation PAST SURGICAL HISTORY Procedure Laterality Date TRABECULOPLASTY BY LASER SURGERY Bilateral 08/13/2020 Social History Tobacco Use Smoking status: Never Smokeless tobacco: Never Vaping Use Vaping status: Never Used Substance Use Topics Alcohol use: Yes Comment: once a month Drug use: Never FAMILY HISTORY Problem Relation Age of Onset other (colitis) Mother Appears to be due to Post COVID No Known Problems Father other (Leg Tumor) Sister In thigh bone. Just needed resected OCD Sister other (Dyslexia) Sister other (Speech impediment) Sister Lung Cancer Maternal Grandmother No Known Problems Maternal Grandfather Breast Cancer Paternal Grandmother 70 No Known Problems Paternal Grandfather Component Latest Ref Rng & Units 08/03/2021 09/25/2022 WBC 3.70 - 11.00 k/uL 5.3 6.13 RBC 3.90 - 5.20 m/uL 4.53 4.50 Hemoglobin 11.5 - 15.5 g/dL 13.5 13.6 Hematocrit 36.0 - 46.0 % 40.0 41.3 MCV 80.0 - 100.0 fL 88.3 91.8 MCHC 30.5 - 36.0 g/dL 33.8 32.9 RDW 11 - 14.5 12.5 MPV 9.0 - 12.7 fL 10.8 10.9 Platelet Count 150 - 400 k/uL 233 258 Neutrophil % 45 - 75 % 55.3 Immature Gran % Less than 2 % 0.2 Lymphocyte % 20 - 40 % 33.8 [place]% 2 - 10 % 8.0 % Eosinophils 0 - 5 % 1.7 Basophils, % 0 - 2 % 1.0 Neutrophil Ab 2.0 - 8.3 K/CU MM 2.90 IMMATURE GRANS (ABS) Less than 2 K/CU MM 0.00 Lymphocytes, Absolute 0.9 - 4.4 K/CU MM 1.80 MONOCYTES,ABSOLUTE 0.1 - 1.1 K/CU MM 0.40 Abs Eosin 0 - 0.5 K/CU MM 0.10 ABSOLUTE BASOPHILS 0 - 0.2 K/CU MM 0.10 NRBC Less than 1 % 0.0 Sodium 136 - 144 mmol/L 139 136 Potassium 3.7 - 5.1 mmol/L 4.3 4.2 Chloride 97 - 105 mmol/L 106 101 CO2 22 - 30 mmol/L 27.0 24 Anion Gap 9 - 18 mmol/L 6 11 Glucose 74 - 99 mg/dL 83 86 BUN 7 - 21 mg/dL 12 8 Creatinine 0.58 - 0.96 mg/dL 0.80 0.76 BUN/CREATININE RATIO 15 - 24 15 Protein, Total 6.3 - 8.0 g/dL 7.4 7.3 Albumin 3.9 - 4.9 g/dL 4.3 4.5 GLOBULIN 2.2 - 4.2 GM/DL 3.1 ALBUMIN/GLOBULIN RATIO 0.8 - 2.0 1.4 Calcium 8.5 - 10.2 mg/dL 9.8 9.4 Bilirubin, Total 0.2 - 1.3 mg/dL 1.20 (H) 1.1 AST 13 - 35 U/L 18 16 ALT 7 - 38 U/L 17 13 Alkaline Phosphatase 34 - 123 U/L 92 78 eGFR >=60 mL/min/1.73m 112 MCH 26.0 - 34.0 pg 30.2 RDW-CV 11.5 - 15.0 % 12.1 Absolute nRBC <0.01 k/uL <0.01 Cholesterol, Total <200 mg/dL 216 (H) 192 Triglyceride <150 mg/dL 54 65 HDL Cholesterol >39 mg/dL 81 70 Non HDL Cholesterol <130 mg/dL 122 Fasting Time hrs 13 VLDL Cholesterol <30 mg/dL 13 TC:HDL Ratio <5.10 2.74 LDL Cholesterol <100 mg/dL 124 109 (H) LDL:HDL Ratio <2.54 1.56 HIV 12 Combo (Ag/Ab) Nonreactive Nonreactive HIV 1/2 Ab HIV Interpretation Iron 41 - 186 ug/dL 60 TIBC 232 - 386 ug/dL 344 Transferrin Saturation 15.0 - 57.0 % 17.4 Estimated GFR Greater than 60 eGFR- Greater than 60 Magnesium 1.7 - 2.3 mg/dL 2.2 TSH 0.270 - 4.200 mIU/L 1.590 Free T4 0.9 - 1.7 ng/dL 1.1 Free T3 2.3 - 4.1 pg/mL 2.6 Hep C Antibody IA Negative Negative Ferritin 14.7 - 205.1 ng/mL 32.8 ASSESSMENT/PLAN: 1.. Anxiety - ICD9: 300.00, ICD10: F41.9 Wishes to continue with decreased dose. Continue with 25 mg QD for now Feel previous symptoms wee from decrease of Zoloft dose in addition to resuming Vyvanse on same day - SERTRALINE 25 MG TABLET 3. Attention deficit hyperactivity disorder, combined type - ICD9: 314.01, ICD10: F90.2 Resume at a lower dose and titrate upward if needed 3 mo follow up Sanjuanita Nash APRN.CLINICAL MENTAL HEALTH COUNSELOR 6 mo follow up MD Sanjuanita Rutledge APRN.CLINICAL MENTAL HEALTH COUNSELOR Medical Decision Making: Problems: Moderate: 1+ chronic illnesses with change Risk: Moderate: Drug management Medical Decision Making Level: 4 - Moderate [facility] NoteHNO ID: [id number] Author: SANJUANITA NASH APRN.CLINICAL MENTAL HEALTH COUNSELOR Service: ? Author Type: Nurse Specialist Type: Progress Notes Filed: 06/09/2024 08:45 Note Text: SUBJECTIVE: HPV Vaccine(3 - 2-dose series) due on 04/01/2009 Spirometry Never done PABLO Hunter is a 29 year old female. PMH significant for ACTIVE PROBLEM LIST Anxiety Asthma Attention Deficit Hyperactivity Disorder, Combined Type Depression Irritable Bowel Syndrome With Constipation Hypoglycemia Allergic Dermatitis IUD (Intrauterine Device) in Place At her last visit she notne that she had restarted Vyvanse and also decreased her dose of Zoloft then felt tired, nausea, palpitations and felt like she was needing to sleep. She felt improved with stopping vyvanse. She reports that she continues to feel much better. She notes some minor morning nausea and fatigue. She notes some anxiety. 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 Notes IUD seems to be helpful, was having pelvic pain, noted adenomyosis.This is much less frequent now. Review of Systems Constitutional: Negative. Psychiatric/Behavioral: Positive for decreased concentration. Objective BP 107/71 Pulse 76 Resp 16 Wt 72.3 kg (159 lb 6.3 oz) LMP 05/06/2024 (Exact Date) BMI 27.36 kg/m? Physical Exam Vitals and nursing note reviewed. Constitutional: Appearance: Normal appearance. HENT: Head: Normocephalic and atraumatic. Eyes: Conjunctiva/sclera: Conjunctivae normal. Cardiovascular: Rate and Rhythm: Normal rate. Pulmonary: Effort: Pulmonary effort is normal. Musculoskeletal: Right foot: Normal range of motion. Skin: General: Skin is warm and dry. Neurological: General: No focal deficit present. Mental Status: She is alert and oriented to person, place, and time. ALLERGIES Allergen Reactions Penicillins Unknown Pt states she doesn't know what reaction she had to Pencillin. She was a young child. Allergy skin tests to penicillin were positive.The patient is at risk for a severe, immediate, IgE-mediated reaction to penicillin and other penicillin type antibiotics. The patient should continue to avoid use of penicillin and other penicillin type antibiotics. Medications sertraline (ZOLOFT) 25 mg tablet Take 1 tablet by mouth once daily. levonorgestrel (MIRENA) 21 mcg/24hr (up to 8 yrs) 52 mg IUD 1 Each by INTRAUTERINE route as directed. lisdexamfetamine (VYVANSE) 20 mg capsule Take 1 capsule by mouth once daily for 30 days. [START ON 07/09/2024] lisdexamfetamine (VYVANSE) 20 mg capsule Take 1 capsule by mouth once daily for 30 days. Patient should start on July 09, 2024. [START ON 08/08/2024] lisdexamfetamine (VYVANSE) 20 mg capsule Take 1 capsule by mouth once daily for 30 days. Patient should start on August 08, 2024. metoclopramide HCl (REGLAN) 5 mg tablet Take 5 mg by mouth two times a day. One tablet by mouth 2 times a day 30 minutes before eating (Patient not taking: Reported on 06/09/2024) PAST MEDICAL HISTORY Diagnosis Date Asthma Attention deficit disorder (ADD) without hyperactivity Generalized anxiety disorder History of depression Hypoglycemia Irritable bowel syndrome with constipation PAST SURGICAL HISTORY Procedure Laterality Date TRABECULOPLASTY BY LASER SURGERY Bilateral 08/13/2020 Social History Tobacco Use Smoking status: Never Smokeless tobacco: Never Vaping Use Vaping status: Never Used Substance Use Topics Alcohol use: Yes Comment: once a month Drug use: Never FAMILY HISTORY Problem Relation Age of Onset other (colitis) Mother Appears to be due to Post COVID No Known Problems Father other (Leg Tumor) Sister In thigh bone. Just needed resected OCD Sister other (Dyslexia) Sister other (Speech impediment) Sister Lung Cancer Maternal Grandmother No Known Problems Maternal Grandfather Breast Cancer Paternal Grandmother 70 No Known Problems Paternal Grandfather Component Latest Ref Rng AND Units 08/03/2021 09/25/2022 WBC 3.70 - 11.00 k/uL 5.3 6.13 RBC 3.90 - 5.20 m/uL 4.53 4.50 Hemoglobin 11.5 - 15.5 g/dL 13.5 13.6 Hematocrit 36.0 - 46.0 % 40.0 41.3 MCV 80.0 - 100.0 fL 88.3 91.8 MCHC 30.5 - 36.0 g/dL 33.8 32.9 RDW 11 - 14.5 12.5 MPV 9.0 - 12.7 fL 10.8 10.9 Platelet Count 150 - 400 k/uL 233 258 Neutrophil % 45 - 75 % 55.3 Immature Gran % Less than 2 % 0.2 Lymphocyte % 20 - 40 % 33.8 [place]% 2 - 10 % 8.0 % Eosinophils 0 - 5 % 1.7 Basophils, % 0 - 2 % 1.0 Neutrophil Ab 2.0 - 8.3 K/CU MM 2.90 IMMATURE GRANS (ABS) Less than 2 K/CU MM 0.00 Lymphocytes, Absolute 0.9 - 4.4 K/CU MM 1.80 MONOCYTES,ABSOLUTE 0.1 - 1.1 K/CU MM 0.40 Abs Eosin 0 - 0.5 K/CU MM 0.10 ABSOLUTE BASOPHILS 0 - 0.2 K/CU MM 0.10 NRBC Less than 1 % 0.0 Sodium 136 - 144 mmol/L 139 136 Potassium 3.7 - 5.1 mmol/L 4.3 4.2 Chloride 97 - 105 mmol/L 106 101 CO2 22 - 30 mmol/L 27.0 24 Anion Gap 9 - 18 mmol/L 6 11 Glucose 74 - 99 mg/dL 83 (more content not included)...[facility]11-18-2024 History of Present illness Narrative* Sanjuanita Nash, SENIOR TECHNICAL MANAGER.CLINICAL MENTAL HEALTH COUNSELOR - 06/02/2024 1:40 PM EST AMBULATORY TELEPHONE VISIT Lay Hunter has consented to this telephone encounter. Persons Present: patient Chief Complaint/Reason: lightheadedness HPI: Vyvanse restarted last week, then felt tired, nausea and felt like she was needing to sleep. Palpitations feel fast. Stopped vyvanse yesterday. Notes decreased palpitations. Notes nausea, no vomiting, not improved yet. Has not checked BP or HR at home. Reports caffeine intake increased caffeine use did not help with feeling of ftigue. Not feeling ill. lightheadedness OK in morning, then feels like she needed to sleep by noon. Notes getting enough sleep. She notes that she also decreased Zoloft dose from 50 mg to 25 mg on the same day that she resumed vyvanse.. Data Reviewed: EPIC chart Assessment: (F90.2) Attention deficit hyperactivity disorder, combined type (primary encounter diagnosis) (R11.0) Nausea (R00.2) Palpitations (R53.83) Other fatigue (F41.9) Anxiety Plan: ASSESSMENT/PLAN: 1. Attention deficit hyperactivity disorder, combined type - ICD9: 314.01, ICD10: F90.2 (primary diagnosis) 2. Nausea - ICD9: 787.02, ICD10: R11.0 3. Palpitations - ICD9: 785.1, ICD10: R00.2 4. Other fatigue - ICD9: 780.79, ICD10: R53.83 5. Anxiety - ICD9: 300.00, ICD10: F41.9 She reports resuming Vyvanse 30 mg daily and decreasing Zoloft from 50 mg to 25 mg on the same date. Subsequently felt nauseous, palpitations and fatigue. She does not check home vital signs. Notes stopped Vyvanse yesterday and feeling a bit improved now. Recommend staying off of Vyvanse for the rest of this week. Continue on Zoloft 25 mg if so desires however if she wants to return to 50 mg daily she can do so, she was wondering if possibly having serotonin syndrome symptoms. I suspect the twochanges at the same time of her medications caused her symptoms. Recheck in 1 week. Sanjuanita Nash APRN.CLINICAL MENTAL HEALTH COUNSELOR Total Time Spent: 15 minutes Sanjuanita Nash APRN.CLINICAL MENTAL HEALTH COUNSELOR documented in [facility] NoteHNO ID: [id number] Author: SANJUANITA NASH APRN.CNS Service: ? Author Type: Nurse Specialist Type: Progress Notes Filed: 06/02/2024 14:09 Note Text: AMBULATORY TELEPHONE VISIT Lay Hunter has consented to this telephone encounter. Persons Present: patient Chief Complaint/Reason: lightheadedness HPI: Vyvanse restarted last week, then felt tired, nausea and felt like she was needing to sleep. Palpitations feel fast. Stopped vyvanse yesterday. Notes decreased palpitations. Notes nausea, no vomiting, not improved yet. Has not checked BP or HR at home. Reports caffeine intake increased caffeine use did not help with feeling of ftigue. Not feeling ill. lightheadedness OK in morning, then feels like she needed to sleep by noon. Notes getting enough sleep. She notes that she also decreased Zoloft dose from 50 mg to 25 mg on the same day that she resumed vyvanse.. Data Reviewed: EPIC chart Assessment: (F90.2) Attention deficit hyperactivity disorder, combined type (primary encounter diagnosis) (R11.0) Nausea (R00.2) Palpitations (R53.83) Other fatigue (F41.9) Anxiety Plan: ASSESSMENT/PLAN: 1. Attention deficit hyperactivity disorder, combined type - ICD9: 314.01, ICD10: F90.2 (primary diagnosis) 2. Nausea - ICD9: 787.02, ICD10: R11.0 3. Palpitations - ICD9: 785.1, ICD10: R00.2 4. Other fatigue - ICD9: 780.79, ICD10: R53.83 5. Anxiety - ICD9: 300.00, ICD10: F41.9 She reports resuming Vyvanse 30 mg daily and decreasing Zoloft from 50 mg to 25 mg on the same date. Subsequently felt nauseous, palpitations and fatigue. She does not check home vital signs. Notes stopped Vyvanse yesterday and feeling a bit improved now. Recommend staying off of Vyvanse for the rest of this week. Continue on Zoloft 25 mg if so desires however if she wants to return to 50 mg daily she can do so, she was wondering if possibly having serotonin syndrome symptoms. I suspect the two changes at the same time of her medications caused her symptoms. Recheck in 1 week. Sanjuanita Nash APRN.CLINICAL MENTAL HEALTH COUNSELOR Total Time Spent: 15 minutes Sanjuanita Nash APRN.[facility]NS[facility]24 NoteHNO ID: [id number] Author: JAQUI VELASQUEZ PSYD Service: ? Author Type: Psychologist Type: Progress Notes Filed: 05/28/2024 19:03 Note Text: [facility] Progress Note THIS WAS A ZOOM VISIT Lay Hunter 05/22/2024 [id number] Provider: Jaqui Britton PSYD Time: Approximately 45 minutes was spent in therapy. Parties Present: Patient Patient Presentation/Concerns: Lay indicated having an upcoming appointment to discuss Vyvanse, which she believes will help her mood and focus, She stated a lot of tension in her job due to the elections. She is scheduled to get on Sunday. 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 She continues to work on weight loss and mindful eating. Mental Status: Mood: anxious Affect: mood-congruent Thoughts/Associations:goal directed Suicidal/Homicidal Ideation: None expressed or evidenced Patient denies any suicidal or homicidal ideation, plan or intent at this time. Other Observations: None Therapy Focus Mood/affect regulation MEDICATIONS: Per medical record: Current Outpatient Medications Medication Sig lisdexamfetamine (VYVANSE) 30 mg capsule sertraline (ZOLOFT) 25 mg tablet Take 1 tablet by mouth once daily. [START ON 07/22/2024] lisdexamfetamine (VYVANSE) 30 mg capsule Take 1 capsule by mouth once daily for 30 days. Patient should start on July 22, 2024. [START ON 06/22/2024] lisdexamfetamine (VYVANSE) 30 mg capsule Take 1 capsule by mouth once daily for 30 days. Patient should start on June 22, 2024. lisdexamfetamine (VYVANSE) 30 mg capsule Take 1 capsule by mouth once daily for 30 days. levonorgestrel (MIRENA) 21 mcg/24hr (up to 8 yrs) 52 mg IUD 1 Each by INTRAUTERINE route as directed. metoclopramide HCl (REGLAN) 5 mg tablet Take 5 mg by mouth two times a day. One tablet by mouth 2 times a day 30 minutes before eating No current facility-administered medications for this visit. Psychiatric Medication Issues: No change from previous appointment DIAGNOSIS: ELIE OCD Body dysmorphia Treatment Modality/Interventions: Cognitive Behavioral TREATMENT ASSESSMENT/PROGRESS: Stable TREATMENT PLAN/GOALS: Continue in therapy focusing on stress management, affect management, and anxiety management. CBT for anxiety. Mindful eating skills. Next appointment: 2 weeks [facility]11-08-2024 History of Present illness Narrative* Sanjuanita Nash APRN.CLINICAL MENTAL HEALTH COUNSELOR - 05/23/2024 8:20 AM EST SUBJECTIVE: HPV Vaccine(3 - 2-dose series) due on 04/01/2009 Spirometry Never done Influenza Vaccine(1) Never done HPI Lay Hunter is a 29 year old female. PMH significant for ACTIVE PROBLEM LIST Anxiety Asthma Attention Deficit Hyperactivity Disorder, Combined Type Depression Irritable Bowel Syndrome With Constipation Hypoglycemia Allergic Dermatitis IUD (Intrauterine Device) in Place ADD: previously taking vyvannse but stopped taking it due to unavailability and expense. Notes it has come back into stock at [facility] in [place] and would like to resume it. Notes it was helping for focus. Stable weight. Foot pain right heel that is worse with walking barefoot, eases up during the day, better with wearing shoes,not limiting her ability to walk, not worse with walking in shoes. Mobility preserved. Notes IUD seems to be helpful, was having pelvic pain, noted adenomyosis. Review of Systems Constitutional: Negative. Musculoskeletal: Positive for arthralgias. Psychiatric/Behavioral: Positive for decreased concentration. Objective BP 113/76 Pulse 74 Resp 16 Wt 72 kg (158 lb 11.7 oz) LMP 05/06/2024 (Exact Date) BMI 27.25 kg/m Physical Exam Vitals and nursing note reviewed. Constitutional: Appearance: Normal appearance. HENT: Head: Normocephalic and atraumatic. Eyes: Conjunctiva/sclera: Conjunctivae normal. Cardiovascular: Rate and Rhythm: Normal rate. Pulses: Dorsalis pedis pulses are 2+ on the right side. Posterior tibial pulses are 2+ on the right side. Pulmonary: Effort: Pulmonary effort is normal. Musculoskeletal: Right foot: Normal range of motion. Feet: Right foot: Skin integrity: Skin integrity normal. Toenail Condition: Right toenails are normal. Comments: R heel pain, + blister Skin: General: Skin is warm and dry. Neurological: General: No focal deficit present. Mental Status: She is alert and oriented to person, place, and time. ALLERGIES Allergen Reactions Penicillins Unknown Pt states she doesn't know what reaction she had to Pencillin. She was a young child. Allergy skin tests to penicillin were positive.The patient is at risk for a severe, immediate, IgE-mediated reaction to penicillin and other penicillin type antibiotics. The patient should continue to avoid use ofpenicillin and other penicillin type antibiotics. Medications lisdexamfetamine (VYVANSE) 30 mg capsule levonorgestrel (MIRENA) 21 mcg/24hr (up to 8 yrs) 52 mg IUD 1 Each by INTRAUTERINE route as directed. metoclopramide HCl (REGLAN) 5 mg tablet Take 5 mg by mouth two times a day. One tablet by mouth 2 times a day 30 minutes before eating sertraline (ZOLOFT) 25 mg tablet Take 1 tablet by mouth once daily. [START ON 07/22/2024] lisdexamfetamine (VYVANSE) 30 mg capsule Take 1 capsule by mouth once daily for30 days. Patient should start on July 22, 2024. [START ON 06/22/2024] lisdexamfetamine (VYVANSE) 30 mg capsule Take 1 capsule by mouth once daily for 30 days. Patient should start on June 22, 2024. lisdexamfetamine (VYVANSE) 30 mg capsule Take 1 capsule by mouth once daily for 30 days. PAST MEDICAL HISTORY Diagnosis Date Asthma Attention deficit disorder (ADD) without hyperactivity Generalized anxiety disorder History of depression Hypoglycemia Irritable bowel syndrome with constipation PAST SURGICAL HISTORY Procedure Laterality Date TRABECULOPLASTY BY LASER SURGERY Bilateral 08/13/2020 Social History Tobacco Use Smoking status: Never Smokeless tobacco: Never Vaping Use Vaping status: Never Used Substance Use Topics Alcohol use: Yes Comment: once a month Drug use: Never FAMILY HISTORY Problem Relation Age of Onset other (colitis) Mother Appears to be due to Post COVID No Known Problems Father other (Leg Tumor) Sister In thigh bone. Just needed resected OCD Sister other (Dyslexia) Sister other (Speech impediment) Sister Lung Cancer Maternal Grandmother No Known Problems Maternal Grandfather Breast Cancer Paternal Grandmother 70 No Known Problems Paternal Grandfather Component Latest Ref Rng & Units 08/03/2021 09/25/2022 WBC 3.70 - 11.00 k/uL 5.3 6.13 RBC 3.90 - 5.20 m/uL 4.53 4.50 Hemoglobin 11.5 - 15.5 g/dL 13.5 13.6 Hematocrit 36.0 - 46.0 % 40.0 41.3 MCV 80.0 - 100.0 fL 88.3 91.8 MCHC 30.5 - 36.0 g/dL 33.8 32.9 RDW 11 - 14.5 12.5 MPV 9.0 - 12.7 fL 10.8 10.9 Platelet Count 150 - 400 k/uL 233 258 Neutrophil % 45 - 75 % 55.3 Immature Gran % Less than 2 % 0.2 Lymphocyte % 20 - 40 % 33.8 [place]% 2 - 10 % 8.0 % Eosinophils 0 - 5 % 1.7 Basophils, % 0 - 2 % 1.0 Neutrophil Ab 2.0 - 8.3 K/CU MM 2.90 IMMATURE GRANS (ABS) Less than 2 K/CU MM 0.00 Lymphocytes, Absolute 0.9 - 4.4 K/CU MM 1.80 MONOCYTES,ABSOLUTE 0.1 - 1.1 K/CU MM 0.40 Abs Eosin 0 - 0.5 K/CU MM 0.10 ABSOLUTE BASOPHILS 0 - 0.2 K/CU MM 0.10 NRBC Less than 1 % 0.0 Sodium 136 - 144 mmol/L 139 136 Potassium 3.7 - 5.1 mmol/L 4.3 4.2 Chloride 97 - 105 mmol/L 106 101 CO2 22 - 30 mmol/L 27.0 24 Anion Gap 9 - 18 mmol/L 6 11 Glucose 74 - 99 mg/dL 83 86 BUN 7 - 21 mg/dL 12 8 Creatinine 0.58 - 0.96 mg/dL 0.80 0.76 BUN/CREATININE RATIO 15 - 24 15 Protein, Total 6.3 - 8.0 g/dL 7.4 7.3 Albumin 3.9 - 4.9 g/dL 4.3 4.5 GLOBULIN 2.2 - 4.2 GM/DL 3.1 ALBUMIN/GLOBULIN RATIO 0.8 - 2.0 1.4 Calcium 8.5 - 10.2 mg/dL 9.8 9.4 Bilirubin, Total 0.2 - 1.3 mg/dL 1.20 (H) 1.1 AST 13 - 35 U/L 18 16 ALT 7 - 38 U/L 17 13 Alkaline Phosphatase 34 - 123 U/L 92 78 eGFR >=60 mL/min/1.73m 112 MCH 26.0 - 34.0 pg 30.2 RDW-CV 11.5 - 15.0 % 12.1 Absolute nRBC <0.01 k/uL <0.01 Cholesterol, Total <200 mg/dL 216 (H) 192 Triglyceride <150 mg/dL 54 65 HDL Cholesterol >39 mg/dL 81 70 Non HDL Cholesterol <130 mg/dL 122 Fasting Time hrs 13 VLDL Cholesterol <30 mg/dL 13 TC:HDL Ratio <5.10 2.74 LDL Cholesterol <100 mg/dL 124 109 (H) LDL:HDL Ratio <2.54 1.56 HIV 12 Combo (Ag/Ab) Nonreactive Nonreactive HIV 1/2 Ab HIV Interpretation Iron 41 - 186 ug/dL 60 TIBC 232 - 386 ug/dL 344 Transferrin Saturation 15.0 - 57.0 % 17.4 Estimated GFR Greater than 60 eGFR- Greater than 60 Magnesium 1.7 - 2.3 mg/dL 2.2 TSH 0.270 - 4.200 mIU/L 1.590 Free T4 0.9 - 1.7 ng/dL 1.1 Free T3 2.3 - 4.1 pg/mL 2.6 Hep C Antibody IA Negative Negative Ferritin 14.7 - 205.1 ng/mL 32.8 ASSESSMENT/PLAN: 1. Pain of right heel - ICD9: 729.5, ICD10: M79.671 (primary diagnosis) Most consistent with plantar fasciitis, recommend avoiding going barefoot, stretching heels first thing in the morning nd supportive walking shoes-new balance, hoka bondi, on cloud, or similar. Let us know if not improving with these measures, printed lifestyle measures, uptodate information. Can prescribe medication, complete XR, refer to podiatry if not improving, so desires. 2. Anxiety - ICD9: 300.00, ICD10: F41.9 Wishes to decrease dose. Decrease from 50 mg QD to 25 mg QD. If doing well and wants to titrate down fletcher again can do so - SERTRALINE 25 MG TABLET 3. Attention deficit hyperactivity disorder, combined type - ICD9: 314.01, ICD10: F90.2 This medication ws not available for a period of time would like to resume as it was helpful in thepast and tolerated well - LISDEXAMFETAMINE 30 MG CAPSULE - LISDEXAMFETAMINE 30 MG CAPSULE - LISDEXAMFETAMINE 30 MG CAPSULE Sanjuanita Nash APRN.CNS Medical Decision Making: Problems: Moderate: 1+ chronic illnesses with change Risk: Moderate: Drug management Medical Decision Making Level: 4 - Moderate [facility] NoteHNO ID: [id number] Author: SANJUANITA NASH APRN.CLINICAL MENTAL HEALTH COUNSELOR Service: ? Author Type: Nurse Specialist Type: Progress Notes Filed: 05/23/2024 09:05 Note Text: SUBJECTIVE: HPV Vaccine(3 - 2-dose series) due on 04/01/2009 Spirometry Never done Influenza Vaccine(1) Never done HPI Lay Hunter is a 29 year old female. PMH significant for ACTIVE PROBLEM LIST Anxiety Asthma Attention Deficit Hyperactivity Disorder, Combined Type Depression Irritable Bowel Syndrome With Constipation Hypoglycemia Allergic Dermatitis IUD (Intrauterine Device) in Place ADD: previously taking vyvannse but stopped taking it due to unavailability and expense. Notes it has come back into stock at [facility] in [place] and would like to resume it. Notes it was helping for focus. Stable weight. Foot pain right heel that is worse with walking barefoot, eases up during the day, better with wearing shoes,not limiting her ability to walk, not worse with walking in shoes. Mobility preserved. Notes IUD seems to be helpful, was having pelvic pain, noted adenomyosis. Review of Systems Constitutional: Negative. Musculoskeletal: Positive for arthralgias. Psychiatric/Behavioral: Positive for decreased concentration. Objective BP 113/76 Pulse 74 Resp 16 Wt 72 kg (158 lb 11.7 oz) LMP 05/06/2024 (Exact Date) BMI 27.25 kg/m? Physical Exam Vitals and nursing note reviewed. Constitutional: Appearance: Normal appearance. HENT: Head: Normocephalic and atraumatic. Eyes: Conjunctiva/sclera: Conjunctivae normal. Cardiovascular: Rate and Rhythm: Normal rate. Pulses: Dorsalis pedis pulses are 2+ on the right side. Posterior tibial pulses are 2+ on the right side. Pulmonary: Effort: Pulmonary effort is normal. Musculoskeletal: Right foot: Normal range of motion. Feet: Right foot: Skin integrity: Skin integrity normal. Toenail Condition: Right toenails are normal. Comments: R heel pain, + blister Skin: General: Skin is warm and dry. Neurological: General: No focal deficit present. Mental Status: She is alert and oriented to person, place, and time. ALLERGIES Allergen Reactions Penicillins Unknown Pt states she doesn't know what reaction she had to Pencillin. She was a young child. Allergy skin tests to penicillin were positive.The patient is at risk for a severe, immediate, IgE-mediated reaction to penicillin and other penicillin type antibiotics. The patient should continue to avoid use of penicillin and other penicillin type antibiotics. Medications lisdexamfetamine (VYVANSE) 30 mg capsule levonorgestrel (MIRENA) 21 mcg/24hr (up to 8 yrs) 52 mg IUD 1 Each by INTRAUTERINE route as directed. metoclopramide HCl (REGLAN) 5 mg tablet Take 5 mg by mouth two times a day. One tablet by mouth 2 times a day 30 minutes before eating sertraline (ZOLOFT) 25 mg tablet Take 1 tablet by mouth once daily. [START ON 07/22/2024] lisdexamfetamine (VYVANSE) 30 mg capsule Take 1 capsule by mouth once daily for 30 days. Patient should start on July 22, 2024. [START ON 06/22/2024] lisdexamfetamine (VYVANSE) 30 mg capsule Take 1 capsule by mouth once daily for 30 days. Patient should start on June 22, 2024. lisdexamfetamine (VYVANSE) 30 mg capsule Take 1 capsule by mouth once daily for 30 days. PAST MEDICAL HISTORY Diagnosis Date Asthma Attention deficit disorder (ADD) without hyperactivity Generalized anxiety disorder History of depression Hypoglycemia Irritable bowel syndrome with constipation PAST SURGICAL HISTORY Procedure Laterality Date TRABECULOPLASTY BY LASER SURGERY Bilateral 08/13/2020 Social History Tobacco Use Smoking status: Never Smokeless tobacco: Never Vaping Use Vaping status: Never Used Substance Use Topics Alcohol use: Yes Comment: once a month Drug use: Never FAMILY HISTORY Problem Relation Age of Onset other (colitis) Mother Appears to be due to Post COVID No Known Problems Father other (Leg Tumor) Sister In thigh bone. Just needed resected OCD Sister other (Dyslexia) Sister other (Speech impediment) Sister Lung Cancer Maternal Grandmother No Known Problems Maternal Grandfather Breast Cancer Paternal Grandmother 70 No Known Problems Paternal Grandfather Component Latest Ref Rng AND Units 08/03/2021 09/25/2022 WBC 3.70 - 11.00 k/uL 5.3 6.13 RBC 3.90 - 5.20 m/uL 4.53 4.50 Hemoglobin 11.5 - 15.5 g/dL 13.5 13.6 Hematocrit 36.0 - 46.0 % 40.0 41.3 MCV 80.0 - 100.0 fL 88.3 91.8 MCHC 30.5 - 36.0 g/dL 33.8 32.9 RDW 11 - 14.5 12.5 MPV 9.0 - 12.7 fL 10.8 10.9 Platelet Count 150 - 400 k/uL 233 258 Neutrophil % 45 - 75 % 55.3 Immature Gran % Less than 2 % 0.2 Lymphocyte % 20 - 40 % 33.8 [place]pton% 2 - 10 % 8.0 % Eosinophils 0 - 5 % 1.7 Basophils, % 0 - 2 % 1.0 Neutrophil Ab 2.0 - 8.3 K/CU MM 2.90 IMMATURE GRANS (ABS) Less than 2 K/CU MM 0.00 Lymphocytes, Absolute 0.9 - 4.4 K/CU MM 1.80 MONOCYTES,ABSOLUTE 0.1 - 1.1 K (more content not included)...[facility]10-29-2024 Instructions* Patient Instructions* Fabiola Costa APRN.CNM - 05/13/2024 8:06 AM EDT POST IUD INSTRUCTIONS You may have irregular bleeding during the first 3 months of use. You may have mild-severe cramping for the next 48 hours. You may use over the counter medication (Motrin, Tylenol) as needed. Your IUD must be removed or replaced based on the following table: IUD Type Removed or replaced within: Kenyetta 3 years Kyleena 5 years Mirena 8 years Liletta 8 years Paragard 10 years Call the office for signs/symptoms of infection such as severe cramping, fever, or unusual bleeding. Check for string placement as instructed by your doctor. If you have any additional questions, please contact the office. [facility] [phone] Jennifer Morley documented in this encounterEast [facility]10-29-2024 NoteHNO ID: [id number] Author: FABIOLA COSTA APRN.CNM Service: ? Author Type: Sheet Heater Type: Progress Notes Filed: 05/13/2024 10:41 Note Text: Lay presents today for IUD insertion for contraception. Patient's last menstrual period was 05/06/2024 (exact date). GC/chlamydia: Negative on 04/25/24 test: negative Side effects including irregular bleeding were discussed with the patient. The patient understands that it should be removed in 8 years or sooner if the patient desires a . IUD source: office provided IUD lot #: [id number] Exp date: 07/15/2026 UNIVERSAL PROTOCOL / SAFETY CHECKLIST Procedure to be Performed: Intrauterine Device (IUD) insertion Mirena Sign In: A Moment of CARE was completed. Personnel directly involved with the procedure wore the appropriate PPE (Personal Protective Equipment). No special equipment needed. Patient/Surrogate Stated/Verified: PATIENT VERIFIED(optional for EMERGENT procedures): Patient name, Date of , Relevant allergies, and The intended procedure Time Out Communication: Intended patient and procedure match the source documents. Consent documented and matches the intended procedure. Relevant labs, photos, and/or imaging studies have been reviewed. Correct side/site marked and visible. Medications required for procedure verified. No fire risk assessment and interventions applicable. Implant(s) inserted: Correct implant(s) confirmed including size and side. and Expiration date(s) reviewed. Sign Out: SIGN OUT (optional for EMERGENT procedures): No specimen collected. All instruments, equipment, possible retained foreign bodies accounted for. Post-procedure follow-up management communicated and Plan of Care Visit completed when applicable. The sensitive examination was discussed with the Patient or Patient's Authorized Career Consultant. As applicable, any other physician, advance practice provider, medical student, or other health professional student that will be observing or involved in the sensitive examination for educational or training purposes was discussed with the Patient or Authorized Career Consultant. The Patient or Authorized Career Consultant has agreed to proceed with the sensitive examination. (Sensitive examination includes inspection and/or palpation of the breasts, pelvis, prostate and anorectal regions) The cervix was prepped with betadine. The uterus sounded to 7 cm and the uterus is Midposition.. Using sterile technique, the Mirena IUD was inserted without difficulty and the string was cut to 7 cm from the external os of the cervix. Patient tolerated procedure well. PLAN: Patient was advised to observe for signs and symptoms of infection including but not limited to fever, malodorous vaginal discharge and/or pain. The patient was told to check the string monthly for accurate placement. Bleeding expectations were reviewed. Follow up after next menses for string check. Referral to pelvic floor therapy for pelvic pain and narrow vaginal canal. Fabiola Costa APRN.[facility]10-29-2024 History of Present illness Narrative* Fabiola Costa APRN.[facility] - 05/13/2024 8:05 AM EDT Lay presents today for IUD insertion for contraception. Patient's last menstrual period was 05/06/2024 (exact date). GC/chlamydia: Negative on 04/25/24 test: negative Side effects including irregular bleeding were discussed with the patient. The patient understands that it should be removed in 8 years or sooner if the patient desires a . IUD source: office provided IUD lot #: [id number] Exp date: 07/15/2026 UNIVERSAL PROTOCOL / SAFETY CHECKLIST Procedure to be Performed: Intrauterine Device (IUD) insertion Mirena Sign In: A Moment of CARE was completed. Personnel directly involved with the procedure wore the appropriate PPE (Personal Protective Equipment). No special equipment needed. Patient/Surrogate Stated/Verified: PATIENT VERIFIED(optional for EMERGENT procedures): Patient name, Date of , Relevant allergies, and The intended procedure Time Out Communication: Intended patient and procedure match the source documents. Consent documented and matches the intended procedure. Relevant labs, photos, and/or imaging studies have been reviewed. Correct side/site marked and visible. Medications required for procedure verified. No fire risk assessment and interventions applicable. Implant(s) inserted: Correct implant(s) confirmed including size and side. and Expiration date(s) reviewed. Sign Out: SIGN OUT (optional for EMERGENT procedures): No specimen collected. All instruments, equipment, possible retained foreign bodies accounted for. Post-procedure follow-up management communicated and Plan of Care Visit completed when applicable. The sensitive examination was discussed with the Patient or Patient's Authorized Career Consultant. Asapplicable, any other physician, advance practice provider, medical student, or other health professional student that will be observing or involved in the sensitive examination for educational or training purposes was discussed with the Patient or Authorized Career Consultant. The Patient or Authorized Career Consultant has agreed to proceed with the sensitive examination. (Sensitive examination includes inspection and/or palpation of the breasts, pelvis, prostate and anorectal regions) The cervix was prepped with betadine. The uterus sounded to 7 cm and the uterus is Midposition.. Using sterile technique, the Mirena IUD was inserted without difficulty and the string was cut to 7 cmfrom the external os of the cervix. Patient tolerated procedure well. PLAN: Patient was advised to observe for signs and symptoms of infection including but not limited to fever, malodorous vaginal discharge and/or pain. The patient was told to check the string monthlyfor accurate placement. Bleeding expectations were reviewed. Follow up after next menses for string check. Referral to pelvic floor therapy for pelvic pain and narrow vaginal canal. Fabiola Costa APRN.CNM documented in this encounter[facility]10-24-2024 NoteHNO ID: [id number] Author: JAQUI VELASQUEZ PSYD Service: ? Author Type: Psychologist Type: Progress Notes Filed: 05/08/2024 10:24 Note Text: [facility] Progress Note THIS WAS A ZOOM VISIT Lay Hunter 04/30/2024 [id number] Provider: Jaqui Britton PSYD Time: Approximately 45 minutes was spent in therapy. Parties Present: Patient Patient Presentation/Concerns: Lya discussed making progress with making appointments to continue to find answers with her GI problems. She indicated high levels of obsessive/repetative thoughts about losing weight. She has been walking more but struggles with high levels of food cravings. She is considering starting AHDH medication again to help her to focus and maintain her motivation levels. She indicated some disappointment about her mother not checking in with her about her health or approaching wedding. Mental Status: Mood: anxious Affect: mood-congruent Thoughts/Associations:goal directed Suicidal/Homicidal Ideation: None expressed or evidenced Patient denies any suicidal or homicidal ideation, plan or intent at this time. Other Observations: None Therapy Focus Mood/affect regulation MEDICATIONS: Per medical record: Current Outpatient Medications Medication Sig metoclopramide HCl (REGLAN) 5 mg tablet Take 5 mg by mouth two times a day. One tablet by mouth 2 times a day 30 minutes before eating sertraline (ZOLOFT) 50 mg tablet Take 1 tablet by mouth once daily. DOSE CHANGE: TAKE ONE DAILY No current facility-administered medications for this visit. Psychiatric Medication Issues: No change from previous appointment DIAGNOSIS: ELIE OCD Body dysmorphia Treatment Modality/Interventions: Cognitive Behavioral TREATMENT ASSESSMENT/PROGRESS: Stable TREATMENT PLAN/GOALS: Continue in therapy focusing on stress management, affect management, and anxiety management. CBT for anxiety. Mindful eating skills. Next appointment: 2 weeks Ja[facility] Britton [facility] Instructions* Patient Instructions* Fabiola Costa APRN.CNM - 05/07/2024 10:09 AM EDT [facility] [phone] [facility] Curable aleah for pelvic pain -can help with breathing and relaxation Dorene aleah -Sexual health, self stimulation, orgasmic dysfunction, couples tips for foreplay -This will be very helpful with learning your body. This is another site for self stimulation and education [email or web address] Pelvic Floor Physical therapy: This really can be beneficial for you and would recommend. HEAL PELVIC PAIN: THE PROVEN STRETCHING, STRENGTHENING, AND NUTRITION PROGRAM FOR RELIEVING PAIN, INCONTINENCE,& I.B.S, AND OTHER SYMPTOMS WITHOUT SURGERY Written by Meeta Freed documented in this encounterEast [facility] Hospital10-23-2024 NoteHNO ID: [id number] Author: FABIOLA COSTA APRN.CNM Service: ? Author Type: Sheet Heater Type: Progress Notes Filed: 05/16/2024 12:31 Note Text: Lay Hunter is a 29 year old female who presents for problem visit for pain. HPI: Presents for results today. 04/25/24 Visit: Presents today with complaint of pelvic pain over the last year. This is now impacting her sex life, personal life, and now emotional health. Was seen by GI and diagnosed with IBS. Started on a few medications but no improvement. Referral to Urology but visit is next month.GI informed patient hey think it is less likely that IBS is causing her pain. States pain is constant 3-4/10 but becomes 10/10 during her menses. Menses are every 28 days and last 7-9 days. Has a few days of spotting, on day of very heavy flow then decreased to spotting for remainder. Does not take anything for pain. Pain is bilateral hips and low midline pelvis. Last took control in 2020 per patient but wanted to stop due to painful intercourse and concerns for mental health. OB History T0 L0 SAB0 IAB0 Ectopic0 Multiple0 Live Births0 Team Facilitator History LMP: 05/06/2024 (Exact Date), Having periods Age at Menarche: Age at First : Age at Menopause: Team Facilitator History Comments: Sexual Activity: Yes; Male Contraception: No contraception data on record PAST MEDICAL HISTORY Diagnosis Date Asthma Attention deficit disorder (ADD) without hyperactivity Generalized anxiety disorder History of depression Hypoglycemia Irritable bowel syndrome with constipation PAST SURGICAL HISTORY Procedure Laterality Date TRABECULOPLASTY BY LASER SURGERY Bilateral 08/13/2020 FAMILY HISTORY Problem Relation Age of Onset other (colitis) Mother Appears to be due to Post COVID No Known Problems Father other (Leg Tumor) Sister In thigh bone. Just needed resected OCD Sister other (Dyslexia) Sister other (Speech impediment) Sister Lung Cancer Maternal Grandmother No Known Problems Maternal Grandfather Breast Cancer Paternal Grandmother 70 No Known Problems Paternal Grandfather Social History Tobacco Use Smoking status: Never Smokeless tobacco: Never Vaping Use Vaping status: Never Used Substance Use Topics Alcohol use: Yes Comment: once a month Drug use: Never Current Outpatient Medications Medication Sig metoclopramide HCl (REGLAN) 5 mg tablet Take 5 mg by mouth two times a day. One tablet by mouth 2 times a day 30 minutes before eating sertraline (ZOLOFT) 50 mg tablet Take 1 tablet by mouth once daily. DOSE CHANGE: TAKE ONE DAILY No current facility-administered medications for this visit. Allergies As of Date: 05/07/2024 Allergen Noted Reaction PENICILLINS 02/06/2017 Unknown Fully Assessed 05/07/2024 REVIEW OF SYSTEMS Abdomen: No bloating, early satiety, indigestion, or increased flatulence. No abdominal pain, nausea, vomiting, diarrhea, or constipation. Bladder: No dysuria, gross hematuria, urinary frequency, urinary urgency, or incontinence. Breast: No breast lumps, nipple d/c, overlying skin changes, redness or skin retraction. Expanded ROS: N/A Allergies and current medication updated:Yes SENSITIVE EXAM: Sensitive exam not performed. EXAM: BP 108/62 Wt 156 lb (70.8kg) LMP 05/06/2024 GENERAL: pleasant, female in no apparent distress HEENT: Normocephalic and atraumatic NEURO: alert and oriented x3,exam grossly non-focal EXTREMITIES: normal Indication Pelvic pain Impression The contour of the uterus and the endometrial cavity were evaluated with 3-D imaging. 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 The uterus is anteflexed and measures 70 mm x 35 mm x 47 mm. The myometrium is asymmetrically thickened, echogenic, heterogeneous, and contains cystic lakes but no obvious fibroids are observed. This finding is suggestive of adenomyosis. The endometrial thickness is 6.7 mm. The right ovary measures 27 mm x 13 mm x 13 mm. The left ovary measures 31 mm x 21 mm x 24 mm. There is free fluid visualized. Technique: Three dimensional imaging was created on a dedicated stand-alone 3D workstation with images created and archived, and supervised and reviewed by the interpreting physician utilizing images from a US Scan performed on 05/01/24. ?Duplex scan was performed using B-Mode/joyner scale imaging and Doppler spectral analysis and color flow.? Recommendations Ultrasound findings suggestive for adenomyosis. Clinical correlation is recommend. Latest Ref Rng 04/25/2024 Symone species group Negative for Symone species Negative for Symone species Symone glabrata Negative for Symone glabrata Negative for Symone glabrata Trichomonas vaginalis Negative for Trichomonas vaginalis by amplification Negative for Trichomonas vaginalis by amplification Neisseria gonorrhoeae (GC) Negative for Neisseria gonorrhoeae by amplification Negative for Neisseria gono (more content not included)...[facility]10-23-[facility] History of Present illness Narrative* Fabiola Costa APRN.CN - 05/07/2024 9:26 AM EDT Lay Hunter is a 29 year old female who presents for problem visit for pain. HPI: Presents for results today. 04/25/24 Visit: Presents today with complaint of pelvic pain over the last year. This is now impacting her sex life, personal life, and now emotional health. Was seen by GI and diagnosed with IBS. Started on a few medications but no improvement. Referral to Urology but visit is next month.GI informed patient hey think it is less likely that IBS is causing her pain. States pain is constant 3-4/10 but becomes 10/10 during her menses. Menses are every 28 days and last 7-9 days. Has a few days of spotting, on day of very heavy flow then decreased to spotting for remainder. Does not take anything for pain. Pain is bilateral hips and low midline pelvis. Last took control in 2020 per patient but wanted to stop due to painful intercourse and concerns for mental health. OB History T0 L0 SAB0 IAB0 Ectopic0 Multiple0 Live Births0 Team Facilitator History LMP: 05/06/2024 (Exact Date), Having periods Age at Menarche: Age at First : Age at Menopause: Team Facilitator History Comments: Sexual Activity: Yes; Male Contraception: No contraception data on record PAST MEDICAL HISTORY Diagnosis Date Asthma Attention deficit disorder (ADD) without hyperactivity Generalized anxiety disorder History of depression Hypoglycemia Irritable bowel syndrome with constipation PAST SURGICAL HISTORY Procedure Laterality Date TRABECULOPLASTY BY LASER SURGERY Bilateral 08/13/2020 FAMILY HISTORY Problem Relation Age of Onset other (colitis) Mother Appears to be due to Post COVID No Known Problems Father other (Leg Tumor) Sister In thigh bone. Just needed resected OCD Sister other (Dyslexia) Sister other (Speech impediment) Sister Lung Cancer Maternal Grandmother No Known Problems Maternal Grandfather Breast Cancer Paternal Grandmother 70 No Known Problems Paternal Grandfather Social History Tobacco Use Smoking status: Never Smokeless tobacco: Never Vaping Use Vaping status: Never Used Substance Use Topics Alcohol use: Yes Comment: once a month Drug use: Never Current Outpatient Medications Medication Sig metoclopramide HCl (REGLAN) 5 mg tablet Take 5 mg by mouth two times a day. One tablet by mouth 2 times a day 30 minutes before eating sertraline (ZOLOFT) 50 mg tablet Take 1 tablet by mouth once daily. DOSE CHANGE: TAKE ONE DAILY No current facility-administered medications for this visit. Allergies As of Date: 05/07/2024 Allergen Noted Reaction PENICILLINS 02/06/2017 Unknown Fully Assessed 05/07/2024 REVIEW OF SYSTEMS Abdomen: No bloating, early satiety, indigestion, or increased flatulence. No abdominal pain, nausea, vomiting, diarrhea, or constipation. Bladder: No dysuria, gross hematuria, urinary frequency, urinary urgency, or incontinence. Breast: No breast lumps, nipple d/c, overlying skin changes, redness or skin retraction. Expanded ROS: N/A Allergies and current medication updated:Yes SENSITIVE EXAM: Sensitive exam not performed. EXAM: BP 108/62 Wt 156 lb (70.8kg) LMP 05/06/2024 GENERAL: pleasant, female in no apparent distress HEENT: Normocephalic and atraumatic NEURO: alert and oriented x3,exam grossly non-focal EXTREMITIES: normal Indication Pelvic pain Impression The contour of the uterus and the endometrial cavity were evaluated with 3-D imaging. 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 The uterus is anteflexed and measures 70 mm x 35 mm x 47 mm. The myometrium is asymmetrically thickened, echogenic, heterogeneous, and contains cystic lakes but no obvious fibroids are observed. This finding is suggestive of adenomyosis. The endometrial thickness is 6.7 mm. The right ovary measures 27 mm x 13 mm x 13 mm. The left ovary measures 31 mm x 21 mm x 24 mm. There is free fluid visualized. Technique: Three dimensional imaging was created on a dedicated stand-alone 3D workstation with images created and archived, and supervised and reviewed by the interpreting physician utilizing images from a US Scan performed on 05/01/24. ?Duplex scan was performed using B-Mode/joyner scale imaging and Doppler spectral analysis and color flow.? Recommendations Ultrasound findings suggestive for adenomyosis. Clinical correlation is recommend. Latest Ref Rng 04/25/2024 Symone species group Negative for Symone species Negative for Symone species Symone glabrata Negative for Symone glabrata Negative for Symone glabrata Trichomonas vaginalis Negative for Trichomonas vaginalis by amplification Negative for Trichomonas vaginalis by amplification Neisseria gonorrhoeae (GC) Negative for Neisseria gonorrhoeae by amplification Negative for Neisseria gonorrhoeae by amplification Chlamydia trachomatis (CT) Negative for Chlamydia trachomatis by amplificaton Negative for Chlamydia trachomatis by amplification Bacterial vaginosis Negative for bacterial vaginosis Negative for bacterial vaginosis ASSESSMENT AND PLAN: 1. Pelvic pain in female - ICD9: 625.9, ICD10: R10.2 (primary diagnosis) - Reviewed option for control to help with symptoms and possibly not working due to US results of adenomyosis. Reviewed risks, benefits, and alternatives. Would like to try Mirena IUD. Will return for insertion. - Recommend pelvic floor therapy - INSERT INTRAUTERINE DEVICE 2. Adenomyosis - ICD9: 617.0, ICD10: N80.03 - Reviewed option for control to help with symptoms and possibly not working due to US results of adenomyosis. Reviewed risks, benefits, and alternatives. Would like to try Mirena IUD. Will return for insertion. - INSERT INTRAUTERINE DEVICE 3. control counseling -Mirena IUD information given, will return for insertion Fabiola Costa APRN.CNM [facility] encounter Note * Telephone Encounter - Omi Salcedo MA - 05/02/2024 12:59 PM EDT Spoke with patient - scheduled with TB 05/13 [facility] Miscellaneous Notes* Telephone Encounter - Omi Salcedo MA - 05/02/2024 12:59 PM EDT Spoke with patient - scheduled with TB 05/13 * Telephone Encounter - Maryuri Cage APRN.CNP - 05/02/2024 12:45 PM EDT She has not taken this for months and is a controlled substance, would need an appointment to discuss further Maruyri Cage APRN.SOFTWARE PERFORMANCE ENGINEER * Telephone Encounter - Daylin Godinez - 05/01/2024 2:06 PM EDT Lay is calling Kvng Hurd MD today with concern regarding Refill Request Patient is calling asking if she can start back on this again before the tavarez was too much money and would really like to get back on this. [facility] has generic in stock if you can please send to them. Disp Refills Start End lisdexamfetamine (VYVANSE) 30 mg capsule (Discontinued) 30 capsule 0 09/15/2023 12/26/2023 Sig: Take 1 capsule by mouth once daily for 30 days. Do not start before September 15, 2023. Sent to pharmacy as: lisdexamfetamine (VYVANSE) 30 mg capsule Class: Normal Patient has been identified by name and birthdate. Duration of symptoms: N/A Person calling: self Call patient at: at home [phone] (home) [phone] (cell) Was an appointment scheduled: No Closing statement: Results or non-symptom based questions: Thank you for calling [facility], your call will be returned within the next business day. 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 Author Type: Physician Type: Progress Notes Filed: 05/01/2024 23:43 Note Text: The patient presents for requested ultrasound. Full report available in the Imaging tab in [employer]. Kera Diaz [facility]10-17-2024 History of Present illness Narrative* Kera Diaz MD - 05/01/2024 11:41 PM EDT The patient presents for requested ultrasound. Full report available in the Imaging tab in [employer]. Kera Diaz MD [facility] Telephone encounter Note * Telephone Encounter - Daylin Godinez - 05/01/2024 2:06 PM EDT Lay is calling Kvng Hurd MD today with concern regarding Refill Request Patient is calling asking if she can start back on this again before the tavarez was too much money and would really like to get back on this. [facility] has generic in stock if you can please send to them. Disp Refills Start End lisdexamfetamine (VYVANSE) 30 mg capsule (Discontinued) 30 capsule 0 09/15/2023 12/26/2023 Sig: Take 1 capsule by mouth once daily for 30 days. Do not start before September 15, 2023. Sent to pharmacy as: lisdexamfetamine (VYVANSE) 30 mg capsule Class: Normal Patient has been identified by name and birthdate. Duration of symptoms: N/A Person calling: self Call patient at: at home [phone] (home) [phone] (cell) Was an appointment scheduled: No Closing statement: Results or non-symptom based questions: Thank you for calling [facility], your call will be returned within the next business day. Daylin Puentes [facility]10-11-2024 NoteHNO ID: [id number] Author: FABIOLA COSTA APRN.CNM Service: ? Author Type: Sheet Heater Type: Progress Notes Filed: 05/05/2024 16:07 Note Text: Lay Hunter is a 29 year old female who presents for problem visit HPI: Presents today with complaint of pelvic pain over the last year. This is now impacting her sex life, personal life, and now emotional health. Was seen by GI and diagnosed with IBS. Started on a few medications but no improvement. Referral to Urology but visit is next month.GI informed patient hey think it is less likely that IBS is causing her pain. States pain is constant 3-4/10 but becomes 10/10 during her menses. Menses are every 28 days and last 7-9 days. Has a few days of spotting, on day of very heavy flow then decreased to spotting for remainder. Does not take anything for pain. Pain is bilateral hips and low midline pelvis. Last took control in 2020 per patient but wanted to stop due to painful intercourse and concerns for mental health. OB History T0 L0 SAB0 IAB0 Ectopic0 Multiple0 Live Births0 Team Facilitator History LMP: 04/09/2024 (Within Days), Having periods Age at Menarche: Age at First : Age at Menopause: Team Facilitator History Comments: Sexual Activity: Yes; Male Contraception: No contraception data on record PAST MEDICAL HISTORY Diagnosis Date Asthma Attention deficit disorder (ADD) without hyperactivity Generalized anxiety disorder History of depression Hypoglycemia Irritable bowel syndrome with constipation PAST SURGICAL HISTORY Procedure Laterality Date TRABECULOPLASTY BY LASER SURGERY Bilateral 08/13/2020 FAMILY HISTORY Problem Relation Age of Onset other (colitis) Mother Appears to be due to Post COVID No Known Problems Father other (Leg Tumor) Sister In thigh bone. Just needed resected OCD Sister other (Dyslexia) Sister other (Speech impediment) Sister Lung Cancer Maternal Grandmother No Known Problems Maternal Grandfather Breast Cancer Paternal Grandmother 70 No Known Problems Paternal Grandfather Social History Tobacco Use Smoking status: Never Smokeless tobacco: Never Vaping Use Vaping status: Never Used Substance Use Topics Alcohol use: Yes Comment: once a month Drug use: Never Current Outpatient Medications Medication Sig metoclopramide HCl (REGLAN) 5 mg tablet Take 5 mg by mouth two times a day. One tablet by mouth 2 times a day 30 minutes before eating sertraline (ZOLOFT) 50 mg tablet Take 1 tablet by mouth once daily. DOSE CHANGE: TAKE ONE DAILY ondansetron orally disintegrating (ZOFRAN ODT) 4 mg disintegrating tablet Take 1 tablet by mouth every 6 hours as needed for nausea/vomiting. (Patient not taking: Reported on 04/25/2024) peg 3350-Electrolytes (GOLYTELY) 236-22.74-6.74 -5.86 gram suspension Refer to printed patient instructions that will be mailed to you. (Patient not taking: Reported on 03/26/2024) No current facility-administered medications for this visit. Allergies As of Date: 04/25/2024 Allergen Noted Reaction PENICILLINS 02/06/2017 Unknown Fully Assessed 04/25/2024 REVIEW OF SYSTEMS Abdomen: No bloating, early satiety, indigestion, or increased flatulence. No abdominal pain, nausea, vomiting, diarrhea, or constipation. Bladder: No dysuria, gross hematuria, urinary frequency, urinary urgency, or incontinence. Breast: No breast lumps, nipple d/c, overlying skin changes, redness or skin retraction. Expanded ROS: N/A Allergies and current medication updated:Yes SENSITIVE EXAM: The sensitive examination was discussed with the Patient or Patient's Authorized Career Consultant. As applicable, any other physician, advance practice provider, medical student, or other health professional student that will be observing or involved in the sensitive examination for educational or training purposes was discussed with the Patient or Authorized Career Consultant. The Patient or Authorized Career Consultant has agreed to proceed with the sensitive examination. (Sensitive examination includes inspection and/or palpation of the breasts, pelvis, prostate and anorectal regions). EXAM: BP 108/64 Wt 155 lb (70.3kg) LMP 04/09/2024 GENERAL: pleasant, female in no apparent distress HEENT: Normocephalic and atraumatic NECK: Supple and full range of motion DERMATOLOGY: Normal and without lesions CHEST: Normal inspiratory effort ABDOMEN: soft, non-tender, and no masses PELVIC: external genitalia normal, normal Bartholin's glands, urethra, Corydon's glands, no vulvar lesions, no cervical lesions, good vaginal support, physiologic discharge present, normal appearing perineal body and perianal region BIMANUAL: uterus normal size, shape and consistency, no adnexal masses. With insertion of fingers at introitus increased pain once at hymenal ring, very tight band and painful with penetration. No CMT. Increased pain with midline pelvic exam and increased (more content not included)...[facility]10-11-[facility]24 History of Present illness Narrative* Fabiola Costa APRN.[facility] - 04/25/2024 2:32 PM EDT Lay Hunter is a 29 year old female who presents for problem visit HPI: Presents today with complaint of pelvic pain over the last year. This is now impacting her sexlife, personal life, and now emotional health. Was seen by GI and diagnosed with IBS. Started on a few medications but no improvement. Referral to Urology but visit is next month.GI informed patient hey think it is less likely that IBS is causing her pain. States pain is constant 3-4/10 but becomes 10/10 during her menses. Menses are every 28 days and last 7-9 days. Has a few days of spotting, on day of very heavy flow then decreased to spotting for remainder. Does not take anything for pain. Pain is bilateral hips and low midline pelvis. Last took control in 2020 per patient but wanted to stop due to painful intercourse and concerns for mental health. OB History T0 L0 SAB0 IAB0 Ectopic0 Multiple0 Live Births0 Team Facilitator History LMP: 04/09/2024 (Within Days), Having periods Age at Menarche: Age at First : Age at Menopause: Team Facilitator History Comments: Sexual Activity: Yes; Male Contraception: No contraception data on record PAST MEDICAL HISTORY Diagnosis Date Asthma Attention deficit disorder (ADD) without hyperactivity Generalized anxiety disorder History of depression Hypoglycemia Irritable bowel syndrome with constipation PAST SURGICAL HISTORY Procedure Laterality Date TRABECULOPLASTY BY LASER SURGERY Bilateral 08/13/2020 FAMILY HISTORY Problem Relation Age of Onset other (colitis) Mother Appears to be due to Post COVID No Known Problems Father other (Leg Tumor) Sister In thigh bone. Just needed resected OCD Sister other (Dyslexia) Sister other (Speech impediment) Sister Lung Cancer Maternal Grandmother No Known Problems Maternal Grandfather Breast Cancer Paternal Grandmother 70 No Known Problems Paternal Grandfather Social History Tobacco Use Smoking status: Never Smokeless tobacco: Never Vaping Use Vaping status: Never Used Substance Use Topics Alcohol use: Yes Comment: once a month Drug use: Never Current Outpatient Medications Medication Sig metoclopramide HCl (REGLAN) 5 mg tablet Take 5 mg by mouth two times a day. One tablet by mouth 2 times a day 30 minutes before eating sertraline (ZOLOFT) 50 mg tablet Take 1 tablet by mouth once daily. DOSE CHANGE: TAKE ONE DAILY ondansetron orally disintegrating (ZOFRAN ODT) 4 mg disintegrating tablet Take 1 tablet by mouth every 6 hours as needed for nausea/vomiting. (Patient not taking: Reported on 04/25/2024) peg 3350-Electrolytes (GOLYTELY) 236-22.74-6.74 -5.86 gram suspension Refer to printed patient instructions that will be mailed to you. (Patient not taking: Reported on 03/26/2024) No current facility-administered medications for this visit. Allergies As of Date: 04/25/2024 Allergen Noted Reaction PENICILLINS 02/06/2017 Unknown Fully Assessed 04/25/2024 REVIEW OF SYSTEMS Abdomen: No bloating, early satiety, indigestion, or increased flatulence. No abdominal pain, nausea, vomiting, diarrhea, or constipation. Bladder: No dysuria, gross hematuria, urinary frequency, urinary urgency, or incontinence. Breast: No breast lumps, nipple d/c, overlying skin changes, redness or skin retraction. Expanded ROS: N/A Allergies and current medication updated:Yes SENSITIVE EXAM: The sensitive examination was discussed with the Patient or Patient's Authorized Career Consultant. As applicable, any other physician, advance practice provider, medical student, or other health professional student that will be observing or involved in the sensitive examination for educational or training purposes was discussed with the Patient or Authorized Career Consultant. The Patient or Authorized Career Consultant has agreed to proceed with the sensitive examination. (Sensitive examination includes inspection and/or palpation of the breasts, pelvis, prostate and anorectal regions). EXAM: BP 108/64 Wt 155 lb (70.3kg) LMP 04/09/2024 GENERAL: pleasant, female in no apparent distress HEENT: Normocephalic and atraumatic NECK: Supple and full range of motion DERMATOLOGY: Normal and without lesions CHEST: Normal inspiratory effort ABDOMEN: soft, non-tender, and no masses PELVIC: external genitalia normal, normal Bartholin's glands, urethra, Corydon's glands, no vulvar lesions, no cervical lesions, good vaginal support, physiologic discharge present, normal appearing perineal body and perianal region BIMANUAL: uterus normal size, shape and consistency, no adnexal masses. With insertion of fingers at introitus increased pain once at hymenal ring, very tight band and painful with penetration. No CMT. Increased pain with midline pelvic exam and increased pain/tearful during exam. Pain present bilaterally but not as bad as midline. NEURO: alert and oriented x3,exam grossly non-focal EXTREMITIES: normal ASSESSMENT AND PLAN: 1. Pelvic pain in female - ICD9: 625.9, ICD10: R10.2 - CONSULT TO PHYSICAL THERAPY - PELVIC US WHI - BACTERIAL VAGINOSIS NAAT - SYMONE/TRICHOMONAS NAAT - GONORRHEA/CHLAMYDIA NAAT Fabiola Costa APRN.CNM [facility] NoteHNO ID: [id number] Author: JAQUI VELASQUEZ PSYD Service: ? Author Type: Psychologist Type: Progress Notes Filed: 04/23/2024 22:24 Note Text: [facility] Progress Note THIS WAS A ZOOM VISIT Lay Hunter 04/17/2024 [id number] Provider: Jaqui Britton PSYD Time: Approximately 45 minutes was spent in therapy. Parties Present: Patient Patient Presentation/Concerns: Lay continues to struggle with GI issues as well as obsessive thinking about weight loss. Her wedding is approaching which increases her internal pressure on herself to lose weight. We discussed changing her mindset to focusing on healthy behaviors vs. weight loss. Lay reports feeling anxious about not inviting her mother to the wedding. Mental Status: Mood: anxious Affect: mood-congruent Thoughts/Associations:goal directed Suicidal/Homicidal Ideation: None expressed or evidenced Patient denies any suicidal or homicidal ideation, plan or intent at this time. Other Observations: None Therapy Focus Mood/affect regulation MEDICATIONS: Per medical record: Current Outpatient Medications Medication Sig ondansetron orally disintegrating (ZOFRAN ODT) 4 mg disintegrating tablet Take 1 tablet by mouth every 6 hours as needed for nausea/vomiting. sertraline (ZOLOFT) 50 mg tablet Take 1 tablet by mouth once daily. DOSE CHANGE: TAKE ONE DAILY peg 3350-Electrolytes (GOLYTELY) 236-22.74-6.74 -5.86 gram suspension Refer to printed patient instructions that will be mailed to you. (Patient not taking: Reported on 03/26/2024) No current facility-administered medications for this visit. Psychiatric Medication Issues: No change from previous appointment DIAGNOSIS: ELIE OCD Body dysmorphia Treatment Modality/Interventions: Cognitive Behavioral TREATMENT ASSESSMENT/PROGRESS: Stable TREATMENT PLAN/GOALS: Continue in therapy focusing on stress management, affect management, and anxiety management. CBT for anxiety. Mindful eating skills. Next appointment: 2 weeks [facility] NoteHNO ID: [id number] Author: JAQUI VELASQUEZ PSYD Service: ? Author Type: Psychologist Type: Progress Notes Filed: 04/11/2024 19:14 Note Text: [facility] Progress Note THIS WAS A ZOOM VISIT Lay Hunter 04/03/2024 [id number] Provider: Jaqui Britton PSYD Time: Approximately 45 minutes was spent in therapy. Parties Present: Patient Patient Presentation/Concerns: Lay found some answers concerning her GI issues. This was helpful to understanding and validating her concerns. She indicated an improvement in exercise and healthy eating. She has been recording her behaviors. She indicated an increase in motivation due to her upcoming wedding. She worries about whether or not to invite her mother. Historically, she has ruined special days. She spoke about the pros and cons. Mental Status: Mood: anxious Affect: mood-congruent Thoughts/Associations:goal directed Suicidal/Homicidal Ideation: None expressed or evidenced Patient denies any suicidal or homicidal ideation, plan or intent at this time. Other Observations: None Therapy Focus Mood/affect regulation MEDICATIONS: Per medical record: Current Outpatient Medications Medication Sig ondansetron orally disintegrating (ZOFRAN ODT) 4 mg disintegrating tablet Take 1 tablet by mouth every 6 hours as needed for nausea/vomiting. sertraline (ZOLOFT) 50 mg tablet Take 1 tablet by mouth once daily. DOSE CHANGE: TAKE ONE DAILY peg 3350-Electrolytes (GOLYTELY) 236-22.74-6.74 -5.86 gram suspension Refer to printed patient instructions that will be mailed to you. (Patient not taking: Reported on 03/26/2024) No current facility-administered medications for this visit. Psychiatric Medication Issues: No change from previous appointment DIAGNOSIS: ELIE OCD Body dysmorphia Treatment Modality/Interventions: Cognitive Behavioral TREATMENT ASSESSMENT/PROGRESS: Stable TREATMENT PLAN/GOALS: Continue in therapy focusing on stress management, affect management, and anxiety management. CBT for anxiety. Mindful eating skills. Next appointment: 2 weeks [facility] Britton [facility] Instructions* Patient Instructions* Kvng Hurd MD - 03/26/2024 11:28 AM EDT -Zofran (ondansetron) prescription has been refilled and sent to your pharmacy - Continue taking Zoloft (sertraline) as prescribed - Consider trying a more concentrated dose of Miralax to help keep stools soft (2 capfuls in 4 to 8ounces water once daily) - Haring with different foods to see what helps with nausea and bloating, such as potatoes and kimchi - Continue working with your GI team to find solutions for your pelvic floor issues and other symptoms - Keep me updated on your progress and let me know if there's anything else I can do to help. documented in this [facility]09-11-2024 NoteHNO ID: [id number] Author: KVNG HURD MD Service: ? Author Type: Physician Type: Progress Notes Filed: 03/26/2024 11:28 Note Text: This note was created using [employer]. Subjective Lay Hunter is a 29 year old female. Patient presents with: F/U 3 Month: External labs SUBJECTIVE: Lay Hunter is a 29 year old year old lady here today for 3 month follow up appointment for review of medical conditions. Patient is a 29-year-old female presenting for a regular three-month follow-up. She reports ongoing issues with constipation and nausea, which have not improved despite trying multiple medications. She recently switched gastroenterologists and is now under the care of PILAR Tuttle, who works with Dr. Barrett at [facility]. Patient underwent a Sitz marker study, which showed retention of 14 markers, suggesting a pelvic floor issue. She is scheduled for an MRI at the beginning of April to further investigate this. She is also scheduled for a gastric emptying study on Sunday to assess the severity of her nausea and to determine if there is any delay in gastric emptying. Patient reports that her symptoms have been affecting her quality of life, including her ability to exercise and lose weight. She is also experiencing anxiety related to her symptoms and the upcoming tests. She is currently taking Zoloft for anxiety and Zofran for nausea, but reports that she has run out of Zofran. She has tried other medications in the past, including Trulance and GoLYTELY, but discontinued them due to lack of efficacy. She is also taking Miralax and using Fleet suppositories to manage her constipation. She has tried dietary modifications, including following a low FODMAP diet, but reports that she is not seeing significant improvement in her symptoms. PAST MEDICAL HISTORY No date: Asthma No date: Attention deficit disorder (ADD) without hyperactivity No date: Generalized anxiety disorder No date: History of depression No date: Hypoglycemia No date: Irritable bowel syndrome with constipation Current Outpatient Medications Medication Sig sertraline (ZOLOFT) 50 mg tablet Take 1 tablet by mouth once daily. DOSE CHANGE: TAKE ONE DAILY ondansetron orally disintegrating (ZOFRAN ODT) 4 mg disintegrating tablet Take 1 tablet by mouth every 6 hours as needed for nausea/vomiting. peg 3350-Electrolytes (GOLYTELY) 236-22.74-6.74 -5.86 gram suspension Refer to printed patient instructions that will be mailed to you. (Patient not taking: Reported on 03/26/2024) plecanatide (TRULANCE) 3 mg tablet Take 1 tablet (3 mg) by mouth once daily. (Patient not taking: Reported on 03/26/2024) No current facility-administered medications for this visit. Review of Systems Objective BP 105/71 Pulse 77 Temp 37 ?C (98.6 ?F) Resp 16 Wt 70.5 kg (155 lb 6.8 oz) LMP 02/08/2024 (Within Days) SpO2 98% BMI 26.68 kg/m? Physical Exam Constitutional: Appearance: Normal appearance. HENT: Head: Normocephalic. Eyes: Conjunctiva/sclera: Conjunctivae normal. Cardiovascular: Rate and Rhythm: Normal rate and regular rhythm. Heart sounds: Normal heart sounds. Pulmonary: Effort: Pulmonary effort is normal. Breath sounds: Normal breath sounds. Abdominal: General: Abdomen is flat. Bowel sounds are normal. Musculoskeletal: Right lower leg: No edema. Left lower leg: No edema. Skin: General: Skin is warm and dry. Neurological: General: No focal deficit present. Mental Status: She is alert and oriented to person, place, and time. Psychiatric: Mood and Affect: Mood normal. Behavior: Behavior normal. Thought Content: Thought content normal. Judgment: Judgment normal. Assessment and Plan # Nausea - Persistent nausea; Zofran ODT prescription refilled with three refills sent to [facility] pharmacy. - Continue dietary modifications; discussed potential benefits of consuming bland foods such as potatoes. # Anxiety - Ongoing anxiety related to gastrointestinal symptoms and weight gain. - Currently managed with Sertraline; recent refill on 03/11. - Patient is under the care of Dr. Laura for therapy; will monitor and adjust medication as needed based on therapeutic progress. # Irritable bowel syndrome with constipation # Pelvic floor dysfunction - Recent Sitz marker study showed delayed transit with markers retained in the lower colon; indicative of pelvic floor dysfunction. - Scheduled for MRI in early April to further evaluate pelvic floor. - Gastric emptying study scheduled for Sunday to assess for gastroparesis. - Previous trials of Trulance and Linzess discontinued due to lack of efficacy. - Discussed ongoing use of Miralax; advised to increase dosage to two capfuls in 4 oz of water once or twice daily to maintain stool softness. - Educated on the potential benefits of pelvic floor therapy post-MRI results. - Encouraged continua (more content not included)...[facility] 03-26-2024 History of Present illness Narrative* Kvng Hurd MD - 03/26/2024 10:53 AM EDT This note was created using i-Nalysister. Subjective Lay Hunter is a 29 year old female. Patient presents with: F/U 3 Month: External labs SUBJECTIVE: Lay Hunter is a 29 year old year old lady here today for 3 month follow up appointment for review of medical conditions. Patient is a 29-year-old female presenting for a regular three-month follow-up. She reports ongoingissues with constipation and nausea, which have not improved despite trying multiple medications. She recently switched gastroenterologists and is now under the care of PILAR Tuttle, who [facility]with Dr. Barrett [facility]. Patient underwent a Sitz marker study, which showed retention of 14 markers, suggesting a pelvic floor issue. She is scheduled for an MRI at the beginning of April to further investigate this. She is also scheduled for a gastric emptying study on Sunday to assess the severity of her nausea and todetermine if there is any delay in gastric emptying. Patient reports that her symptoms have been affecting her quality of life, including her ability toexercise and lose weight. She is also experiencing anxiety related to her symptoms and the upcomingtests. She is currently taking Zoloft for anxiety and Zofran for nausea, but reports that she has run out of Zofran. She has tried other medications in the past, including Trulance and GoLYTELY, but discontinued them due to lack of efficacy. She is also taking Miralax and using Fleet suppositories to manage her constipation. She has tried dietary modifications, including following a low FODMAP diet, but reports that she is not seeing significant improvement in her symptoms. PAST MEDICAL HISTORY No date: Asthma No date: Attention deficit disorder (ADD) without hyperactivity No date: Generalized anxiety disorder No date: History of depression No date: Hypoglycemia No date: Irritable bowel syndrome with constipation Current Outpatient Medications Medication Sig sertraline (ZOLOFT) 50 mg tablet Take 1 tablet by mouth once daily. DOSE CHANGE: TAKE ONE DAILY ondansetron orally disintegrating (ZOFRAN ODT) 4 mg disintegrating tablet Take 1 tablet by mouth every 6 hours as needed for nausea/vomiting. peg 3350-Electrolytes (GOLYTELY) 236-22.74-6.74 -5.86 gram suspension Refer to printed patient instructions that will be mailed to you. (Patient not taking: Reported on 03/26/2024) plecanatide (TRULANCE) 3 mg tablet Take 1 tablet (3 mg) by mouth once daily. (Patient not taking: Reported on 03/26/2024) No current facility-administered medications for this visit. Review of Systems Objective BP 105/71 Pulse 77 Temp 37 C (98.6 F) Resp 16 Wt 70.5 kg (155 lb 6.8 oz) LMP 02/08/2024 (Within Days) SpO2 98% BMI 26.68 kg/m Physical Exam Constitutional: Appearance: Normal appearance. HENT: Head: Normocephalic. Eyes: Conjunctiva/sclera: Conjunctivae normal. Cardiovascular: Rate and Rhythm: Normal rate and regular rhythm. Heart sounds: Normal heart sounds. Pulmonary: Effort: Pulmonary effort is normal. Breath sounds: Normal breath sounds. Abdominal: General: Abdomen is flat. Bowel sounds are normal. Musculoskeletal: Right lower leg: No edema. Left lower leg: No edema. Skin: General: Skin is warm and dry. Neurological: General: No focal deficit present. Mental Status: She is alert and oriented to person, place, and time. Psychiatric: Mood and Affect: Mood normal. Behavior: Behavior normal. Thought Content: Thought content normal. Judgment: Judgment normal. Assessment and Plan # Nausea - Persistent nausea; Zofran ODT prescription refilled with three refills sent to [facility] pharmacy. - Continue dietary modifications; discussed potential benefits of consuming bland foods such as potatoes. # Anxiety - Ongoing anxiety related to gastrointestinal symptoms and weight gain. - Currently managed with Sertraline; recent refill on 03/11. - Patient is under the care of Dr. Laura for therapy; will monitor and adjust medication as needed based on therapeutic progress. # Irritable bowel syndrome with constipation # Pelvic floor dysfunction - Recent Sitz marker study showed delayed transit with markers retained in the lower colon; indicative of pelvic floor dysfunction. - Scheduled for MRI in early April to further evaluate pelvic floor. - Gastric emptying study scheduled for Sunday to assess for gastroparesis. - Previous trials of Trulance and Linzess discontinued due to lack of efficacy. - Discussed ongoing use of Miralax; advised to increase dosage to two capfuls in 4 oz of water onceor twice daily to maintain stool softness. - Educated on the potential benefits of pelvic floor therapy post-MRI results. - Encouraged continuation of FODMAP diet and adequate hydration. - Follow-up appointments scheduled in June and October. Kvng Hurd MD [facility] Telephone encounter Note * Telephone Encounter - Dayana Cummins LPN - 03/11/2024 1:34 PM EDT Prescription Refill Information Patient has refills remaining at [facility] but would like to change pharmacies to [facility] The patient has been identified by name and date of : Yes Caregiver verified no other encounters exist for this prescription request: Yes Caregiver confirmed with patient/requestor that no other refills are due, in the near future, with this provider at this time: Yes The last office visit in the department: 12/26/23 Does the patient have a future office visit with this provider/department: Yes Requested Prescriptions Pending Prescriptions Disp Refills sertraline (ZOLOFT) 50 mg tablet 90 tablet 3 Sig: Take 1 tablet by mouth once daily. DOSE CHANGE: TAKE ONE DAILY Dayana Cummins LPN March 11, 2024 1:35 PM [facility]08-27-2024 Miscellaneous Notes* Telephone Encounter - Dayana Cummins LPN - 03/11/2024 1:34 PM EDT Prescription Refill Information Patient has refills remaining at [facility] but would like to change pharmacies to [facility] The patient has been identified by name and date of : Yes Caregiver verified no other encounters exist for this prescription request: Yes Caregiver confirmed with patient/requestor that no other refills are due, in the near future, with this provider at this time: Yes The last office visit in the department: 12/26/23 Does the patient have a future office visit with this provider/department: Yes Requested Prescriptions Pending Prescriptions Disp Refills sertraline (ZOLOFT) 50 mg tablet 90 tablet 3 Sig: Take 1 tablet by mouth once daily. DOSE CHANGE: TAKE ONE DAILY Dayana Cummins LPN March 11, 2024 1:35 PM documented in this encounterEast [facility]08-[facility]24 NoteHNO ID: [id number] Author: JAQUI VELASQUEZ PSYD Service: ? Author Type: Psychologist Type: Progress Notes Filed: 03/18/2024 07:04 Note Text: [facility] Progress Note THIS WAS A ZOOM VISIT Lay Wesley Dale 03/06/2024 [id number] Provider: Jaqui Britton PSYD Time: Approximately 45 minutes was spent in therapy. Parties Present: Patient Patient Presentation/Concerns: Lay had an apt concerning her GI issues. She sounded hopeful that they may find the root cause. GI problems were difficult during her vacation. Body image issues and desiring weight loss are central issues. She states craving food and sugar. She eats when anxious. Discussed identifying moments of emotional eating. Mental Status: Mood: anxious Affect: mood-congruent Thoughts/Associations:goal directed Suicidal/Homicidal Ideation: None expressed or evidenced Patient denies any suicidal or homicidal ideation, plan or intent at this time. Other Observations: None Therapy Focus Mood/affect regulation MEDICATIONS: Per medical record: Current Outpatient Medications Medication Sig peg 3350-Electrolytes (GOLYTELY) 236-22.74-6.74 -5.86 gram suspension Refer to printed patient instructions that will be mailed to you. plecanatide (TRULANCE) 3 mg tablet Take 1 tablet (3 mg) by mouth once daily. ondansetron orally disintegrating (ZOFRAN ODT) 4 mg disintegrating tablet Take 1 tablet by mouth every 6 hours as needed for nausea/vomiting. sertraline (ZOLOFT) 50 mg tablet Take 1 tablet by mouth once daily. DOSE CHANGE: TAKE ONE DAILY No current facility-administered medications for this visit. Psychiatric Medication Issues: No change from previous appointment DIAGNOSIS: ELIE OCD Body dysmorphia Treatment Modality/Interventions: Cognitive Behavioral TREATMENT ASSESSMENT/PROGRESS: Stable TREATMENT PLAN/GOALS: Continue in therapy focusing on stress management, affect management, and anxiety management. CBT for anxiety. Mindful eating skills. Next appointment: 2 weeks [facility] Telephone encounter Note* Telephone Encounter - Natacha Waddell MA - 02/15/2024 9:57 AM EDT Records request received from [facility] pt has appt with them sent last office visit per request Natacha Waddell MA [facility]08-02-2024 Miscellaneous Notes* Telephone Encounter - Natacha Waddell MA - 02/15/2024 9:57 AM EDT Records request received from [facility] pt has appt with them sent last office visit per request Natacha Waddell MA documented in this encounterEast [facility]08-[facility]-2024 NoteHNO ID: [id number] Author: JAQUI VELASQUEZ PSYD Service: ? Author Type: Psychologist Type: Progress Notes Filed: 02/20/2024 21:13 Note Text: [facility] Progress Note THIS WAS A ZOOM VISIT Lay Wesley salvatorearlyn 02/14/2024 [id number] Provider: Jaqui Britton PSYD Time: Approximately 45 minutes was spent in therapy. Parties Present: Patient Patient Presentation/Concerns: Lay reported some improvement in her stomach pain but no improvement in her GI issues. She stated resorting to a suppository to help with her bowels. We discussed the role and being cautious that this is not an ED behavior. She continues to desire to lose weight. We spoke about changing her mindset to focus on healthy behaviors that lead to weight loss rather than weight loss itself. Video games, walking, using the habit tracker have all been helpful in the past. Mental Status: Mood: anxious Affect: mood-congruent Thoughts/Associations:goal directed Suicidal/Homicidal Ideation: None expressed or evidenced Patient denies any suicidal or homicidal ideation, plan or intent at this time. Other Observations: None Therapy Focus Mood/affect regulation MEDICATIONS: Per medical record: Current Outpatient Medications Medication Sig peg 3350-Electrolytes (GOLYTELY) 236-22.74-6.74 -5.86 gram suspension Refer to printed patient instructions that will be mailed to you. plecanatide (TRULANCE) 3 mg tablet Take 1 tablet (3 mg) by mouth once daily. ondansetron orally disintegrating (ZOFRAN ODT) 4 mg disintegrating tablet Take 1 tablet by mouth every 6 hours as needed for nausea/vomiting. sertraline (ZOLOFT) 50 mg tablet Take 1 tablet by mouth once daily. DOSE CHANGE: TAKE ONE DAILY No current facility-administered medications for this visit. Psychiatric Medication Issues: No change from previous appointment DIAGNOSIS: ELIE OCD Body dysmorphia Treatment Modality/Interventions: Cognitive Behavioral TREATMENT ASSESSMENT/PROGRESS: Stable TREATMENT PLAN/GOALS: Continue in therapy focusing on stress management, affect management, and anxiety management. CBT for anxiety. Mindful eating skills. Next appointment: 2 weeks Jaqui Britton [facility]07-25-[facility]24 NoteHNO ID: [id number] Author: JAQUI VELASQUEZ PSYD Service: ? Author Type: Psychologist Type: Progress Notes Filed: 02/07/2024 13:40 Note Text: [facility] Progress Note THIS WAS A ZOOM VISIT Lay Hunter 01/31/2024 [id number] Provider: Jaqui Britton PSYD Time: Approximately 45 minutes was spent in therapy. Parties Present: Patient Patient Presentation/Concerns: Lay reported significant problems with her GI track and stomach issues. She states spending a great deal of time in the bathroom. She reports feeling frustrated that the underlying cause has not be identified. She is contemplating a colonoscopy, as recommended by her doctor, but is concerned about the cost. Lay was very tearful today concerning her weight and body image. She states being unable to be happy unless she loses weight gain. She indicates being unable to enjoy life and puts many things on hold believing she can't do them until she loses weight (ex, engagement pictures). We spoke about changing her mindset, going back to behaviors that worked for her (meal prep and exercise); She indicates being unable to go for walks/exercise due to her stomach issues. Mental Status: Mood: anxious Affect: mood-congruent Thoughts/Associations:goal directed Suicidal/Homicidal Ideation: None expressed or evidenced Patient denies any suicidal or homicidal ideation, plan or intent at this time. Other Observations: None Therapy Focus Mood/affect regulation MEDICATIONS: Per medical record: Current Outpatient Medications Medication Sig peg 3350-Electrolytes (GOLYTELY) 236-22.74-6.74 -5.86 gram suspension Refer to printed patient instructions that will be mailed to you. plecanatide (TRULANCE) 3 mg tablet Take 1 tablet (3 mg) by mouth once daily. ondansetron orally disintegrating (ZOFRAN ODT) 4 mg disintegrating tablet Take 1 tablet by mouth every 6 hours as needed for nausea/vomiting. sertraline (ZOLOFT) 50 mg tablet Take 1 tablet by mouth once daily. DOSE CHANGE: TAKE ONE DAILY No current facility-administered medications for this visit. Psychiatric Medication Issues: No change from previous appointment DIAGNOSIS: ELIE OCD Body dysmorphia Treatment Modality/Interventions: Cognitive Behavioral TREATMENT ASSESSMENT/PROGRESS: Stable TREATMENT PLAN/GOALS: Continue in therapy focusing on stress management, affect management, and anxiety management. CBT for anxiety. Mindful eating skills. Next appointment: 2 weeks Jaqui Britton [facility] Telephone encounter Note* Telephone Encounter - Fabiola Devlin PA-C - 01/23/2024 11:40 AM EDT This patient is going to have a colonoscopy. She will use the GoLytely prep. [facility]07-10-[facility] Miscellaneous Notes* Telephone Encounter - Fabiola Devlin PA-C - 01/23/2024 11:40 AM EDT This patient is going to have a colonoscopy. She will use the [id number] prep. documented in this encounterEast [facility]07-10-2024 NoteHNO ID: [id number] Author: FABIOLA DEVLIN PA-C Service: ? Author Type: Physician Commercial Agent Type: Progress Notes Filed: 01/23/2024 11:40 Note Text: GASTROENTEROLOGY PROGRESS NOTE VIRTUAL FOLLOW UP I have communicated my name and active licensure. The patient's identity and physical location were verified at the time of this visit. Either the patient or their legal sales service representative has been informed of the risks and benefits of -- and alternatives to -- treatment through a remote evaluation and consents to proceed with the evaluation remotely. This is a virtual visit using TRANSCOR[employer]om Video Visit. It required patient-provider interaction for the medical decision making as documented below. HPI: I saw Lay Hunter today for a follow up. The patient has been taking Miralax, metamucil, gas-x and Linzess. Still feeling constipated. Going a lot, but small amounts. On Sunday - stomach felt hard after eating- typically gassy. Tried gluten free diet and FODMAP and did not notice any changes. The patient states it always feels she is on her period. The patient took Linzess and 3 laxatives (dulcolax?) and still could not go. Has been taking Linzess basically daily. The patient states there is only one bathroom at work which makes BMs difficult. The patient states ibuprofen does not help the pain she has. Did try a whole bottle of mag citrate and it did not really produce stool. The patient will not have a BM if she does not take the Linzess. If she has a harder stomach, she will not go for 2-3 days. Colonoscopy: never EGD: never Fam Hx: Colon cancer - negative Mother has UC PAST MEDICAL HISTORY Diagnosis Date Asthma Attention deficit disorder (ADD) without hyperactivity Generalized anxiety disorder History of depression Hypoglycemia Irritable bowel syndrome with constipation PAST SURGICAL HISTORY Procedure Laterality Date TRABECULOPLASTY BY LASER SURGERY Bilateral 08/13/2020 Social History Tobacco Use Smoking status: Never Smokeless tobacco: Never Vaping Use Vaping Use: Never used Substance Use Topics Alcohol use: Yes Comment: once a month Drug use: Never FAMILY HISTORY Problem Relation Age of Onset other (colitis) Mother Appears to be due to Post COVID No Known Problems Father other (Leg Tumor) Sister In thigh bone. Just needed resected OCD Sister other (Dyslexia) Sister other (Speech impediment) Sister Lung Cancer Maternal Grandmother No Known Problems Maternal Grandfather Breast Cancer Paternal Grandmother 70 No Known Problems Paternal Grandfather Current Outpatient Medications Medication Sig dicyclomine (BENTYL) 10 mg capsule Take 1 capsule by mouth three times a day as needed. (Patient not taking: Reported on 12/26/2023) linaCLOtide (LINZESS) 72 mcg capsule Take 1 capsule by mouth every morning. ondansetron orally disintegrating (ZOFRAN ODT) 4 mg disintegrating tablet Take 1 tablet by mouth every 6 hours as needed for nausea/vomiting. sertraline (ZOLOFT) 50 mg tablet Take 1 tablet by mouth once daily. DOSE CHANGE: TAKE ONE DAILY dicyclomine (BENTYL) 10 mg capsule Take 1 capsule by mouth before meals and at bedtime. As needed (Patient not taking: Reported on 09/26/2023) loperamide HCl (IMODIUM A-D) 2 mg tab Take 1 tablet by mouth as needed (Take according to package directions). Multivitamin capsule Take 1 capsule by mouth once daily. docusate sodium (COLACE) 100 mg capsule Take 1 capsule by mouth twice daily as needed for constipation. No current facility-administered medications for this visit. ALLERGIES Allergen Reactions Penicillins Unknown Pt states she doesn't know what reaction she had to Pencillin. She was a young child. Allergy skin tests to penicillin were positive.The patient is at risk for a severe, immediate, IgE-mediated reaction to penicillin and other penicillin type antibiotics. The patient should continue to avoid use of penicillin and other penicillin type antibiotics. PHYSICAL EXAMINATION: No physical exam was performed due to this visit being performed virtually to decrease exposure to Covid 19. Patient was awake, alert, oriented, was able to speak clearly and answer questions. Patient did not seem to be in any distress. LABS: Hemoglobin Date Value 06/04/2023 13.7 g/dL 08/03/2021 13.5 G/DL Hematocrit (%) Date Value 06/04/2023 41.9 08/03/2021 40.0 WBC Date Value 06/04/2023 5.09 k/uL 08/03/2021 5.3 K/CUMM Lab Results Component Value Date TBILI 0.9 06/04/2023 CREAT 0.92 06/04/2023 ALB 4.6 06/04/2023 ALKPHOS 75 06/04/2023 AST 19 06/04/2023 ALT 10 06/04/2023 TPROT 7.1 06/04/2023 Plan ASSESSMENT AND PLAN: Impression: This is a 28 year old female who presents via MyChart for issues with constipation and nausea. The patient states that she has been taking Linzess, MiraLAX, Metamucil, and nsyf-[id number] laxatives. These have not really made a huge d (more content not included)...[facility] 01-23-2024 History of Present illness Narrative* Fabiola Devlin PA-C - 01/23/2024 11:03 AM EDT GASTROENTEROLOGY PROGRESS NOTE VIRTUAL FOLLOW UP I have communicated my name and active licensure. The patient's identity and physical location wereverified at the time of this visit. Either the patient or their legal sales service representative has been informed of the risks and benefits of -- and alternatives to -- treatment through a remote evaluation andconsents to proceed with the evaluation remotely. This is a virtual visit using [facility] Visit. It required patient- provider interaction for the medical decision making as documented below. HPI: I saw Lay Hunter today for a follow up. The patient has been taking Miralax, metamucil, gas-x and Linzess. Still feeling constipated. Going a lot, but small amounts. On Sunday - stomach felt hard after eating- typically gassy. Tried gluten free diet and FODMAP and did not notice any changes.The patient states it always feels she is on her period. The patient took Linzess and 3 laxatives (dulcolax?) and still could not go. Has been taking Linzess basically daily. The patient states thereis only one bathroom at work which makes BMs difficult. The patient states ibuprofen does not help the pain she has. Did try a whole bottle of mag citrate and it did not really produce stool. The patient will not have a BM if she does not take the Linzess. If she has a harder stomach, she will not go for 2-3 days. Colonoscopy: never EGD: never Fam Hx: Colon cancer - negative Mother has UC PAST MEDICAL HISTORY Diagnosis Date Asthma Attention deficit disorder (ADD) without hyperactivity Generalized anxiety disorder History of depression Hypoglycemia Irritable bowel syndrome with constipation PAST SURGICAL HISTORY Procedure Laterality Date TRABECULOPLASTY BY LASER SURGERY Bilateral 08/13/2020 Social History Tobacco Use Smoking status: Never Smokeless tobacco: Never Vaping Use Vaping Use: Never used Substance Use Topics Alcohol use: Yes Comment: once a month Drug use: Never FAMILY HISTORY Problem Relation Age of Onset other (colitis) Mother Appears to be due to Post COVID No Known Problems Father other (Leg Tumor) Sister In thigh bone. Just needed resected OCD Sister other (Dyslexia) Sister other (Speech impediment) Sister Lung Cancer Maternal Grandmother No Known Problems Maternal Grandfather Breast Cancer Paternal Grandmother 70 No Known Problems Paternal Grandfather Current Outpatient Medications Medication Sig dicyclomine (BENTYL) 10 mg capsule Take 1 capsule by mouth three times a day as needed. (Patient not taking: Reported on 12/26/2023) linaCLOtide (LINZESS) 72 mcg capsule Take 1 capsule by mouth every morning. ondansetron orally disintegrating (ZOFRAN ODT) 4 mg disintegrating tablet Take 1 tablet by mouth every 6 hours as needed for nausea/vomiting. sertraline (ZOLOFT) 50 mg tablet Take 1 tablet by mouth once daily. DOSE CHANGE: TAKE ONE DAILY dicyclomine (BENTYL) 10 mg capsule Take 1 capsule by mouth before meals and at bedtime. As needed (Patient not taking: Reported on 09/26/2023) loperamide HCl (IMODIUM A-D) 2 mg tab Take 1 tablet by mouth as needed (Take according to package directions). Multivitamin capsule Take 1 capsule by mouth once daily. docusate sodium (COLACE) 100 mg capsule Take 1 capsule by mouth twice daily as needed for constipation. No current facility-administered medications for this visit. ALLERGIES Allergen Reactions Penicillins Unknown Pt states she doesn't know what reaction she had to Pencillin. She was a young child. Allergy skin tests to penicillin were positive.The patient is at risk for a severe, immediate, IgE-mediated reaction to penicillin and other penicillin type antibiotics. The patient should continue to avoid use ofpenicillin and other penicillin type antibiotics. PHYSICAL EXAMINATION: No physical exam was performed due to this visit being performed virtually to decrease exposure to Covid 19. Patient was awake, alert, oriented, was able to speak clearly and answer questions. Patient did not seem to be in any distress. LABS: Hemoglobin Date Value 06/04/2023 13.7 g/dL 08/03/2021 13.5 G/DL Hematocrit (%) Date Value 06/04/2023 41.9 08/03/2021 40.0 WBC Date Value 06/04/2023 5.09 k/uL 08/03/2021 5.3 K/CUMM Lab Results Component Value Date TBILI 0.9 06/04/2023 CREAT 0.92 06/04/2023 ALB 4.6 06/04/2023 ALKPHOS 75 06/04/2023 AST 19 06/04/2023 ALT 10 06/04/2023 TPROT 7.1 06/04/2023 Plan ASSESSMENT AND PLAN: Impression: This is a 28 year old female who [facility] with const[facility] and nausea. The patient states that she has been taking Linzess, MiraLAX, Metamucil, and [id number] laxatives. These have not really made a huge difference in her bowel movements. The patient statesthat she does not take the Linzess she will not have a bowel movement. The patient states that it is difficult for her to take the Linzess regularly because it does cause her diarrhea. The patient only has 1 bathroom where she works which makes this difficult. The patient is going to proceed with getting a colonoscopy. She will do the GoLytely prep. This has been sent to the pharmacy. The patientalso is going to stop the Linzess and start taking Trulance. We will also consider doing Isbrela should the Trulance does not work. The patient had no further questions or concerns today. We discussed the procedure, instructions, and patient agrees to proceed. The patient verbalized understanding and agreed with the plan. They stated that they had no further questions. ASSESSMENT/PLAN: 1. Irritable bowel syndrome with constipation - ICD9: 564.1, ICD10: K58.1 (primary diagnosis) - COLONOSCOPY DIAGNOSTIC 2. Change in bowel habits - ICD9: 787.99, ICD10: R19.4 - COLONOSCOPY DIAGNOSTIC 3. Abdominal pain, left lower quadrant - ICD9: 789.04, ICD10: R10.32 - COLONOSCOPY DIAGNOSTIC - likely related to constipation. 4. Nausea - ICD9: 787.02, ICD10: R11.0 - could be related to constipation. Fabiola Devlin PA-C I spent a total of 40 minutes on the date of the service which included preparing to see the patient, completing clinical documentation, counseling and educating the patient/family/caregiver, and ordering medications, tests, or procedures. This note was partially generated using Mirego voice recognition system, and there may be some incorrect words, spellings, and punctuation that were not noted in checking the note before saving. documented [facility] Instructions* Patient Instructions* Kvng Hurd MD - 12/26/2023 5:29 PM EDT Consider taking the Miralax and Metamucil daily as discussed. Also Gas X routinely until get bowels going routinely. Okay to try Magnesium. documented in this encounterEast [facility]06-[facility]24 NoteHNO ID: [id number] Author: KVNG HURD MD Service: ? Author Type: Physician Type: Progress Notes Filed: 01/27/2024 18:26 Note Text: This note was created using Initiative Gamingriter. Subjective Lay Hunter is a 28 year old female. Patient presents with: F/U 3 Month SUBJECTIVE: Lay Hunter is a 28 year old year old lady here today for 3 month follow up appointment for review of medical conditions. 6 months and still miserable. Miralax routinely and not helping. Generic fiber capsule. Stool softener as needed. Gas Relief as needed. Once or twice weekly laxative small red pill--does not help Linzess helps with constipation. Taken more than 30 days worth. Sometimes too fast so only taking as needed. Constant pressure that needs to release gas. Saw Gastroenterology. Saw Body Bumper. Pain in side ongoing. Noted had pyloric stenosis that was treated with surgery when she was a baby. PAST MEDICAL HISTORY Diagnosis Date Asthma Attention deficit disorder (ADD) without hyperactivity Generalized anxiety disorder History of depression Hypoglycemia Irritable bowel syndrome with constipation Current Outpatient Medications Medication Sig linaCLOtide (LINZESS) 72 mcg capsule Take 1 capsule by mouth every morning. ondansetron orally disintegrating (ZOFRAN ODT) 4 mg disintegrating tablet Take 1 tablet by mouth every 6 hours as needed for nausea/vomiting. sertraline (ZOLOFT) 50 mg tablet Take 1 tablet by mouth once daily. DOSE CHANGE: TAKE ONE DAILY dicyclomine (BENTYL) 10 mg capsule Take 1 capsule by mouth three times a day as needed. (Patient not taking: Reported on 12/26/2023) lisdexamfetamine (VYVANSE) 30 mg capsule Take 1 capsule by mouth once daily for 30 days. lisdexamfetamine (VYVANSE) 30 mg capsule Take 1 capsule by mouth once daily for 30 days. Do not start before September 15, 2023. lisdexamfetamine (VYVANSE) 30 mg capsule Take 1 capsule by mouth once daily for 30 days. Do not start before July 15, 2023. dicyclomine (BENTYL) 10 mg capsule Take 1 capsule by mouth before meals and at bedtime. As needed (Patient not taking: Reported on 09/26/2023) loperamide HCl (IMODIUM A-D) 2 mg tab Take 1 tablet by mouth as needed (Take according to package directions). Multivitamin capsule Take 1 capsule by mouth once daily. docusate sodium (COLACE) 100 mg capsule Take 1 capsule by mouth twice daily as needed for constipation. No current facility-administered medications for this visit. Review of Systems Objective BP 118/68 Pulse 69 Temp 36.8 ?C (98.3 ?F) Resp 18 Wt 68.5 kg (151 lb) LMP 12/24/2023 (Within Days) SpO2 100% BMI 25.92 kg/m? Physical Exam Constitutional: Appearance: Normal appearance. HENT: Head: Normocephalic. Eyes: Conjunctiva/sclera: Conjunctivae normal. Cardiovascular: Rate and Rhythm: Normal rate and regular rhythm. Heart sounds: Normal heart sounds. Pulmonary: Effort: Pulmonary effort is normal. Breath sounds: Normal breath sounds. Abdominal: General: Abdomen is flat. Palpations: Abdomen is soft. Skin: General: Skin is warm and dry. Neurological: General: No focal deficit present. Mental Status: She is alert and oriented to person, place, and time. Psychiatric: Mood and Affect: Mood normal. Behavior: Behavior normal. Thought Content: Thought content normal. Judgment: Judgment normal. Assessment and Plan ASSESSMENT/PLAN: 1. Irritable bowel syndrome with both constipation and diarrhea - ICD9: 564.1, ICD10: K58.2 Discussed ongoing symptoms despite trial of supplements and meds as noted in HPI. Will touch base with GI about further follow up, evaluation and treatment. See patient instructions. See if taking Miralax in AM and Metamucil at night routinely helps, plus GasX routinely for the gas and bloating. Magnesium might help prevent constipation. I spent a total of at least 30 minutes on the date of the service which included [id number] patient care, completing clinical documentation, obtaining and/or reviewing separately obtained history, performing a medically appropriate examination, counseling and educating the patient/family/caregiver, and communicating with other HCPs (not separately reported). Kvng Hurd [facility]06-12-2024 History of Present illness Narrative* Kvng Hurd MD - 12/26/2023 4:41 PM EDT This note was created using [employer]. Subjective Lay Hunter is a 28 year old female. Patient presents with: F/U 3 Month SUBJECTIVE: Lay Hunter is a 28 year old year old lady here today for 3 month follow up appointment for review of medical conditions. 6 months and still miserable. Miralax routinely and not helping. Generic fiber capsule. Stool softener as needed. Gas Relief as needed. Once or twice weekly laxative small red pill--does not help Linzess helps with constipation. Taken more than 30 days worth. Sometimes too fast so only taking as needed. Constant pressure that needs to release gas. Saw Gastroenterology. Saw Body Bumper. Pain in side ongoing. Noted had pyloric stenosis that was treated with surgery when she was a baby. PAST MEDICAL HISTORY Diagnosis Date Asthma Attention deficit disorder (ADD) without hyperactivity Generalized anxiety disorder History of depression Hypoglycemia Irritable bowel syndrome with constipation Current Outpatient Medications Medication Sig linaCLOtide (LINZESS) 72 mcg capsule Take 1 capsule by mouth every morning. ondansetron orally disintegrating (ZOFRAN ODT) 4 mg disintegrating tablet Take 1 tablet by mouth every 6 hours as needed for nausea/vomiting. sertraline (ZOLOFT) 50 mg tablet Take 1 tablet by mouth once daily. DOSE CHANGE: TAKE ONE DAILY dicyclomine (BENTYL) 10 mg capsule Take 1 capsule by mouth three times a day as needed. (Patient not taking: Reported on 12/26/2023) lisdexamfetamine (VYVANSE) 30 mg capsule Take 1 capsule by mouth once daily for 30 days. lisdexamfetamine (VYVANSE) 30 mg capsule Take 1 capsule by mouth once daily for 30 days. Do not start before September 15, 2023. lisdexamfetamine (VYVANSE) 30 mg capsule Take 1 capsule by mouth once daily for 30 days. Do not start before July 15, 2023. dicyclomine (BENTYL) 10 mg capsule Take 1 capsule by mouth before meals and at bedtime. As needed (Patient not taking: Reported on 09/26/2023) loperamide HCl (IMODIUM A-D) 2 mg tab Take 1 tablet by mouth as needed (Take according to package directions). Multivitamin capsule Take 1 capsule by mouth once daily. docusate sodium (COLACE) 100 mg capsule Take 1 capsule by mouth twice daily as needed for constipation. No current facility-administered medications for this visit. Review of Systems Objective BP 118/68 Pulse 69 Temp 36.8 C (98.3 F) Resp 18 Wt 68.5 kg (151 lb) LMP 12/24/2023 (Within Days) SpO2 100% BMI 25.92 kg/m Physical Exam Constitutional: Appearance: Normal appearance. HENT: Head: Normocephalic. Eyes: Conjunctiva/sclera: Conjunctivae normal. Cardiovascular: Rate and Rhythm: Normal rate and regular rhythm. Heart sounds: Normal heart sounds. Pulmonary: Effort: Pulmonary effort is normal. Breath sounds: Normal breath sounds. Abdominal: General: Abdomen is flat. Palpations: Abdomen is soft. Skin: General: Skin is warm and dry. Neurological: General: No focal deficit present. Mental Status: She is alert and oriented to person, place, and time. Psychiatric: Mood and Affect: Mood normal. Behavior: Behavior normal. Thought Content: Thought content normal. Judgment: Judgment normal. Assessment and Plan ASSESSMENT/PLAN: 1. Irritable bowel syndrome with both constipation and diarrhea - ICD9: 564.1, ICD10: K58.2 Discussed ongoing symptoms despite trial of supplements and meds as noted in HPI. Will touch base with GI about further follow up, evaluation and treatment. See patient instructions. See if taking Miralax in AM and Metamucil at night routinely helps, plus GasX routinely for the gas and bloating. Magnesium might help prevent constipation. I spent a total of at least 30 minutes on the date of the service which included [id number] patient care, completing clinical documentation, obtaining and/or reviewing separately obtained history, performing a medically appropriate examination, counseling and educating the patient/family/caregiver, and communicating with other HCPs (not separately reported). Kvng Hurd MD documented in [facility]04-29-[facility] History of Present illness Narrative* Elsy Garcia RT(R) - 11/12/2023 8:00 AM EDT Radiology Service Progress Note PATIENT NAME: Lay Hunter DATE OF SERVICE: November 12, 2023 TIME: 8:15 AM PATIENT IDENTITY VERIFICATION COMPLETED USING TWO (2) IDENTIFIERS: Name and Date of confirmedby patient verbally. FALL SCREENING: Has the patient had 2 falls in the last year or 1 fall with injury or currently using an Ambulatory Assistive Device (Walker, Cane, Wheelchair, Crutches, etc.)? No PATIENT GENDER DATA: Female. status: : No status: NO. PATIENT RELEVANT IMPLANT DATA REVIEWED: Yes PATIENT PRESENTS WITH AN IMPLANTABLE OR ATTACHED SEISMOGRAPHER: No RADIOLOGY DEPARTMENT: General X-ray: Exam(s) Completed: Abdomen X-Ray: Abdomen with Upright PERIPHERAL IV DATA: Not applicable SIGNED BY: RT Rubén(R) November 12, 2023 8:15 AM documented in this encounterEast [facility]04-09-2024 NoteHNO ID: [id number] Author: FABIOLA DEVLIN PA-C Service: ? Author Type: Physician Commercial Agent Type: Progress Notes Filed: 10/23/2023 09:00 Note Text: GASTROENTEROLOGY NEW PATIENT VIRTUAL VISIT Patient consented to this visit being virtual and understands there are limitations inherent in this type of visit. I have communicated my name and active licensure. The patient's identity and physical location were verified at the time of this visit. Either the patient or their legal sales service representative has been informed of the risks and benefits of -- and alternatives to -- treatment through a remote evaluation and consents to proceed with the evaluation remotely. This is a virtual visit using [employer] Video Visit. It required patient-provider interaction for the medical decision making as documented below. CC: lower abdominal pain and constipation HPI: Lay Hunter is a 28 year old female who presents for abdominal pain and constipation. The patient states she was diagnosed in high school with IBS. The patient states she has having horrible stomach pains in May. [address] 06-05-23. Was told she had a lot of stool in the colon. Was given Zofran. The patient states after this has been very constipated. She can only go pellets. Goes about 1 time a week every couple hours. It is hard and has caused hemorrhoids. No bleeding. Feels she always needs to go to the bathroom. The patient states the lower left quadrant pain is so bad it can bring her to tears. The patient states she has had urgent bowel movements as well. Has been on Miralax, fiber, probiotics, laxatives- bisacodyl. Miralax was used regularly in 2022. Fiber daily. Probiotics daily. Laxatives 2 times a week. Also, has tried FODMAP. NSAID use: Tylenol as needed. Unexplained weight loss: none. Has been gaining. Take Blood thinners: none. Bowel Habits: see above. Colonoscopy: never EGD: never Fam Hx: Colon cancer - negative Mother has UC Current Outpatient Medications Medication Sig ondansetron orally disintegrating (ZOFRAN ODT) 4 mg disintegrating tablet Take 1 tablet by mouth every 6 hours as needed for nausea/vomiting. sertraline (ZOLOFT) 50 mg tablet Take 1 tablet by mouth once daily. DOSE CHANGE: TAKE ONE DAILY lisdexamfetamine (VYVANSE) 30 mg capsule Take 1 capsule by mouth once daily for 30 days. lisdexamfetamine (VYVANSE) 30 mg capsule Take 1 capsule by mouth once daily for 30 days. Do not start before September 15, 2023. lisdexamfetamine (VYVANSE) 30 mg capsule Take 1 capsule by mouth once daily for 30 days. Do not start before July 15, 2023. dicyclomine (BENTYL) 10 mg capsule Take 1 capsule by mouth before meals and at bedtime. As needed (Patient not taking: Reported on 09/26/2023) loperamide HCl (IMODIUM A-D) 2 mg tab Take 1 tablet by mouth as needed (Take according to package directions). Multivitamin capsule Take 1 capsule by mouth once daily. docusate sodium (COLACE) 100 mg capsule Take 1 capsule by mouth twice daily as needed for constipation. No current facility-administered medications for this visit. PAST MEDICAL HISTORY Diagnosis Date Asthma Attention deficit disorder (ADD) without hyperactivity Generalized anxiety disorder History of depression Hypoglycemia Irritable bowel syndrome with constipation PAST SURGICAL HISTORY Procedure Laterality Date TRABECULOPLASTY BY LASER SURGERY Bilateral 08/13/2020 FAMILY HISTORY Problem Relation Age of Onset other (colitis) Mother Appears to be due to Post COVID No Known Problems Father other (Leg Tumor) Sister In thigh bone. Just needed resected OCD Sister other (Dyslexia) Sister other (Speech impediment) Sister Lung Cancer Maternal Grandmother No Known Problems Maternal Grandfather Breast Cancer Paternal Grandmother 70 No Known Problems Paternal Grandfather Social History Tobacco Use Smoking status: Never Smokeless tobacco: Never Vaping Use Vaping Use: Never used Substance Use Topics Alcohol use: Yes Comment: once a month Drug use: Never ALLERGIES Allergen Reactions Penicillins Unknown Pt states she doesn't know what reaction she had to Pencillin. She was a young child. Allergy skin tests to penicillin were positive.The patient is at risk for a severe, immediate, IgE-mediated reaction to penicillin and other penicillin type antibiotics. The patient should continue to avoid use of penicillin and other penicillin type antibiotics. GI SPECIFIC ROS: Difficulty swallowing / foods sticking in throat: No Heartburn: No Hoarseness: No Chronic cough: No Regurgitation: Yes- does take Tums. Might be from her Zoloft as she sometimes lays back down after taking it. Chest pain: No Filling up quickly at meals: No- can eat a meal, but worries about getting pain. Loss of appetite: No Nausea: Yes Vomiting: No- 1 time a couple weeks ago. Randomly. Abdominal pain: Yes Recent (more content not included)...[facility]03-13-2024 Instructions* Patient Instructions* Rose Nix MD - 09/26/2023 3:00 PM EDT Allergy skin tests were positive to penicillin indicating that you are at risk for severe immediateallergic or anaphylactic reaction to penicillin and other penicillin type antibiotics such as amoxicillin and Augmentin. Continue to avoid use of penicillin antibiotics. documented in this [facility] History of Present illness Narrative* Rose Nix MD - 09/26/2023 1:17 PM EDT ASSESSMENT/PLAN: 1.) Constipation, bloating, abdominal pain, likely irritable bowel syndrome: Reassured patient that her symptoms are not consistent with IgE-mediated food allergies. Recommend that she follow-up with her primary care physician. Gastroenterology consultation may also be considered. 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 The patient is at risk for a severe, immediate, IgE-mediated reaction to penicillin and other penicillin type antibiotics. The patient should continue to avoid use of penicillin and other penicillin type antibiotics such as amoxicillin and augmentin. If treatment with penicillin or another penicillin type antibiotic is indicated and an equally efficacious alternate medication is not available, desensitization may be considered. This is most oftencompleted on an inpatient basis. 3.) Discussed medication dosage, usage, side effects, and goals of treatment in detail. 4.) Follow-up in PRN - patient will return sooner should new symptoms or problems arise. Rose Nix MD This is a self-referral for an allergy and immunology evaluation. Lay Hunter is a 28 year old female who for further evaluation of possible food allergies. She complains of a 7-month history of increased constipation, bloating and lower abdominal pain. Has occasional loose stools. Denies melena and hematochezia. Notes an intermittent burning sensation in her throat. Infrequent episodes of vomiting. Take Zofran as needed for nausea. Previously on dicyclomine without significant improvement . She has also taken MiraLAX. No acute findings were noted on CTof the abdomen and pelvis. She has previously been diagnosed with irritable bowel syndrome, constipation predominant. No prior gastroenterology evaluation. Symptoms worsen several hours after eating.She is concerned that lactose and gluten may be triggers of her symptoms. She has never experienceda severe immediate reaction to food such as urticaria, angioedema, respiratory distress, lightheadedness or loss of consciousness. History of adverse reaction to penicillin as a child. Details of the reaction are unknown. Per patient, her father questions whether or not she is truly allergic to penicillin. At 8 years old, she awoke with a generalized pruritic rash in the morning. In the evening, she presented to the emergency room for difficulty breathing. 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 Per patient, she was told that she had an anaphylactic reaction but her mother declined further evaluation. EpiPens were prescribed at that time. Intermittent blotchy mildly pruritic rash on the chest. Remote history of asthma. Last used albuterol as a 6th grader. REVIEW OF SYSTEMS: Answers submitted by the patient for this visit: Allergy Review of Symptoms (Submitted on 09/24/2023) Appetite change: Yes Recent unintentional weight change: Yes Abdominal pain: Yes Nausea: Yes Constipation: Yes Difficulty concentrating: Yes Feeling anxious: Yes Easy bruising: Yes SINUSITIS: The patient does not suffer from frequent sinopulmonary infections. ASTHMA: The patient has no history of asthma. ECZEMA: The patient has no history of eczema. URTICARIA:The patient does not have a history of urticaria and/or angioedema. GERD: The patient does not have a history of GERD. INSECT STING: The patient does not have a history of systemic reaction to insect sting. FOOD ALLERGY:See [place] LATEX: The patient does not have a history of adverse reaction to latex. All other review of systems negative except for those listed above. PAST MEDICAL HISTORY Diagnosis Date Asthma Attention deficit disorder (ADD) without hyperactivity Generalized anxiety disorder History of depression Hypoglycemia Irritable bowel syndrome with constipation MEDICATIONS: ondansetron orally disintegrating (ZOFRAN ODT) 4 mg disintegrating tablet Take 1 tablet by mouth every 6 hours as needed for nausea/vomiting. sertraline (ZOLOFT) 50 mg tablet Take 1 tablet by mouth once daily. DOSE CHANGE: TAKE ONE DAILY loperamide HCl (IMODIUM A-D) 2 mg tab Take 1 tablet by mouth as needed (Take according to package directions). Multivitamin capsule Take 1 capsule by mouth once daily. docusate sodium (COLACE) 100 mg capsule Take 1 capsule by mouth twice daily as needed for constipation. lisdexamfetamine (VYVANSE) 30 mg capsule Take 1 capsule by mouth once daily for 30 days. lisdexamfetamine (VYVANSE) 30 mg capsule Take 1 capsule by mouth once daily for 30 days. Do not start before September 15, 2023. lisdexamfetamine (VYVANSE) 30 mg capsule Take 1 capsule by mouth once daily for 30 days. Do not start before July 15, 2023. dicyclomine (BENTYL) 10 mg capsule Take 1 capsule by mouth before meals and at bedtime. As needed (Patient not taking: Reported on 09/26/2023) ALLERGIES: Allergies As of Date: 09/26/2023 Allergen Noted Reaction PENICILLINS 02/06/2017 Other: See Comments and Unknown Fully Assessed 09/26/2023 PAST SURGICAL HISTORY Procedure Laterality Date TRABECULOPLASTY BY LASER SURGERY Bilateral 08/13/2020 FAMILY HISTORY: Allergic rhinitis:yes: dad. Asthma: yes: sister and MGM. And self Eczema: no. Cystic fibrosis: no. Immunodeficiency: no. 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 Pets in the home: 1 dogs Outdoor animals: There are no outdoor animals Tobacco smoke: No exposure in the home. Physical Exam: GENERAL APPEARANCE:Well appearing, alert, in no acute distress, well-hydrated, well nourished. HEENT: NCAT. EYES: conjunctiva and sclera normal. EARS: External ears normal. Canals clear. TM's normal. NOSE/SINUS: Nares normal. Septum midline. Mucosa normal. No drainage or sinus tenderness. THROAT: no erythema NECK:neck supple, no adenopathy HEART:RRR with normal S1 and S2 ,no murmurs, no gallops, no rubs LUNGS: clear to auscultation bilaterally, no wheezes, rales or rhonchi ABDOMEN:soft, nontender, nondistended, without organomegaly or palpable masses EXTREMITIES:Extremities normal, No deformities, No skin discoloration, and No edema SKIN: Skin color, texture, turgor normal. No rashes or lesions. ALLERGY SKIN TESTS on 09/26/23: Positive to penicillin and Pre-Pen on intradermal testing documented [facility] Nurse Note* Ele Lentz RN - 09/26/2023 1:14 PM EDT Here for allergy testing for food allergies. Has stomach issues starts within 5 hrs. Of eating. Issues are Bloating and gas, constipation, diarrhea at times and sharp pains in lower abdomen. documented in this encounterEast [facility]02-[facility] History of Present illness Narrative* Sanjuanita Nash APRN.CLINICAL MENTAL HEALTH COUNSELOR - 08/27/2023 11:27 AM EST AMBULATORY TELEPHONE VISIT Lay Hunter has consented to this telephone encounter. Persons Present: patient Chief Complaint/Reason: ADHD medication concern HPI: She has history of ADHD taking Vyvanse which has been very effective without adverse effects. Noting that there has been a shortage and can no longer get generic, only brand-name is currently available and is much more expensive. Wonders about alternate medication. Reports has tried alternates in the past which were less effective for had side effects that she did not tolerate. She reports recent illness with persisting nausea, would like refill of Zofran. Data Reviewed: chart Assessment: (F90.2) Attention deficit hyperactivity disorder, combined type (primary encounter diagnosis) (R11.0) Nausea (F41.9) Anxiety Plan: 1. Attention deficit hyperactivity disorder, combined type - ICD9: 314.01, ICD10: F90.2 (primary diagnosis) Review of literature shows that generic should be available next months of Vyvanse, if able to afford the $70 for brand-name for now recommend stick with this 1 more month and see if she can get the generic. If not consider Strattera. States her counselor recommended consideration of Ritalin, did not think adderall would work well for her. 2. Nausea - ICD9: 787.02, ICD10: R11.0 - ONDANSETRON 4 MG DISINTEGRATING TABLET 3. Anxiety - ICD9: 300.00, ICD10: F41.9 - SERTRALINE 50 MG TABLET Total Time Spent: 20 minutes Sanjuanita Nash APRN.CLINICAL MENTAL HEALTH COUNSELOR documented in this encounterEast [facility]02-[facility]24 Miscellaneous Notes* Telephone Encounter - Mariah Foley LPN - 08/17/2023 8:59 AM EST Spoke with pt and information listed below given. Pt verbalizes understanding. Mraiah Foley LPN * Telephone Encounter - Kvng Hurd MD - 08/16/2023 6:34 PM EST The following approved medication requests have been transmitted electronically. Requested Prescriptions Signed Prescriptions Disp Refills lisdexamfetamine (VYVANSE) 30 mg capsule 30 capsule 0 Sig: Take 1 capsule by mouth once daily for 30 days. Authorizing Provider: KVNG HURD lisdexamfetamine (VYVANSE) 30 mg capsule 30 capsule 0 Sig: Take 1 capsule by mouth once daily for 30 days. Do not start before September 15, 2023. Authorizing Provider: KVNG HURD MD * Telephone Encounter - [place] Farhana Puentes - 08/15/2023 10:22 AM EST Patient has been identified by name and date of : Yes Requested Prescriptions Pending Prescriptions Disp Refills lisdexamfetamine (VYVANSE) 30 mg capsule 30 capsule 0 Sig: Take 1 capsule by mouth once daily for 30 days. lisdexamfetamine (VYVANSE) 30 mg capsule 30 capsule 0 Sig: Take 1 capsule by mouth once daily for 30 days. Do not start before September 13, 2023. RX INSTRUCTIONS: Patient is calling back, she needs her medication today, she is out. She is requesting this month with start date of 08/14 and the August script are both sent to [facility]. Patient aware RX will be sent to pharmacy. Please call her once this is completed. Farhana Ruelas [facility] [place] * Telephone Encounter - Miriam Anthony RN - 08/14/2023 11:01 AM EST Patient requesting her script for Vyvanse be sent to [facility], and canceled at [facility] please. Please call patient with update. [phone] Thank you. documented in this encounterEast [facility]12-11-2023 Instructions* Patient Instructions* Kvng Hurd MD - 06/25/2023 11:04 AM EST Miralax 1 capful daily Metamucil (psyllium) or gummy equivalent every night. If still having constipation, then 2 capfuls of Miralax. Okay to take GasX 4 times daily to keep gas controlled. Stop straws for a while. documented in this encounterEast [facility]12-11-2023 History of Present illness Narrative* Kvng Hurd MD - 06/25/2023 10:43 AM EST This note was created using panpan. Subjective Lay Hunter is a 28 year old female. Patient presents with: Follow Up: IBS, abdomen pain 6/10, lower back pain that radiates down right leg to knee SUBJECTIVE: Lay Hunter is a 28 year old year old lady here today for 3 month follow up appointment for review of medical conditions. Doing well on meds. Still with abdominal pain. Not same as IBS issues diagnosed before. Tender over anterior hip bones. Feels like has to go but hurts to push. Can go back and forth between constipation. Pain not better after moves bowels. Was having green stools before when had work with CT done. Uses fiber gummies routinely. Stopped taking OTC porbiotics--no better or worse. Bloating ongoing even after moves bowels. Has taken Imodium--took Sunday after got bowels going and had to get to work. PAST MEDICAL HISTORY Diagnosis Date Asthma Attention deficit disorder (ADD) without hyperactivity Generalized anxiety disorder History of depression Hypoglycemia Irritable bowel syndrome with constipation Current Outpatient Medications Medication Sig lisdexamfetamine (VYVANSE) 30 mg capsule Take 1 capsule by mouth once daily for 30 days. ondansetron orally disintegrating (ZOFRAN ODT) 4 mg disintegrating tablet Take 1 tablet by mouth every 6 hours as needed for nausea/vomiting. loperamide HCl (IMODIUM A-D) 2 mg tab Take 1 tablet by mouth as needed (Take according to package directions). lisdexamfetamine (VYVANSE) 30 mg capsule Take 1 capsule by mouth once daily for 30 days. Do not start before May 09, 2023. Multivitamin capsule Take 1 capsule by mouth once daily. Lactobacillus acidophilus (PROBIOTIC) 10 billion cell cap Take by mouth. docusate sodium (COLACE) 100 mg capsule Take 1 capsule by mouth twice daily as needed for constipation. sertraline (ZOLOFT) 25 mg tablet Take 1 tablet by mouth once daily. Take this in addition to 50 mg for a total of 75 mg daily (Patient not taking: Reported on 06/04/2023) lisdexamfetamine (VYVANSE) 40 mg capsule Take 1 capsule by mouth once daily for 30 days. Do not start before January 01, 2023. sertraline (ZOLOFT) 50 mg tablet Take 1 tablet by mouth once daily. DOSE CHANGE: TAKE ONE DAILY No current facility-administered medications for this visit. Review of Systems Objective BP 128/70 (BP Site: Left Arm, BP Position: Sitting, BP Cuff Size: Large Adult) Pulse 102 Temp 36.8 C (98.2 F) Resp 12 Ht 165.1 cm (5' 5) Wt 68.5 kg (151 lb) LMP 09/23/2022 (Exact Date) SpO2 99% BMI 25.13 kg/m Physical Exam Constitutional: Appearance: Normal appearance. HENT: Head: Normocephalic. Eyes: Conjunctiva/sclera: Conjunctivae normal. Cardiovascular: Rate and Rhythm: Normal rate and regular rhythm. Heart sounds: Normal heart sounds. Pulmonary: Effort: Pulmonary effort is normal. Breath sounds: Normal breath sounds. Abdominal: General: Abdomen is flat. Bowel sounds are normal. There is no distension. Palpations: Abdomen is soft. There is no mass. Tenderness: There is abdominal tenderness (Lower quadrants and upper abdomen). There is no guardingor rebound. Skin: General: Skin is warm and dry. Neurological: General: No focal deficit present. Mental Status: She is alert and oriented to person, place, and time. Psychiatric: Mood and Affect: Mood normal. Behavior: Behavior normal. Thought Content: Thought content normal. Judgment: Judgment normal. Assessment and Plan Encounter Diagnosis ICD-10-CM 1. Attention deficit hyperactivity disorder, combined type F90.2 lisdexamfetamine (VYVANSE) 40 mg capsule lisdexamfetamine (VYVANSE) 40 mg capsule lisdexamfetamine (VYVANSE) 40 mg capsule 2. Irritable bowel syndrome with both constipation and diarrhea K58.2 Discussed management. See Patient Instructions 3. Lower abdominal pain R10.30 Discussed management of gas and IBS issues. Above issues addressed with patient. Patient involved in shared decision making for management of medical issues. History and medications reviewed. Epic updated as needed Refills and/or prescriptions taken care of and meds adjusted as indicated after reviewed history, exam and labs. Health Maintenance reviewed. Updated record and/or ordered tests as recorded. Encouraged on efforts at healthy diet and regular exercise and adequate sleep. I spent a total of 36 minutes on the date of the service which included [id number] patient care, completing clinical documentation, obtaining and/or reviewing separately obtained history, performing a medically appropriate examination, counseling and educating the patient/family/caregiver, and ordering medications, tests, or procedures. Kvng Hurd MD documented in this encounterEast [facility]12-01-2023 Miscellaneous Notes* Telephone Encounter - Prabha Johnson OCCA - 06/15/2023 8:37 AM EST TC to patient who verbalized understanding of script being sent. Nothing further at this time. JANKI Cruz * Telephone Encounter - Kvng Hurd MD - 06/15/2023 12:59 AM EST Noted regarding [facility] not having med The following approved medication requests have been transmitted electronically. Requested Prescriptions Signed Prescriptions Disp Refills lisdexamfetamine (VYVANSE) 30 mg capsule 30 capsule 0 Sig: Take 1 capsule by mouth once daily for 30 days. Authorizing Provider: KVNG HURD MD * Telephone Encounter - Mariah Foley LPN - 06/14/2023 11:45 AM EST Pt called to get her Vyvanse rx sent to a different pharmacy. [facility]. KILLIAN: 06/04/23 NOV: 06/25/23 Mariah Foley LPN documented in this encounterEast [facility]11-21-2023 History of Present illness Narrative* Keisha Valles, RT(R) - 06/05/2023 9:00 AM EST Radiology Service Progress Note DATE OF SERVICE: June 05, 2023 TIME: 10:26 AM PATIENT IDENTITY VERIFICATION COMPLETED USING TWO (2) STANDARD IDENTIFIERS: Name and Date of confirmed by patient verbally. FALL SCREENING: Has the patient had 2 falls in the last year or 1 fall with injury or currently using an Ambulatory Assistive Device (Walker, Cane, Wheelchair, Crutches, etc.)? No PATIENT GENDER DATA: Female. status: : No status: NO. PATIENT RELEVANT IMPLANT DATA REVIEWED: Yes ALLERGIES: Reviewed and unchanged CONTRAST ALLERGY: NO. EXAM: CT -CONTRAST INDUCED NEPHROPATHY RISK FACTORS: Not applicable CREATININE: Creatinine Date Value Ref Range Status 09/25/2022 0.76 0.58 - 0.96 mg/dL Final 08/03/2021 0.80 0.510 - 0.950 MG/DL Final Comment: Patients receiving either N-Acetylcysteine (NAC) or Metamizole prior to venipuncture, may have falsely depressed results. 07/18/2018 0.813 0.510 - 0.950 MG/DL Final Comment: Patients receiving either N-Acetylcysteine (NAC) or Metamizole prior to venipuncture, may have falsely depressed results. Estimated Glomerular Filtration Rate Date Value Ref Range Status 09/25/2022 112 >=60 mL/min/1.73m Final Comment: Estimated Glomerular Filtration Rate (eGFR) is calculated using the 2020 CKD-EPI creatinine equation. This equation utilizes serum creatinine, sex, and age as parameters. The creatinine assay has traceable calibration to isotope dilution- mass spectrometry. Refer to KDIGO guidelines for clinical interpretation. In patients with unstable renal function, e.g. those with acute kidney injury, the eGFRmay not accurately reflect actual GFR. eGFR- Date Value Ref Range Status 08/03/2021 Greater than 60 Final P.O.C.T. RESULTS: POC done: Yes, See Lab Tab June 05, 2023 TREATMENT: N/A PERIPHERAL IV DATA: Ambulatory: A peripheral IV was started in the Left antecubital site with a Angio cath: 22 gauge. RADIOLOGY DEPARTMENT: CT; Exam(s) Completed: Abdomen/Pelvis SIGNATURE: RT Kimberley(R) PATIENT NAME: Lay Hunter DATE: June 05, 2023 TIME: 10:26 AM documented in this encounterEast [facility] Hospital11-20-2023 Instructions* Patient Instructions* Sanjuanita Nash APRN.CNS - 06/04/2023 3:47 PM EST Take ondansetron as needed for nausea and vomiting. Take Imodium as needed for diarrhea per package directions Drink sufficient fluids, aim for 64 ounces per day Drink at least 8 ounces of Pedialyte, broth or Gatorade daily until feeling improved. Eat as tolerated, try smaller meals while feeling ill. Try eating saltine crackers, broth, soups, starches/cereals (potatoes, noodles, rice, wheat, and oat) with some salt are excellent foods to consider. In addition, crackers, bananas, yogurt, and boiled vegetables are also good choices Avoid spicy, fatty or fried foods or fast foods. Let us know if not feeling improved. Go to ER if unable to keep fluids or food down for 24 hours or greater or having concerning symptoms. documented in this encounterEast [facility]11-20-2023 History of Present illness Narrative* Sanjuanita Nash APRN.CNS - 06/04/2023 3:20 PM EST SUBJECTIVE: Covid-19 Vaccine(1) Never done HPV Vaccine(3 - 2-dose series) due on 04/01/2009 Spirometry Never done Influenza Vaccine(1) Never done Pap Testing due on 09/18/2023 HPI Lay Hunter is a 28 year old female. PMH significant for ACTIVE PROBLEM LIST Anxiety Asthma Attention Deficit Hyperactivity Disorder, Combined Type Depression Irritable Bowel Syndrome With Constipation Hypoglycemia Allergic Dermatitis HPI excerpted from previous visit: Presents today regarding constipation. Reports persisting since September 2022. No known preceding illness or fever. She reports alternating constipation and diarrhea since college. Noted more diarrhea around menstrual cycle. Currently notes sensation of needing to have a bowel movement daily but typically only going every other day. Notes bowel movements can be small and hard. No nausea vomiting heartburn refluxBR BPR or black or tarry stools. She notes trying to drink more fluids, taking fiber Gummies and rqhv-ssk-zllsenp remedies such as MiraLAX. Notes Gummies seem to be the most helpful. Notes not alwaysgetting sufficient fluids during the day. Not taking MiraLAX daily. She notes can have lower abdominal pain associated with constipation. No prior evaluation with colonoscopy. Has not previously seen load out person. Notes mother had colitis in the past, she is not sure what kind of colitis this was. She noted mother had weight losswith this. Today she reports nausea and diarrhea x2 days. She reports eating [place] food on Sunday. Othersthat ate with her did not get sick. Notes has been able to drink fluids but has been limited in amount due to nausea. She notes upset stomach with crackers. No vomiting reported. Has had frequent diarrhea for 2 days. She notes started off with a solid BM on then frequent more solid stools which have progressed to liquid stools now. Multiple per day. Watery and frequent now. Afebrile. No sick contacts. She notes pain in the right upper quadrant and central abdomen. Decreased appetite. Nausea is present. She has a history of irritable bowel. She has not previously had a colonoscopy. Mother has history of ulcerative colitis. Review of Systems Gastrointestinal: Positive for abdominal pain, diarrhea and nausea. Psychiatric/Behavioral: The patient is nervous/anxious. Objective Resp 16 Wt 68.5 kg (151 lb) LMP 09/23/2022 (Exact Date) BMI 24.86 kg/m Physical Exam Vitals and nursing note reviewed. Constitutional: Appearance: Normal appearance. HENT: Head: Normocephalic and atraumatic. Eyes: Conjunctiva/sclera: Conjunctivae normal. Cardiovascular: Rate and Rhythm: Normal rate. Pulmonary: Effort: Pulmonary effort is normal. Abdominal: General: Bowel sounds are normal. There is no distension. Palpations: Abdomen is soft. There is no mass. Tenderness: There is abdominal tenderness (mild TTP RUQ, upper aspect periumbical, moderate TTP). There is no guarding or rebound. Skin: General: Skin is warm and dry. Neurological: General: No focal deficit present. Mental Status: She is alert and oriented to person, place, and time. ALLERGIES Allergen Reactions Penicillins Other: See Comments, Unknown Pt states she doesn't know what reaction she had to Pencillin. She was a young child. Medications lisdexamfetamine (VYVANSE) 30 mg capsule Take 1 capsule by mouth once daily for 30 days. Do not start before May 09, 2023. [START ON 06/08/2023] lisdexamfetamine (VYVANSE) 30 mg capsule Take 1 capsule by mouth once daily for 30 days. Do not start before June 08, 2023. Multivitamin capsule Take 1 capsule by mouth once daily. Lactobacillus acidophilus (PROBIOTIC) 10 billion cell cap Take by mouth. docusate sodium (COLACE) 100 mg capsule Take 1 capsule by mouth twice daily as needed for constipation. sertraline (ZOLOFT) 50 mg tablet Take 1 tablet by mouth once daily. DOSE CHANGE: TAKE ONE DAILY ondansetron orally disintegrating (ZOFRAN ODT) 4 mg disintegrating tablet Take 1 tablet by mouth every 6 hours as needed for nausea/vomiting. loperamide HCl (IMODIUM A-D) 2 mg tab Take 1 tablet by mouth as needed (Take according to package directions). iv contrast (will be provided with radiology test) CT Chest ABD/PEL-Inject, intravenously, once for1 dose.No IV access, insert saline lock prior to the beginning of sedation, infusion, injection of imaging exam. Discontinue saline lock post exam. If Pt. has a central line or IVAD, may access for administration according to line specific nursing protocol. Once exam is complete flush line and de-access according to line specific nursing protocol in the CT contrast administration guidelines link. enteric contrast (will be provided with radiology test) For CT CHESTABD/PEL W IVCON Routine order Administer, As Directed One Time Only, via Oral, Rectal, both Oral and Rectal, Enteric Tube, Stoma orIndwelling Catheter, Enteric Contrast as designated per enteric contrast guidelines sertraline (ZOLOFT) 25 mg tablet Take 1 tablet by mouth once daily. Take this in addition to 50 mg for a total of 75 mg daily (Patient not taking: Reported on 06/04/2023) lisdexamfetamine (VYVANSE) 40 mg capsule Take 1 capsule by mouth once daily for 30 days. Do not start before January 01, 2023. PAST MEDICAL HISTORY Diagnosis Date Asthma Attention deficit disorder (ADD) without hyperactivity Generalized anxiety disorder History of depression Hypoglycemia Irritable bowel syndrome with constipation PAST SURGICAL HISTORY Procedure Laterality Date TRABECULOPLASTY BY LASER SURGERY Bilateral 08/13/2020 Social History Tobacco Use Smoking status: Never Smokeless tobacco: Never Vaping Use Vaping Use: Never used Substance Use Topics Alcohol use: Yes Comment: once a month Drug use: Never FAMILY HISTORY Problem Relation Age of Onset other (colitis) Mother Appears to be due to Post COVID No Known Problems Father other (Leg Tumor) Sister In thigh bone. Just needed resected OCD Sister other (Dyslexia) Sister other (Speech impediment) Sister Lung Cancer Maternal Grandmother No Known Problems Maternal Grandfather Breast Cancer Paternal Grandmother 70 No Known Problems Paternal Grandfather Component Latest Ref Rng & Units 09/25/2022 12/28/2022 Protein, Total 6.3 - 8.0 g/dL 7.3 Albumin 3.9 - 4.9 g/dL 4.5 Calcium 8.5 - 10.2 mg/dL 9.4 Bilirubin, Total 0.2 - 1.3 mg/dL 1.1 Alkaline Phosphatase 34 - 123 U/L 78 AST 13 - 35 U/L 16 ALT 7 - 38 U/L 13 Glucose 74 - 99 mg/dL 86 BUN 7 - 21 mg/dL 8 Creatinine 0.58 - 0.96 mg/dL 0.76 Sodium 136 - 144 mmol/L 136 Potassium 3.7 - 5.1 mmol/L 4.2 Chloride 97 - 105 mmol/L 101 CO2 22 - 30 mmol/L 24 Anion Gap 9 - 18 mmol/L 11 eGFR >=60 mL/min/1.73m 112 WBC 3.70 - 11.00 k/uL 6.13 RBC 3.90 - 5.20 m/uL 4.50 Hemoglobin 11.5 - 15.5 g/dL 13.6 Hematocrit 36.0 - 46.0 % 41.3 MCV 80.0 - 100.0 fL 91.8 MCH 26.0 - 34.0 pg 30.2 MCHC 30.5 - 36.0 g/dL 32.9 RDW-CV 11.5 - 15.0 % 12.1 Platelet Count 150 - 400 k/uL 258 MPV 9.0 - 12.7 fL 10.9 Absolute nRBC <0.01 k/uL <0.01 Cholesterol, Total <200 mg/dL 192 Triglyceride <150 mg/dL 65 HDL Cholesterol >39 mg/dL 70 Non HDL Cholesterol <130 mg/dL 122 Fasting Time hrs 13 VLDL Cholesterol <30 mg/dL 13 TC:HDL Ratio <5.10 2.74 LDL Cholesterol <100 mg/dL 109 (H) LDL:HDL Ratio <2.54 1.56 Phencyclidine Negative Negative Benzodiazepines Urine Negative Negative Cocaine Urine Negative Negative Amphetamines Negative Negative Cannabinoids, Urine Negative Negative Opiates Negative Negative Barbiturates Negative Negative Ethanol, Urine <11 mg/dL <11 Oxycodone, Urine Negative Negative HIV 12 Combo (Ag/Ab) Nonreactive Nonreactive HIV 1/2 Ab HIV Interpretation Iron 41 - 186 ug/dL 60 TIBC 232 - 386 ug/dL 344 Transferrin Saturation 15.0 - 57.0 % 17.4 Magnesium 1.7 - 2.3 mg/dL 2.2 TSH 0.270 - 4.200 mIU/L 1.590 Free T4 0.9 - 1.7 ng/dL 1.1 Free T3 2.3 - 4.1 pg/mL 2.6 Hep C Antibody IA Negative Negative Ferritin 14.7 - 205.1 ng/mL 32.8 ASSESSMENT/PLAN: 1. Nausea - ICD9: 787.02, ICD10: R11.0 (primary diagnosis) - ONDANSETRON 4 MG DISINTEGRATING TABLET 2. Diarrhea, unspecified type - ICD9: 787.91, ICD10: R19.7 - LOPERAMIDE 2 MG TABLET 3. RUQ abdominal pain - ICD9: 789.01, ICD10: R10.11 - CBC + DIFF - C-REACTIVE PROTEIN (CRP) - HCG QUAL UR B/O - COMP METABOLIC PANEL - CT ABD/PEL W IVCON 4. Periumbilical abdominal pain - ICD9: 789.05, ICD10: R10.33 - CBC + DIFF - C-REACTIVE PROTEIN (CRP) - HCG QUAL UR B/O - negative - COMP METABOLIC PANEL - CT ABD/PEL W IVCON Labs today Presents with 2 days of nausea and diarrhea. She has been able to drink a limited amount of fluids.Solid foods are upsetting her stomach. She has right upper quadrant pain and periumbilical pain. Prior history of constipation. No prior colonoscopy. Mother has history of colitis. She is not sure what kind. Recommend hCG to exclude , labs to check for infection/appendicitis or cholecystitis. ER for any serious or concerning symptoms. Sanjuanita Nash APRN.CNS Medical Decision Making: Problems: Moderate: Acute illness with systemic symptoms Data: Unique test(s) ordered: 3+ Risk: Moderate: Drug management Medical Decision Making Level: 4 - Moderate documented in this encounterEast [facility]10-12-2023 Miscellaneous Notes* Telephone Encounter - Melody Beckford RN - 04/26/2023 12:14 PM EDT Patient returns call and appointments scheduled as recommended. Patient aware prescriptions have been sent to pharmacy. Melody Beckford RN * Telephone Encounter - Hannah Garcia RN - 04/26/2023 11:35 AM EDT TC patient, left message for patient to call back and speak with a triage nurse regarding provider recommendations. Hannah Garcia RN * Telephone Encounter - Kvng Hurd MD - 04/26/2023 10:51 AM EDT Okay to cancel May appointment with Sanjuanita since already has June appointment with me. Recommend make the next two 3 month follow ups alternating with Sanjuanita and The following approved medication requests have been transmitted electronically. Requested Prescriptions Signed Prescriptions Disp Refills lisdexamfetamine (VYVANSE) 30 mg capsule 30 capsule 0 Sig: Take 1 capsule by mouth once daily for 30 days. Do not start before May 09, 2023. Authorizing Provider: KVNG HURD lisdexamfetamine (VYVANSE) 30 mg capsule 30 capsule 0 Sig: Take 1 capsule by mouth once daily for 30 days. Do not start before June 08, 2023. Authorizing Provider: KVNG HURD MD * Telephone Encounter - Hannah Garcia RN - 04/26/2023 8:50 AM EDT Patient calls and states that she has appointment scheduled with Sanjuanita on 05/28/[address] Hurd on 06/25/2023. Patient asking if she can still get refills on medications for April and May and cancel appointment on 05/28/2023 since she is seeing Dr. Hurd a month later? Date of last office:03/01/2023 Date of next office visit: 05/28/2023 Requested Prescriptions Pending Prescriptions Disp Refills lisdexamfetamine (VYVANSE) 30 mg capsule 30 capsule 0 Sig: Take 1 capsule by mouth once daily for 30 days. lisdexamfetamine (VYVANSE) 30 mg capsule 30 capsule 0 Sig: Take 1 capsule by mouth once daily for 30 days. Date of Last Labs: 12/28/2022 Please advise. Thank you. Hannah Garcia RN. documented in this encounter[facility] History of Present illness Narrative* Suellen Patterson RT(R) - 03/01/2023 8:20 AM EDT Radiology Service Progress Note PATIENT NAME: Lay Hunter DATE OF SERVICE: March 01, 2023 TIME: 8:16 AM PATIENT IDENTITY VERIFICATION COMPLETED USING TWO (2) IDENTIFIERS: Name and Date of confirmedby patient verbally. FALL SCREENING: Has the patient had 2 falls in the last year or 1 fall with injury or currently using an Ambulatory Assistive Device (Walker, Cane, Wheelchair, Crutches, etc.)? No PATIENT GENDER DATA: Female. status: : No status: NO. PATIENT RELEVANT IMPLANT DATA REVIEWED: Not Applicable RADIOLOGY DEPARTMENT: General X-ray: Exam(s) Completed: Abdomen X-Ray: Abdomen PERIPHERAL IV DATA: Not applicable SIGNED BY: RT Nat(R) March 01, 2023 8:16 AM documented in this encounterEast [facility]08-17-2023 Miscellaneous Notes* Result Encounter Note - Sanjuanita Nash APRN.CNS - 03/01/2023 8:20 AM EDT Moderate stool burden on KUB documented in this encounterEast [facility]08-17-2023 Progress note* Result Encounter Note - Sanjuanita Nash APRN.CNS - 03/01/2023 8:20 AM EDT Moderate stool burden on KUB [facility]08-17-[facility] Instructions* Patient Instructions* Sanjuanita Nash APRN.CNS - 03/01/2023 7:45 AM EDT Follow the recommendations below. For now consider completing a KUB which is an x-ray of your abdomen. Schedule an appointment with gastroenterology. Drink a warm beverage and go for a walk before work. Continue on with Gummies and fiber in your diet. Add MiraLAX daily until daily for a couple of weeks. OK to use daily if needed detention. HOME INSTRUCTIONS FOR MANAGEMENT OF CONSTIPATION NON-MEDICATION MEASURES: 1. Increase your intake of fluids daily. Try to include 8 - 8 ounce glasses per day. Sip on fluids throughout the day. 2. Add more fiber to your diet. The recommended daily amount of fiber is 20 to 35 grams. If you areincreasing your fiber intake do so slowly to avoid bloating and discomfort. The best source of fiber comes from foods. Examples of high fiber foods include whole grain breads and cereals, fruits (berries, prunes, oranges, etc) and vegetables (lettuce, broccoli, potato with skins, etc.). There are also fiber supplements available over the counter such as Metamucil or Benefiber 3. Increase your daily activity (walking, moving from bed to chair, or exercise in bed) 4. Set aside a time preferably around the same time each day (example: right after breakfast) to move bowels. MEDICATION MEASURES: 1. Miralax daily- 1 cap-full in a beverage. This is a daily medication, can adjust how much you need over time depending on your stools. For example, decrease dose to half or every other day or so ifstools become too loose. Call office if constipation does not resolve with above measures Go to ER if you develop severe abdominal pain, vomiting that won't stop, fever above 100.5, rigid/hard abdomen. documented in this encounterEast [facility]08-17-2023 History of Present illness Narrative* Sanjuanita Nash APRN.CNS - 03/01/2023 7:40 AM EDT SUBJECTIVE: HEPATITIS B(1 of 3 - 3-dose series) Never done COVID-19 VACCINE(1) Never done HPV VACCINE(1 - 2-dose series) Never done SPIROMETRY Never done HPI Lay Hunter is a 28 year old female. PMH significant for ACTIVE PROBLEM LIST Anxiety Asthma Attention Deficit Hyperactivity Disorder, Combined Type Depression Irritable Bowel Syndrome With Constipation Hypoglycemia Allergic Dermatitis HPI excerpted from previous visits: Presents today to establish care with Kvng Hurd MD Current PCP: Jonathan Dong MD [id number] [facility] [id number] Last seen: 08/03/2021 - see care everywhere/[facility]. Labwork:07/2021 per Jonathan Dong MD She notes PCP moving practice to [facility]. She lives in [facility]. Sees Dr Laura for ELIE, body dysmorphic disorder, eating disorder.. She has used several medications in the past, Klonopin BuSpar Lexapro bupropion. Notes Lexapro worked well but thinks it may have caused weight gain for her. ADD; previously taking vyvannse. Note she has not taken this for couple weeks as it has made her feel a little jittery. Notes it was helping for focus. Lower dose did not seem to help very much with attention, focus. Stable weight. Seen by Kvng Hurd MD 09/2022. Labs completed for complaint of restless legs. Today notes anxiety persisting. Has canceled a few counseling sessions due to this. Did note feeling improved on Zoloft versus Pristiq. Interested in increased dosing. Notes vyvanse helps with focus; no significant AEs noted. She reports constipation and intermittent lower abdominal pain for the last 3 months. Has been using as needed MiraLAX with some improvement. No report of nausea vomiting diarrhea BRBPR black or tarry stools. Does note history of hemorrhoids. Presents today regarding constipation. Reports persisting since September 2022. No known preceding illness or fever. She reports alternating constipation and diarrhea since college. Noted more diarrhea around menstrual cycle. Currently notes sensation of needing to have a bowel movement daily but typically only going every other day. Notes bowel movements can be small and hard. No nausea vomiting heartburn refluxBR BPR or black or tarry stools. She notes trying to drink more fluids, taking fiber Gummies and [id number]-[id number] remedies such as MiraLAX. Notes Gummies seem to be the most helpful. Notes not alwaysgetting sufficient fluids during the day. Not taking MiraLAX daily. She notes can have lower abdominal pain associated with constipation. No prior evaluation with colonoscopy. Has not previously seen load out person. Notes mother had colitis in the past, she is not sure what kind of colitis this was. She noted mother had weight losswith this. Separately notes anxiety is increased would like to decrease her dose of Vyvanse from 40 to 30 mg daily Review of Systems Constitutional: Negative. Gastrointestinal: Positive for constipation. Psychiatric/Behavioral: Positive for decreased concentration. The patient is nervous/anxious. Objective BP 120/82 Pulse 83 Resp 16 Wt 68.9 kg (152 lb) LMP 09/23/2022 (Exact Date) SpO2 100% BMI 25.02 kg/m Physical Exam Vitals and nursing note reviewed. Constitutional: Appearance: Normal appearance. HENT: Head: Normocephalic and atraumatic. Eyes: Conjunctiva/sclera: Conjunctivae normal. Cardiovascular: Rate and Rhythm: Normal rate. Pulmonary: Effort: Pulmonary effort is normal. Abdominal: General: Bowel sounds are normal. There is no distension. Palpations: Abdomen is soft. There is no mass. Tenderness: There is no abdominal tenderness. There is no guarding. Skin: General: Skin is warm and dry. Neurological: General: No focal deficit present. Mental Status: She is alert and oriented to person, place, and time. ALLERGIES Allergen Reactions Penicillins Other: See Comments, Unknown Pt states she doesn't know what reaction she had to Pencillin. She was a young child. Medications Multivitamin capsule Take 1 capsule by mouth once daily. Lactobacillus acidophilus (PROBIOTIC) 10 billion cell cap Take by mouth. docusate sodium (COLACE) 100 mg capsule Take 1 capsule by mouth twice daily as needed for constipation. sertraline (ZOLOFT) 25 mg tablet Take 1 tablet by mouth once daily. Take this in addition to 50 mg for a total of 75 mg daily sertraline (ZOLOFT) 50 mg tablet Take 1 tablet by mouth once daily. DOSE CHANGE: TAKE ONE DAILY [START ON 03/02/2023] lisdexamfetamine (VYVANSE) 30 mg capsule Take 1 capsule by mouth once daily for 30 days. Do not start before March 02, 2023. [START ON 04/01/2023] lisdexamfetamine (VYVANSE) 30 mg capsule Take 1 capsule by mouth once daily for 30 days. Do not start before April 01, 2023. lisdexamfetamine (VYVANSE) 40 mg capsule Take 1 capsule by mouth once daily for 30 days. Do not start before January 01, 2023. lisdexamfetamine (VYVANSE) 40 mg capsule Take 1 capsule by mouth once daily for 30 days. Do not start before November 25, 2022. PAST MEDICAL HISTORY Diagnosis Date Asthma Attention deficit disorder (ADD) without hyperactivity Generalized anxiety disorder History of depression Hypoglycemia Irritable bowel syndrome with constipation PAST SURGICAL HISTORY Procedure Laterality Date TRABECULOPLASTY BY LASER SURGERY Bilateral 08/13/2020 Social History Tobacco Use Smoking status: Never Smokeless tobacco: Never Vaping Use Vaping Use: Never used Substance Use Topics Alcohol use: Yes Comment: once a month Drug use: Never FAMILY HISTORY Problem Relation Age of Onset other (colitis) Mother Appears to be due to Post COVID No Known Problems Father other (Leg Tumor) Sister In thigh bone. Just needed resected OCD Sister other (Dyslexia) Sister other (Speech impediment) Sister Lung Cancer Maternal Grandmother No Known Problems Maternal Grandfather Breast Cancer Paternal Grandmother 70 No Known Problems Paternal Grandfather Component Latest Ref Rng & Units 09/25/2022 12/28/2022 Protein, Total 6.3 - 8.0 g/dL 7.3 Albumin 3.9 - 4.9 g/dL 4.5 Calcium 8.5 - 10.2 mg/dL 9.4 Bilirubin, Total 0.2 - 1.3 mg/dL 1.1 Alkaline Phosphatase 34 - 123 U/L 78 AST 13 - 35 U/L 16 ALT 7 - 38 U/L 13 Glucose 74 - 99 mg/dL 86 BUN 7 - 21 mg/dL 8 Creatinine 0.58 - 0.96 mg/dL 0.76 Sodium 136 - 144 mmol/L 136 Potassium 3.7 - 5.1 mmol/L 4.2 Chloride 97 - 105 mmol/L 101 CO2 22 - 30 mmol/L 24 Anion Gap 9 - 18 mmol/L 11 eGFR >=60 mL/min/1.73m 112 WBC 3.70 - 11.00 k/uL 6.13 RBC 3.90 - 5.20 m/uL 4.50 Hemoglobin 11.5 - 15.5 g/dL 13.6 Hematocrit 36.0 - 46.0 % 41.3 MCV 80.0 - 100.0 fL 91.8 MCH 26.0 - 34.0 pg 30.2 MCHC 30.5 - 36.0 g/dL 32.9 RDW-CV 11.5 - 15.0 % 12.1 Platelet Count 150 - 400 k/uL 258 MPV 9.0 - 12.7 fL 10.9 Absolute nRBC <0.01 k/uL <0.01 Cholesterol, Total <200 mg/dL 192 Triglyceride <150 mg/dL 65 HDL Cholesterol >39 mg/dL 70 Non HDL Cholesterol <130 mg/dL 122 Fasting Time hrs 13 VLDL Cholesterol <30 mg/dL 13 TC:HDL Ratio <5.10 2.74 LDL Cholesterol <100 mg/dL 109 (H) LDL:HDL Ratio <2.54 1.56 Phencyclidine Negative Negative Benzodiazepines Urine Negative Negative Cocaine Urine Negative Negative Amphetamines Negative Negative Cannabinoids, Urine Negative Negative Opiates Negative Negative Barbiturates Negative Negative Ethanol, Urine <11 mg/dL <11 Oxycodone, Urine Negative Negative HIV 12 Combo (Ag/Ab) Nonreactive Nonreactive HIV 1/2 Ab HIV Interpretation Iron 41 - 186 ug/dL 60 TIBC 232 - 386 ug/dL 344 Transferrin Saturation 15.0 - 57.0 % 17.4 Magnesium 1.7 - 2.3 mg/dL 2.2 TSH 0.270 - 4.200 mIU/L 1.590 Free T4 0.9 - 1.7 ng/dL 1.1 Free T3 2.3 - 4.1 pg/mL 2.6 Hep C Antibody IA Negative Negative Ferritin 14.7 - 205.1 ng/mL 32.8 ASSESSMENT/PLAN: 1. Irritable bowel syndrome with constipation - ICD9: 564.1, ICD10: K58.1 (primary diagnosis) 2. Lower abdominal pain - ICD9: 789.09, ICD10: R10.30 Lifestyle measures discussed. See patient information. Endorse KUB and appointment with gastroenterology for further evaluation and treatment as indicated. - CONSULT TO GASTROENTEROLOGY - XR ABDOMEN 1V SUPINE 3. Attention deficit hyperactivity disorder, combined type - ICD9: 314.01, ICD10: F90.2 She would like to decrease dose of Vyvanse to see if this helps to decrease anxiety. - LISDEXAMFETAMINE 30 MG CAPSULE - LISDEXAMFETAMINE 30 MG CAPSULE Sanjuanita Nash APRN.CNS Medical Decision Making: Problems: Moderate: 1+ chronic illnesses with change Data: Unique test(s) ordered: 1 Risk: Moderate: Drug management Medical Decision Making Level: 4 - Moderate documented in this encounterEast [facility]06-[facility] History of Present illness Narrative* Sanjuanita Nash APRN.CNS - 12/18/2022 9:00 AM EDT SUBJECTIVE: HEPATITIS B(1 of 3 - 3-dose series) Never done COVID-19 VACCINE(1) Never done HPI Lay Hunter is a 27 year old female. PMH significant for ACTIVE PROBLEM LIST Anxiety Asthma Attention Deficit Hyperactivity Disorder, Combined Type Depression Irritable Bowel Syndrome With Constipation Hypoglycemia Allergic Dermatitis HPI excerpted from previous visits: Presents today to establish care with Kvng Hurd MD Current PCP: Jonathan Dong MD [id number] [facility] [id number] Last seen: 08/03/2021 - see care everywhere/[facility]. Labwork:07/2021 per Jonathan Dong MD She notes PCP moving practice [facility]. She lives in [facility]. Sees Dr Laura for ELIE, body dysmorphic disorder, eating disorder.. She has used several medications in the past, Klonopin BuSpar Lexapro bupropion. Notes Lexapro worked well but thinks it may have caused weight gain for her. ADD; previously taking vyvannse. Note she has not taken this for couple weeks as it has made her feel a little jittery. Notes it was helping for focus. Lower dose did not seem to help very much with attention, focus. Stable weight. Seen by Kvng Hurd MD 09/2022. Labs completed for complaint of restless legs. Today notes anxiety persisting. Has canceled a few counseling sessions due to this. Did note feeling improved on Zoloft versus Pristiq. Interested in increased dosing. Notes vyvanse helps with focus; no significant AEs noted. She reports constipation and intermittent lower abdominal pain for the last 3 months. Has been using as needed MiraLAX with some improvement. No report of nausea vomiting diarrhea BRBPR black or tarry stools. Does note history of hemorrhoids. Review of Systems Constitutional: Negative. Gastrointestinal: Positive for constipation. Psychiatric/Behavioral: The patient is nervous/anxious. Objective BP 120/88 Pulse 92 Resp 16 Wt 68.5 kg (151 lb) LMP 09/23/2022 (Exact Date) BMI 24.86 kg/m Physical Exam Vitals and nursing note reviewed. Constitutional: Appearance: Normal appearance. HENT: Head: Normocephalic and atraumatic. Eyes: Conjunctiva/sclera: Conjunctivae normal. Cardiovascular: Rate and Rhythm: Normal rate. Pulmonary: Effort: Pulmonary effort is normal. Skin: General: Skin is warm and dry. Neurological: General: No focal deficit present. Mental Status: She is alert and oriented to person, place, and time. ALLERGIES Allergen Reactions Penicillins Other: See Comments, Unknown Pt states she doesn't know what reaction she had to Pencillin. She was a young child. Medications lisdexamfetamine (VYVANSE) 40 mg capsule Take 1 capsule by mouth once daily for 30 days. Do not start before November 25, 2022. sertraline (ZOLOFT) 50 mg tablet Take 1 tablet by mouth once daily. DOSE CHANGE: TAKE ONE DAILY docusate sodium (COLACE) 100 mg capsule Take 1 capsule by mouth twice daily as needed for constipation. sertraline (ZOLOFT) 25 mg tablet Take 1 tablet by mouth once daily. Take this in addition to 50 mg for a total of 75 mg daily lisdexamfetamine (VYVANSE) 40 mg capsule Take 1 capsule by mouth once daily for 30 days. Do not start before September 26, 2022. lisdexamfetamine (VYVANSE) 40 mg capsule Take 1 capsule by mouth once daily for 30 days. Do not start before October 26, 2022. lisdexamfetamine (VYVANSE) 40 mg capsule Take 1 capsule by mouth once daily for 30 days. Do not start before August 27, 2022. PAST MEDICAL HISTORY Diagnosis Date Asthma Attention deficit disorder (ADD) without hyperactivity Generalized anxiety disorder History of depression Hypoglycemia Irritable bowel syndrome with constipation PAST SURGICAL HISTORY Procedure Laterality Date TRABECULOPLASTY BY LASER SURGERY Bilateral 08/13/2020 Social History Tobacco Use Smoking status: Never Smokeless tobacco: Never Vaping Use Vaping Use: Never used Substance Use Topics Alcohol use: Yes Comment: once a month Drug use: Never FAMILY HISTORY Problem Relation Age of Onset other (colitis) Mother Appears to be due to Post COVID No Known Problems Father other (Leg Tumor) Sister In thigh bone. Just needed resected OCD Sister other (Dyslexia) Sister other (Speech impediment) Sister Lung Cancer Maternal Grandmother No Known Problems Maternal Grandfather Breast Cancer Paternal Grandmother 70 No Known Problems Paternal Grandfather Component Latest Ref Rng & Units 08/03/2021 09/25/2022 WBC 3.70 - 11.00 k/uL 5.3 6.13 RBC 3.90 - 5.20 m/uL 4.53 4.50 Hemoglobin 11.5 - 15.5 g/dL 13.5 13.6 Hematocrit 36.0 - 46.0 % 40.0 41.3 MCV 80.0 - 100.0 fL 88.3 91.8 MCHC 30.5 - 36.0 g/dL 33.8 32.9 RDW 11 - 14.5 12.5 MPV 9.0 - 12.7 fL 10.8 10.9 Platelet Count 150 - 400 k/uL 233 258 Neutrophil % 45 - 75 % 55.3 Immature Gran % Less than 2 % 0.2 Lymphocyte % 20 - 40 % 33.8 [place]% 2 - 10 % 8.0 % Eosinophils 0 - 5 % 1.7 Basophils, % 0 - 2 % 1.0 Neutrophil Ab 2.0 - 8.3 K/CU MM 2.90 IMMATURE GRANS (ABS) Less than 2 K/CU MM 0.00 Lymphocytes, Absolute 0.9 - 4.4 K/CU MM 1.80 MONOCYTES,ABSOLUTE 0.1 - 1.1 K/CU MM 0.40 Abs Eosin 0 - 0.5 K/CU MM 0.10 ABSOLUTE BASOPHILS 0 - 0.2 K/CU MM 0.10 NRBC Less than 1 % 0.0 Sodium 136 - 144 mmol/L 139 136 Potassium 3.7 - 5.1 mmol/L 4.3 4.2 Chloride 97 - 105 mmol/L 106 101 CO2 22 - 30 mmol/L 27.0 24 Anion Gap 9 - 18 mmol/L 6 11 Glucose 74 - 99 mg/dL 83 86 BUN 7 - 21 mg/dL 12 8 Creatinine 0.58 - 0.96 mg/dL 0.80 0.76 BUN/CREATININE RATIO 15 - 24 15 Protein, Total 6.3 - 8.0 g/dL 7.4 7.3 Albumin 3.9 - 4.9 g/dL 4.3 4.5 GLOBULIN 2.2 - 4.2 GM/DL 3.1 ALBUMIN/GLOBULIN RATIO 0.8 - 2.0 1.4 Calcium 8.5 - 10.2 mg/dL 9.8 9.4 Bilirubin, Total 0.2 - 1.3 mg/dL 1.20 (H) 1.1 AST 13 - 35 U/L 18 16 ALT 7 - 38 U/L 17 13 Alkaline Phosphatase 34 - 123 U/L 92 78 eGFR >=60 mL/min/1.73m 112 MCH 26.0 - 34.0 pg 30.2 RDW-CV 11.5 - 15.0 % 12.1 Absolute nRBC <0.01 k/uL <0.01 Cholesterol, Total <200 mg/dL 216 (H) 192 Triglyceride <150 mg/dL 54 65 HDL Cholesterol >39 mg/dL 81 70 Non HDL Cholesterol <130 mg/dL 122 Fasting Time hrs 13 VLDL Cholesterol <30 mg/dL 13 TC:HDL Ratio <5.10 2.74 LDL Cholesterol <100 mg/dL 124 109 (H) LDL:HDL Ratio <2.54 1.56 HIV 12 Combo (Ag/Ab) Nonreactive Nonreactive HIV 1/2 Ab HIV Interpretation Iron 41 - 186 ug/dL 60 TIBC 232 - 386 ug/dL 344 Transferrin Saturation 15.0 - 57.0 % 17.4 Estimated GFR Greater than 60 eGFR- Greater than 60 Magnesium 1.7 - 2.3 mg/dL 2.2 TSH 0.270 - 4.200 mIU/L 1.590 Free T4 0.9 - 1.7 ng/dL 1.1 Free T3 2.3 - 4.1 pg/mL 2.6 Hep C Antibody IA Negative Negative Ferritin 14.7 - 205.1 ng/mL 32.8 ASSESSMENT/PLAN: 1. Attention deficit hyperactivity disorder (ADHD), unspecified ADHD type - ICD9: 314.01, ICD10: F90.9 (primary diagnosis) Continue unchanged 3 mo follow up - VYVANSE 40 MG CAPSULE 2. Anxiety - ICD9: 300.00, ICD10: F41.9 Endorse increasing sertraline from 50 to 75 mg/day. Endorse consistent counseling. Recommend exercise, walking outdoors or hobby that keeps her active to help with anxiety - SERTRALINE 50 MG TABLET 3. Leg cramps Labs within normal limits. No complaints today. 4. Constipation Endorse sufficient fluid intake, 64 ounces per day, dietary fiber through fruits vegetables whole grains, supplemental fiber if needed. Docusate 1 or 2 daily as needed or Miralax. Sanjuanita Nash APRN.CNS Medical Decision Making: Problems: Low: Acute, uncomplicated illness or injury Moderate: 1+ chronic illnesses with change Risk: Moderate: Drug management Medical Decision Making Level: 4 - Moderate documented in this encounterEast [facility]03-13-[facility]23 Instructions* Patient Instructions* Kvng Hurd MD - 09/25/2022 10:45 AM EDT If fiber gummies routinely not adequate, could try magnesium tablets daily. Drink at least 4 cups (8ounces per cup) of noncaffeinated fluid daily. Miralax is okay to take daily if needed. documented in this encounterEast [facility]03-13-[facility]23 History of Present illness Narrative* Kvng Hurd MD - 09/25/2022 9:20 AM EDT This note was created using [employer]. Subjective Lay Hunter is a 27 year old female. HISTORY Lay Hunter is a 27 year old lady here to be formally established with me. Saw FRANCK Fleming, to establish after her prior PCP moved practice to [place]. 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 Doing well on sertraline. History of ankle swelling since soccer injury. Heat helps. Tendency to leg cramps. History of fibrocystic breasts. PAST MEDICAL HISTORY Diagnosis Date Asthma Attention deficit disorder (ADD) without hyperactivity Generalized anxiety disorder History of depression Hypoglycemia Irritable bowel syndrome with constipation Current Outpatient Medications Medication Sig lisdexamfetamine (VYVANSE) 40 mg capsule Take 1 capsule by mouth once daily for 30 days. Do not start before July 28, 2022. lisdexamfetamine (VYVANSE) 40 mg capsule Take 1 capsule by mouth once daily for 30 days. Do not start before June 28, 2022. lisdexamfetamine (VYVANSE) 40 mg capsule Take 1 capsule by mouth once daily for 30 days. Do not start before August 27, 2022. lisdexamfetamine (VYVANSE) 40 mg capsule Take 1 capsule by mouth once daily for 30 days. sertraline (ZOLOFT) 50 mg tablet Take 1 tablet by mouth once daily. DOSE CHANGE: TAKE ONE DAILY No current facility-administered medications for this visit. ALLERGIES Allergen Reactions Penicillins Other: See Comments, Unknown Pt states she doesn't know what reaction she had to Pencillin. She was a young child. PAST SURGICAL HISTORY Procedure Laterality Date TRABECULOPLASTY BY LASER SURGERY Bilateral 08/13/2020 FAMILY HISTORY Problem Relation Age of Onset other (colitis) Mother No Known Problems Father other (Leg Tumor) Sister Lung Cancer Maternal Grandmother No Known Problems Maternal Grandfather Breast Cancer Paternal Grandmother 70 No Known Problems Paternal Grandfather Social History Tobacco Use Smoking status: Never Smokeless tobacco: Never Vaping Use Vaping Use: Never used Substance Use Topics Alcohol use: Yes Comment: once a month Drug use: Never Review of Systems Objective BP 116/80 Pulse 85 Temp 36.9 C (98.5 F) Resp 18 Ht 166 cm (5' 5.35) Wt 68 kg (150 lb) LMP 09/23/2022 (Exact Date) SpO2 98% BMI 24.69 kg/m Last 5 Encounter Wt Readings: Date: Wt: 09/25/2022 68 kg (150 lb) 03/06/2022 69.9 kg (154 lb) 02/03/2022 71.2 kg (157 lb) 11/10/2020 64 kg (141 lb) 09/17/2020 63 kg (139 lb) No waist measurement recorded Estimated body mass index is 24.69 kg/m as calculated from the following: Height as of this encounter: 166 cm (5' 5.35). Weight as of this encounter: 68 kg (150 lb). Last 5 Encounter BP Readings: Date: BP: 09/25/2022 116/80 03/06/2022 120/86 02/03/2022 122/84 11/10/2020 98/64 09/17/2020 104/64 Physical Exam Vitals reviewed. Constitutional: Appearance: Normal appearance. She is well-developed. HENT: Head: Normocephalic and atraumatic. Right Ear: External ear normal. Left Ear: External ear normal. Nose: Nose normal. Eyes: Conjunctiva/sclera: Conjunctivae normal. Neck: Thyroid: No thyromegaly. Vascular: No carotid bruit. Cardiovascular: Rate and Rhythm: Normal rate and regular rhythm. Pulses: Normal pulses. Heart sounds: Normal heart sounds. No murmur heard. No friction rub. No gallop. Pulmonary: Effort: Pulmonary effort is normal. Breath sounds: Normal breath sounds. Abdominal: General: Bowel sounds are normal. There is no distension. Palpations: Abdomen is soft. There is no mass. Tenderness: There is no abdominal tenderness. Musculoskeletal: General: No deformity. Normal range of motion. Right lower leg: No edema. Left lower leg: No edema. Lymphadenopathy: Cervical: No cervical adenopathy. Skin: General: Skin is warm and dry. Coloration: Skin is not jaundiced or pale. Findings: No rash. Neurological: General: No focal deficit present. Mental Status: She is alert and oriented to person, place, and time. Cranial Nerves: No cranial nerve deficit. Sensory: No sensory deficit. Motor: No abnormal muscle tone. Coordination: Coordination normal. Deep Tendon Reflexes: Reflexes normal. Psychiatric: Mood and Affect: Mood normal. Behavior: Behavior normal. Thought Content: Thought content normal. Judgment: Judgment normal. Component Latest Ref Rng & Units 08/03/2021 WBC 4.5 - 11.0 K/CUMM 5.3 RBC 3.90 - 5.30 M/CU MM 4.53 Hemoglobin 11.5 - 15.5 G/DL 13.5 Hematocrit 35.0 - 47.0 % 40.0 MCV 80.0 - 99.0 fl 88.3 MCHC 32.0 - 36.0 GM/DL 33.8 RDW 11 - 14.5 12.5 MPV 9.4 - 12.4 10.8 Platelet Count 150 - 450 K/CU MM 233 Neutrophil % 45 - 75 % 55.3 Immature Gran % Less than 2 % 0.2 Lymphocyte % 20 - 40 % 33.8 Upton% 2 - 10 % 8.0 % Eosinophils 0 - 5 % 1.7 Basophils, % 0 - 2 % 1.0 Neutrophil Ab 2.0 - 8.3 K/CU MM 2.90 IMMATURE GRANS (ABS) Less than 2 K/CU MM 0.00 Lymphocytes, Absolute 0.9 - 4.4 K/CU MM 1.80 MONOCYTES,ABSOLUTE 0.1 - 1.1 K/CU MM 0.40 Abs Eosin 0 - 0.5 K/CU MM 0.10 ABSOLUTE BASOPHILS 0 - 0.2 K/CU MM 0.10 NRBC Less than 1 % 0.0 Sodium 136 - 145 MMOL/L 139 Potassium 3.5 - 5.1 MMOL/L 4.3 Chloride 98 - 107 MMOL/L 106 CO2 21 - 32 MMOL/L 27.0 Anion Gap 5 - 16 MMOL/L 6 Glucose 70 - 100 MG/DL 83 BUN 7 - 26 MG/DL 12 Creatinine 0.510 - 0.950 MG/DL 0.80 BUN/CREATININE RATIO 15 - 24 15 Protein, Total 6.0 - 8.5 GM/DL 7.4 Albumin 3.2 - 5.0 GM/DL 4.3 GLOBULIN 2.2 - 4.2 GM/DL 3.1 ALBUMIN/GLOBULIN RATIO 0.8 - 2.0 1.4 Calcium 8.5 - 10.5 MG/DL 9.8 Bilirubin, Total 0.2 - 1.0 MG/DL 1.20 (H) AST 8 - 34 U/L 18 ALT 13 - 61 U/L 17 Alkaline Phosphatase 45 - 117 U/L 92 Triglyceride 30 - 149 MG/DL 54 Cholesterol, Total 0 - 199 MG/dL 216 (H) HDL Cholesterol GREATER THAN 40 MG/DL 81 LDL Cholesterol MG/DL 124 Estimated GFR Greater than 60 eGFR- Greater than 60 Assessment and Plan Encounter Diagnosis ICD-10-CM 1. Routine medical exam Z00.00 CBC COMP METABOLIC PANEL MAGNESIUM BLD TSH BLD T4 FREE/FREE THYROX T3 FREE BLD LIPID PANEL BASIC 2. Attention deficit hyperactivity disorder (ADHD), unspecified ADHD type F90.9 lisdexamfetamine (VYVANSE) 40 mg capsule lisdexamfetamine (VYVANSE) 40 mg capsule lisdexamfetamine (VYVANSE) 40 mg capsule 3. Tremor of both hands R25.1 CBC COMP METABOLIC PANEL MAGNESIUM BLD TSH BLD T4 FREE/FREE THYROX T3 FREE BLD 4. Special screening examination for viral disease Z11.59 HEP C AB IA W/CONF SCRN 5. Screening for HIV (human immunodeficiency virus) Z11.4 HIV 1 2 COMBO(AG/AB),WITH REFLEX TO DIFFERENTIATION 6. Anxiety F41.9 sertraline (ZOLOFT) 50 mg tablet 7. Total bilirubin, elevated R17 8. Leg cramps R25.2 FERRITIN BLD IRON + TIBC Worse during periods 9. RLS (restless legs syndrome) G25.81 CBC COMP METABOLIC PANEL MAGNESIUM BLD TSH BLD T4 FREE/FREE THYROX T3 FREE BLD FERRITIN BLD IRON + TIBC Feels like going to cramp up so feels like needs to keep moving legs. 10. Screening, lipid Z13.220 LIPID PANEL BASIC 11. Need for vaccination Z23 TDAP VACCINE, AGE 7+ YR (ADACEL, BOOSTRIX) PNEUMOCOCCAL VACCINE (PREVNAR 20) Patient here for yearly exam and follow up. Above issues addressed with patient. Patient involved in shared decision making for management of medical issues. History and medications reviewed. Epic updated as needed Refills taken care of and meds adjusted as indicated after reviewed history, exam and labs. Health Maintenance reviewed. Updated record and/or ordered tests as recorded. Further evaluation and treatment as indicated. Encouraged on efforts at healthy diet and regular exercise and adequate sleep. Stable with control of ADHD. Effective. At this time benefits outweigh risks. Continue to monitor for adverse effects and indications for decreasing dose or tapering off. No signs of diversion or abuse of medication(s); no adverse effects. Continue present management. Continues to follow up with Dr. Jaqui Laura routinely. I spent a total of 44 minutes on the date of the service which included preparing to see the patient, [id number] patient care, completing clinical documentation, performing a medically appropriate examination, counseling and educating the patient/family/caregiver, and ordering medications, tests,or procedures. Kvng Hurd MD documented in this encounterEast [facility]01-[facility]23 Miscellaneous Notes* Telephone Encounter - Mariah Foley LPN - 07/31/2022 2:44 PM EST Spoke with pt and she will check with her pharmacy. Mariah Foley LPN * Telephone Encounter - Maria Guadalupe Syed APRN.CNP - 07/31/2022 2:28 PM EST Please let her know it looks like she has valid refills for this through September. * Telephone Encounter - Nissa Jara LPN - 07/31/2022 12:13 PM EST Last office visit: 06/06/22 Next appointment scheduled: 03/13/23 Last labs: 03/06/22 LAST TOX SCREEN Patient phones requesting refills as follows: Requested Prescriptions Pending Prescriptions Disp Refills lisdexamfetamine (VYVANSE) 40 mg capsule 30 capsule 0 Sig: Take 1 capsule by mouth once daily for 30 days. Please review and advise. Nissa Jara LPN documented in this encounterEast [facility] City Hospital11-22-2022 History of Present illness Narrative* Sanjuanita Nash APRN.CLINICAL MENTAL HEALTH COUNSELOR - 06/06/2022 10:40 AM EST Video visit. Patient only. In [place], at home. Consents to visit SUBJECTIVE: HEPATITIS B(1 of 3 - 3-dose series) Never done COVID-19 VACCINE(1) Never done PNEUMOCOCCAL(1 - PCV) Never done HEPATITIS C SCREENING Never done HIV SCREENING Never done DTAP,TDAP,TD(1 - Tdap) Never done INFLUENZA(1) Never done HPI Lay Hunter is a 27 year old female. PMH significant for ACTIVE PROBLEM LIST Anxiety Asthma Attention Deficit Hyperactivity Disorder, Combined Type Depression Irritable Bowel Syndrome With Constipation Hypoglycemia Allergic Dermatitis HPI excerpted from previous visit: Presents today to establish care with Kvng Hurd MD Current PCP: Jonathan Dong MD [id number] [facility] [id number] Last seen: 08/03/2021 - see care everywhere/[facility]. Labwork:07/2021 per Jonathan Dong MD She notes PCP moving practice [facility]. She lives in [facility]. Sees Dr Laura for ELIE, body dysmorphic disorder, eating disorder.. She has used several medications in the past, Klonopin BuSpar Lexapro bupropion. Notes Lexapro worked well but thinks it may have caused weight gain for her. ADD; previously taking vyvannse. Note she has not taken this for couple weeks as it has made her feel a little jittery. Notes it was helping for focus. Lower dose did not seem to help very much with attention, focus. Stable weight. Today notes feeling current medications are working well. Zoloft seems to be doing well for anxiety. Vyvanse has been effective for focus / ADHD treatment. No report of jitteriness, weight loss or decreased appetite. Review of Systems Constitutional: Negative. Psychiatric/Behavioral: The patient is nervous/anxious. Objective LMP 02/27/2022 (Approximate) Physical Exam Constitutional: Appearance: Normal appearance. HENT: Head: Normocephalic and atraumatic. Eyes: Conjunctiva/sclera: Conjunctivae normal. Cardiovascular: Rate and Rhythm: Normal rate. Pulmonary: Effort: Pulmonary effort is normal. Neurological: General: No focal deficit present. Mental Status: She is alert and oriented to person, place, and time. ALLERGIES Allergen Reactions Penicillins Other: See Comments, Unknown Pt states she doesn't know what reaction she had to Pencillin. She was a young child. Medications lisdexamfetamine (VYVANSE) 40 mg capsule Take 1 capsule by mouth once daily for 30 days. sertraline (ZOLOFT) 50 mg tablet Take 1 tablet by mouth once daily. DOSE CHANGE: TAKE ONE DAILY lisdexamfetamine (VYVANSE) 40 mg capsule Take 1 capsule by mouth once daily for 30 days. Do not start before March 23, 2022. PAST MEDICAL HISTORY Diagnosis Date Asthma Attention deficit disorder (ADD) without hyperactivity Generalized anxiety disorder History of depression Hypoglycemia Irritable bowel syndrome with constipation PAST SURGICAL HISTORY Procedure Laterality Date TRABECULOPLASTY BY LASER SURGERY Bilateral 08/13/2020 Social History Tobacco Use Smoking status: Never Smokeless tobacco: Never Vaping Use Vaping Use: Never used Substance Use Topics Alcohol use: Yes Comment: once a month Drug use: Never FAMILY HISTORY Problem Relation Age of Onset other (colitis) Mother No Known Problems Father other (Leg Tumor) Sister Lung Cancer Maternal Grandmother No Known Problems Maternal Grandfather Breast Cancer Paternal Grandmother 70 No Known Problems Paternal Grandfather Component Latest Ref Rng & Units 08/03/2021 WBC 4.5 - 11.0 K/CUMM 5.3 RBC 3.90 - 5.30 M/CU MM 4.53 Hemoglobin 11.5 - 15.5 G/DL 13.5 Hematocrit 35.0 - 47.0 % 40.0 MCV 80.0 - 99.0 fl 88.3 MCHC 32.0 - 36.0 GM/DL 33.8 RDW 11 - 14.5 12.5 MPV 9.4 - 12.4 10.8 Platelet Count 150 - 450 K/CU MM 233 Neutrophil % 45 - 75 % 55.3 Immature Gran % Less than 2 % 0.2 Lymphocyte % 20 - 40 % 33.8 Upton% 2 - 10 % 8.0 % Eosinophils 0 - 5 % 1.7 Basophils, % 0 - 2 % 1.0 Neutrophil Ab 2.0 - 8.3 K/CU MM 2.90 IMMATURE GRANS (ABS) Less than 2 K/CU MM 0.00 Lymphocytes, Absolute 0.9 - 4.4 K/CU MM 1.80 MONOCYTES,ABSOLUTE 0.1 - 1.1 K/CU MM 0.40 Abs Eosin 0 - 0.5 K/CU MM 0.10 ABSOLUTE BASOPHILS 0 - 0.2 K/CU MM 0.10 NRBC Less than 1 % 0.0 Sodium 136 - 145 MMOL/L 139 Potassium 3.5 - 5.1 MMOL/L 4.3 Chloride 98 - 107 MMOL/L 106 CO2 21 - 32 MMOL/L 27.0 Anion Gap 5 - 16 MMOL/L 6 Glucose 70 - 100 MG/DL 83 BUN 7 - 26 MG/DL 12 Creatinine 0.510 - 0.950 MG/DL 0.80 BUN/CREATININE RATIO 15 - 24 15 Protein, Total 6.0 - 8.5 GM/DL 7.4 Albumin 3.2 - 5.0 GM/DL 4.3 GLOBULIN 2.2 - 4.2 GM/DL 3.1 ALBUMIN/GLOBULIN RATIO 0.8 - 2.0 1.4 Calcium 8.5 - 10.5 MG/DL 9.8 Bilirubin, Total 0.2 - 1.0 MG/DL 1.20 (H) AST 8 - 34 U/L 18 ALT 13 - 61 U/L 17 Alkaline Phosphatase 45 - 117 U/L 92 Triglyceride 30 - 149 MG/DL 54 Cholesterol, Total 0 - 199 MG/dL 216 (H) HDL Cholesterol GREATER THAN 40 MG/DL 81 LDL Cholesterol MG/DL 124 Estimated GFR Greater than 60 eGFR- Greater than 60 ASSESSMENT/PLAN: 1. Attention deficit hyperactivity disorder (ADHD), unspecified ADHD type - ICD9: 314.01, ICD10: F90.9 2. Attention deficit hyperactivity disorder, combined type - ICD9: 314.01, ICD10: F90.2 - LISDEXAMFETAMINE 40 MG CAPSULE 3. Anxiety F41.9 Doing well on Zoloft. Continue unchanged. Continue to monitor 3 mo follow up PDMP website checked and validated. All prescriptions have been APPROPRIATELY filled. No suspiciousactivity was identified. June 06, 2022 by BETTY Fleming APRN.CNS 20 min in visit Medical Decision Making: Medical Decision Making Level: 1 - N/A documented in this encounterEast [facility]08-22-2022 History of Present illness Narrative* Sanjuanita Nash APRN.CNS - 03/06/2022 12:00 PM EDT SUBJECTIVE: HEPATITIS B(1 of 3 - 3-dose series) Never done COVID-19 VACCINE(1) Never done PNEUMOCOCCAL(1 - PCV) Never done HEPATITIS C SCREENING Never done HIV SCREENING Never done DTAP,TDAP,TD(1 - Tdap) Never done HPI Lay Hunter is a 27 year old female. PMH significant for ACTIVE PROBLEM LIST Anxiety Asthma Attention Deficit Hyperactivity Disorder, Combined Type Depression Irritable Bowel Syndrome With Constipation Hypoglycemia Allergic Dermatitis HPI excerpted from previous visit: Presents today to establish care with Kvng Hurd MD Current PCP: Jonathan Dong MD [address] [facility] [id number] Last seen: 08/03/2021 - see care everywhere/[facility]. Labwork:07/2021 per Jonathan Dong MD She notes PCP moving practice [facility]. She lives in [facility]. Sees Dr Laura for ELIE, body dysmorphic disorder, eating disorder.. She has used several medications in the past, Klonopin BuSpar Lexapro bupropion. Notes Lexapro worked well but thinks it may have caused weight gain for her. ADD; previously taking vyvannse. Note she has not taken this for couple weeks as it has made her feel a little jittery. Notes it was helping for focus. Lower dose did not seem to help very much with attention, focus. Stable weight. Today notes feeling improved, less anxiouss/jittery on 50 mg zoloft.No longer taking Pristiq, Notes vyvanse helps with focus; no significant AEs noted. Review of Systems Constitutional: Negative. Psychiatric/Behavioral: The patient is nervous/anxious. Objective BP 120/86 Pulse 99 Resp 16 Wt 69.9 kg (154 lb) LMP 02/27/2022 (Approximate) SpO2 98% BMI 26.03 kg/m Physical Exam Vitals and nursing note reviewed. Constitutional: Appearance: Normal appearance. HENT: Head: Normocephalic and atraumatic. Eyes: Conjunctiva/sclera: Conjunctivae normal. Cardiovascular: Rate and Rhythm: Normal rate. Pulmonary: Effort: Pulmonary effort is normal. Skin: General: Skin is warm and dry. Neurological: General: No focal deficit present. Mental Status: She is alert and oriented to person, place, and time. ALLERGIES Allergen Reactions Penicillins Other: See Comments, Unknown Pt states she doesn't know what reaction she had to Pencillin. She was a young child. Medications sertraline (ZOLOFT) 50 mg tablet Take 1 tablet by mouth once daily. DOSE CHANGE: TAKE ONE DAILY [START ON 03/23/2022] lisdexamfetamine (VYVANSE) 40 mg capsule Take 1 capsule by mouth once daily for30 days. Do not start before March 23, 2022. [START ON 04/22/2022] lisdexamfetamine (VYVANSE) 40 mg capsule Take 1 capsule by mouth once daily for 30 days. Do not start before April 22, 2022. PAST MEDICAL HISTORY Diagnosis Date Asthma Attention deficit disorder (ADD) without hyperactivity Generalized anxiety disorder History of depression Hypoglycemia Irritable bowel syndrome with constipation PAST SURGICAL HISTORY Procedure Laterality Date TRABECULOPLASTY BY LASER SURGERY Bilateral 08/13/2020 Social History Tobacco Use Smoking status: Never Smokeless tobacco: Never Vaping Use Vaping Use: Never used Substance Use Topics Alcohol use: Yes Comment: once a month Drug use: Never FAMILY HISTORY Problem Relation Age of Onset other (colitis) Mother No Known Problems Father other (Leg Tumor) Sister Lung Cancer Maternal Grandmother No Known Problems Maternal Grandfather Breast Cancer Paternal Grandmother 70 No Known Problems Paternal Grandfather Component Latest Ref Rng & Units 08/03/2021 WBC 4.5 - 11.0 K/CUMM 5.3 RBC 3.90 - 5.30 M/CU MM 4.53 Hemoglobin 11.5 - 15.5 G/DL 13.5 Hematocrit 35.0 - 47.0 % 40.0 MCV 80.0 - 99.0 fl 88.3 MCHC 32.0 - 36.0 GM/DL 33.8 RDW 11 - 14.5 12.5 MPV 9.4 - 12.4 10.8 Platelet Count 150 - 450 K/CU MM 233 Neutrophil % 45 - 75 % 55.3 Immature Gran % Less than 2 % 0.2 Lymphocyte % 20 - 40 % 33.8 Upton% 2 - 10 % 8.0 % Eosinophils 0 - 5 % 1.7 Basophils, % 0 - 2 % 1.0 Neutrophil Ab 2.0 - 8.3 K/CU MM 2.90 IMMATURE GRANS (ABS) Less than 2 K/CU MM 0.00 Lymphocytes, Absolute 0.9 - 4.4 K/CU MM 1.80 MONOCYTES,ABSOLUTE 0.1 - 1.1 K/CU MM 0.40 Abs Eosin 0 - 0.5 K/CU MM 0.10 ABSOLUTE BASOPHILS 0 - 0.2 K/CU MM 0.10 NRBC Less than 1 % 0.0 Sodium 136 - 145 MMOL/L 139 Potassium 3.5 - 5.1 MMOL/L 4.3 Chloride 98 - 107 MMOL/L 106 CO2 21 - 32 MMOL/L 27.0 Anion Gap 5 - 16 MMOL/L 6 Glucose 70 - 100 MG/DL 83 BUN 7 - 26 MG/DL 12 Creatinine 0.510 - 0.950 MG/DL 0.80 BUN/CREATININE RATIO 15 - 24 15 Protein, Total 6.0 - 8.5 GM/DL 7.4 Albumin 3.2 - 5.0 GM/DL 4.3 GLOBULIN 2.2 - 4.2 GM/DL 3.1 ALBUMIN/GLOBULIN RATIO 0.8 - 2.0 1.4 Calcium 8.5 - 10.5 MG/DL 9.8 Bilirubin, Total 0.2 - 1.0 MG/DL 1.20 (H) AST 8 - 34 U/L 18 ALT 13 - 61 U/L 17 Alkaline Phosphatase 45 - 117 U/L 92 Triglyceride 30 - 149 MG/DL 54 Cholesterol, Total 0 - 199 MG/dL 216 (H) HDL Cholesterol GREATER THAN 40 MG/DL 81 LDL Cholesterol MG/DL 124 Estimated GFR Greater than 60 eGFR- Greater than 60 ASSESSMENT/PLAN: 1. Attention deficit hyperactivity disorder (ADHD), unspecified ADHD type - ICD9: 314.01, ICD10: F90.9 (primary diagnosis) Labs today Continue unchanged 3 mo follow up PDMP website checked and validated. All prescriptions have been APPROPRIATELY filled. No suspiciousactivity was identified. 03/06/2022 by Sanjuanita Nash APRN.CLINICAL MENTAL HEALTH COUNSELOR - VYVANSE 40 MG CAPSULE 2. Anxiety - ICD9: 300.00, ICD10: F41.9 - SERTRALINE 50 MG TABLET Sanjuanita Nash APRN.FRANCK Medical Decision Making: Problems: Moderate: 2+ stable chronic illnesses Risk: Moderate: Drug management Medical Decision Making Level: 4 - Moderate documented in this encounterEast [facility] City Hospital08-10-2022 Miscellaneous Notes* Telephone Encounter - Heavenly Grimaldo LPN - 02/22/2022 12:59 PM EDT Spoke with Lay, she did not realize RX was on hold at [facility], will pickup refill. Heavenly Grimaldo LPN * Telephone Encounter - Kvng Hurd MD - 02/21/2022 10:14 PM EDT Verify with patient if got February 03 RX filled--not seen on PDMP and Medication Dispense History. If above are not up to date meaning patient had filled it, and does not need till April 05, will send for picking up that date. If she did not get the RX and needs it now,can send now. Looks like pharmacy got the RX on 02/03 * Telephone Encounter - Omi Salcedo Ma - 02/21/2022 7:27 AM EDT KILLIAN: 02/03/2022 Last refill: 02/03/2022 QTY: 30 Refills: 0 Patient's request for medication is as follows: Pending Prescriptions Disp Refills VYVANSE 40 MG CAPSULE 30 capsule 0 Sig: Take 1 capsule by mouth once daily for 30 days. ASAD Class: C-II ROSA: Yes Please approve the above prescription(s) to electronically send to pharmacy. Omi Salcedo Ma documented in this encounterEast Liverpool City Hospital07-22-2022 Instructions* Patient Instructions* Sanjuanita Nash APRN.CNS - 02/03/2022 1:00 PM EDT Take one half Pristiq daily for 2 weeks -25 mg Take sertraline 25 mg daily for 2 weeks If feeling well with this, after 2 weeks take Pristiq 25 mg every other day for 2 weeks Increase from sertraline 25 mg daily to two 25 mg sertraline daily (50 mg) for two weeks. After 2 weeks of Pristiq every other day, discontinue it. If you are feeling unwell with any of these changes, return to your previous dosing call and speak with a nurse [phone] Take Vyvanse as prescribed if needed. documented in this encounterEast Liverpool City Hospital07-22-2022 History of Present illness Narrative* Sanjuanita Nash APRN.CNS - 02/03/2022 12:20 PM EDT SUBJECTIVE: COVID-19 VACCINE(1) Never done PNEUMOCOCCAL(1 - PCV) Never done MENINGOCOCCAL B: Consider based on risk(1 of 2 - Risk Bexsero 2-dose series) Never done HEPATITIS C SCREENING Never done HIV SCREENING Never done DTAP,TDAP,TD(1 - Tdap) Never done HPI Lay Hunter is a 26 year old female. PMH significant for ACTIVE PROBLEM LIST Anxiety Asthma Attention Deficit Hyperactivity Disorder, Combined Type Depression Irritable Bowel Syndrome With Constipation Hypoglycemia Allergic Dermatitis Presents today to establish care with Kvng Hurd MD Current PCP: Jonathan Dong MD [address] [facility] [address] Last seen: 08/03/2021 - see care everywhere/[facility]. Labwork:07/2021 per Jonathan Dong MD She notes PCP [facility]. She lives in [facility]. Sees Dr Laura for ELIE, body dysmorphic disorder, eating disorder.. She has used several medications in the past, Klonopin BuSpar Lexapro bupropion. Notes Lexapro worked well but thinks it may have caused weight gain for her. ADD; previously taking vyvannse. Note she has not taken this for couple weeks as it has made her feel a little jittery. Notes it was helping for focus. Lower dose did not seem to help very much with attention, focus. Stable weight. Review of Systems Constitutional: Negative. Psychiatric/Behavioral: The patient is nervous/anxious. Objective BP 122/84 Pulse 72 Resp 16 Ht 163.8 cm (5' 4.5) Wt 71.2 kg (157 lb) LMP 10/30/2020 (Approximate) BMI 26.53 kg/m Physical Exam ALLERGIES Allergen Reactions Penicillins Other: See Comments, Unknown Pt states she doesn't know what reaction she had to Pencillin. She was a young child. Medications VYVANSE 40 mg capsule, Take 1 capsule by mouth once daily for 30 days. desvenlafaxine ER (PRISTIQ) 25 mg 24 hr tablet, Take 1 tablet by mouth once daily. sertraline (ZOLOFT) 25 mg tablet, Take 1 tablet by mouth once daily. For 2 weeks. After 2 weeks increase to 2 tabs daily. PAST MEDICAL HISTORY Diagnosis Date Asthma Attention deficit disorder (ADD) without hyperactivity Generalized anxiety disorder History of depression Hypoglycemia Irritable bowel syndrome with constipation PAST SURGICAL HISTORY Procedure Laterality Date TRABECULOPLASTY BY LASER SURGERY Bilateral 08/13/2020 Social History Tobacco Use Smoking status: Never Smoker Smokeless tobacco: Never Used Vaping Use Vaping Use: Never used Substance Use Topics Alcohol use: Yes Comment: once a month Drug use: Never FAMILY HISTORY Problem Relation Age of Onset other (colitis) Mother No Known Problems Father other (Leg Tumor) Sister Lung Cancer Maternal Grandmother No Known Problems Maternal Grandfather Breast Cancer Paternal Grandmother 70 No Known Problems Paternal Grandfather ASSESSMENT/PLAN: 1. Attention deficit hyperactivity disorder (ADHD), unspecified ADHD type - ICD9: 314.01, ICD10: F90.9 (primary diagnosis) - VYVANSE 40 MG CAPSULE PDMP website checked and validated. All prescriptions have been APPROPRIATELY filled. No suspiciousactivity was identified. 02/03/2022 by Sanjuanita Nash APRN.CLINICAL MENTAL HEALTH COUNSELOR 2. Encounter for immunization - ICD9: V03.89, ICD10: Z23 We will check on previous immunizations prior to moving forward with these. - PFIZER-BIONTECH COVID-19 VACCINE, AGE 12+ YR (SANDHU TOP) - MENINGOCOCCAL GROUP B VACCINE 2 DOSE - TDAP VACCINE AGE 7+ IM - PNEUMOCOCCAL VACCINE (PREVNAR 20) 3. Special screening examination for viral disease - ICD9: V73.99, ICD10: Z11.59 - HEP C AB IA W/CONF SCRN 4. Screening for HIV (human immunodeficiency virus) - ICD9: V73.89, ICD10: Z11.4 - HIV 1 2 COMBO(AG/AB),WITH REFLEX TO DIFFERENTIATION 5. Anxiety - ICD9: 300.00, ICD10: F41.9 - DESVENLAFAXINE SUCCINATE ER 25 MG TABLET,EXTENDED RELEASE 24 HR - SERTRALINE 25 MG TABLET Take one half Pristiq daily for 2 weeks -25 mg Take sertraline 25 mg daily for 2 weeks If feeling well with this, after 2 weeks take Pristiq 25 mg every other day for 2 weeks Increase from sertraline 25 mg daily to two 25 mg sertraline daily (50 mg) for two weeks. After 2 weeks of Pristiq every other day, discontinue it. If you are feeling unwell with any of these changes, return to your previous dosing call and speak with a nurse [phone] Take Vyvanse as prescribed if needed. Sanjuanita Nash APRN.CLINICAL MENTAL HEALTH COUNSELOR Medical Decision Making: Problems: Moderate: 2+ stable chronic illnesses Risk: Moderate: Drug management Medical Decision Making Level: 4 - Moderate documented in this encounterDoctors Hospital note Author Kayleen Hernández [facility] Note Date/Time January 07, 2025 2:03 pm [facility] Medical Records Department [address] [address] Anesthesia Postop Eval I 01/07/25 1402 MR#: [id number] Acct: [id number] Name: LAY MORALES Rep #:[id number] : 1995 29 From: Kayleen Hernández CRNA PCP: Dr. Kvng Hurd MD Status:RE G SDC Y Race: C Location: [address] Anesthesia: Postop Eval I Current Vital Signs Temperature: 97.5 F Pulse Rate: 101 Blood Pressure: 98/52 Respiratory Rate: 20 Pulse Ox: 100 Assessment Airway patent: Yes Spontaneous unlabored respirations: Yes nausea: No Vomiting: No Anesthesia Complication: No Fluid Hydration Crystalloid volume administer (ml): 300 Total IV fluid infused: 300 Progress Note Anesthesia document: Postop Eval 1 completed: Yes 01/07/25 1403 <Electronically signed by Kayleen henning CRNA> Date _ Kayleen Hernández CRNA Cosigner Signature: Date CC: ~ Signed [facility] Work Phone: Consult note Author Ruddy Sage [facility] Note Date/Time January 07, 2025 3:10 pm [facility] Medical Records Department [address] [place] [address] Anesthesia Postop Eval II 01/07/25 1457 MR#: [id number] Acct: [id number] Name: LAY MORALES Rep #:[id number] : 1995 29 From: Ruddy Sage MD PCP: Dr. Kvng Hurd MD [place]EN Feng [facility] [place] Location: [place] [address] Anesthesia Postop Eval I Sum Postop Eval Completion status Anesthesia document: Postop Eval 1 completed: Yes Anesthesia Postop Eval I Summary Anesthesia Postop Eval I Summary: Anesthesia Postop Eval I: Assessment Summary Airway patent Yes 01/07/25 14:02 [employer] Spontaneous unlabored Yes 01/07/25 14:02 [employer]CS[employer] respirations Mental status nausea No 01/07/25 14:02 [employer].CSIR Vomiting No 01/07/25 14:02 [employer].CSIR Anesthesia Postop Eval I: Fluid Summary Crystalloid volume administer 300 01/07/25 14:02 [employer].CSIR (ml) Colloids volume administered ( ml) Blood Product volume administered (ml) Total IV fluid infused 300 01/07/25 14:02 [employer].CSIR Anesthesia Postop Eval I: Summary Notes Anesthesia Complication No 01/07/25 14:02 [employer].CSIR Anesthesia Complication Comment: Post-operative progress note Anesthesia: Postop Eval II Evaluation Mental status: Awake Pain Level: 0 nausea: No Vomiting: No Complications Anesthesia Complication: No 01/07/25 1457 <Electronically signed by Ruddy Sage MD> Date _ Ruddy Sage MD Cosigner Signature: Date CC: ~ Signed [facility] Work Phone: Evaluation note* Diagnosis Attention deficit hyperactivity disorder (ADHD), unspecified ADHD type- Primary Encounter for immunization Need for other specified prophylactic vaccination against single bacterial disease Special screening examination for viral disease Special screening examination for unspecified viral disease Screening for HIV (human immunodeficiency virus) Special screening examination for other specified viral diseases Anxiety Anxiety state, unspecified [facility] Diagnosis Attention deficit hyperactivity disorder (ADHD), unspecified ADHD type [facility] Diagnosis Attention deficit hyperactivity disorder (ADHD), unspecified ADHD type- Primary Anxiety Anxiety state, unspecified Attention deficit hyperactivity disorder, combined type Attention deficit disorder with hyperactivity Encounter for immunization Need for other specified prophylactic vaccination against single bacterial disease [facility] Diagnosis Anxiety Anxiety state, unspecified Attention deficit hyperactivity disorder (ADHD), unspecified ADHD type [facility] Diagnosis Anxiety- Primary Anxiety state, unspecified Attention deficit hyperactivity disorder (ADHD), unspecified ADHD type Attention deficit hyperactivity disorder, combined type Attention deficit disorder with hyperactivity [facility] Diagnosis Attention deficit hyperactivity disorder (ADHD), unspecified ADHD type [facility]* Diagnosis Routine medical exam- Primary Routine general medical examination at a health care facility Attention deficit hyperactivity disorder (ADHD), unspecified ADHD type Tremor of both hands Special screening examination for viral disease Special screening examination for unspecified viral disease Screening for HIV (human immunodeficiency virus) Special screening examination for other specified viral diseases Anxiety Anxiety state, unspecified Total bilirubin, elevated Disorders of bilirubin excretion Leg cramps Cramp of limb RLS (restless legs syndrome) Restless legs syndrome (RLS) Screening, lipid Screening for lipoid disorders Need for vaccination Need for prophylactic vaccination and inoculation against unspecified single disease documented in this encounter [facility]* Diagnosis Attention deficit hyperactivity disorder, combined type- Primary Attention deficit disorder with hyperactivity Attention deficit hyperactivity disorder (ADHD), unspecified ADHD type Anxiety Anxiety state, unspecified Leg cramps Cramp of limb Constipation, unspecified constipation type [facility]* Diagnosis Irritable bowel syndrome with constipation- Primary Irritable bowel syndrome Lower abdominal pain Abdominal pain, other specified site Attention deficit hyperactivity disorder, combined type Attention deficit disorder with hyperactivity [facility]* Diagnosis Attention deficit hyperactivity disorder, combined type Attention deficit disorder with hyperactivity [facility]* Diagnosis Nausea- Primary Nausea alone Diarrhea, unspecified type RUQ abdominal pain Abdominal pain, right upper quadrant Periumbilical abdominal pain Abdominal pain, periumbilic documented in this encounter [facility] note* Diagnosis Nausea Nausea alone [facility] Diagnosis Attention deficit hyperactivity disorder, combined type Attention deficit disorder with hyperactivity documented in this encounter [facility] note* Diagnosis Attention deficit hyperactivity disorder, combined type- Primary Attention deficit disorder with hyperactivity Irritable bowel syndrome with both constipation and diarrhea Lower abdominal pain Abdominal pain, other specified site [facility]* Diagnosis Attention deficit hyperactivity disorder, combined type Attention deficit disorder with hyperactivity documented in this encounter [facility] note* Diagnosis Attention deficit hyperactivity disorder, combined type- Primary Attention deficit disorder with hyperactivity Nausea Nausea alone Anxiety Anxiety state, unspecified [facility]* Diagnosis Constipation, unspecified constipation type- Primary Bloating Flatulence, eructation, and gas pain [id number] adverse effect of medication, initial encounter [facility] Diagnosis Irritable bowel syndrome with constipation Irritable bowel syndrome [facility] Diagnosis Irritable bowel syndrome with constipation- Primary Irritable bowel syndrome Change in bowel habits Other symptoms involving digestive system Abdominal pain, left lower quadrant Nausea Nausea alone [facility]* Diagnosis Irritable bowel syndrome with both constipation and diarrhea- Primary [facility]* Diagnosis Anxiety Anxiety state, unspecified [facility]* Diagnosis Nausea- Primary Nausea alone Anxiety Anxiety state, unspecified Irritable bowel syndrome with constipation Irritable bowel syndrome Pelvic floor dysfunction Pelvic muscle wasting [facility] Diagnosis Lower abdominal pain Abdominal pain, other specified site [facility]* Diagnosis Pelvic pain in female- Primary Unspecified symptom associated with female genital organs Arcuate uterus Adenomyosis of the uterus [facility] Diagnosis Pelvic pain in female- Primary Unspecified symptom associated with female genital organs Pelvic pain in female- Primary Unspecified symptom associated with female genital organs Arcuate uterus Adenomyosis of the uterus [facility] Diagnosis Encounter for IUD insertion- Primary Encounter for insertion of intrauterine contraceptive device IUD (intrauterine device) in place Presence of intrauterine contraceptive device [facility]* Diagnosis Pelvic pain in female- Primary Unspecified symptom associated with female genital organs Adenomyosis Endometriosis of uterus control counseling General counseling for initiation of other contraceptive measures [facility]* Diagnosis Pain of right heel- Primary Pain in limb Anxiety Anxiety state, unspecified Attention deficit hyperactivity disorder, combined type Attention deficit disorder with hyperactivity [facility]* Diagnosis Attention deficit hyperactivity disorder, combined type- Primary Attention deficit disorder with hyperactivity Nausea Nausea alone Palpitations Other fatigue Anxiety Anxiety state, unspecified [facility] Diagnosis Attention deficit hyperactivity disorder, combined type- Primary Attention deficit disorder with hyperactivity [facility]* Diagnosis Pelvic pain in female- Primary Unspecified symptom associated with female genital organs Muscle tightness Unspecified disorder of muscle, ligament, and fascia [facility] Diagnosis Pelvic pain in female- Primary Unspecified symptom associated with female genital organs Muscle tightness Unspecified disorder of muscle, ligament, and fascia documented [facility]* Diagnosis Pelvic pain in female- Primary Unspecified symptom associated with female genital organs Muscle tightness Unspecified disorder of muscle, ligament, and fascia documented [facility]* Diagnosis Pelvic pain in female- Primary Unspecified symptom associated with female genital organs Muscle tightness Unspecified disorder of muscle, ligament, and fascia documented [facility]* Diagnosis Asthma- Primary Unspecified asthma Attention deficit hyperactivity disorder, combined type Attention deficit disorder with hyperactivity Irritable bowel syndrome with constipation Irritable bowel syndrome Pelvic pain in female Unspecified symptom associated with female genital organs [facility]* Diagnosis Attention deficit hyperactivity disorder, combined type Attention deficit disorder with hyperactivity [facility]* Diagnosis Attention deficit hyperactivity disorder, combined type Attention deficit disorder with hyperactivity documented in this encounter [facility] note* Diagnosis Attention deficit hyperactivity disorder, combined type Attention deficit disorder with hyperactivity documented in this encounter [facility] note* Diagnosis Attention deficit hyperactivity disorder, combined type- Primary Attention deficit disorder with hyperactivity Irritable bowel syndrome with constipation Irritable bowel syndrome Pelvic pain in female Unspecified symptom associated with female genital organs Chronic abdominal pain Abdominal pain, unspecified site Adenomyosis of uterus [facility]* Diagnosis Elevated bilirubin- Primary Jaundice, unspecified, not of documented in this encounter [facility] note* Diagnosis Pelvic pain in female- Primary Unspecified symptom associated with female genital organs Muscle tightness Unspecified disorder of muscle, ligament, and fascia documented in this encounter [facility] note* Diagnosis Attention deficit hyperactivity disorder, combined type Attention deficit disorder with hyperactivity documented in this encounter [facility] for referral (narrative)* Diagnostic Procedure Only (Routine) - Closed Specialty Diagnoses / Procedures Referred By Rodrigo teresa Referred To Contact XR IMAGING Diagnoses Lower abdominal pain Procedures XR ABDOMEN 1V SUPINE RADIOLOGIC EXAM ABDOMEN 1 VIEW Sanjuanita Nash, SENIOR TECHNICAL MANAGER.CLINICAL MENTAL HEALTH COUNSELOR [address] [place] [address] [place] [address] Referral ID Status Reason Start Date Expiration Date V isits Requested Visits Authorized [id number] Closed Auto-Generate d Referral 03/01/2023 03/30/2024 1 1 * Consult, Test, Treat (Routine) - Authorized Specialty Diagnoses / Procedures Referred By Contac t Referred To Contact Gastroenterology Diagnoses Irritable bowel syndrome with constipation Lower abdominal pain Procedures CONSULT TO GASTROENTEROLOGY OFFICE/OUTPATIENT NEW HIGH MDM 60-74 MINUTES Sanjuanita Nash APRN.CLINICAL MENTAL HEALTH COUNSELOR [address] [place] [address] Referral ID Status Reason Start Date Expiration Date Visits Requested Visits Authorized [id number] Authorized PCP Requested Referral 03/01/2023 02/29/2024 [address] [facility] for referral (narrative)* Outpatient Procedure (Routine) - Pending Review Specialty Diagnoses / Procedures Referred By Contac t Referred To Contact [facility] Diagnoses Irritable bowel syndrome with constipation Change in bowel habits Abdominal pain, left lower quadrant Procedures COLONOSCOPY DIAGNOSTIC COLONOSCOPY FLX DX W/COLLJ SPEC WHEN PFRMFabiola Sousa PA-C [address] [address] [facility] [address] [place] [address] Referral ID Status Reason Start Date Expiration Date Visits Requested Visits Authorized [id number] Pending Review Auto-Generat ed Referral 01/23/2024 01/22/2025 [address] [facility] for referral (narrative)* Diagnostic Procedure Only (Routine) - Closed Specialty Diagnoses / Procedures Referred By Contac t Referred To Contact XR IMAGING Diagnoses Lower abdominal pain Procedures XR ABDOMEN 1V SUPINE RADIOLOGIC EXAM ABDOMEN 1 VIEW Sanjuanita Nash APRN.CLINICAL MENTAL HEALTH COUNSELOR [address] [place] [address] [place] [address] Referral ID Status Reason Start Date Expiration Date V isits Requested Visits Authorized [id number] Closed Auto-Generate d Referral 03/01/2023 03/30/2024 [address] [facility] for referral (narrative)* Diagnostic Procedure Only (Routine) - Closed Specialty Diagnoses / Procedures Referred By Rodrigo t Referred To Contact [facility] Diagnoses Pelvic pain in female Procedures PELVIC US WHI US PELVIC NONOBSTETRIC REAL-TIME IMAGE COMPLETE Fabiola Costa APRN.CNM [address] [place] [address] [facility] [address] [place] [id number] Referral ID Status Reason Start Date Expiration Date V isits Requested Visits Authorized [id number] Closed Auto-Generate d Referral 04/25/2024 04/25/2025 1 1 * Physical Therapy (Routine) - Pending Review Specialty Diagnoses / Procedures Referred By Rodrigo t Referred To Contact [facility] Diagnoses Pelvic pain in female Procedures CONSULT TO PHYSICAL THERAPY PHYSICAL THERAPY EVALUATION HIGH COMPLEX 45 MINS Fabiola Costa APRN.CNM [address] [place] [address] [address] Referral ID Status Reason Start Date Expiration Date Visits Requested Visits Authorized [id number] Pending Review Auto-Generat ed Referral 04/25/2025 [address] [facility] for referral (narrative)* Outpatient Procedure (Routine) - New Request Specialty Diagnoses / Procedures Referred By Rodrigo t Referred To Contact [facility] Diagnoses Encounter for IUD insertion Procedures INSERT INTRAUTERINE DEVICE INSERT INTRAUTERINE DEVICE Fabiola Costa APRN.CNM [address] [place] [address] [facility] [address] [place] [address] Referral ID Status Reason Start Date Expiration Date Visits Requested Visits Authorized [id number] New Request Auto-Generat ed Referral 05/13/2025 [address] [facility] for referral (narrative)* Outpatient Procedure (Routine) - Closed Specialty Diagnoses / Procedures Referred By Contac t Referred To Contact [facility] Diagnoses Pelvic pain in female Procedures INSERT INTRAUTERINE DEVICE LEVONORGESTREL IU 52MG 5 YR INSERT INTRAUTERINE DEVICE Fabiola Costa APRN.CNM [address] [place] [address] [facility] [address] [place] [address] Referral ID Status Reason Start Date Expiration Date V isits Requested Visits Authorized [id number] Closed Auto-Generate d Referral 05/07/2024 05/07/2025 [address] [facility] for referral (narrative)No reason for referral information [facility] Work Phone: Reason for visit Narrative* Diagnostic Procedure Only (Routine) - Closed Specialty Diagnoses / Procedures Referred By Contac t Referred To Contact XR IMAGING Diagnoses Irritable bowel syndrome with constipation Procedures XR ABDOMEN 2V ROUTINE SUPINE W UPRIGHT/DECUB/CTL RADIOLOGIC EXAM ABDOMEN 2 VIEWS Fabiola Devlin PA-C [address] [address] [place] [address] Referral ID Status Reason Start Date Expiration Date V isits Requested Visits Authorized [id number] Closed Auto-Generate d Referral 11/07/2023 12/06/2024 [address] [facility] for visit Narrative* Diagnostic Procedure Only (Routine) - Closed Specialty Diagnoses / Procedures Referred By Contac t Referred To Contact XR IMAGING Diagnoses Lower abdominal pain Procedures XR ABDOMEN 1V SUPINE RADIOLOGIC EXAM ABDOMEN 1 VIEW Sanjuanita Nash APRN.CLINICAL MENTAL HEALTH COUNSELOR [address] [place] [address] [place] [address] Referral ID Status Reason Start Date Expiration Date V isits Requested Visits Authorized [id number] Closed Auto-Generate d Referral 03/01/2023 03/30/2024 1 1 [facility] Diagnostic Procedure Only (Routine) - Closed Specialty Diagnoses / Procedures Referred By Alinaac t Referred To Contact [facility] Diagnoses Pelvic pain in female Procedures PELVIC US WHI US PELVIC NONOBSTETRIC REAL-TIME IMAGE COMPLETE Fabiola Costa APRN.CARLOSM [address] [place] [address] [facility] [address] [place] [address] Referral ID Status Reason Start Date Expiration Date V isits Requested Visits Authorized [id number] Closed Auto-Generate d Referral 04/25/2024 04/25/2025 1 1 [facility] Summary Purpose Family History No Family History Records FoundNo Family History Records FoundNo Family History Records FoundNo Family History Records Found Advance Directives Advance Directive Response Recorded Date/ Time Do you have a Healthcare Power of High School Music Instructor? No January 05, 2025 2:01pm Reason for Referral Specialty Diagnoses / Procedures Referred By Alinaac t Referred To Contact CT IMAGING Diagnoses Nausea Procedures CT ABD/PEL W IVCON CT ABD & PELVIS W/CONTRAST Sanjuanita Nash, SENIOR TECHNICAL MANAGER.CLINICAL MENTAL HEALTH COUNSELOR [address] [place] [address] [place] [address] Referral ID Status Reason Start Date Expiration Date Visits Requested Visits Authorized [id number] Authorized Auto-Generat ed Referral 07/03/2024 1 1 Referral ID Status Reason Start Date Expiration Date V isits Requested Visits Authorized [id number] Closed Auto-Generate d Referral 06/04/2023 07/03/2024 1 1 Specialty Diagnoses / Procedures Referred By Contac t Referred To Contact Diagnoses Pelvic pain in female Muscle tightness Procedures CONSULT TO DESKTOP ANALYST PELVIC PAIN OFFICE/OUTPATIENT [facility] MDM 60 MINUTES Fabiola Costa APRN.CARLOSM [address] [place] [address] Referral ID Status Reason Start Date Expiration Date Visits Requested Visits Authorized [id number] Authorized PCP Requested Referral Auto-Generate d Referral 08/04/2024 08/04/2025 1 1 Chief Complaint and Reason for Visit Chief Complaint Admit Date Constipation August 13, 2024 8 :23am Constipation treatment FU September 19 7:54am PELVIS PAIN October 22, 2024 1:16 pm Reason for Visit Admit Date Constipation August 13, 2024 8 :23am Adenomyosis September 19, 2024 7:54 am Constipation September 19, 2024 7:54 am Pelvic floor dysfunction September 19, 2024 7:54am Pelvic pain September 19, 2024 7:54 am Chief Complaint Admit Date Constipation treatment FU September 19 7:54am PELVIS PAIN October 22, 2024 1:16 pm FU MRI NEXT STEPS November 05, 2024 8:2 0am Reason for Visit Admit Date Adenomyosis September 19, 2024 7:54 am Constipation September 19, 2024 7:54 am Pelvic floor dysfunction September 19, 2024 7:54am Pelvic pain September 19, 2024 7:54 am Bloating November 05, 2024 8:2 0am Irritable bowel syndrome with diarrhea A pril 2024 8:20am Bloating January 07, 2025 11:5 7am Irritable bowel syndrome with diarrhea J une 2024 11:57am Additional Source Comments INFORMATION SOURCE (unrecogn ized section and content) DATE CREATED AUTHOR 08/11/2021 [facility] DATE CREATED AUTHOR AUTHOR'S ORGANIZ ATION 10/18/2024 [facility] DATE CREATED AUTHOR AUTHOR'S ORGANIZ ATION 12/24/2024 [facility] DATE CREATED AUTHOR AUTHOR'S ORGANIZ ATION 01/06/2025 [facility] Source Comments (unrecognize d section and content) In the event this informatio n is protected by the Federal Confidentiality of Alcohol and Drug Abuse Patient Records regulations: The Federal rules restrict any use of the information to criminally investigate or prosecute any alcohol or drug abuse patient.[facility] the event this information is protected by the Federal Confidentiality of Alcohol and Drug Abuse Patient Records regulations: The Federal rules restrict any use of the information to criminally investigate or prosecute any alcohol or drug abuse patient.[facility] the event this information is protected by the Federal Confidentiality of Alcohol and Drug Abuse Patient Records regulations: The Federal rules restrict any use of the information to criminally investigate or prosecute any alcohol or drug abuse patient.[facility] the event this information is protected by the Federal Confidentiality of Alcohol and Drug Abuse Patient Records regulations: The Federal rules restrict any use of the information to criminally investigate or prosecute any alcohol or drug abuse patient.[facility] the event this information is protected by the Federal Confidentiality of Alcohol and Drug Abuse Patient Records regulations: The Federal rules restrict any use of the information to criminally investigate or prosecute any alcohol or drug abuse patient.[facility] the event this information is protected by the Federal Confidentiality of Alcohol and Drug Abuse Patient Records regulations: The Federal rules restrict any use of the information to criminally investigate or prosecute any alcohol or drug abuse patient.[facility] HospitalIn the event this information is protected by the Federal Confidentiality of Alcohol and Drug Abuse Patient Records regulations: The Federal rules restrict any use of the information to criminally investigate or prosecute any alcohol or drug abuse patient.[facility] HospitalIn the event this information is protected by the Federal Confidentiality of Alcohol and Drug Abuse Patient Records regulations: The Federal rules restrict any use of the information to criminally investigate or prosecute any alcohol or drug abuse patient.[facility] HospitalIn the event this information is protected by the Federal Confidentiality of Alcohol and Drug Abuse Patient Records regulations: The Federal rules restrict any use of the information to criminally investigate or prosecute any alcohol or drug abuse patient.[facility] HospitalIn the event this information is protected by the Federal Confidentiality of Alcohol and Drug Abuse Patient Records regulations: The Federal rules restrict any use of the information to criminally investigate or prosecute any alcohol or drug abuse patient.[facility] HospitalIn the event this information is protected by the Federal Confidentiality of Alcohol and Drug Abuse Patient Records regulations: The Federal rules restrict any use of the information to criminally investigate or prosecute any alcohol or drug abuse patient.[facility] HospitalIn the event this information is protected by the Federal Confidentiality of Alcohol and Drug Abuse Patient Records regulations: The Federal rules restrict any use of the information to criminally investigate or prosecute any alcohol or drug abuse patient.[facility] HospitalIn the event this information is protected by the Federal Confidentiality of Alcohol and Drug Abuse Patient Records regulations: The Federal rules restrict any use of the information to criminally investigate or prosecute any alcohol or drug abuse patient.[facility] HospitalIn the event this information is protected by the Federal Confidentiality of Alcohol and Drug Abuse Patient Records regulations: The Federal rules restrict any use of the information to criminally investigate or prosecute any alcohol or drug abuse patient.[facility] HospitalIn the event this information is protected by the Federal Confidentiality of Alcohol and Drug Abuse Patient Records regulations: The Federal rules restrict any use of the information to criminally investigate or prosecute any alcohol or drug abuse patient.[facility] HospitalIn the event this information is protected by the Federal Confidentiality of Alcohol and Drug Abuse Patient Records regulations: The Federal rules restrict any use of the information to criminally investigate or prosecute any alcohol or drug abuse patient.[facility] HospitalIn the event this information is protected by the Federal Confidentiality of Alcohol and Drug Abuse Patient Records regulations: The Federal rules restrict any use of the information to criminally investigate or prosecute any alcohol or drug abuse patient.[facility] HospitalIn the event this information is protected by the Federal Confidentiality of Alcohol and Drug Abuse Patient Records regulations: The Federal rules restrict any use of the information to criminally investigate or prosecute any alcohol or drug abuse patient.[facility] HospitalIn the event this information is protected by the Federal Confidentiality of Alcohol and Drug Abuse Patient Records regulations: The Federal rules restrict any use of the information to criminally investigate or prosecute any alcohol or drug abuse patient.[facility] HospitalIn the event this information is protected by the Federal Confidentiality of Alcohol and Drug Abuse Patient Records regulations: The Federal rules restrict any use of the information to criminally investigate or prosecute any alcohol or drug abuse patient.[facility] HospitalIn the event this information is protected by the Federal Confidentiality of Alcohol and Drug Abuse Patient Records regulations: The Federal rules restrict any use of the information to criminally investigate or prosecute any alcohol or drug abuse patient.[facility] HospitalIn the event this information is protected by the Federal Confidentiality of Alcohol and Drug Abuse Patient Records regulations: The Federal rules restrict any use of the information to criminally investigate or prosecute any alcohol or drug abuse patient.[facility] HospitalIn the event this information is protected by the Federal Confidentiality of Alcohol and Drug Abuse Patient Records regulations: The Federal rules restrict any use of the information to criminally investigate or prosecute any alcohol or drug abuse patient.[facility] HospitalIn the event this information is protected by the Federal Confidentiality of Alcohol and Drug Abuse Patient Records regulations: The Federal rules restrict any use of the information to criminally investigate or prosecute any alcohol or drug abuse patient.[facility] HospitalIn the event this information is protected by the Federal Confidentiality of Alcohol and Drug Abuse Patient Records regulations: The Federal rules restrict any use of the information to criminally investigate or prosecute any alcohol or drug abuse patient.[facility] HospitalIn the event this information is protected by the Federal Confidentiality of Alcohol and Drug Abuse Patient Records regulations: The Federal rules restrict any use of the information to criminally investigate or prosecute any alcohol or drug abuse patient.[facility] HospitalIn the event this information is protected by the Federal Confidentiality of Alcohol and Drug Abuse Patient Records regulations: The Federal rules restrict any use of the information to criminally investigate or prosecute any alcohol or drug abuse patient.[facility] HospitalIn the event this information is protected by the Federal Confidentiality of Alcohol and Drug Abuse Patient Records regulations: The Federal rules restrict any use of the information to criminally investigate or prosecute any alcohol or drug abuse patient.[facility] HospitalIn the event this information is protected by the Federal Confidentiality of Alcohol and Drug Abuse Patient Records regulations: The Federal rules restrict any use of the information to criminally investigate or prosecute any alcohol or drug abuse patient.[facility] HospitalIn the event this information is protected by the Federal Confidentiality of Alcohol and Drug Abuse Patient Records regulations: The Federal rules restrict any use of the information to criminally investigate or prosecute any alcohol or drug abuse patient.[facility] HospitalIn the event this information is protected by the Federal Confidentiality of Alcohol and Drug Abuse Patient Records regulations: The Federal rules restrict any use of the information to criminally investigate or prosecute any alcohol or drug abuse patient.[facility] HospitalIn the event this information is protected by the Federal Confidentiality of Alcohol and Drug Abuse Patient Records regulations: The Federal rules restrict any use of the information to criminally investigate or prosecute any alcohol or drug abuse patient.[facility] HospitalIn the event this information is protected by the Federal Confidentiality of Alcohol and Drug Abuse Patient Records regulations: The Federal rules restrict any use of the information to criminally investigate or prosecute any alcohol or drug abuse patient.[facility] HospitalIn the event this information is protected by the Federal Confidentiality of Alcohol and Drug Abuse Patient Records regulations: The Federal rules restrict any use of the information to criminally investigate or prosecute any alcohol or drug abuse patient.[facility] HospitalIn the event this information is protected by the Federal Confidentiality of Alcohol and Drug Abuse Patient Records regulations: The Federal rules restrict any use of the information to criminally investigate or prosecute any alcohol or drug abuse patient.[facility] HospitalIn the event this information is protected by the Federal Confidentiality of Alcohol and Drug Abuse Patient Records regulations: The Federal rules restrict any use of the information to criminally investigate or prosecute any alcohol or drug abuse patient.[facility] HospitalIn the event this information is protected by the Federal Confidentiality of Alcohol and Drug Abuse Patient Records regulations: The Federal rules restrict any use of the information to criminally investigate or prosecute any alcohol or drug abuse patient.[facility] HospitalIn the event this information is protected by the Federal Confidentiality of Alcohol and Drug Abuse Patient Records regulations: The Federal rules restrict any use of the information to criminally investigate or prosecute any alcohol or drug abuse patient.[facility] HospitalIn the event this information is protected by the Federal Confidentiality of Alcohol and Drug Abuse Patient Records regulations: The Federal rules restrict any use of the information to criminally investigate or prosecute any alcohol or drug abuse patient.[facility] HospitalIn the event this information is protected by the Federal Confidentiality of Alcohol and Drug Abuse Patient Records regulations: The Federal rules restrict any use of the information to criminally investigate or prosecute any alcohol or drug abuse patient.[facility] the event this information is protected by the Federal Confidentiality of Alcohol and Drug Abuse Patient Records regulations: The Federal rules restrict any use of the information to criminally investigate or prosecute any alcohol or drug abuse patient.[facility] HospitalIn the event this information is protected by the Federal Confidentiality of Alcohol and Drug Abuse Patient Records regulations: The Federal rules restrict any use of the information to criminally investigate or prosecute any alcohol or drug abuse patient.[facility] HospitalIn the event this information is protected by the Federal Confidentiality of Alcohol and Drug Abuse Patient Records regulations: The Federal rules restrict any use of the information to criminally investigate or prosecute any alcohol or drug abuse patient.[facility]In the event this information is protected by the Federal Confidentiality of Alcohol and Drug Abuse Patient Records regulations: The Federal rules restrict any use of the information to criminally investigate or prosecute any alcohol or drug abuse patient.[facility] HospitalIn the event this information is protected by the Federal Confidentiality of Alcohol and Drug Abuse Patient Records regulations: The Federal rules restrict any use of the information to criminally investigate or prosecute any alcohol or drug abuse patient.[facility] HospitalIn the event this information is protected by the Federal Confidentiality of Alcohol and Drug Abuse Patient Records regulations: The Federal rules restrict any use of the information to criminally investigate or prosecute any alcohol or drug abuse patient.[facility] HospitalIn the event this information is protected by the Federal Confidentiality of Alcohol and Drug Abuse Patient Records regulations: The Federal rules restrict any use of the information to criminally investigate or prosecute any alcohol or drug abuse patient.[facility] HospitalIn the event this information is protected by the Federal Confidentiality of Alcohol and Drug Abuse Patient Records regulations: The Federal rules restrict any use of the information to criminally investigate or prosecute any alcohol or drug abuse patient.[facility] Reason for Visit (unrecogniz ed section and content) Reason Comments Physical Therapy Specialty Diagnoses / Procedures Referred By Rodrigo teresa Referred To Contact [facility] Diagnoses Pelvic pain in female Procedures CONSULT TO PHYSICAL THERAPY PHYSICAL THERAPY EVALUATION HIGH COMPLEX 45 MINS Fabiola Costa APRN.[facility] [address] [place] [address] [facility] [address] [place] [address] Referral ID Status Reason Start Date Expiration Date Visits Requested Visits Authorized [id number] Authorized Auto-Generat ed Referral 07/15/2024 20 20 Reason Comments PT Progress Note Specialty Diagnoses / Procedures Referred By Rodrigo teresa Referred To Contact Physical Therapy / PHYSICAL THERAPY Diagnoses Pelvic floor pain, constipation, and adenomyosis Procedures EST RS PT PELVIC FLOOR Fabiola Costa APRN.CN [address] [place] [address] Jennifer Serrano, PT [address] [place] [address] Referral ID Status Reason Start Date Expiration Date V isits Requested Visits Authorized [id number] Authorized 08/01/2024 07/15/2025 20 20 Reason Comments Establish Care Reason Onset Date Comments Refill Request 02/20/2022 Reason Comments Medication Follow-up left ankle pain injury 6-7 years ago very sensitive to cold air Reason Onset Date Comments Refill Request 03/26/2022 Reason Comments Recheck ADHD, anxiety Reason Onset Date Comments Refill Request 07/30/2022 Reason Comments F/U [address] Hurd Reason Comments F/U 3 Month Reason Comments Constipation Reason Onset Date Comments Refill Request 04/26/2023 Reason Comments Diarrhea Reason Comments Radiology CT Specialty Diagnoses / Procedures Referred By Contac t Referred To Contact CT IM[facility] Diagnoses Nausea Procedures CT ABD/PEL W IVCON CT ABD & PELVIS W/CONTRAST Sanjuanita Nash, BERT.CLINICAL MENTAL HEALTH COUNSELOR [address] [place] [address] [place] [address] Referral ID Status Reason Start Date Expiration Date V isits Requested Visits Authorized [id number] Closed Auto-Generate d Referral 06/04/2023 07/03/2024 1 1 Reason Onset Date Comments Refill Request 06/14/2023 Reason Comments Follow Up IBS, abdomen pain , lower back pain that radiates down right leg to knee Reason Comments Medication Request Reason Comments Recheck Reason Comments New Patient Having stomach issue s after you eat gas, bloating, sharp pains in lower stomach. Reason Comments Orders Reason Comments Follow Up Irritable Bowel Syndrome Reason Comments Patient Update Reason Onset Date Comments Refill Request 03/11/2024 Reason Comments F/U 3 Month External labs Reason Onset Date Comments Medication Request 05/01/2024 Reason Comments Discussion Discuss pelvic floor dysfunction and possible endometriosis Reason Onset Date Comments Insertion Of IUD 05/13/2024 Specialty Diagnoses / Procedures Referred By Contac t Referred To Contact [facility] Diagnoses Pelvic pain in female Procedures INSERT INTRAUTERINE DEVICE LEVONORGESTREL IU 52MG 5 YR INSERT INTRAUTERINE DEVICE Fabiola Costa APRN.[facility] [address] [place] [address] [facility] [address] [place] [address] Referral ID Status Reason Start Date Expiration Date V isits Requested Visits Authorized [id number] Closed Auto-Generate d Referral 05/07/2024 05/07/2025 1 1 Reason Comments Follow Up Pelvic pain - Pelvic US on 05/01/2024 Reason Comments Follow Up Pain R heel when standing for a long time Reason Comments Follow Up Reason Comments PT Eval Reason Comments iud check Reason Comments Medication Follow-up Reason Onset Date Comments Refill Request 09/09/2024 Reason Onset Date Comments Refill Request 12/17/2024 Care Teams (unrecognized sec tion and content) Body Shop Floorperson Relationship Specialty Start Date End Date Kvng Hurd MD [address] [place] [address], [place] [address] PCP - General Internal Medicine 02/03/22 Body Shop Floorperson Relationship Specialty Start Date End Date Kvng Hurd MD [address] [place] [address], [place] [address] PCP - General Internal Medicine 02/03/22 Body Shop Floorperson Relationship Specialty Start Date End Date Kvng Hurd MD [address] [place] [address], [place] [address] PCP - General Internal Medicine 02/03/22 Body Shop Floorperson Relationship Specialty Start Date End Date Kvng Hurd MD [address] [place] [address], [place] [address] PCP - General Internal Medicine 02/03/22 Body Shop Floorperson Relationship Specialty Start Date End Date Kvng Hurd MD [address] [place] [address], [place] [address] PCP - General Internal Medicine 02/03/22 Body Shop Floorperson Relationship Specialty Start Date End Date Kvng Hurd MD [address] [place] [address], [place] [address] PCP - General Internal Medicine 02/03/22 Body Shop Floorperson Relationship Specialty Start Date End Date Kvng Hurd MD [address] [place] [address], [place] [address] PCP - General Internal Medicine 02/03/22 Body Shop Floorperson Relationship Specialty Start Date End Date Kvng Hurd MD [address] [place] [address], [place] [address] PCP - General Internal Medicine 02/03/22 Body Shop Floorperson Relationship Specialty Start Date End Date Kvng Hurd MD [address] [place] [address] PCP - General Internal Medicine 02/03/22 Body Shop Floorperson Relationship Specialty Start Date End Date Kvng Hurd MD [address] [place] [address] PCP - General Internal Medicine 02/03/22 Body Shop Floorperson Relationship Specialty Start Date End Date Kvng Hurd MD [address] [place] [address] PCP - General Internal Medicine 02/03/22 Body Shop Floorperson Relationship Specialty Start Date End Date Kvng Hurd MD [address] [place] [address] PCP - General Internal Medicine 02/03/22 Body Shop Floorperson Relationship Specialty Start Date End Date Kvng Hurd MD [address] [place] [address] PCP - General Internal Medicine 02/03/22 Body Shop Floorperson Relationship Specialty Start Date End Date Kvng Hurd MD [address] [place] [address] PCP - General Internal Medicine 02/03/22 Body Shop Floorperson Relationship Specialty Start Date End Date Kvng Hurd MD [address] [place] [address] PCP - General Internal Medicine 02/03/22 Body Shop Floorperson Relationship Specialty Start Date End Date Kvng Hurd MD [address] [facility] [place] [address] PCP - General Internal Medicine 02/03/22 Body Shop Floorperson Relationship Specialty Start Date End Date Kvng Hurd MD [address] [facility] [place] [address] PCP - General Internal Medicine 02/03/22 Body Shop Floorperson Relationship Specialty Start Date End Date Kvng Hurd MD [address] [facility] [place] [address] PCP - General Internal Medicine 02/03/22 Body Shop Floorperson Relationship Specialty Start Date End Date Kvng Hurd MD [address] [facility] [place] [address] PCP - General Internal Medicine 02/03/22 Body Shop Floorperson Relationship Specialty Start Date End Date Kvng Hurd MD [address] [facility] [place] [address] PCP - General Internal Medicine 02/03/22 Body Shop Floorperson Relationship Specialty Start Date End Date Kvng Hurd MD [address] [facility] [place] [address] PCP - General Internal Medicine 02/03/22 Body Shop Floorperson Relationship Specialty Start Date End Date Kvng Hurd MD [address] [facility] [place] [address] PCP - General Internal Medicine 02/03/22 Body Shop Floorperson Relationship Specialty Start Date End Date Kvng Hurd MD [address] [facility] [place] [address] PCP - General Internal Medicine 02/03/22 Body Shop Floorperson Relationship Specialty Start Date End Date Kvng Hurd MD [address] [place] [address] PCP - General Internal Medicine 02/03/22 Body Shop Floorperson Relationship Specialty Start Date End Date Kvng Hurd MD [address] [place] [address] PCP - General Internal Medicine 02/03/22 Body Shop Floorperson Relationship Specialty Start Date End Date Kvng Hurd MD [address] [place] [address] PCP - General Internal Medicine 02/03/22 Body Shop Floorperson Relationship Specialty Start Date End Date Kvng Hurd MD [address] [place] [address] PCP - General Internal Medicine 02/03/22 Body Shop Floorperson Relationship Specialty Start Date End Date Kvng Hurd MD [address] [place] [address] PCP - General Internal Medicine 02/03/22 Body Shop Floorperson Relationship Specialty Start Date End Date Kvng Hurd MD [address] [place] [address] PCP - General Internal Medicine 02/03/22 Body Shop Floorperson Relationship Specialty Start Date End Date Kvng Hurd MD [address] [place] [address] PCP - General Internal Medicine 02/03/22 Sanjuanita Nash APRN.CNS [address] [place] [address] Rehabilitation Team Lead Internal Medicine 06/23/24 Maria Guadalupe Syed APRN.SOFTWARE PERFORMANCE ENGINEER [address] [place] [address] [facility] Internal Medicine 06/23/24 Body Shop Floorperson Relationship Specialty Start Date End Date Kvng Hurd MD [address] [place] [address] PCP - General Internal Medicine 02/03/22 Sanjuanita Nash, SENIOR TECHNICAL MANAGER.CLINICAL MENTAL HEALTH COUNSELOR [address] [place] [address] [facility] Internal Medicine 06/23/24 Maria Guadalupe Syed SENIOR TECHNICAL MANAGER.SOFTWARE PERFORMANCE ENGINEER [address] [place] [address] [facility] Internal Medicine 06/23/24 Body Shop Floorperson Relationship Specialty Start Date End Date Kvng Hurd MD [address] [place] [address] PCP - General Internal Medicine 02/03/22 Sanjuanita Nash, SENIOR TECHNICAL MANAGER.CLINICAL MENTAL HEALTH COUNSELOR [address] [place] [address] Rehabilitation Team Lead Internal Medicine 06/23/24 Maria Guadalupe Syed SENIOR TECHNICAL MANAGER.SOFTWARE PERFORMANCE ENGINEER [address] [place] [address] [facility] Internal Medicine 06/23/24 Body Shop Floorperson Relationship Specialty Start Date End Date Kvng Hurd MD [address] [place] [address] PCP - General Internal Medicine 02/03/22 Sanjuanita Nash, SENIOR TECHNICAL MANAGER.CLINICAL MENTAL HEALTH COUNSELOR [address] [place] [address] Rehabilitation Team Lead Internal Medicine 06/23/24 Maria Guadalupe Syed APRN.SOFTWARE PERFORMANCE ENGINEER [address] [place] [address] Rehabilitation Team Lead Internal Medicine 06/23/24 Body Shop Floorperson Relationship Specialty Start Date End Date Kvng Hurd MD [address] [place] [address] PCP - General Internal Medicine 02/03/22 Sanjuanita Nash, SENIOR TECHNICAL MANAGER.CLINICAL MENTAL HEALTH COUNSELOR [address] [place] [address] Rehabilitation Team Lead Internal Medicine 06/23/24 Maria Guadalupe Syed SENIOR TECHNICAL MANAGER.SOFTWARE PERFORMANCE ENGINEER [address] [place] [address] Rehabilitation Team Lead Internal Medicine 06/23/24 Body Shop Floorperson Relationship Specialty Start Date End Date Kvng Hurd MD [address] [place] [address] PCP - General Internal Medicine 02/03/22 Sanjuanita Nash, SENIOR TECHNICAL MANAGER.CLINICAL MENTAL HEALTH COUNSELOR [address] [place] [address] Rehabilitation Team Lead Internal Medicine 06/23/24 Maria Guadalupe Syed SENIOR TECHNICAL MANAGER.SOFTWARE PERFORMANCE ENGINEER [address] [place] [address] Rehabilitation Team Lead Internal Medicine 06/23/24 Body Shop Floorperson Relationship Specialty Start Date End Date Kvng Hurd MD [address] [facility] [place] [address] PCP - General Internal Medicine 02/03/22 Sanjuanita Nash APRN.CLINICAL MENTAL HEALTH COUNSELOR [address] [facility] [place] [place] [address] Rehabilitation Team Lead Internal Medicine 06/23/24 Maria Guadalupe Syed APRN.SOFTWARE PERFORMANCE ENGINEER [address] [facility] [place] [address] Rehabilitation Team Lead Internal Medicine 06/23/24 Body Shop Floorperson Relationship Specialty Start Date End Date Kvng Hurd MD [address] [facility] [place] [address] PCP - General Internal Medicine 02/03/22 Sanjuanita Nash SENIOR TECHNICAL MANAGER.CLINICAL MENTAL HEALTH COUNSELOR [address] [facility] [place] [place] [address] Rehabilitation Team Lead Internal Medicine 06/23/24 Maria Guadalupe Syed APRN.SOFTWARE PERFORMANCE ENGINEER [address] [facility] [place] [address] Rehabilitation Team Lead Internal Medicine 06/23/24 Body Shop Floorperson Relationship Specialty Start Date End Date Kvng Hurd MD [address] [facility] [place] [address] PCP - General Internal Medicine 02/03/22 Sanjuanita Nash APRN.CLINICAL MENTAL HEALTH COUNSELOR [address] [facility] [place] [address] Rehabilitation Team Lead Internal Medicine 06/23/24 Maria Guadalupe Syed APRN.SOFTWARE PERFORMANCE ENGINEER [address] [facility] [place] [address] [facility] Internal Medicine 10/07/24 Team Status: Active Member Role Status Dates Dr. Kvng Hurd MD Primary Care Provider Active Team Status: Inactive Member Role Status Dates Dr. Kvng Hurd MD Primary Care Provider Active Start: August 13, 2024 End: August 13, 2024 Dr. Kvng Hurd MD Referring Provider Active Start: August 13, 2024 End: August 13, 2024 PILAR Castellano Attending Provider Active Start: August 13, 2024 End: August 13, 2024 Team Status: Inactive Member Role Status Dates Dr. Kvng Hurd MD Primary Care Provider Active Start: September 19, 2024 End: September 19, 2024 Dr. Kvng Hurd MD Referring Provider Active Start: September 19, 2024 End: September 19, 2024 PILAR Castellano Attending Provider Active Start: September 19, 2024 End: September 19, 2024 Team Status: Inactive Member Role Status Dates Dr. Kvng Hurd MD Primary Care Provider Active Start: October 22, 2024 End: October 22, 2024 PILAR Castellano Attending Provider Active Start: October 22, 2024 End: October 22, 2024 PILAR Castellano Referring Provider Active Start: October 22, 2024 End: October 22, 2024 Body Shop Floorperson Relationship Specialty Start Date End Date Kvng Hurd MD [address] [place], [place] [id number] PCP - General Internal Medicine 02/03/22 Sanjuanita Nash, SENIOR TECHNICAL MANAGER.CLINICAL MENTAL HEALTH COUNSELOR [address] [place], [place] [id number] [facility] Internal Medicine 06/23/24 Maria Guadalupe Syed, SENIOR TECHNICAL MANAGER.SOFTWARE PERFORMANCE ENGINEER [address] [place], [place] [id number] Rehabilitation Team Lead Internal Medicine 06/23/24 10/03/24 Maria Guadalupe Syed APRN.SOFTWARE PERFORMANCE ENGINEER [address] [facility] [place] [address] [facility] Internal Medicine 10/07/24 Body Shop Floorperson Relationship Specialty Start Date End Date Kvng Hurd MD [address] [facility] [place] [address] PCP - General Internal Medicine 02/03/22 Sanjuanita Nash SENIOR TECHNICAL MANAGER.CLINICAL MENTAL HEALTH COUNSELOR [address] [place] [address] [facility] Internal Medicine 06/23/24 Maria Guadalupe Syed APRN.SOFTWARE PERFORMANCE ENGINEER [address] [place] [address] [facility] Internal Medicine 06/23/24 Body Shop Floorperson Relationship Specialty Start Date End Date Kvng Hurd MD [address] [place] [address] PCP - General Internal Medicine 02/03/22 Sanjuanita Nash SENIOR TECHNICAL MANAGER.CLINICAL MENTAL HEALTH COUNSELOR [address] [place] [address] [facility] Internal Medicine 06/23/24 Maria Guadalupe Syed APRN.SOFTWARE PERFORMANCE ENGINEER [address] [place] [address] [facility] Internal Medicine 06/23/24 [employer] Shop Floorperson Relationship Specialty Start Date End Date Kvng Hurd MD [address] [place] [address] PCP - General Internal Medicine 02/03/22 Maria Guadalupe Syed APRN.SOFTWARE PERFORMANCE ENGINEER [address] [facility] [address] Rehabilitation Team Lead Internal Medicine 10/07/24 Saad Sanjuanita, BERT.CLINICAL MENTAL HEALTH COUNSELOR [address] [place] [address] [facility] Internal Medicine 12/03/24 Team Status: Inactive Member Role Status Dates Dr. Kvng Hurd MD Referring Provider Active Start: November 05, 2024 End: November 05, 2024 PILAR Castellano Attending Provider Active Start: November 05, 2024 End: November 05, 2024 Team Status: Inactive Member Role Status Dates Dr. Ralph Barrett DO Attending Provider Active Start: January 07, 2025 End: January 07, 2025 Dr. Kvng Hurd MD Primary Care Provider Active Start: January 07, 2025 End: January 07, 2025 Dr. Kvng Hurd MD Referring Provider Active Start: January 07, 2025 End: January 07, 2025 Team Status: Active Member Role Status Dates Dr. Ralph Barrett DO Attending Provider Active Start: January 07, 2025 Dr. Ralph Barrett DO Other Provider Active St art: January 07, 2025 Dr. Kvng Hurd MD Primary Care Provider Active Start: January 07, 2025 Dr. Kvng Hurd MD Referring Provider Active Start: January 07, 2025 Goals (unrecognized section and content) Goals may be documented in a n alternate section FOR RECORDS PERTAINING TO PATIENTS WHO ARE OR HAVE BEEN ENROLLED IN A CHEMICAL DEPENDENCY/SUBSTANCEABUSE PROGRAM, SOME INFORMATION MAY BE OMITTED. This clinical summary was aggregated from multiple sources. Caution should be exercised in using it in the provision of clinical care. This summary normalizes information from multiple sources, and as a consequence, information in this document may materially change the coding, format and clinical context of patient data. In addition, data may be omitted in some cases. CLINICAL DECISIONS SHOULD BE BASED ON THE PRIMARY CLINICAL RECORDS. [facility]. provides no warranty or guarantee of the accuracy or completeness of information in this document.
== END 2025-01-07 15:10 | disposition home or self-care (01) ==
LOC: EN 11:58 → AC 11:59
PROVIDERS: Anesthesiology; PCP Internal Medicine; Referring Provider Internal Medicine; Visit Provider Internal Medicine Gastroenterology
PROC: 0DJD8ZZ Inspection of Lower Intestinal Tract, Via Natural or Artificial Opening Endoscopic (ICD-10-PCS; CPT 45378; principal; 2025-01-07 12:40)
DX: K58.0 Irritable bowel syndrome with diarrhea (principal); K63.89 Other specified diseases of intestine; R14.0 Abdominal distension (gaseous); K59.01 Slow transit constipation; Z86.14 Personal history of Methicillin resistant Staphylococcus aureus infection; F41.9 Anxiety disorder, unspecified
CPT/HCPCS: 45380; 81025; 88305; J2405

== ENCOUNTER 2025-01-09 10:49 | Emergency (ER) | payer BC, SELFPAY ==
[2025-01-09 10:50] VITALS: BP 129/91; PULSE 78; RESP 14; TEMP 36.6; O2SAT 98; BMI 24.7
[2025-01-09 11:19] VITALS: O2SAT 100
--- NOTE | 2025-01-09 11:41 | ED.VIS.DYS ---
HPI History of Present Illness Chief Complaint: Asthma Informant: patient Onset/Context/Timing Onset: Days Context: gradual Timing: Intermittent Quality: Positive for - (Chest heaviness and tightness) Worsened by: Nothing Relieved by: Nothing Associated Symptoms rhinorrhea; Negative for cough, post nasal drip, ear pain, fever, sore throat, chills, clear sputum, white sputum, yellow sputum or green sputum Chest Pain: Positive for Tightness (Heaviness) Narrative Narrative: Patient presents with shortness of breath and chest heaviness that has been getting worse over the past couple days. Patient states it comes and goes. Patient states it comes on gradually. Patient states feels like she has heaviness across her chest. Patient states also feels tight. Patient admits to some rhinorrhea. Patient denies any cough. Patient states nothing makes it better and nothing makes it worse. Patient denies any fevers or chills. PE Risk Factors: Negative for Cancer, OCP + Smoking + > 35, Prior DVT or PE, Recent immobilization, Recent surgery or Recent travel PFSH [facility] Medical History Pyloric stenosis MRSA infection Anxiety Restless legs Leg cramps Non-smoker Irritable bowel syndrome without diarrhea Limb weakness Asthma Knee pain Home Medications ?Medication ?Instructions ?Recorded ?Last Taken ?Type sertraline 50 mg tablet (Zoloft) 50 mg PO DAILY 03/03/24 01/09/25 History lisdexamfetamine 20 mg capsule 20 mg PO QDAY 08/13/24 01/09/25 History (Vyvanse) Allergy/AdvReac Type Severity Reaction Status Date / Time albuterol (From DuoNeb) Allergy Mild Rash Verified 01/09/25 12:42 ipratropium (From DuoNeb) Allergy Mild Rash Verified 01/09/25 12:42 Penicillins Allergy Unknown other Verified 01/09/25 10:50 Surgical History Hx of LASIK History of surgery Social History Smoking Status: Never smoker ROS ROS ED Constitutional Constitutional ED: Denies chills or fever(s) Eyes Eyes: Denies blurry vision or change in vision ENT ENT ED: Denies rhinorrhea or sore throat Cardiovascular Cardiovascular: Reports chest pain; Denies palpitations Respiratory/Chest Respiratory/Chest: Reports dyspnea; Denies cough Gastrointestinal Gastrointestinal: Reports nausea; Denies vomiting Genitourinary Genitourinary ED: Denies dysuria or hematuria Musculoskeletal Musculoskeletal: Denies back pain or neck pain Integumentary Denies abscess or rash Neurologic Neurologic: Reports headache(s); Denies weakness Allergic/Immunologic Allergic/Immunologic ED: Denies mouth swelling or urticaria EXAM Physical Exam Const Vital Signs: 01/09/25 10:50 01/09/25 11:19 01/09/25 11:22 Temperature 98 F Temperature Source Temporal Pulse Rate 78 Respiratory Rate 14 Respiratory Effort Short of Breath Normal Respiratory Depth Normal Respiratory Pattern Normal Blood Pressure 129/91 H Blood Pressure Mean 103 Pulse Ox 98 Oxygen Delivery Method Room Air Room Air 01/09/25 12:03 01/09/25 12:50 01/09/25 14:00 Temperature Temperature Source Pulse Rate 75 94 84 Respiratory Rate 16 16 17 Respiratory Effort Respiratory Depth Respiratory Pattern Normal Blood Pressure 121/85 H 121/85 H Blood Pressure Mean 97 97 Pulse Ox 100 100 Oxygen Delivery Method Room Air Room Air Positive well nourished and well developed General Appearance ED: well developed and NAD HEENT Reports moist mucous membranes atraumatic Neck supple and no JVD Resp normal respiratory effort and clear to auscultation bilaterally Cardio regular rate and regular rhythm GI non-tender and non-distended Palpation: soft Neuro oriented x3, CN's II-XII intact bilaterally and no sensory deficits noted Ai Coma Scale: document GCS findings Spontaneous Obeys Commands Oriented 15 Sensorium / Orientation: alert Speech: speech normal Motor Exam: strength 5/5 throughout Psych mental status grossly normal MDM MDM MDM Narrative Medical decision making narrative: Differential diagnosis includes pneumonia, bronchitis, asthma, cardiac dysrhythmia, electrolyte abnormality, pulmonary embolism, and anxiety. EKG will be obtained to assess for cardiac dysrhythmia and cardiac ischemia. Chest x-ray will be obtained to assess for pneumonia or bronchitis. CBC will be obtained to assess for leukocytosis and anemia. Basic metabolic profile will be obtained to assess for electrolyte abnormality and renal function. D-dimer will be obtained to assess for pulmonary embolism. Lab Data Attestation: I reviewed the patient's lab results. Lab results narrative: CBC was reviewed and was within normal limits. Basic metabolic profile was reviewed and was within normal limits. D-dimer was reviewed and was less than 0.27. Serum hCG was reviewed and was negative. Labs: Laboratory Results - last 24 hr 01/09/25 12:00 WBC 5.5 RBC 4.48 Hgb 13.9 Hct 40.6 MCV 90.6 MCH 31.0 MCHC 34.2 RDW Std Deviation 38.6 RDW Coeff of Rosanna 11.6 Plt Count 239 MPV 10.3 Immature Gran % (Auto) 0.200 Neut % (Auto) 66.6 Lymph % (Auto) 23.9 Major % (Auto) 6.8 Eos % (Auto) 2.0 Baso % (Auto) 0.5 Absolute Neuts (auto) 3.6 Absolute Lymphs (auto) 1.31 Nucleated RBC % 0 D-Dimer Quant (PE/DVT) < 0.27 L Sodium 138 Potassium 4.1 Chloride 104 Carbon Dioxide 24.7 Anion Gap 10 BUN 9 Creatinine 0.75 Estim Creat Clear Calc 101.39 Est GFR (MDRD) Non-Af 113 BUN/Creatinine Ratio 12.6 Glucose 90 Calcium 9.5 Serum , Qual NEGATIVE Radiography Chest X-Ray - ED: 2 View, Read by ED Physician, Read by Radiologist and No Acute Disease Diagnostic Testing: Clinical Impression(s) from Imaging Studies Chest X-Ray 01/09/25 11:46 IMPRESSION: NO ACUTE FINDINGS. Reading Location: [facility] [place] and lateral chest x-ray was obtained. There are 2 views. On my independent interpretation, lung ortega are clear. There is normal cardiac silhouette. Bony thorax is normal. There is no acute process noted. Radiologist also interpreted the x-ray and agrees. EKG Initial EKG: Attestation: I personally reviewed and interpreted this EKG as follows: Interpretation: Sinus Rhythm (75) and No Acute Injury Pattern Comments: EKG was obtained. On my independent interpretation, it showed a normal sinus rhythm with a rate of 75. FL interval, QRS interval, and QTc intervals were all normal. [place] was normal. There are no acute ST or T wave changes. Prior EKG tracings: not available for review Prior: No Prior Treatment and Re-Evaluation :: Patient is given a DuoNeb aerosol here. Patient started having hives after her DuoNeb aerosol. Because of this, patient was given a dose of Benadryl. Patient was feeling better on reevaluation. Patient was advised of her findings. Patient was instructed to follow-up with her primary care physician in 5 to 7 days. Patient was instructed to return if worse in any way. Patient understood and was agreeable with the plan. All questions were answered. Discharge Plan Triage Chief Complaint: Asthma ED Provider: Zbigniew Bettencourt Dx/Rx/DC Orders Clinical Impression: Dyspnea, Elevated blood pressure reading without diagnosis of hypertension Instructions: ED Dyspnea Prescriptions: No Action sertraline [Zoloft] 50 mg tablet 50 mg PO DAILY lisdexamfetamine [Vyvanse] 20 mg capsule 20 mg PO QDAY Primary Care Provider: Madison Liao Referrals: Madison Liao MD [Primary Care Provider] - 5-7 Days Print Language: Tunisian Disposition Disposition: Home, Self Care
--- NOTE | 2025-01-09 11:46 | RAD_ITS ---
PROCEDURE: CHEST PA AND LATERAL 01/09/2025 REASON FOR EXAM: DYSPNEA TECHNIQUE: CHEST PA AND LATERAL COMPARISON: None FINDINGS: Hardware: EKG electrodes are seen Heart: The heart size is normal. Mediastinum: The mediastinal contour is unremarkable. Lungs: The lungs are clear. Bones: The bones are unremarkable. RAD/Chest PA and Lateral IMPRESSION: NO ACUTE FINDINGS. Reading Location: [id number]
[2025-01-09 12:03] VITALS: PULSE 75; RESP 16
[2025-01-09] MEDS: Ipratropium/Albuterol Sulfate 3 ML AMPUL.NEB INHALATION (12:05)
[2025-01-09 12:12] LABS: Absolute Lymphocyte Count 1.31 X10^3/uL (0.83-4.51); Absolute Neutrophil Count 3.6 X10^3/uL (2.0-7.7); Basophil# 0.03 X10^3/uL; Basophil% 0.5 % (0-1); Eosinophil# 0.11 X10^3/uL; Hematocrit 40.6 % (37-47); Hemoglobin 13.9 g/dL (12.0-15.0); Lymphocyte # 1.31 X10^3/ul (0.83-4.51); Lymphocyte % 23.9 % (19-41); Mean Corp Hgb Conc 34.2 g/dL (32-36); Mean Corpuscular Volume 90.6 fL (81-99); Mean Platelet Vol. 10.3 fl (6.2-12.0); Monocyte# 0.37 X10^3/uL; Monocyte% 6.8 % (0-10); NRBC Flagged by Analyzer 0 % (0-5); Neutrophil # 3.64 X10^3/uL (2.7-7.7); Neutrophil % 66.6 % (47-70); Platelet Count 239 K/mm3 (150-450); RBC Distribution Width CV 11.6 % (11.6-14.6); RBC Distribution Width SD 38.6 fl (35.1-43.9); Red Blood Count 4.48 M/mm3 (4.2-5.4); White Blood Count 5.5 K/mm3 (4.4-11.0)
[2025-01-09 12:21] LABS: Internal QC Validated? YES +Cl - CLEAR BKGD; Pregnancy, Serum, hCG Quali. NEGATIVE Negative
[2025-01-09 12:29] LABS: D-Dimer Quantitative (DVT/PE) < 0.27 FEU/ug/m (0.27-0.49)
[2025-01-09] MEDS: DiphenhydrAMINE 50 MG/ML Syringe 25 MG IV (12:34)
[2025-01-09 12:37] LABS: Anion Gap 10 (5-15); BUN 9 mg/dL (4-19); BUN/Creat Ratio 12.6 RATIO (10-20); Calcium,Total 9.5 mg/dL (7.6-11.0); Carbon Dioxide 24.7 mmol/L (21.0-32.0); Chloride 104 mmol/L (98-108); Creatinine, Serum 0.75 mg/dL (0.70-1.20); EST Glomerular Filtration Rate 113 (>60); Estimated Creatinine Clearance 101.39 ml/min (50-250); Glucose 90 mg/dL (70-99); Potassium 4.1 mmol/L (3.3-5.1); Sodium Level 138 mmol/L (133-145)
--- NOTE | 2025-01-09 12:38 | ED.RN ---
SOM INFORMED BY RT THAT PATIENT IS EXPERIENCING HIVES ON CHEST AND MILD TACHYCARDIA AFTER DUONEB. DR. MOJICA INFORMED, ORDERS FOLLOWED.
[2025-01-09 12:50] VITALS: BP 121/85; PULSE 94; RESP 16; O2SAT 100
[2025-01-09 14:00] VITALS: BP 121/85; PULSE 84; RESP 17; O2SAT 100
[2025-01-09 14:30] VITALS: BP 122/78; PULSE 82; RESP 16; TEMP 36.6; O2SAT 100
== END 2025-01-09 14:30 | disposition home or self-care (01) ==
PROVIDERS: Emergency Provider Emergency Medicine; PCP Internal Medicine; Visit Provider Emergency Medicine
DX: R06.00 Dyspnea, unspecified (principal); R03.0 Elevated blood-pressure reading, without diagnosis of hypertension; F41.9 Anxiety disorder, unspecified; R51.9 Headache, unspecified; R11.0 Nausea; R07.9 Chest pain, unspecified
CPT/HCPCS: 71046; 80048; 84703; 85025; 85379; 93005; 94640; 96374; 99285; A4216